=== PATIENT | female | born 1955 | race Caucasian/White ===

== ENCOUNTER 2016-07-15 15:25 | Inpatient (IN) ==
[2016-07-15] MEDS ORDERED: ASPIRIN 325 MG TABLET PO STA (16:27)
[2016-07-15] MEDS ORDERED: SODIUM CHLORIDE 0.9% 500 ML IV STA (16:27)
[2016-07-15] MEDS ORDERED: ONDANSETRON 4 MG/2 ML VIAL IV STA (16:27)
[2016-07-15] MEDS ORDERED: NITROGLYCERIN 2% OINT 1 INCH/GM PACK TOP STA (16:27)
[2016-07-15] MEDS ORDERED: ENOXAPARIN 100 MG/ML SYRINGE SUBCUT STA (16:27)
--- NOTE | 2016-07-15 16:31 | EKG Report ---
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
[2016-07-15] MEDS ORDERED: ONDANSETRON 4 MG/2 ML VIAL ONE (16:33)
[2016-07-15] MEDS ORDERED: NITROGLYCERIN 2% OINT 1 INCH/GM PACK TOP ONE (16:33)
[2016-07-15] MEDS ORDERED: ENOXAPARIN 80 MG/0.8 ML SYRINGE SUBCUT ONE (16:33)
[2016-07-15] MEDS ORDERED: ASPIRIN 325 MG TABLET ONE (16:34)
[2016-07-15 16:35] LABS: Basophils # 0.1 10*3/uL (0.0-0.2); Basophils % 0.5 % (0.0-0.8); Eosinophils # 0.1 10*3/uL (0.0-0.87); Eosinophils % 0.7 % (0.00-10.9); Hematocrit 47.2 VOL% (35.7-47.0); Hemoglobin 15.4 GM/DL (12.0-16.0); Immature Granulocytes % 0.8 %; Immature Granulocytes Absolute 0.08 #; Lymphocytes # 5.4 10*3/uL (1.4-4.0); Lymphocytes % 51.5 % (21.3-54.2); Mean Corpuscular HGB Conc 32.6 GM/DL (32-36); Mean Corpuscular Hemoglobin 27 PG (27-34); Mean Corpuscular Volume 83.2 FL (87-102); Monocytes # 0.7 10*3/uL (0.11-0.8); Monocytes % 6.3 % (1.7-12.7); Neutrophils # 4.2 10*3/uL (1.4-7.4); Neutrophils % 40.2 % (38.7-73.9); Platelet Count 269 T/CUMM (130-400); Red Blood Count 5.67 MC/CUMM (3.8-5.5); Red Cell Distribution Width 14.1 % (9.3-17.3); White Blood Count 10.4 T/CUMM (4-12)
[2016-07-15 16:39] LABS: Apearance,Urine Slightly Hazy (Clear); Bilirubin,Urine Negative (Negative); Blood, Urine Negative (Negative); Glucose,Urine (UA) >=500 mg/dL (Negative); Hyaline Casts,Urine 1 /LPF (0-3); Ketones,Urine Negative (Negative); Mucus,Urine Occasional /LPF (Occasional); Nitrite,Urine Negative (Negative); PT Patient Result 10.7 SECS; Protein,Urine >=500 MG/DL; RBC,Urine 6 /HPF (0-4); Squamous Epithelial Cell,Urine Occasional /HPF (0-10); Urine Color Amber (Yellow); Urine Urobilinogen < 2.0 EU/DL (0.2-1.0); WBC,Urine 5 /HPF (0-6)
[2016-07-15 16:44] LABS: Barbiturates Screen,Urine Negative (Negative); Benzodiazepines Screen,Urine Positive (Negative); Cannabinoid Screen,Urine Negative (Negative); Opiate Screen,Urine Positive (Negative); Phencyclidine Screen,Urine Negative (Negative)
[2016-07-15 16:48] LABS: Alanine Aminotransferase 13 U/L (13-56); Albumin 2.9 G/DL (3.4-5.0); Alkaline Phosphatase 131 U/L (45-117); Aspartate Amino Transferase 17 U/L (0-37); Bilirubin,Total < 0.39 MG/DL (0.2-1.0); Blood Urea Nitrogen 12 MG/DL (7-18); Calcium 8.8 MG/DL (8.5-10.1); Glucose 199 MG/DL (74-106); Potassium 4.2 MMOL/L (3.5-5.1); Sodium 136 MMOL/L (136-145); Total Protein 6.9 G/DL (6.4-8.3)
--- NOTE | 2016-07-15 16:49 | XRay Report ---
Portable chest Date: 07/15/2016 Clinical history: Chest pain Comparison: 12/26/2007 Technique: Portable AP sitting chest Findings: The heart is normal in size. Chronic scarring in the lungs with stable mediastinum and osseous structures. Impression: No acute cardiopulmonary pathology identified. PROCEDURE INTERPRETED AT [facility] DEPARTMENT OF RADIOLOGY Final Report Signed by: Dr. Ute Westbrook
[2016-07-15 16:55] LABS: Magnesium 1.8 MG/DL (1.8-2.4)
[2016-07-15] MEDS ORDERED: KETOROLAC 30 MG/1 ML VIAL ONE (17:50)
[2016-07-15] MEDS ORDERED: KETOROLAC 30 MG/1 ML VIAL IV STA (18:03)
--- NOTE | 2016-07-15 18:21 | Emergency Department Note ---
Panfilo Moreno Gwan, am scribing for, and in the presence of, Sanket Ansari MD 16:27. Elan Moreno Robert M, MD, personally performed the services described in this documentation, ascribed by Carlitos Whittaker in my presence, and it is both accurate and complete 751 . Arrival - Arrival Chief Complaint: Chest Pain Stated Complaint: pain in legs,chest tightness,heaviness,dehydrated ED Nursing Triage Note: Pt c/o Fl[place] leg pain, chest heaviness, Nausea, SOB, and ? dehydration x 2 wks. Had blood work done today at clinic told she was dehydrated. Mode of Arrival: Ambulatory Limitations: No Limitations Source: Patient, Significant other, Old Records Reviewed, RN Notes Reviewed - History of Present Illness HPI Narrative: Pt is a 60 y/o female, with a hx of HTN and heart cath, who presents to the ED with a c/o chest pain and pain in bilateral lower extremities with an onset 2 weeks ago. Her associated sxs have been N/D. She describes her chest pain as the feeling that she has bricks sitting on her chest. Patient stated that she was present at PCP office yesterday due to bilateral LE pain. She continued to note that she received a call from PCP office today stating that her lab work was abnormal and that she needed to report to ED for further evaluation. Pt's stated that pt took a Phenergan with little relief. Patient is followed by Dr. Dipesh Ibrahim, Dr. Murillo and her PCP is MAGDALENA Bowie. No other problems/complaints reported in ED. Pt has a SHx of smoking cigarettes. She has a PMHx of IDDM. Onset (ago): week(s) Consistency: constant Severity: moderate Allergies/Adverse Reactions: Allergies Allergy/AdvReac Type Severity Reaction Status Date / Time codeine Allergy Agitated Verified 01/22/15 12:01 latex Allergy BLISTER Verified 01/22/15 12:01 morphine Allergy Agitated Verified 01/22/15 12:01 prednisone Allergy SHORTNESS Verified 01/22/15 12:01 OF BREATH Home Medications: Home Medications Medication Instructions Recorded Confirmed Type Escitalopram [Lexapro] 10 mg PO DAILY 07/15/16 07/15/16 History Gabapentin 300 mg PO TID 07/15/16 07/15/16 History HYDROcodone/ACETAMIN 10-325 [[place] 1 tablet PO QID 07/15/16 07/15/16 History 10-325] Lisinopril 10 mg PO DAILY 07/15/16 07/15/16 History Nitroglycerin Sl Tab [Nitrostat] 0.4 mg SL Q5M PRN 07/15/16 07/15/16 History Omeprazole [Prilosec] 20 mg PO DAILY 07/15/16 07/15/16 History Promethazine Tab [Phenergan Tab] 25 mg PO Q4-6H PRN 07/15/16 07/15/16 History tiZANidine [Zanaflex] 4 mg PO BID 07/15/16 07/15/16 History Review of System - Review of System 12 point system: reviewed and no additional remarkable complaints except as stated - Review of System Constitutional: Absent: chills, fever Eyes: Absent: discharge, pain Head/Ears/Nose/Throat: Absent: earache, epistaxis Respiratory: Absent: cough, respiratory distress Cardiovascular: Present: as per HPI, chest pain Gastrointestinal: Present: as per HPI, nausea, diarrhea. Absent: abdominal pain Musculoskeletal: Present: as per HPI, leg pain (both legs hurt ). Absent: arm pain, back pain Skin: Absent: rash, lesions Neurological: Absent: headache, weakness Medical,Surgical,& Family Hx - Medical History Cardio: History of: CAD (Dr Murillo), Hypertension Endocrine: History of: Diabetes Mellitus (IDDM) - Surgical History Cardiac Surgeries: Sugical HX of: Cardiac Catheterization (stent) - Social History Smoking Status: Current every day smoker Exam Vital Signs: Vital Signs Temperature 98.0 F 07/15/16 15:34 Pulse Rate 71 07/15/16 19:13 Respiratory Rate 17 07/15/16 19:13 Blood Pressure 176/99 07/15/16 19:13 O2 Sat by Pulse Oximetry 96 07/15/16 15:34 - General General appearance: alert, in no apparent distress - Head Head exam: Present: atraumatic, normocephalic - Eye Eye exam: Present: normal appearance, PERRL, EOMI - ENT ENT exam: Present: normal oropharynx, mucous membranes moist, TM's normal bilaterally, normal external ear exam - Neck Neck exam: Present: full ROM, trachea midline. Absent: tenderness, meningismus - Chest Chest inspection: Present: symmetric chest wall rise. Absent: tenderness - Respiratory Respiratory exam: Present: normal lung sounds bilaterally. Absent: respiratory distress - Cardiovascular Cardiovascular exam: Present: regular rate, normal rhythm, normal heart sounds. Absent: murmur, rubs, gallop - Abdominal Exam Abdominal exam: Present: soft, normal bowel sounds. Absent: distention, tenderness, guarding - Extremities Exam Extremities exam: Present: full ROM. Absent: tenderness - Back Exam Back exam: Present: normal inspection, full ROM. Absent: tenderness - Neurological Exam Neurological exam: Present: alert, oriented X3, CN II-XII intact. Absent: motor sensory deficit - Psychiatric Psychiatric exam: Present: normal affect, normal mood - Skin Skin exam: Present: warm, dry, intact, normal color Course - Consultations Consultation #1: The hospitalist will evaluate and admit the patient. Time: 18:15 Results - Labs CBC & BMP: 07/15/16 16:02 07/15/16 16:02 Lab Results: I have reviewed the patients labs Labs: Lab Results WBC 10.4 T/CUMM (4-12) 07/15/16 16:02 RBC 5.67 MC/CUMM (3.8-5.5) H 07/15/16 16:02 Hgb 15.4 GM/DL (12.0-16.0) 07/15/16 16:02 Hct 47.2 VOL% (35.7-47.0) H 07/15/16 16:02 MCV 83.2 FL (87-102) L 07/15/16 16:02 MCH 27 PG (27-34) 07/15/16 16:02 MCHC 32.6 GM/DL (32-36) 07/15/16 16:02 RDW 14.1 % (9.3-17.3) 07/15/16 16:02 Plt Count 269 T/CUMM (130-400) 07/15/16 16:02 MPV 11.0 FL (9.6-12.0) 07/15/16 16:02 Neut % (Auto) 40.2 % (38.7-73.9) 07/15/16 16:02 Lymph % (Auto) 51.5 % (21.3-54.2) 07/15/16 16:02 [place] % (Auto) 6.3 % (1.7-12.7) 07/15/16 16:02 Eos % (Auto) 0.7 % (0.00-10.9) 07/15/16 16:02 Baso % (Auto) 0.5 % (0.0-0.8) 07/15/16 16:02 Neut # (Auto) 4.2 10*3/uL (1.4-7.4) 07/15/16 16:02 Lymph # (Auto) 5.4 10*3/uL (1.4-4.0) H 07/15/16 16:02 [place] # (Auto) 0.7 10*3/uL (0.11-0.8) 07/15/16 16:02 Eos # (Auto) 0.1 10*3/uL (0.0-0.87) 07/15/16 16:02 Baso # (Auto) 0.1 10*3/uL (0.0-0.2) 07/15/16 16:02 Immature Gran % 0.8 % 07/15/16 16:02 Nucleated RBC % 0.0 /100WBC 07/15/16 16:02 Immature Gran # 0.08 # 07/15/16 16:02 Nucleated RBCs # 0.00 10*3/uL 07/15/16 16:02 INR 1.0 07/15/16 16:02 PT Patient/Control Mix 10.7 SECS 07/15/16 16:02 Sodium 136 MMOL/L (136-145) 07/15/16 16:02 Potassium 4.2 MMOL/L (3.5-5.1) 07/15/16 16:02 Chloride 102 MMOL/L (98-107) 07/15/16 16:02 Carbon Dioxide 25 MMOL/L (21-32) 07/15/16 16:02 Anion Gap 13.2 MMOL/L (5.0-15.0) 07/15/16 16:02 BUN 12 MG/DL (7-18) 07/15/16 16:02 Creatinine 0.60 MG/DL (0.55-1.02) 07/15/16 16:02 GFR Calculation 110 ML/MIN 07/15/16 16:02 BUN/Creatinine Ratio 20.00 RATIO (6.00-20.00) 07/15/16 16:02 Glucose 199 MG/DL (74-106) H 07/15/16 16:02 Calculated Osmolality 277.0 MOS/KG (273-304) 07/15/16 16:02 Calcium 8.8 MG/DL (8.5-10.1) 07/15/16 16:02 Magnesium 1.8 MG/DL (1.8-2.4) 07/15/16 16:02 Total Bilirubin < 0.39 MG/DL (0.2-1.0) 07/15/16 16:02 AST 17 U/L (0-37) 07/15/16 16:02 ALT 13 U/L (13-56) 07/15/16 16:02 Alkaline Phosphatase 131 U/L (45-117) H 07/15/16 16:02 Troponin I < 0.015 NG/ML (0.00-0.045) 07/15/16 16:02 B-Natriuretic Peptide 161 PG/ML (2-100) H 07/15/16 16:02 Total Protein 6.9 G/DL (6.4-8.3) 07/15/16 16:02 Albumin 2.9 G/DL (3.4-5.0) L 07/15/16 16:02 Globulin 4.0 G/DL (2.3-3.5) H 07/15/16 16:02 Albumin/Globulin Ratio 0.7 RATIO (1.1-2.2) L 07/15/16 16:02 Lipase 69.0 U/L (73-393) L 07/15/16 16:02 Urine Color [place] (Yellow) 07/15/16 16:02 Urine Appearance Slightly hazy (Clear) 07/15/16 16:02 Urine pH 5.0 (4.5-8.0) 07/15/16 16:02 Ur Specific [place] 1.040 (1.001-1.035) H 07/15/16 16:02 Urine Protein >=500 MG/DL 07/15/16 16:02 Urine Glucose (UA) >=500 mg/dL (Negative) 07/15/16 16:02 Urine Ketones Negative mg/dL (Negative) 07/15/16 16:02 Urine Blood Negative mg/dL (Negative) 07/15/16 16:02 Urine Nitrate Negative (Negative) 07/15/16 16:02 Urine Bilirubin Negative mg/dL (Negative) 07/15/16 16:02 Urine Urobilinogen < 2.0 EU/DL (0.2-1.0) H 07/15/16 16:02 Urine Leukocytes Negative Stefania/ul (Negative) 07/15/16 16:02 Urine RBC 6 /HPF (0-4) 07/15/16 16:02 Urine WBC 5 /HPF (0-6) 07/15/16 16:02 Ur Squamous Epith Cells Occasional /HPF (0-10) 07/15/16 16:02 Hyaline Casts 1 /LPF (0-3) 07/15/16 16:02 Urine Mucus Occasional /LPF (Occasional) 07/15/16 16:02 Ur Culture Indicated? Not indicated 07/15/16 16:02 Urine Opiates Screen Positive (Negative) H 07/15/16 16:02 Ur Barbiturates Screen Negative (Negative) 07/15/16 16:02 Ur Phencyclidine Scrn Negative (Negative) 07/15/16 16:02 U Amphetamine/Methamph Negative (Negative) 07/15/16 16:02 U Benzodiazepines Scrn Positive (Negative) H 07/15/16 16:02 U Cocaine Metab Screen Negative (Negative) 07/15/16 16:02 U Cannabinoids Screen Negative (Negative) 07/15/16 16:02 - EKG EKG results: interpreted by GAIL, WNL, sinus rhythm, normal axis, normal QRS - Diagnostic Findings Procedure: Chest x-ray: report reviewed by me Disposition Clinical Impression: Atypical chest pain, Bilateral leg pain, Peripheral neuropathy, IDDM (insulin dependent diabetes mellitus) Case discussed with: patient, patient's family Disposition: Still a Patient Condition: Stable Time of Disposition: 17:53
[2016-07-15] MEDS ORDERED: HYDROmorphone 2 MG/1 ML VIAL IV STA (19:25)
[2016-07-15] MEDS ORDERED: HYDROmorphone 2 MG/1 ML VIAL ONE (19:27)
--- NOTE | 2016-07-15 19:28 | Hospitalist History & Physical ---
Assessment and Plan - Time spent with patient Time spent with patient: Greater than 30 minutes (1) Chest pain Status: Acute Assessment and plan: Serial troponins. Consult Cards. Current Visit: Yes (2) Bilateral leg pain Status: Acute Assessment and plan: Will start ropinirole. Will order an arterial duplex lower extremity in addition to evaluating for DVT. Current Visit: Yes (3) IDDM (insulin dependent diabetes mellitus) Status: Acute Assessment and plan: SSI and accuchecks Current Visit: Yes (4) Peripheral neuropathy Status: Acute Assessment and plan: Reconcile home meds. Current Visit: Yes History of Present Illness Chief complaint: chest pain x 2 days History of present illness: Ms. See is a 60 year old female with medical history of diabetes mellitus, HTN presents with complaints of chest pain for two days. She states the pain is left-sided, no radiation, 8 out of 10 at its worse, 5 out of 10 currently, pressure-like, as if something were sitting on her chest, associated with nausea vomiting and shortness of breath. Relieved by nitro and aggravated by exertion. While in the ED the patient received nitroglycerin with relief of chest pain and development of a headache. Patient saw her PCP with complaints of lower extremity pain with day of admission, had some blood drawn and when she returned home was told her blood was abnormal and to return to the ER. She currently complains of back pain, leg pain, chest pain, and no longer has nausea , vomiting or shortness of breath. Denies any fevers, chills. While in the ER the patient received a nitro tab, had relief of chest pain, however has developed a HAMILTON. Home Medications Medication Instructions Recorded Confirmed Type Escitalopram [Lexapro] 10 mg PO DAILY 07/15/16 07/15/16 History Gabapentin 300 mg PO TID 07/15/16 07/15/16 History HYDROcodone/ACETAMIN 10-325 [[place] 1 tablet PO QID 07/15/16 07/15/16 History 10-325] Lisinopril 10 mg PO DAILY 07/15/16 07/15/16 History Nitroglycerin Sl Tab [Nitrostat] 0.4 mg SL Q5M PRN 07/15/16 07/15/16 History Omeprazole [Prilosec] 20 mg PO DAILY 07/15/16 07/15/16 History Promethazine Tab [Phenergan Tab] 25 mg PO Q4-6H PRN 07/15/16 07/15/16 History tiZANidine [Zanaflex] 4 mg PO BID 07/15/16 07/15/16 History Allergies Allergy/AdvReac Type Severity Reaction Status Date / Time codeine Allergy Agitated Verified 01/22/15 12:01 latex Allergy BLISTER Verified 01/22/15 12:01 morphine Allergy Agitated Verified 01/22/15 12:01 prednisone Allergy SHORTNESS Verified 01/22/15 12:01 OF BREATH Medical,Surgical,& Family Hx - Medical History Cardio: History of: CAD (Dr Murillo), Hypertension Endocrine: History of: Diabetes Mellitus (IDDM) - Surgical History Cardiac Surgeries: Sugical HX of: Cardiac Catheterization (stent) - Social History Smoking Status: Current every day smoker - Constitutional Constitutional: Present: headache(s). Absent: anorexia, chills, daytime sleepiness, excessive sweating, fatigue, fever(s), frequent falls, increased appetite, lethargy, malaise, night sweats, stops breathing during sleep, weakness, weight gain, weight loss - EENT Ears: Absent: ear discharge, tinnitus Nose, mouth and throat: Absent: dysphagia, epistaxis, lip swelling, nasal congestion - Cardiovascular Cardiovascular: Present: chest pain at rest, chest pain with activity, dyspnea, dyspnea on exertion. Absent: claudication, edema, orthopnea, palpitations - Respiratory Respiratory: Present: dyspnea, dyspnea on exertion. Absent: cough, hemoptysis, wheezing, snoring, pain on inspiration - Gastrointestinal Gastrointestinal: Absent: abdominal pain, bloating, change in bowel habits, coffee ground emesis, constipation, cramping, diarrhea, dyspepsia, dysphagia, early satiety, hematemesis, hematochezia, melena, nausea, odynophagia - Genitourinary Genitourinary: Absent: difficulty urinating, flank pain, hematuria, menorrhagia , urinary frequency, urinary hesitancy, urinary incontinence - Musculoskeletal Musculoskeletal: Present: back pain. Absent: joint swelling, limited range of motion, muscle cramps, muscle weakness - Neurological Neurological: Absent: abnormal gait, abnormal speech, behavioral changes, disequilibrium, dizziness, focal weakness, frequent falls, numbness - Psychiatric Psychiatric: Absent: anxiety, confusion, depression, difficulty concentrating, homicidal ideation, memory loss, suicidal ideation, visual hallucinations - Endocrine Endocrine: Absent: cold intolerance, fatigue, heat intolerance, polydipsia, polyphagia Exam - Constitutional Vitals: Period Temp Pulse Resp BP Sys/[place]umm[place] Pulse Ox Last 24 Hr 98.0 F 70-101 17-22 167-202/93-106 96 General appearance: no acute distress - Head Head exam: Present: normal inspection, normocephalic, atraumatic - Eye Eye exam: Present: EOMI. Absent: conjunctival injection, nystagmus Pupils: Present: SARAH, normal accommodation. Absent: constricted, dilated, fixed, irregular, unequal - ENT ENT exam: Present: normal exam. Absent: normal external ear exam, normal oropharynx - Neck Neck exam: Present: normal inspection. Absent: lymphadenopathy, meningismus, tenderness, thyromegaly - Respiratory Respiratory exam: Present: clear to auscultation bilaterally. Absent: rhonchi, wheezes - Cardiovascular Cardiovascular exam: Present: regular rate and rhythm. Absent: bradycardia, carotid bruit, gallop, irregular rhythm, rubs, systolic murmur - GI/Abdominal GI/Abdominal exam: Present: normal bowel sounds, soft. Absent: ascites, distended, firm, guarding, hypoactive bowel sounds, hernia, tenderness, rebound - Extremities Exam Extremities exam: Present: normal inspection. Absent: normal capillary refill, calf tenderness, edema Results - Labs CBC & BMP: 07/15/16 16:02 07/15/16 16:02 Lab Results: I have reviewed the past 24 hour labs
[2016-07-15] MEDS ORDERED: GLUCAGON 1 MG VIAL IM PRN (19:35)
[2016-07-15] MEDS ORDERED: DEXTROSE 50% 25 GM/50 ML VIAL IV PRN (19:35)
[2016-07-15] MEDS ORDERED: MORPHINE 2 MG/1 ML SYRINGE IV PRN (19:56)
[2016-07-15 20:00] LABS: Risk Ratio 22.69; VLDL CHOLESTEROL 89.6 MG/DL
--- NOTE | 2016-07-15 20:32 | Ultrasound Report ---
Exam: Bilateral lower extremity venous Doppler ultrasound Comparison: None Clinical history: Bilateral leg pain Technique: Duplex scan of the lower extremity veins using B-mode/grayscale scaled imaging and Doppler spectral analysis and color flow. Findings: Major venous structures of the lower extremities demonstrate a normal course and caliber. Normal color-flow study and spectral analysis. There is normal compression and augmentation of bilateral common femoral, superficial femoral and popliteal veins. The proximal bilateral greater saphenous veins appear to be patent. Impression: No evidence to suggest deep venous thrombosis within either lower extremity. Ultrasound images were captured and stored. PROCEDURE INTERPRETED AT [facility] DEPARTMENT OF RADIOLOGY Final Report Signed by: Dr. Ute Westbrook
--- NOTE | 2016-07-15 20:32 | Ultrasound Report ---
Exam: Carotid ultrasound Date: 07/15/2016 Comparison: None Technique: Duplex scans of the carotid and vertebral arteries using B-mode/Nice scale imaging and Doppler spectral analysis and color flow. Reason: Chest pain Findings: The right ICA measures 6.3 mm in diameter and the left ICA measures 5.8 mm in diameter. Color-flow documented in the visualized arteries. The peak systolic velocities are as follows: Right CCA: 61.6 cm/s Right ICA: 90.5 cm/s Right ECA: 172.1 cm/s Left CCA: 136.6 cm/s Left ICA: 92.6 cm/s Left ECA: 113.6 cm/s The peak systolic ICA/CCA velocity ratios are as follows: 1.5 on the right and 0.7 on the left. Antegrade flow is present in both vertebral arteries. Impression:[Less than 50% stenosis in both internal carotid arteries with heterogeneous plaque formation. Antegrade flow in both vertebral arteries.] The Society of Radiologists in Ultrasound consensus conference criteria was used. The Ultrasound images were captured and stored. PROCEDURE INTERPRETED AT [facility] DEPARTMENT OF RADIOLOGY Final Report Signed by: Dr. Ute Westbrook
[2016-07-15] MEDS ORDERED: NITROGLYCERIN SL 0.4 MG TABLET SL PRN (20:48)
[2016-07-15] MEDS: GABAPENTIN 300 MG CAPSULE PO SCH (21:46)
[2016-07-15] MEDS: tiZANidine 4 MG TABLET PO SCH (21:47)
[2016-07-15] MEDS: INSULIN LISPRO 100 UNIT/ML SUBCUT SCH (22:35)
[2016-07-16] MEDS: PROMETHAZINE 25 MG TABLET PO PRN ×3 (00:52→21:48)
[2016-07-16] MEDS: rOPINIRole 0.25 MG TABLET PO SCH ×2 (03:10→21:04)
[2016-07-16 04:48] LABS: Basophils # 0.1 10*3/uL (0.0-0.2); Basophils % 0.6 % (0.0-0.8); Eosinophils # 0.1 10*3/uL (0.0-0.87); Eosinophils % 1.2 % (0.00-10.9); Hematocrit 39.5 VOL% (35.7-47.0); Hemoglobin 12.9 GM/DL (12.0-16.0); Immature Granulocytes % 0.5 %; Immature Granulocytes Absolute 0.04 #; Lymphocytes # 4.8 10*3/uL (1.4-4.0); Mean Corpuscular HGB Conc 32.7 GM/DL (32-36); Mean Corpuscular Hemoglobin 27 PG (27-34); Mean Platelet Volume 11.4 FL (9.6-12.0); Monocytes # 0.7 10*3/uL (0.11-0.8); Monocytes % 8.8 % (1.7-12.7); Neutrophils # 2.2 10*3/uL (1.4-7.4); Neutrophils % 27.9 % (38.7-73.9); Platelet Count 220 T/CUMM (130-400); Red Blood Count 4.76 MC/CUMM (3.8-5.5); Red Cell Distribution Width 14.4 % (9.3-17.3); White Blood Count 7.8 T/CUMM (4-12)
[2016-07-16 05:17] LABS: Band Neutrophils 1 % (0-10); Eosinophils 2 % (0-10); Hypochromasia 1+; Lymphocytes 56 % (20-55); Segmented Neutrophils 35 % (50-85); Total Cells Counted 100
[2016-07-16 05:18] LABS: Atypical Lymphocytes Few; Platelet Estimate Adequate
[2016-07-16 05:19] LABS: Albumin 2.4 G/DL (3.4-5.0); Bilirubin,Total 0.6 MG/DL (0.2-1.0); Calcium 7.9 MG/DL (8.5-10.1); Magnesium 1.9 MG/DL (1.8-2.4); Osmolality,Calculated 289.5 MOS/KG (273-304); Phosphorous 5.2 MG/DL (2.5-4.9); Potassium 3.9 MMOL/L (3.5-5.1); Total Protein 5.6 G/DL (6.4-8.3)
[2016-07-16] MEDS: INSULIN LISPRO 100 UNIT/ML SUBCUT SCH ×4 (08:33→20:48)
--- NOTE | 2016-07-16 09:51 | EKG Report ---
Stationary ECG Study 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
--- NOTE | 2016-07-16 10:05 | Cardiology Consult Note ---
<Noemy Calix - Last Filed: 07/16/16 10:21> Assessment and Plan (1) Chest pain Status: Acute Assessment and plan: Patient's symptoms are typical for cardiac. Troponin has been negative 4. However, EKG does reveal ST changes inferolaterally. Patient's last heart catheterization was done in 2013. At that time, she had a lesion to RCA that measured 50-70%. This was treated medically. Circumflex stent was noted to be widely patent. At this time, patient will need heart catheterization this afternoon to rule out progression of her underlying coronary artery disease. Risk and benefits of procedure were reviewed with patient per Dr. Zeng. She verbalizes understanding of this and agrees to proceed. We will keep patient n.p.o. and plan for left heart catheterization this afternoon per Dr. Batista. Current Visit: Yes (2) Hypertension Status: Chronic Assessment and plan: This is suboptimally controlled. I have added beta-christopher. Will further adjust medications as needed. Current Visit: Yes (3) Hyperlipidemia Status: Chronic Assessment and plan: The panel reveals LDL of 288. Patient does not take statin at home. I have added Crestor at this time. Current Visit: Yes (4) IDDM (insulin dependent diabetes mellitus) Status: Chronic Assessment and plan: Defer management to hospital medicine. Current Visit: Yes (5) Peripheral neuropathy Status: Chronic Current Visit: Yes History of Present Illness - Data of Consult Patient: known to practice within the last 3 years Consult date: 07/16/16 Requesting Physician: Missael Cohen Primary care physician: Cathy Bowie - Consult Narrative Reason for consult: Chest pain History of present illness: Telemetry Tech: Dr. Murillo PCP: MAGDALENA Arreola Cardiology consult note: Chest pain Ms. See is a 60 year old female with known history of coronary artery disease , routinely followed by Dr. Murillo. Patient presented to the ER yesterday with complaints of chest discomfort. She has cardiac risk factors significant for hypertension, diabetes, known history of coronary artery disease, sedentary lifestyle, current everyday smoker (reports that she smokes 1 pack per day since approximately age 16). She has a past medical history diabetic neuropathy , restless leg syndrome and chronic pain syndrome. Patient's last heart catheterization was in 2013. At that time, she had a lesion to her proximal RCA that measured 50-70% and a second lesion to RCA that measured 30-50%. Her proximal circumflex stent was noted to be widely patent. RCA lesions were treated medically at that time. Patient was last seen by Gómez Bedolla NP November 2014. She is in her usual state of health until approximately 2 days ago when she began having left sided chest heaviness that radiates to her jaw and neck. She reports that this initiated while resting. However, it was made worse with activity and walking. Resting makes this better. She describes this pain as a heaviness. "It feels like something is sitting on my chest." She rates this an 8 out of 10. This is associated with shortness of breath, nausea and diaphoresis. She denies fever, chills, cough, heart racing and palpitations, lightheadedness, vomiting, abdominal pain, melena, orthopnea and PND. Yesterday , her chest pain worsened. She felt that it was best to come in for further evaluation. Patient was given nitro paste in the ER. She tells me that this made her chest heaviness better. However, it did not completely resolved. Chest x-ray did not reveal any acute cardiopulmonary processes. Patient has been admitted under hospitalist's service and housed on the telemetry floor. Cardiology has been consulted to further evaluate patient's chest pain. Of note, patient confirms easy fatigability and dyspnea on exertion. She also confirms mild ankle swelling. However, on exam this is minimal. Patient was seen and examined on telemetry. She states that her chest discomfort has gotten better. However she continues to have mild chest heaviness. She rates this a 2. Troponin has been negative [address] changes inferiolaterally. On exam, patient's chest is tender to palpation. However, she does not this is not the same pain she was experiencing. Will keep patient n.p.o. today and plan for left heart catheterization this afternoon per Dr. Batista. Risk and benefits of procedure were reviewed with patient per Dr. Zeng. Patient verbalizes understanding and has agreed to proceed with procedure. CC: Missael Cohen MD - Home Medications and Allergies Home Medications: Home Medications Medication Instructions Recorded Confirmed Type Escitalopram [Lexapro] 10 mg PO DAILY 07/15/16 07/15/16 History Gabapentin 300 mg PO TID 07/15/16 07/15/16 History HYDROcodone/ACETAMIN 10-325 [Somers 1 tablet PO QID 07/15/16 07/15/16 History 10-325] Lisinopril 10 mg PO DAILY 07/15/16 07/15/16 History Nitroglycerin Sl Tab [Nitrostat] 0.4 mg SL Q5M PRN 07/15/16 07/15/16 History Omeprazole [Prilosec] 20 mg PO DAILY 07/15/16 07/15/16 History Promethazine Tab [Phenergan Tab] 25 mg PO Q4-6H PRN 07/15/16 07/15/16 History tiZANidine [Zanaflex] 4 mg PO BID 07/15/16 07/15/16 History Allergies/Adverse Reactions: Allergies Allergy/AdvReac Type Severity Reaction Status Date / Time codeine Allergy Agitated Verified 01/22/15 12:01 latex Allergy BLISTER Verified 01/22/15 12:01 morphine Allergy Agitated Verified 01/22/15 12:01 prednisone Allergy SHORTNESS Verified 01/22/15 12:01 OF BREATH - Constitutional Constitutional: Absent: chills, fatigue, fever(s), headache(s), weakness, weight gain, weight loss - Cardiovascular Cardiovascular: Present: as per HPI, chest pain at rest, chest pain with activity, diaphoresis, dyspnea, dyspnea on exertion, edema, radiating jaw, neck or arm pain. Absent: claudication, lightheadedness, orthopnea, palpitations, PND - Respiratory Respiratory: Present: as per HPI, dyspnea, dyspnea on exertion. Absent: cough, hemoptysis, wheezing, snoring, pain on inspiration, change in phlegm color - Gastrointestinal Gastrointestinal: Present: as per HPI, nausea. Absent: abdominal pain, change in bowel habits, coffee ground emesis, constipation, cramping, diarrhea, heartburn, hematochezia, loose stools, melena, vomiting - Neurological Neurological: Absent: abnormal gait, abnormal speech, behavioral changes, dizziness, frequent falls, headache(s), syncope - Hematologic/Lymphatic Hematologic/Lymphatic: Absent: easy bleeding, easy bruising Medical,Surgical,& Family Hx - Medical History Cardio: History of: CAD, Hypertension Endocrine: History of: Diabetes Mellitus (IDDM), Dyslipidemia No history of: Adrenal Disease Musculoskeletal: No history of: Amputation - Surgical History Cardiac Surgeries: Sugical HX of: Cardiac Catheterization (stent) Thoracic Surgeries: Patient denies;: Organ Transplant, Lobectomy Neurologic Surgeries: Patient denies: Neurologic Surgery Abdominal Surgeries: Patient denies: Abdominal Surgery Reproductive Surgeries: Patient denies;: Genitourinary Surgery, Gynecologic Surgery - Social History Smoking Status: Current every day smoker Frequency of Alcohol Use: None Type of Drug Use: None Physical Examination Vital Signs Temp Pulse Resp BP Pulse Ox 98.0 F 101 H 20 202/106 96 07/15/16 15:34 07/15/16 15:34 07/15/16 15:34 07/15/16 15:34 07/15/16 15:34 General: Present: Appears Well, No Apparent Distress HEENT: Present: Normocephaly Neck: Present: Supple Neck, Midline Trachea, No JVD/HJR, No Bruit Cardiac: Present: Reg Rate and Rhythm, Regular Rate, Regular Rhythm, S1/S2, No Murmur Lungs: Present: Normal Exam, Clear Ascult./Percussion, Normal Breath Sounds Abdomen: Present: Soft, Active Bowel Sounds, No Masses, Non-Tender Skin: Present: Clear. Absent: Rash, Suspicious Lesions Gait: Present: Normal Gait Extremities: Present: Normal Gait, No Clubbing, No Cyanosis, No Edema, Normal Upper Extr. Pulses, Normal Lower Extr. Pulses Result/EKG - Labs CBC & BMP: 07/16/16 04:15 07/16/16 04:15 Lab Results: I have reviewed the past 24 hour labs Labs: Laboratory Results - last 24 hr 07/15/16 07/15/16 07/16/16 20:58 22:20 04:15 WBC 7.8 RBC 4.76 Hgb 12.9 D Hct 39.5 MCV 83.0 L MCH 27 MCHC 32.7 RDW 14.4 Plt Count 220 MPV 11.4 Neut % (Auto) 27.9 L Lymph % (Auto) 61.0 H Elliott % (Auto) 8.8 Eos % (Auto) 1.2 Baso % (Auto) 0.6 Neut # (Auto) 2.2 Lymph # (Auto) 4.8 H Elliott # (Auto) 0.7 Eos # (Auto) 0.1 Baso # (Auto) 0.1 Total Counted 100 Immature Gran % 0.5 Nucleated RBC % 0.0 Immature Gran # 0.04 Segmented Neutrophils 35 L Band Neutrophils 1 Lymphocytes 56 H Monocytes 6 Eosinophils 2 Nucleated RBCs # 0.00 Atypical Lymphocytes Few Platelet Estimate Adequate Hypochromasia 1+ Sodium Potassium Chloride Carbon Dioxide Anion Gap BUN Creatinine GFR Calculation BUN/Creatinine Ratio Glucose POC Glucose 128 H Calculated Osmolality Calcium Phosphorus Magnesium Total Bilirubin AST ALT Alkaline Phosphatase Troponin I < 0.015 Total Protein Albumin Globulin Albumin/Globulin Ratio 07/16/16 07/16/16 07/16/16 04:15 04:15 07:11 WBC RBC Hgb Hct MCV MCH MCHC RDW Plt Count MPV Neut % (Auto) Lymph % (Auto) Elliott % (Auto) Eos % (Auto) Baso % (Auto) Neut # (Auto) Lymph # (Auto) Elliott # (Auto) Eos # (Auto) Baso # (Auto) Total Counted Immature Gran % Nucleated RBC % Immature Gran # Segmented Neutrophils Band Neutrophils Lymphocytes Monocytes Eosinophils Nucleated RBCs # Atypical Lymphocytes Platelet Estimate Hypochromasia Sodium 139 Potassium 3.9 Chloride 104 Carbon Dioxide 27 Anion Gap 11.9 BUN 14 Creatinine 0.80 GFR Calculation 90 BUN/Creatinine Ratio 17.00 Glucose 323 H POC Glucose Calculated Osmolality 289.5 Calcium 7.9 L Phosphorus 5.2 H Magnesium 1.9 Total Bilirubin 0.60 AST 11 ALT 10 L Alkaline Phosphatase 105 Troponin I < 0.015 < 0.015 Total Protein 5.6 L Albumin 2.4 L Globulin 3.2 Albumin/Globulin Ratio 0.7 L 07/16/16 07:47 WBC RBC Hgb Hct MCV MCH MCHC RDW Plt Count MPV Neut % (Auto) Lymph % (Auto) Elliott % (Auto) Eos % (Auto) Baso % (Auto) Neut # (Auto) Lymph # (Auto) Elliott # (Auto) Eos # (Auto) Baso # (Auto) Total Counted Immature Gran % Nucleated RBC % Immature Gran # Segmented Neutrophils Band Neutrophils Lymphocytes Monocytes Eosinophils Nucleated RBCs # Atypical Lymphocytes Platelet Estimate Hypochromasia Sodium Potassium Chloride Carbon Dioxide Anion Gap BUN Creatinine GFR Calculation BUN/Creatinine Ratio Glucose POC Glucose 201 H Calculated Osmolality Calcium Phosphorus Magnesium Total Bilirubin AST ALT Alkaline Phosphatase Troponin I Total Protein Albumin Globulin Albumin/Globulin Ratio Quality Measures - Stroke Symptom Onset Unknown: No <Dipesh Zeng - Last Filed: 07/16/16 11:08> History of Present Illness - Consult Narrative History of present illness: Patient is personally interviewed and examined by me and chart reviewed. I discussed the case with Noemy Calix in P and agree with her history as well as examination and assessment. Ms. See is a 60 year old female with known coronary disease and prior coronary stenting. The patient has chest pain possibly anginal in nature but surly has other atypical symptoms are noncardiac. Her cardiac enzymes are normal with nondetected troponins. Her ECG did not reveal acute changes. Because of her multiple risk factor coronary disease in her known coronary disease I think that she should have she should have cart catheterization carried out for determination of the coronary status. I discussed this procedure with the patient reviewing the indications as well as how the procedure to be carried out and his risk. I discussed cardiac catheterization and percutaneous coronary intervention with the patient and available family. I reviewed with them the indications for the procedure and the basis of how the procedure would be carried out. I also reviewed with them the risk of the procedure which include but not necessarily limited to access site bleeding, bruising, pain, swelling or vascular injury that may require emergency vascular surgery, blood transfusion, or thrombin injection. Also discussed the possibility of stroke, myocardial infarction, arrhythmia which may require electrocardioversion, and the possibility of dye reaction that would require medical therapy. Also discussed the possibility of coronary artery injury, ruptured, closure or perforation that may require emergency bypass surgery. We also discussed the possibility of from a major complication. They voice understanding and agree to proceed. We will discuss this case with Dr. Ch. CC: Missael Cohen MD Physical Examination Vital Signs Temp Pulse Resp BP Pulse Ox 98.0 F 101 H 20 202/106 96 07/15/16 15:34 07/15/16 15:34 07/15/16 15:34 07/15/16 15:34 07/15/16 15:34 Result/EKG - Labs CBC & BMP: 07/16/16 04:15 07/16/16 04:15 Labs: Laboratory Results - last 24 hr 07/15/16 07/15/16 07/16/16 20:58 22:20 04:15 WBC 7.8 RBC 4.76 Hgb 12.9 D Hct 39.5 MCV 83.0 L MCH 27 MCHC 32.7 RDW 14.4 Plt Count 220 MPV 11.4 Neut % (Auto) 27.9 L Lymph % (Auto) 61.0 H Elliott % (Auto) 8.8 Eos % (Auto) 1.2 Baso % (Auto) 0.6 Neut # (Auto) 2.2 Lymph # (Auto) 4.8 H Elliott # (Auto) 0.7 Eos # (Auto) 0.1 Baso # (Auto) 0.1 Total Counted 100 Immature Gran % 0.5 Nucleated RBC % 0.0 Immature Gran # 0.04 Segmented Neutrophils 35 L Band Neutrophils 1 Lymphocytes 56 H Monocytes 6 Eosinophils 2 Nucleated RBCs # 0.00 Atypical Lymphocytes Few Platelet Estimate Adequate Hypochromasia 1+ Sodium Potassium Chloride Carbon Dioxide Anion Gap BUN Creatinine GFR Calculation BUN/Creatinine Ratio Glucose POC Glucose 128 H Calculated Osmolality Calcium Phosphorus Magnesium Total Bilirubin AST ALT Alkaline Phosphatase Troponin I < 0.015 Total Protein Albumin Globulin Albumin/Globulin Ratio 07/16/16 07/16/16 07/16/16 04:15 04:15 07:11 WBC RBC Hgb Hct MCV MCH MCHC RDW Plt Count MPV Neut % (Auto) Lymph % (Auto) Elliott % (Auto) Eos % (Auto) Baso % (Auto) Neut # (Auto) Lymph # (Auto) Elliott # (Auto) Eos # (Auto) Baso # (Auto) Total Counted Immature Gran % Nucleated RBC % Immature Gran # Segmented Neutrophils Band Neutrophils Lymphocytes Monocytes Eosinophils Nucleated RBCs # Atypical Lymphocytes Platelet Estimate Hypochromasia Sodium 139 Potassium 3.9 Chloride 104 Carbon Dioxide 27 Anion Gap 11.9 BUN 14 Creatinine 0.80 GFR Calculation 90 BUN/Creatinine Ratio 17.00 Glucose 323 H POC Glucose Calculated Osmolality 289.5 Calcium 7.9 L Phosphorus 5.2 H Magnesium 1.9 Total Bilirubin 0.60 AST 11 ALT 10 L Alkaline Phosphatase 105 Troponin I < 0.015 < 0.015 Total Protein 5.6 L Albumin 2.4 L Globulin 3.2 Albumin/Globulin Ratio 0.7 L 07/16/16 07:47 WBC RBC Hgb Hct MCV MCH MCHC RDW Plt Count MPV Neut % (Auto) Lymph % (Auto) Elliott % (Auto) Eos % (Auto) Baso % (Auto) Neut # (Auto) Lymph # (Auto) Elliott # (Auto) Eos # (Auto) Baso # (Auto) Total Counted Immature Gran % Nucleated RBC % Immature Gran # Segmented Neutrophils Band Neutrophils Lymphocytes Monocytes Eosinophils Nucleated RBCs # Atypical Lymphocytes Platelet Estimate Hypochromasia Sodium Potassium Chloride Carbon Dioxide Anion Gap BUN Creatinine GFR Calculation BUN/Creatinine Ratio Glucose POC Glucose 201 H Calculated Osmolality Calcium Phosphorus Magnesium Total Bilirubin AST ALT Alkaline Phosphatase Troponin I Total Protein Albumin Globulin Albumin/Globulin Ratio
[2016-07-16] MEDS ORDERED: DIAZEPAM 5 MG TABLET PO ONE (10:48)
[2016-07-16] MEDS ORDERED: MAGNESIUM SULF RIDER 2 GM in PREMIX 1 EACH IV PRN (10:48)
[2016-07-16] MEDS ORDERED: diphenhydrAMINE CAP 25 MG CAPSULE PO ONE (10:48)
[2016-07-16] MEDS ORDERED: POTASSIUM CHLORIDE RIDER 10 MEQ in PREMIX 1 EACH IV PRN (10:48)
[2016-07-16] MEDS: LISINOPRIL 10 MG TABLET PO SCH (10:58)
[2016-07-16] MEDS: CARVEDILOL 6.25 MG TABLET PO SCH ×2 (10:58→21:04)
[2016-07-16] MEDS: tiZANidine 4 MG TABLET PO SCH ×2 (10:59→21:04)
[2016-07-16] MEDS: PANTOPRAZOLE 40 MG TABLET PO SCH (10:59)
[2016-07-16] MEDS: ESCITALOPRAM 10 MG TABLET PO SCH (11:00)
[2016-07-16] MEDS: GABAPENTIN 300 MG CAPSULE PO SCH ×3 (11:00→21:05)
[2016-07-16] MEDS: SODIUM CHLORIDE 0.9% 1,000 ML IV SCH ×2 (11:46→21:01)
[2016-07-16] MEDS ORDERED: HYDROmorphone 2 MG/1 ML VIAL ONE (12:21)
[2016-07-16] MEDS ORDERED: MIDAZOLAM 2 MG/2 ML VIAL ONE ×2 (12:21→12:41)
[2016-07-16] MEDS ORDERED: LIDOCAINE 1% 20 ML VIAL ONE ×2 (12:24→12:44)
[2016-07-16] MEDS ORDERED: ONDANSETRON 4 MG/2 ML VIAL ONE (12:35)
--- NOTE | 2016-07-16 12:42 | Hospitalist Progress Note ---
Assessment and Plan - Time spent with patient Time spent with patient: Greater than 30 minutes (I reviewed pt's lab results and us report and images today. I discussed with pt and her in regarding her clinical status today.) (1) Chest pain Status: Acute Assessment and plan: Cardiac cath today. Appreciate Cardiology f/u. Current Visit: Yes (2) Bilateral leg pain Status: Acute Assessment and plan: Monitor. Consult PT. Current Visit: Yes (3) Peripheral neuropathy Status: Chronic Assessment and plan: Resume home meds appropriately. Current Visit: Yes (4) IDDM (insulin dependent diabetes mellitus) Status: Chronic Assessment and plan: Add lantus, check HbA1c in am. Current Visit: Yes (5) Hypertension Status: Chronic Assessment and plan: Resume home meds appropriately. Current Visit: Yes (6) Hyperlipidemia Status: Chronic Assessment and plan: Resume home meds appropriately. Current Visit: Yes Hospitalist: Subjective Interval history: No overnight acute event. Feeling ok. Pain improved. No fever, cough, wheezing, SOB, abd pain, dysuria, rash or edema. Cardiac cath scheduled for today. On insulin for DM. Interval history: Pt is a 60yo female with HTN DM Peripheral neuropathy adm to our hospital on 07/15/16 due to chest pain with nausea with elevated troponin and bilateral leg pain. Cardiology consulted. Arterial duplex for LE ordered. Exam - Constitutional Vitals: Period Temp Pulse Resp BP Sys/Cummings Pulse Ox Last 24 Hr 96.9 F-98.6 F 71-76 17-20 162-199/71-99 94-99 Exam: GENERAL: NAD, AAOx3. Lying in bed supine HEENT: Pupils equally round and reactive to light, conjunctivae clear. TMs bonilla and translucent. Oropharynx pink, with moist mucous membranes. Normal lips, teeth and gums. NECK: Supple without mass. CHEST: Normal shape, fair air movement, no retractions. CV: RRR,2+ peripheral pulses LUNGS: Clear to auscultation; no rales, rhonchi, or wheezes. ABDOMEN: Soft, nontender, and no hepatosplenomegaly. SKIN: No rash or edema.Pale, Neurology: AAOx3. Results - Labs CBC & BMP: 07/16/16 04:15 07/16/16 04:15 Quality Measures - Stroke Symptom Onset Unknown: No
[2016-07-16] MEDS ORDERED: diphenhydrAMINE 50 MG/1 ML VIAL ONE (12:46)
--- NOTE | 2016-07-16 13:16 | Cardiac Catheterization ---
Date of Procedure:: 07/16/16 Post-op diagnosis: same Procedure: Procedures performed: 1. Left heart catheterization 2. Coronary angiography 3. Left ventriculography 4. Right femoral arteriotomy closures with minx device Brief clinical summary: This Morrows 60-year-old diabetic smoker followed by Dr. Murillo, with known CAD (noncritical diffuse disease 2013) with now exertional as well as rest chest pain and ruled out for myocardial infarction. Description of procedure: After obtaining informed consent, the right groin was prepped and draped in the usual sterile fashion. Next a short 6 Ghanaian sheath was placed in the right femoral artery using a modified Seldinger technique, after the patient received IV sedation and local anesthetic. Next a JL4 catheter was advanced over a guidewire under fluoroscopic guidance, and was engaged to the left coronary artery after which angiography was performed in multiple views. This was then removed over a wire, and a JR4 catheter was advanced in similar fashion was engaged the right coronary artery after which angiography was performed in multiple views. Next a bent pigtail catheter was advanced into the left ventricle, where hemodynamic measurements were obtained, left ventriculography was performed. I was able to visualize the sheath on a "cummins down" shot which showed the sheath was inserted in the right common femoral artery in a vessel suitable for closure (was in the proximal SFA). Hemostasis was obtained with a minx device with no residual bleeding. 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 Coronary angiography: Left main coronary artery is normal developed and free of disease, other than trivial less than 20% ostial stenosis. Left anterior descending is of average caliber and gives off an average caliber first diagonal with 70% ostial disease and 90% mid disease. There is moderate calcification here and what appears to be a bifurcation lesion with 90% mid LAD stenosis. The LAD does reach the apex. There is only mild disease distally. The circumflex has a widely patent proximal circumflex stent noted. There is a large than average OM 1 branch with subsequent 99% mid circumflex stenosis. The distal to the stenosis there is an average caliber OM 2 and a thin OM 3 branch. The right coronary artery is a dominant vessel with a long moderately calcified 90-95% proximal to mid stenosis. There is also 99% more discrete distal RCA stenosis. There is also a discrete 80-90% ostial PDA stenosis. The PDA is of average caliber. There is a thin posterolaterals branch. Left ventriculogram: Left ventricle is of normal size and normal LV systolic function. Ejection fraction 60%. There are no segmental wall abnormalities. Impression: 1. Normal LV systolic function with ejection fraction estimated be 60% without segmental wall motion normality 2. Right dominant system 3. Severe diffuse moderately calcified three-vessel disease as detailed above including but not limited to: A. Moderately calcified, mid LAD bifurcation lesion with 90% high mid LAD stenosis, and 70% ostial first diagonal stenosis (95% disease in the mid diagonal which bifurcates into 2 thin branches) B. 99% mid circumflex disease C. Long mild to moderately calcified 90-95% proximal to mid RCA stenosis, as well as critical discrete 99% distal RCA stenosis, and discrete 80-90% ostial PDA stenosis 4. Widely patent proximal circumflex stent noted Recommendation discussion: This Morrows disease has progressed a great deal in the last 3 years. Given the diffuse nature of her disease and her diabetic status, believe she is best served with bypass surgery. The calcific nature of her disease also lends itself this. Will consult CV surgery for consideration of CABG. And will of course be imperative that she stop smoking completely. She will need to avoid squatting straining or lifting for the next one week's time. She will need to keep her follow-up with Dr. 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 Anesthesia: minimal conscious sedation Surgeon / Physician: Sea Batista [employer]hed Workers Supervisor: other Estimated blood loss: minimal Specimens: none sent Condition: stable Disposition: floor - Medications / Follow-up
[2016-07-16] MEDS ORDERED: ONDANSETRON 4 MG/2 ML VIAL IV PRN (13:19)
--- NOTE | 2016-07-16 13:55 | Cardiothoracic Progress Note ---
Cardiothoracic Subjective Interval history: Patient is a 60-year-old lady who presents with symptoms of increasing chest discomfort. Cardiac catheterization has revealed severe triple-vessel disease and the patient has been referred for bypass surgery. I reviewed the cath films and agree with this recommendation and the patient is scheduled for bypass surgery on 07/21/2016. Exam (Progress Note) - Constitutional Vitals: Period Temp Pulse Resp BP Sys/Cummings Pulse Ox Last 24 Hr 96.9 F-98.6 F 68-76 17-20 162-199/64-99 94-99 Result/EKG - Labs CBC & BMP: 07/16/16 04:15 07/16/16 04:15 Labs: Laboratory Results - last 24 hr 07/15/16 07/15/16 07/16/16 20:58 22:20 04:15 WBC 7.8 RBC 4.76 Hgb 12.9 D Hct 39.5 MCV 83.0 L MCH 27 MCHC 32.7 RDW 14.4 Plt Count 220 MPV 11.4 Neut % (Auto) 27.9 L Lymph % (Auto) 61.0 H [place] % (Auto) 8.8 Eos % (Auto) 1.2 Baso % (Auto) 0.6 Neut # (Auto) 2.2 Lymph # (Auto) 4.8 H [place] # (Auto) 0.7 Eos # (Auto) 0.1 Baso # (Auto) 0.1 Total Counted 100 Immature Gran % 0.5 Nucleated RBC % 0.0 Immature Gran # 0.04 Segmented Neutrophils 35 L Band Neutrophils 1 Lymphocytes 56 H Monocytes 6 Eosinophils 2 Nucleated RBCs # 0.00 Atypical Lymphocytes Few Platelet Estimate Adequate Hypochromasia 1+ Sodium Potassium Chloride Carbon Dioxide Anion Gap BUN Creatinine GFR Calculation BUN/Creatinine Ratio Glucose POC Glucose 128 H Calculated Osmolality Calcium Phosphorus Magnesium Total Bilirubin AST ALT Alkaline Phosphatase Troponin I < 0.015 Total Protein Albumin Globulin Albumin/Globulin Ratio 07/16/16 07/16/16 07/16/16 04:15 04:15 07:11 WBC RBC Hgb Hct MCV MCH MCHC RDW Plt Count MPV Neut % (Auto) Lymph % (Auto) [place] % (Auto) Eos % (Auto) Baso % (Auto) Neut # (Auto) Lymph # (Auto) [place] # (Auto) Eos # (Auto) Baso # (Auto) Total Counted Immature Gran % Nucleated RBC % Immature Gran # Segmented Neutrophils Band Neutrophils Lymphocytes Monocytes Eosinophils Nucleated RBCs # Atypical Lymphocytes Platelet Estimate Hypochromasia Sodium 139 Potassium 3.9 Chloride 104 Carbon Dioxide 27 Anion Gap 11.9 BUN 14 Creatinine 0.80 GFR Calculation 90 BUN/Creatinine Ratio 17.00 Glucose 323 H POC Glucose Calculated Osmolality 289.5 Calcium 7.9 L Phosphorus 5.2 H Magnesium 1.9 Total Bilirubin 0.60 AST 11 ALT 10 L Alkaline Phosphatase 105 Troponin I < 0.015 < 0.015 Total Protein 5.6 L Albumin 2.4 L Globulin 3.2 Albumin/Globulin Ratio 0.7 L 07/16/16 07:47 WBC RBC Hgb Hct MCV MCH MCHC RDW Plt Count MPV Neut % (Auto) Lymph % (Auto) [place] % (Auto) Eos % (Auto) Baso % (Auto) Neut # (Auto) Lymph # (Auto) [place] # (Auto) Eos # (Auto) Baso # (Auto) Total Counted Immature Gran % Nucleated RBC % Immature Gran # Segmented Neutrophils Band Neutrophils Lymphocytes Monocytes Eosinophils Nucleated RBCs # Atypical Lymphocytes Platelet Estimate Hypochromasia Sodium Potassium Chloride Carbon Dioxide Anion Gap BUN Creatinine GFR Calculation BUN/Creatinine Ratio Glucose POC Glucose 201 H Calculated Osmolality Calcium Phosphorus Magnesium Total Bilirubin AST ALT Alkaline Phosphatase Troponin I Total Protein Albumin Globulin Albumin/Globulin Ratio Quality Measures - Stroke Symptom Onset Unknown: No
[2016-07-16] MEDS ORDERED: HYDROmorphone 2 MG/1 ML VIAL IV PRN (13:56)
[2016-07-16] MEDS: CLORAZEPATE 3.75 MG TABLET PO PRN (16:08)
--- NOTE | 2016-07-16 20:47 | ECHO Report ---
Kay See 07/16/2016 Exam Date: 09:42 Referring Physician: Gillian Sanders Technologist: MIGUELITO Age: 60 Ht (in): 67 Wt (lb): 175 FExam [facility] Gender: Echo [id number]: Chest pain, unspecified, Dyspnea, unIndications:specified, Chronic fatigue, unspecified, Essential (primary) hypertension, CAD with previous stents, IDDM, Hyperlipidemia, unspecified, Peripheral neuropathy BP: 199 / 94 HR: 68 SinusRhythm: GoodTechnical Quality: IMPRESSIONS 1. Left ventricle is normal size and systolic function with ejection fractions percent. There is mild concentric left ventricle hypertrophy with grade 1 diastolic dysfunction. 2. Left atrium at worst is mildly enlarged. 3. Right atrium and right ventricle normal size. 4. Valvular structures are overall unremarkable without Doppler abnormalities of any significance. 5. No evidence of elevated right-sided pressures. MEASUREMENTS (Male / Female) Normal Values 2D ECHO LV Diastolic Diameter PLAX 4.4 cm 4.2 - 5.9 / 3.9 - 5.3 cm LV Systolic Diameter PLAX 2.8 cm LV Fractional Shortening PLAX 36.8 % IVS Diastolic Thickness 1.3 cm 0.6 - 1.0 / 0.6 - 0.9 cm LVPW Diastolic Thickness 1.3 cm 0.6 - 1.0 / 0.6 - 0.9 cm RV Internal Dim ED PLAX 2.9 cm Aortic Root Diameter 3.2 cm LA Systolic Diameter LX 4.2 cm 3.0 - 4.0 / 2.7 - 3.8 cm FINDINGS Left Ventricle Normal left ventricular cavity size. Mild left ventricular hypertrophy with grade 1 diastolic dysfunction. Left ventricular ejection fraction is estimated at 60 %. Right Ventricle The right ventricle is normal in size and function. Right Atrium The right atrium is normal in size. Left Atrium Mild atrial enlargement in apical view (elongated LA). Mitral Valve Thickened mitral valve. Trace to mild mitral valve regurgitation. Aortic Valve Morphologically normal aortic valve without significant sclerosis or stenosis. There is no aortic regurgitation. Tricuspid Valve Morphologically normal tricuspid valve without significant stenosis or regurgitation. Pulmonary artery systolic pressure is normal. Pulmonic Valve Morphologically normal pulmonic valve without significant stenosis. There is no pulmonic regurgitation. Pericardium Normal pericardium without effusion. Aorta Normal ascending aorta dimension. Dipesh Zeng MD (Electronically Signed) 16 July 2016 Final Date: 20:46
[2016-07-16] MEDS ORDERED: ROSUVASTATIN 10 MG TABLET PO SCH (21:00)
[2016-07-16] MEDS: INSULIN GLARGINE 100 UNIT/ML SUBCUT SCH (21:03)
[2016-07-16] MEDS: ROSUVASTATIN 20 MG TABLET PO SCH (21:05)
[2016-07-16] MEDS: ZALEPLON 5 MG CAPSULE PO PRN (21:48)
[2016-07-17 04:04] LABS: Basophils % 0.4 % (0.0-0.8); Eosinophils # 0.1 10*3/uL (0.0-0.87); Eosinophils % 1.3 % (0.00-10.9); Hematocrit 39.8 VOL% (35.7-47.0); Hemoglobin 12.4 GM/DL (12.0-16.0); Immature Granulocytes % 0.1 %; Immature Granulocytes Absolute 0.01 #; Lymphocytes % 47.2 % (21.3-54.2); Mean Corpuscular HGB Conc 31.2 GM/DL (32-36); Mean Corpuscular Hemoglobin 27 PG (27-34); Mean Corpuscular Volume 86.3 FL (87-102); Mean Platelet Volume 11.1 FL (9.6-12.0); Monocytes # 0.6 10*3/uL (0.11-0.8); Monocytes % 7.6 % (1.7-12.7); Neutrophils # 3.7 10*3/uL (1.4-7.4); Neutrophils % 43.4 % (38.7-73.9); Platelet Count 212 T/CUMM (130-400); Red Blood Count 4.61 MC/CUMM (3.8-5.5); Red Cell Distribution Width 14.4 % (9.3-17.3); White Blood Count 8.4 T/CUMM (4-12)
[2016-07-17 04:37] LABS: Calcium 7.2 MG/DL (8.5-10.1); Magnesium 1.7 MG/DL (1.8-2.4); Osmolality,Calculated 288.1 MOS/KG (273-304); Potassium 4.1 MMOL/L (3.5-5.1)
[2016-07-17 04:42] LABS: Troponin I Only < 0.015 NG/ML (0.00-0.045)
[2016-07-17] MEDS: PROMETHAZINE 25 MG TABLET PO PRN ×3 (06:21→19:31)
--- NOTE | 2016-07-17 06:28 | Cardiothoracic Progress Note ---
Cardiothoracic Subjective Interval history: Patient is set for surgery on Thursday. Exam (Progress Note) - Constitutional Vitals: Period Temp Pulse Resp BP Sys/Cummings Pulse Ox Last 24 Hr 97 F-97.5 F 63-77 16-20 102-199/53-94 94-96 Result/EKG - Labs CBC & BMP: 07/17/16 03:27 07/17/16 03:27 Labs: Laboratory Results - last 24 hr 07/16/16 07/16/16 07/16/16 07:11 07:47 15:23 WBC RBC Hgb Hct MCV MCH MCHC RDW Plt Count MPV Neut % (Auto) Lymph % (Auto) [place] % (Auto) Eos % (Auto) Baso % (Auto) Neut # (Auto) Lymph # (Auto) [place] # (Auto) Eos # (Auto) Baso # (Auto) Immature Gran % Nucleated RBC % Immature Gran # Nucleated RBCs # Sodium Potassium Chloride Carbon Dioxide Anion Gap BUN Creatinine GFR Calculation BUN/Creatinine Ratio Glucose POC Glucose 201 H 326 H Hemoglobin A1c Calculated Osmolality Calcium Magnesium Total Creatine Kinase CK-MB (CK-2) Troponin I < 0.015 07/16/16 07/17/16 07/17/16 19:50 03:27 03:27 WBC 8.4 RBC 4.61 Hgb 12.4 Hct 39.8 MCV 86.3 L MCH 27 MCHC 31.2 L RDW 14.4 Plt Count 212 MPV 11.1 Neut % (Auto) 43.4 Lymph % (Auto) 47.2 [place] % (Auto) 7.6 Eos % (Auto) 1.3 Baso % (Auto) 0.4 Neut # (Auto) 3.7 Lymph # (Auto) 4.0 [place] # (Auto) 0.6 Eos # (Auto) 0.1 Baso # (Auto) 0.0 Immature Gran % 0.1 Nucleated RBC % 0.0 Immature Gran # 0.01 Nucleated RBCs # 0.00 Sodium 142 Potassium 4.1 Chloride 109 H Carbon Dioxide 25 Anion Gap 12.1 BUN 12 Creatinine 0.50 L GFR Calculation 118 BUN/Creatinine Ratio 24.00 H Glucose 214 H POC Glucose 130 H Hemoglobin A1c Calculated Osmolality 288.1 Calcium 7.2 L Magnesium 1.7 L Total Creatine Kinase CK-MB (CK-2) Troponin I 07/17/16 07/17/16 03:27 03:27 WBC RBC Hgb Hct MCV MCH MCHC RDW Plt Count MPV Neut % (Auto) Lymph % (Auto) [place] % (Auto) Eos % (Auto) Baso % (Auto) Neut # (Auto) Lymph # (Auto) [place] # (Auto) Eos # (Auto) Baso # (Auto) Immature Gran % Nucleated RBC % Immature Gran # Nucleated RBCs # Sodium Potassium Chloride Carbon Dioxide Anion Gap BUN Creatinine GFR Calculation BUN/Creatinine Ratio Glucose POC Glucose Hemoglobin A1c 11.5 H Calculated Osmolality Calcium Magnesium Total Creatine Kinase 17 L CK-MB (CK-2) 1.4 Troponin I < 0.015 Quality Measures - Stroke Symptom Onset Unknown: No
--- NOTE | 2016-07-17 07:20 | EKG Report ---
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
[2016-07-17] MEDS: SODIUM CHLORIDE 0.9% 1,000 ML IV SCH (07:37)
[2016-07-17] MEDS: INSULIN LISPRO 100 UNIT/ML SUBCUT SCH ×4 (08:21→21:36)
[2016-07-17] MEDS ORDERED: ASPIRIN CHEW 81 MG TABLET PO SCH (09:00)
[2016-07-17] MEDS: CLORAZEPATE 3.75 MG TABLET PO PRN (09:09)
[2016-07-17] MEDS: PANTOPRAZOLE 40 MG TABLET PO SCH (09:10)
[2016-07-17] MEDS: GABAPENTIN 300 MG CAPSULE PO SCH ×3 (09:10→21:37)
[2016-07-17] MEDS: tiZANidine 4 MG TABLET PO SCH ×2 (09:10→21:35)
[2016-07-17] MEDS: LISINOPRIL 10 MG TABLET PO SCH (09:11)
[2016-07-17] MEDS: CARVEDILOL 6.25 MG TABLET PO SCH ×2 (09:12→21:36)
[2016-07-17] MEDS: ESCITALOPRAM 10 MG TABLET PO SCH (09:13)
--- NOTE | 2016-07-17 14:08 | Cardiology Progress Note ---
<Noemy Calix - Last Filed: 07/17/16 14:01> Assessment and Plan (1) Chest pain Status: Acute Assessment and plan: Patient is now status post left heart catheterization per Dr. Batista. She was noted to have severe triple-vessel disease and cardiothoracic surgery has been consulted. CABG is planned for Thursday per Dr. García. She will be monitored on the telemetry unit over the weekend. She is currently chest pain- free. Current Visit: Yes (2) Hypertension Status: Chronic Assessment and plan: This is well controlled at this time. We will further adjust as needed. Current Visit: Yes (3) Hyperlipidemia Status: Chronic Assessment and plan: Continue current plan of care with lipid lowering agent. Current Visit: Yes (4) IDDM (insulin dependent diabetes mellitus) Status: Chronic Assessment and plan: Defer management to hospital medicine. Current Visit: Yes (5) Peripheral neuropathy Status: Chronic Current Visit: Yes (6) Tobacco abuse Status: Acute Assessment and plan: The patient and I had a long discussion about the importance of smoking cessation. At this time, she does feel that it is time to quit. Current Visit: Yes Cardiology - PN: Subj Interval history: Electrical Construction Project Manager: Dr. Murillo PCP: MAGDALENA Arreola Cardiology consult note: Chest pain Ms. See is a 60 year old female with known history of coronary artery disease , routinely followed by Dr. Murillo. Patient presented to the ER yesterday with complaints of chest discomfort. She has cardiac risk factors significant for hypertension, diabetes, known history of coronary artery disease, sedentary lifestyle, current everyday smoker (reports that she smokes 1 pack per day since approximately age 16). She has a past medical history diabetic neuropathy , restless leg syndrome and chronic pain syndrome. Patient's last heart catheterization was in 2013. At that time, she had a lesion to her proximal RCA that measured 50-70% and a second lesion to RCA that measured 30-50%. Her proximal circumflex stent was noted to be widely patent. RCA lesions were treated medically at that time. Patient was last seen by Gómez Bedolla NP November 2014. Patient was admitted to [facility] July 15 with complaints of chest pain. Echocardiogram revealed normal sized left ventricle with normal systolic function. Mild concentric left ventricular hypertrophy with grade 1 diastolic dysfunction noted. No gross valvular abnormalities noted. She underwent left heart catheterization yesterday per Dr. Batista with the following impressions noted: Impression: 1. Normal LV systolic function with ejection fraction estimated be 60% without segmental wall motion normality 2. Right dominant system 3. Severe diffuse moderately calcified three-vessel disease as detailed above including but not limited to: A. Moderately calcified, mid LAD bifurcation lesion with 90% high mid LAD stenosis, and 70% ostial first diagonal stenosis (95% disease in the mid diagonal which bifurcates into 2 thin branches) B. 99% mid circumflex disease C. Long mild to moderately calcified 90-95% proximal to mid RCA stenosis, as well as critical discrete 99% distal RCA stenosis, and discrete 80-90% ostial PDA stenosis 4. Widely patent proximal circumflex stent noted Recommendation discussion: This Mor[place] disease has progressed a great deal in the last 3 years. Given the diffuse nature of her disease and her diabetic status, believe she is best served with bypass surgery. The calcific nature of her disease also lends itself this. Will consult CV surgery for consideration of CABG. She will need to avoid squatting straining or lifting for the next one week's time. Post heart catheterization patient was transferred back to the telemetry unit in stable condition. She has done well post procedure and has been without complications. Dr. García has been consulted and plans for CABG Thursday. Right groin is soft without bleeding, hematoma and bruit. Distal pulses 2+. She denies chest pain, heaviness and tightness. She also denies shortness of breath and heart racing/palpitations. She has ambulated around the room this afternoon without difficulty. Her right groin remained stable post ambulation. Due to the severity of her CAD, she will need to remain hospitalized until her CABG Thursday morning. We will monitor her on the telemetry unit over the weekend. Labs are stable post cath. Vital signs are stable. She is currently in normal sinus rhythm without any arrhythmias or ectopy noted. Exam (Progress Note) - Constitutional Vitals: Period Temp Pulse Resp BP Sys/Cummings Pulse Ox Last 24 Hr 97 F-98 F 62-77 16-20 102-161/53-81 94-96 General appearance: normal weight, no acute distress - Head Head exam: Present: normal inspection, normocephalic, atraumatic - Neck Neck exam: Present: normal inspection - Respiratory Respiratory exam: Present: clear to auscultation bilaterally. Absent: accessory muscle use, chest wall tenderness, rales, rhonchi, stridor, wheezes - Cardiovascular Cardiovascular exam: Present: regular rate and rhythm. Absent: gallop, rubs, systolic murmur - GI/Abdominal GI/Abdominal exam: Present: normal bowel sounds, soft. Absent: distended, firm , mass, tenderness - Extremities Exam Extremities exam: Present: normal inspection, normal capillary refill, other ( Right groin is soft without bleeding, hematoma and bruit. Bilateral lower extremity pulses 2+.). Absent: calf tenderness, edema - Neurological Exam Neurological exam: Present: alert, oriented X3, normal gait - Psychiatric Psychiatric exam: Present: normal affect, normal mood - Skin Skin exam: Present: normal color, warm, dry. Absent: cyanosis, erythema Result/EKG - Labs CBC & BMP: 07/17/16 03:27 07/17/16 03:27 Lab Results: I have reviewed the past 24 hour labs Labs: Laboratory Results - last 24 hr 07/16/16 07/16/16 07/17/16 15:23 19:50 03:27 WBC 8.4 RBC 4.61 Hgb 12.4 Hct 39.8 MCV 86.3 L MCH 27 MCHC 31.2 L RDW 14.4 Plt Count 212 MPV 11.1 Neut % (Auto) 43.4 Lymph % (Auto) 47.2 [place] % (Auto) 7.6 Eos % (Auto) 1.3 Baso % (Auto) 0.4 Neut # (Auto) 3.7 Lymph # (Auto) 4.0 [place] # (Auto) 0.6 Eos # (Auto) 0.1 Baso # (Auto) 0.0 Immature Gran % 0.1 Nucleated RBC % 0.0 Immature Gran # 0.01 Nucleated RBCs # 0.00 Sodium Potassium Chloride Carbon Dioxide Anion Gap BUN Creatinine GFR Calculation BUN/Creatinine Ratio Glucose POC Glucose 326 H 130 H Hemoglobin A1c Calculated Osmolality Calcium Magnesium Total Creatine Kinase CK-MB (CK-2) Troponin I 07/17/16 07/17/16 07/17/16 03:27 03:27 03:27 WBC RBC Hgb Hct MCV MCH MCHC RDW Plt Count MPV Neut % (Auto) Lymph % (Auto) [place] % (Auto) Eos % (Auto) Baso % (Auto) Neut # (Auto) Lymph # (Auto) [place] # (Auto) Eos # (Auto) Baso # (Auto) Immature Gran % Nucleated RBC % Immature Gran # Nucleated RBCs # Sodium 142 Potassium 4.1 Chloride 109 H Carbon Dioxide 25 Anion Gap 12.1 BUN 12 Creatinine 0.50 L GFR Calculation 118 BUN/Creatinine Ratio 24.00 H Glucose 214 H POC Glucose Hemoglobin A1c 11.5 H Calculated Osmolality 288.1 Calcium 7.2 L Magnesium 1.7 L Total Creatine Kinase 17 L CK-MB (CK-2) 1.4 Troponin I < 0.015 07/17/16 07/17/16 07:56 12:00 WBC RBC Hgb Hct MCV MCH MCHC RDW Plt Count MPV Neut % (Auto) Lymph % (Auto) [place] % (Auto) Eos % (Auto) Baso % (Auto) Neut # (Auto) Lymph # (Auto) [place] # (Auto) Eos # (Auto) Baso # (Auto) Immature Gran % Nucleated RBC % Immature Gran # Nucleated RBCs # Sodium Potassium Chloride Carbon Dioxide Anion Gap BUN Creatinine GFR Calculation BUN/Creatinine Ratio Glucose POC Glucose 149 H 256 H Hemoglobin A1c Calculated Osmolality Calcium Magnesium Total Creatine Kinase CK-MB (CK-2) Troponin I Quality Measures - Stroke Symptom Onset Unknown: No Specialty Discharge - Follow Up or Referrals <Dipesh Zeng - Last Filed: 07/17/16 18:26> Cardiology - PN: Subj Interval history: Patient personally interviewed and examined and chart reviewed. Discussed the patient's case with Noemy Calix NP. I agree with her assessment. In addition in summation this patient needs coronary bypass surgery and this is planned for Thursday. I discussed with the patient that she needs to at least stop smoking over the weekend prior to surgery. She is been bad about going outside and smoking. Will continue present therapy until after surgery and maintain her risk factor modification. Exam (Progress Note) - Constitutional Vitals: Period Temp Pulse Resp BP Sys/Cummings Pulse Ox Last 24 Hr 97 F-98.6 F 62-77 16-20 116-161/57-81 94-97 Result/EKG - Labs CBC & BMP: 07/17/16 03:27 07/17/16 03:27 Labs: Laboratory Results - last 24 hr 07/15/16 07/16/16 07/17/16 22:20 19:50 03:27 WBC 8.4 RBC 4.61 Hgb 12.4 Hct 39.8 MCV 86.3 L MCH 27 MCHC 31.2 L RDW 14.4 Plt Count 212 MPV 11.1 Neut % (Auto) 43.4 Lymph % (Auto) 47.2 [place] % (Auto) 7.6 Eos % (Auto) 1.3 Baso % (Auto) 0.4 Neut # (Auto) 3.7 Lymph # (Auto) 4.0 [place] # (Auto) 0.6 Eos # (Auto) 0.1 Baso # (Auto) 0.0 Immature Gran % 0.1 Nucleated RBC % 0.0 Immature Gran # 0.01 Nucleated RBCs # 0.00 Sodium Potassium Chloride Carbon Dioxide Anion Gap BUN Creatinine GFR Calculation BUN/Creatinine Ratio Glucose POC Glucose 130 H Hemoglobin A1c Calculated Osmolality Calcium Magnesium Total Creatine Kinase CK-MB (CK-2) Troponin I Thyroid [place] Prof 3.4 07/17/16 07/17/16 07/17/16 03:27 03:27 03:27 WBC RBC Hgb Hct MCV MCH MCHC RDW Plt Count MPV Neut % (Auto) Lymph % (Auto) [place] % (Auto) Eos % (Auto) Baso % (Auto) Neut # (Auto) Lymph # (Auto) [place] # (Auto) Eos # (Auto) Baso # (Auto) Immature Gran % Nucleated RBC % Immature Gran # Nucleated RBCs # Sodium 142 Potassium 4.1 Chloride 109 H Carbon Dioxide 25 Anion Gap 12.1 BUN 12 Creatinine 0.50 L GFR Calculation 118 BUN/Creatinine Ratio 24.00 H Glucose 214 H POC Glucose Hemoglobin A1c 11.5 H Calculated Osmolality 288.1 Calcium 7.2 L Magnesium 1.7 L Total Creatine Kinase 17 L CK-MB (CK-2) 1.4 Troponin I < 0.015 Thyroid [place] Prof 07/17/16 07/17/16 07/17/16 07:56 12:00 15:48 WBC RBC Hgb Hct MCV MCH MCHC RDW Plt Count MPV Neut % (Auto) Lymph % (Auto) [place] % (Auto) Eos % (Auto) Baso % (Auto) Neut # (Auto) Lymph # (Auto) [place] # (Auto) Eos # (Auto) Baso # (Auto) Immature Gran % Nucleated RBC % Immature Gran # Nucleated RBCs # Sodium Potassium Chloride Carbon Dioxide Anion Gap BUN Creatinine GFR Calculation BUN/Creatinine Ratio Glucose POC Glucose 149 H 256 H 88 Hemoglobin A1c Calculated Osmolality Calcium Magnesium Total Creatine Kinase CK-MB (CK-2) Troponin I Thyroid [place] Prof
[2016-07-17] MEDS ORDERED: ENOXAPARIN 40 MG/0.4 ML SYRINGE SUBCUT SCH (14:30)
--- NOTE | 2016-07-17 15:01 | Hospitalist Progress Note ---
Assessment and Plan - Time spent with patient Time spent with patient: Greater than 30 minutes (1) Chest pain Status: Acute Assessment and plan: Cardiac cath yesterday showed severe tripple vessel disease, CABG planned for Thursday. Cardiology f/u. Current Visit: Yes (2) Bilateral leg pain Status: Acute Assessment and plan: Monitor. Consult PT. Current Visit: Yes (3) Peripheral neuropathy Status: Chronic Assessment and plan: Resume home meds appropriately. Current Visit: Yes (4) IDDM (insulin dependent diabetes mellitus) Status: Chronic Assessment and plan: Add lantus, check HbA1c in am. Current Visit: Yes (5) Hypertension Status: Chronic Assessment and plan: Resume home meds appropriately. Current Visit: Yes (6) Hyperlipidemia Status: Chronic Assessment and plan: Resume home meds appropriately. Current Visit: Yes Hospitalist: Subjective Interval history: 07/17/16: Ambulating in the room. No overnight acute event. Cardiac cath yesterday showed pt has severe triple-vessel disease and cardiothoracic surgery has been consulted. CABG is planned for Thursday per Dr. García. 07/16/16: No overnight acute event. Feeling ok. Pain improved. No fever, cough, wheezing, SOB, abd pain, dysuria, rash or edema. Cardiac cath scheduled for today. On insulin for DM. Interval history: Pt is a 60yo female with HTN DM Peripheral neuropathy adm to our hospital on 07/15/16 due to chest pain with nausea with elevated troponin and bilateral leg pain. Cardiology consulted. Arterial duplex for LE ordered. Exam - Constitutional Vitals: Period Temp Pulse Resp BP Sys/Cummings Pulse Ox Last 24 Hr 97 F-98 F 62-77 16-20 111-161/53-81 94-96 Exam: GENERAL: NAD, AAOx3. Walking in the room. HEENT: Pupils equally round and reactive to light, conjunctivae clear. TMs bonilla and translucent. Oropharynx pink, with moist mucous membranes. Normal lips, teeth and gums. NECK: Supple without mass. CHEST: Normal shape, fair air movement, no retractions. CV: RRR,2+ peripheral pulses LUNGS: Clear to auscultation; no rales, rhonchi, or wheezes. ABDOMEN: Soft, nontender, and no hepatosplenomegaly. SKIN: No rash or edema.Pale, Neurology: AAOx3. Results - Labs CBC & BMP: 07/17/16 03:27 07/17/16 03:27 Quality Measures - Stroke Symptom Onset Unknown: No Specialty Discharge - Follow Up or Referrals
[2016-07-17] MEDS: ENOXAPARIN 80 MG/0.8 ML SYRINGE SUBCUT SCH (21:35)
[2016-07-17] MEDS: rOPINIRole 0.25 MG TABLET PO SCH (21:36)
[2016-07-17] MEDS: ROSUVASTATIN 20 MG TABLET PO SCH (21:36)
[2016-07-17] MEDS: INSULIN GLARGINE 100 UNIT/ML SUBCUT SCH (21:37)
--- NOTE | 2016-07-18 06:09 | Cardiothoracic Progress Note ---
Cardiothoracic Subjective Interval history: Patient ready for surgery on Thursday. Exam (Progress Note) - Constitutional Vitals: Period Temp Pulse Resp BP Sys/Cummings Pulse Ox Last 24 Hr 97 F-98.6 F 62-81 17-20 133-184/61-80 93-97 Result/EKG - Labs CBC & BMP: 07/17/16 03:27 07/17/16 03:27 Labs: Laboratory Results - last 24 hr 07/15/16 07/17/16 07/17/16 22:20 07:56 12:00 POC Glucose 149 H 256 H Thyroid [place] Prof 3.4 07/17/16 07/17/16 15:48 19:19 POC Glucose 88 326 H Thyroid [place] Prof Quality Measures - Stroke Symptom Onset Unknown: No Specialty Discharge - Follow Up or Referrals
[2016-07-18] MEDS ORDERED: DEXTROSE 50% 25 GM/50 ML VIAL IV PRN (07:11)
[2016-07-18] MEDS ORDERED: GLUCAGON 1 MG VIAL IM PRN (07:11)
[2016-07-18 07:14] LABS: Calcium 7.5 MG/DL (8.5-10.1); Magnesium 1.8 MG/DL (1.8-2.4); Osmolality,Calculated 284.1 MOS/KG (273-304); Potassium 4.3 MMOL/L (3.5-5.1)
[2016-07-18] MEDS ORDERED: ASPIRIN 325 MG TABLET PO SCH (09:00)
[2016-07-18] MEDS: PROMETHAZINE 25 MG TABLET PO PRN ×2 (09:06→18:24)
[2016-07-18] MEDS: ASPIRIN EC 81 MG TABLET PO SCH (09:06)
[2016-07-18] MEDS: tiZANidine 4 MG TABLET PO SCH ×2 (09:06→19:59)
[2016-07-18] MEDS: CARVEDILOL 6.25 MG TABLET PO SCH ×2 (09:06→19:59)
[2016-07-18] MEDS: ESCITALOPRAM 10 MG TABLET PO SCH (09:06)
[2016-07-18] MEDS: GABAPENTIN 300 MG CAPSULE PO SCH ×3 (09:06→19:59)
[2016-07-18] MEDS: LISINOPRIL 10 MG TABLET PO SCH (09:06)
[2016-07-18] MEDS: PANTOPRAZOLE 40 MG TABLET PO SCH (09:06)
[2016-07-18] MEDS: ENOXAPARIN 80 MG/0.8 ML SYRINGE SUBCUT SCH ×2 (09:07→20:01)
[2016-07-18] MEDS: INSULIN LISPRO 100 UNIT/ML SUBCUT SCH ×4 (09:08→21:49)
[2016-07-18] MEDS: SODIUM CHLORIDE 0.9% 1,000 ML IV SCH (09:14)
--- NOTE | 2016-07-18 10:37 | Cardiology Progress Note ---
<Noemy Calix - Last Filed: 07/18/16 10:32> Assessment and Plan (1) Chest pain Status: Acute Assessment and plan: Patient is now status post left heart catheterization per Dr. Batista. She was noted to have severe triple-vessel disease and cardiothoracic surgery has been consulted. CABG is planned for Thursday per Dr. García. She will be monitored on the telemetry unit over the weekend. She is currently chest pain- free. -Continue aspirin -Continue beta-christopher -Continue therapeutic dose of Lovenox. Discontinue Thursday morning. -Continue lipid-lowering agent -Continue nitroglycerin as needed for chest pain Further plan and addendum to follow per Dr. Zeng. Current Visit: Yes (2) Hypertension Status: Chronic Assessment and plan: Blood pressure is suboptimally controlled this morning. I have increased her lisinopril. Will further adjust her medications as needed to receive blood pressure control. Current Visit: Yes (3) Hyperlipidemia Status: Chronic Assessment and plan: Continue current plan of care with lipid lowering agent. Current Visit: Yes (4) IDDM (insulin dependent diabetes mellitus) Status: Chronic Assessment and plan: Defer management to hospital medicine. Current Visit: Yes (5) Peripheral neuropathy Status: Chronic Current Visit: Yes (6) Tobacco abuse Status: Acute Assessment and plan: Smoking cessation encouraged. Current Visit: Yes Cardiology - PN: Subj Interval history: Senior Wind Turbine Technician: Dr. Murillo PCP: MAGDALENA Arreola Ms. See is a 60 year old female with known history of coronary artery disease , routinely followed by Dr. Murillo. Patient presented to the ER yesterday with complaints of chest discomfort. She has cardiac risk factors significant for hypertension, diabetes, known history of coronary artery disease, sedentary lifestyle, current everyday smoker (reports that she smokes 1 pack per day since approximately age 16). She has a past medical history diabetic neuropathy , restless leg syndrome and chronic pain syndrome. Patient's last heart catheterization was in 2013. At that time, she had a lesion to her proximal RCA that measured 50-70% and a second lesion to RCA that measured 30-50%. Her proximal circumflex stent was noted to be widely patent. RCA lesions were treated medically at that time. Patient was last seen by Gómez Bedolla NP November 2014. Patient was admitted to [facility] July 15 with complaints of chest pain. Echocardiogram revealed normal sized left ventricle with normal systolic function. Mild concentric left ventricular hypertrophy with grade 1 diastolic dysfunction noted. No gross valvular abnormalities noted. She underwent left heart catheterization per Dr. Batista with the following impressions noted: Impression: 1. Normal LV systolic function with ejection fraction estimated be 60% without segmental wall motion normality 2. Right dominant system 3. Severe diffuse moderately calcified three-vessel disease as detailed above including but not limited to: A. Moderately calcified, mid LAD bifurcation lesion with 90% high mid LAD stenosis, and 70% ostial first diagonal stenosis (95% disease in the mid diagonal which bifurcates into 2 thin branches) B. 99% mid circumflex disease C. Long mild to moderately calcified 90-95% proximal to mid RCA stenosis, as well as critical discrete 99% distal RCA stenosis, and discrete 80-90% ostial PDA stenosis 4. Widely patent proximal circumflex stent noted Patient was seen and examined on the telemetry unit. She is resting in bed in no acute distress. Currently not requiring oxygen. She denies chest pain, heaviness and tightness. Right groin has remained stable. It is soft without hematoma, bleeding and bruit. Distal pulses present. She is without shortness of breath and heart racing/palpitations. She has been ambulating around the telemetry unit without any difficulty. She is planned for CABG on Thursday with Dr. García. Will continue to monitor her over the weekend. Labs are stable this morning. Blood pressure is suboptimally controlled today. We will adjust medications. She is currently normal sinus rhythm with heart rates in the 60s without any overt arrhythmias or ectopy noted. Further plan and addendum to follow per Dr. Zeng. Exam (Progress Note) - Constitutional Vitals: Period Temp Pulse Resp BP Sys/Cummings Pulse Ox Last 24 Hr 97 F-98.6 F 62-81 17-20 133-184/61-87 93-97 Exam: General appearance: normal weight, no acute distress - Head Head exam: Present: normal inspection, normocephalic, atraumatic - Neck Neck exam: Present: normal inspection - Respiratory Respiratory exam: Present: clear to auscultation bilaterally. Absent: accessory muscle use, chest wall tenderness, rales, rhonchi, stridor, wheezes - Cardiovascular Cardiovascular exam: Present: regular rate and rhythm. Absent: gallop, rubs, systolic murmur - GI/Abdominal GI/Abdominal exam: Present: normal bowel sounds, soft. Absent: distended, firm , mass, tenderness - Extremities Exam Extremities exam: Present: normal inspection, normal capillary refill, other ( Right groin is soft without bleeding, hematoma and bruit. Bilateral lower extremity pulses 2+.). Absent: calf tenderness, edema - Neurological Exam Neurological exam: Present: alert, oriented X3, normal gait - Psychiatric Psychiatric exam: Present: normal affect, normal mood - Skin Skin exam: Present: normal color, warm, dry. Absent: cyanosis, erythema Result/EKG - Labs CBC & BMP: 07/17/16 03:27 07/18/16 05:14 Lab Results: I have reviewed the past 24 hour labs Labs: Laboratory Results - last 24 hr 07/15/16 07/17/16 07/17/16 22:20 12:00 15:48 Sodium Potassium Chloride Carbon Dioxide Anion Gap BUN Creatinine GFR Calculation BUN/Creatinine Ratio Glucose POC Glucose 256 H 88 Calculated Osmolality Calcium Magnesium Thyroid Quay Prof 3.4 07/17/16 07/18/16 07/18/16 19:19 05:14 07:33 Sodium 142 Potassium 4.3 Chloride 109 H Carbon Dioxide 27 Anion Gap 10.3 BUN 10 Creatinine 0.50 L GFR Calculation 119 BUN/Creatinine Ratio 20.00 Glucose 145 H POC Glucose 326 H 136 H Calculated Osmolality 284.1 Calcium 7.5 L Magnesium 1.8 Thyroid Quay Prof Quality Measures - VTE Contraindication to Pharmacological VTE Prophylaxis: High Risk of Bleeding - Stroke Symptom Onset Unknown: No Specialty Discharge - Follow Up or Referrals <Dipesh Zeng - Last Filed: 07/18/16 16:19> Cardiology - PN: Subj Interval history: Patient is personally interviewed and examined and chart reviewed. Discussed case with Noemy Calix PLASTICS ENGINEERING TEACHER. Agree with assessment and plan. In summation and addition the patient really is doing well without any further chest pain. The plan is cornea bypass surgery Thursday. The patient has not smoked in the last 24 hours or at least as what she tells him. I do not smell smoke in the room or on her. I tried to encourage her again that not smoking at least over the weekend or several days prior to surgery will improve her chances of not having post op pulmonary complications. She will need to smoking cessation evaluation and therapy post bypass surgery. Exam (Progress Note) - Constitutional Vitals: Period Temp Pulse Resp BP Sys/Cummings Pulse Ox Last 24 Hr 97.3 F-98.9 F 64-81 17-22 152-187/62-87 93-98 Result/EKG - Labs CBC & BMP: 07/17/16 03:27 07/18/16 05:14 Labs: Laboratory Results - last 24 hr 07/17/16 07/18/16 07/18/16 19:19 05:14 07:33 Sodium 142 Potassium 4.3 Chloride 109 H Carbon Dioxide 27 Anion Gap 10.3 BUN 10 Creatinine 0.50 L GFR Calculation 119 BUN/Creatinine Ratio 20.00 Glucose 145 H POC Glucose 326 H 136 H Calculated Osmolality 284.1 Calcium 7.5 L Magnesium 1.8 07/18/16 07/18/16 11:12 15:16 Sodium Potassium Chloride Carbon Dioxide Anion Gap BUN Creatinine GFR Calculation BUN/Creatinine Ratio Glucose POC Glucose 226 H 157 H Calculated Osmolality Calcium Magnesium
--- NOTE | 2016-07-18 11:30 | Hospitalist Progress Note ---
Assessment and Plan (1) Chest pain Status: Acute Assessment and plan: On cardiac catheterization patient shows severe triple-vessel disease. She is planned for coronary bypass grafting to be done on Thursday. Cardiology is following the patient Current Visit: Yes (2) Hyperlipidemia Status: Chronic Assessment and plan: Meds while she is here. Current Visit: Yes (3) Hypertension Status: Chronic Assessment and plan: Resume home meds while she is here. Current blood pressures are optimal. Current Visit: Yes (4) IDDM (insulin dependent diabetes mellitus) Status: Chronic Assessment and plan: With addition of Lantus insulin on the treatment blood sugars this morning was 145 mg percent. The lowest that has been seen in the morning. Current Visit: Yes (5) Peripheral neuropathy Status: Chronic Assessment and plan: Patient's home medication been resumed regarding her peripheral neuropathy issues. She is comfortable enough Current Visit: Yes Hospitalist: Subjective Interval history: Patient has been seen interviewed and examined and chart has been reviewed. She denies any chest pain overnight. Admitted to the hospital with acute coronary syndrome patient department planned for 6 cardiac surgery on Thursday of the discovery of diffuse severe disease. Exam - Constitutional Vitals: Period Temp Pulse Resp BP Sys/Cummings Pulse Ox Last 24 Hr 97 F-98.6 F 62-81 17-20 133-184/61-87 93-97 General appearance: over weight - Head Head exam: Present: normocephalic, atraumatic - Eye Eye exam: Present: EOMI Pupils: Present: SARAH - ENT ENT exam: Present: normal oropharynx - Neck Neck exam: Present: normal inspection - Respiratory Respiratory exam: Present: clear to auscultation bilaterally, wheezes - Cardiovascular Cardiovascular exam: Present: regular rate and rhythm - GI/Abdominal GI/Abdominal exam: Present: normal bowel sounds, soft - Extremities Exam Extremities exam: Present: full ROM - Back Exam Back exam: Present: normal inspection - Neurological Exam Neurological exam: Present: alert, oriented X3, CN II-XII intact - Psychiatric Psychiatric exam: Present: normal affect, normal mood - Skin Skin exam: Present: normal color, warm, dry Results - Labs CBC & BMP: 07/17/16 03:27 07/18/16 05:14 Lab Results: I have reviewed the past 24 hour labs Quality Measures - VTE Contraindication to Pharmacological VTE Prophylaxis: High Risk of Bleeding - Stroke Symptom Onset Unknown: No Specialty Discharge - Follow Up or Referrals
[2016-07-18] MEDS: CHLORHEXIDINE 0.12% ORAL RINSE 60 ML BOTTLE SWISH/SPIT SCH ×2 (16:26→22:07)
[2016-07-18] MEDS: ROSUVASTATIN 20 MG TABLET PO SCH (19:59)
[2016-07-18] MEDS: NIFEdipine 10 MG CAPSULE PO PRN (19:59)
[2016-07-18] MEDS: INSULIN GLARGINE 100 UNIT/ML SUBCUT SCH (21:48)
[2016-07-18] MEDS: rOPINIRole 0.25 MG TABLET PO SCH (22:08)
[2016-07-19] MEDS: ZALEPLON 5 MG CAPSULE PO PRN ×2 (01:36→21:48)
[2016-07-19 04:24] LABS: Basophils # 0.1 10*3/uL (0.0-0.2); Basophils % 0.6 % (0.0-0.8); Eosinophils # 0.2 10*3/uL (0.0-0.87); Eosinophils % 1.7 % (0.00-10.9); Hematocrit 36.9 VOL% (35.7-47.0); Hemoglobin 11.8 GM/DL (12.0-16.0); Immature Granulocytes % 0.2 %; Immature Granulocytes Absolute 0.02 #; Lymphocytes # 4.4 10*3/uL (1.4-4.0); Lymphocytes % 51.1 % (21.3-54.2); Mean Corpuscular Hemoglobin 27 PG (27-34); Mean Corpuscular Volume 83.5 FL (87-102); Mean Platelet Volume 11.3 FL (9.6-12.0); Monocytes # 0.7 10*3/uL (0.11-0.8); Monocytes % 7.6 % (1.7-12.7); Neutrophils # 3.3 10*3/uL (1.4-7.4); Neutrophils % 38.8 % (38.7-73.9); Platelet Count 194 T/CUMM (130-400); Red Blood Count 4.42 MC/CUMM (3.8-5.5); Red Cell Distribution Width 14.1 % (9.3-17.3); White Blood Count 8.6 T/CUMM (4-12)
[2016-07-19] MEDS: PROMETHAZINE 25 MG TABLET PO PRN ×3 (05:00→13:19)
[2016-07-19 05:24] LABS: Alanine Aminotransferase 13 U/L (13-56); Albumin 2.1 G/DL (3.4-5.0); Alkaline Phosphatase 121 U/L (45-117); Aspartate Amino Transferase 14 U/L (0-37); Bilirubin,Total < 0.39 MG/DL (0.2-1.0); Blood Urea Nitrogen 9 MG/DL (7-18); Calcium 7.6 MG/DL (8.5-10.1); Glucose 238 MG/DL (74-106); Magnesium 1.7 MG/DL (1.8-2.4); Osmolality,Calculated 285.4 MOS/KG (273-304); Potassium 3.6 MMOL/L (3.5-5.1); Sodium 140 MMOL/L (136-145); Total Protein 5.2 G/DL (6.4-8.3)
--- NOTE | 2016-07-19 07:58 | EKG Report ---
Stationary ECG Study [facility] Test Date: 07/19/2016 7:58:22 AM Pat Name: ARIANA JACKSON Department: Room: 275 Gender: F Pluck Trimmer: [facility] : 1955 Requested by: Aiden Clarke Order Number: [id number] Reading MD: IFEOMA SNELL Intervals [place] Rate: 62 P: 7 TN: 169 QRS: 38 QRSD: 86 T: 136 QT: 448 QTc: 452 Interpretive Statements SINUS RHYTHM Electronically Signed On 07-21-16 12:32:45 CDT by IFEOMA SNELL [email or web address]
--- NOTE | 2016-07-19 09:03 | Cardiothoracic Progress Note ---
Cardiothoracic Subjective Interval history: Patient is ready for surgery on Thursday. Exam (Progress Note) - Constitutional Vitals: Period Temp Pulse Resp BP Sys/Cummings Pulse Ox Last 24 Hr 97.7 F-98.9 F 64-73 18-22 130-191/62-96 96-98 Result/EKG - Labs CBC & BMP: 07/19/16 04:04 07/19/16 04:04 Labs: Laboratory Results - last 24 hr 07/18/16 07/18/16 07/19/16 11:12 15:16 04:04 WBC 8.6 RBC 4.42 Hgb 11.8 L Hct 36.9 MCV 83.5 L MCH 27 MCHC 32.0 RDW 14.1 Plt Count 194 MPV 11.3 Neut % (Auto) 38.8 Lymph % (Auto) 51.1 [place] % (Auto) 7.6 Eos % (Auto) 1.7 Baso % (Auto) 0.6 Neut # (Auto) 3.3 Lymph # (Auto) 4.4 H [place] # (Auto) 0.7 Eos # (Auto) 0.2 Baso # (Auto) 0.1 Immature Gran % 0.2 Nucleated RBC % 0.0 Immature Gran # 0.02 Nucleated RBCs # 0.00 Sodium Potassium Chloride Carbon Dioxide Anion Gap BUN Creatinine GFR Calculation BUN/Creatinine Ratio Glucose POC Glucose 226 H 157 H Calculated Osmolality Calcium Magnesium Total Bilirubin AST ALT Alkaline Phosphatase Total Protein Albumin Globulin Albumin/Globulin Ratio 07/19/16 04:04 WBC RBC Hgb Hct MCV MCH MCHC RDW Plt Count MPV Neut % (Auto) Lymph % (Auto) [place] % (Auto) Eos % (Auto) Baso % (Auto) Neut # (Auto) Lymph # (Auto) [place] # (Auto) Eos # (Auto) Baso # (Auto) Immature Gran % Nucleated RBC % Immature Gran # Nucleated RBCs # Sodium 140 Potassium 3.6 Chloride 106 Carbon Dioxide 25 Anion Gap 12.6 BUN 9 Creatinine 0.70 GFR Calculation 106 BUN/Creatinine Ratio 12.00 Glucose 238 H POC Glucose Calculated Osmolality 285.4 Calcium 7.6 L Magnesium 1.7 L Total Bilirubin < 0.39 AST 14 ALT 13 Alkaline Phosphatase 121 H Total Protein 5.2 L Albumin 2.1 L Globulin 3.1 Albumin/Globulin Ratio 0.6 L Quality Measures - VTE Contraindication to Pharmacological VTE Prophylaxis: High Risk of Bleeding - Stroke Symptom Onset Unknown: No Specialty Discharge - Follow Up or Referrals
[2016-07-19 09:04] LABS: ABG Base Excess 1.3 MMOL/L (-2.5-2.5); ABG HCO3 25.6 MMOL/L (20-26); ABG Oxygen Saturation 98.7 % (95-100); ABG PCO2 46.7 MM HG (35-48); ABG PH 7.372 (7.35-7.45); ABG TCO2 23.8 MMOL/L (23-27)
[2016-07-19] MEDS: ESCITALOPRAM 10 MG TABLET PO SCH (09:11)
[2016-07-19] MEDS: GABAPENTIN 300 MG CAPSULE PO SCH ×3 (09:11→21:47)
[2016-07-19] MEDS: ASPIRIN EC 81 MG TABLET PO SCH (09:11)
[2016-07-19] MEDS: CARVEDILOL 6.25 MG TABLET PO SCH ×2 (09:11→21:47)
[2016-07-19] MEDS: ENOXAPARIN 80 MG/0.8 ML SYRINGE SUBCUT SCH ×2 (09:12→21:46)
[2016-07-19] MEDS: tiZANidine 4 MG TABLET PO SCH ×2 (09:12→21:47)
[2016-07-19] MEDS: PANTOPRAZOLE 40 MG TABLET PO SCH (09:12)
[2016-07-19] MEDS: LISINOPRIL 20 MG TABLET PO SCH (09:12)
[2016-07-19] MEDS: CHLORHEXIDINE 0.12% ORAL RINSE 60 ML BOTTLE SWISH/SPIT SCH ×2 (09:13→21:49)
[2016-07-19] MEDS: INSULIN LISPRO 100 UNIT/ML SUBCUT SCH ×4 (09:48→22:23)
[2016-07-19] MEDS: SODIUM CHLORIDE 0.9% 1,000 ML IV SCH (10:29)
--- NOTE | 2016-07-19 13:28 | Cardiology Progress Note ---
Assessment and Plan (1) Coronary artery disease Status: Acute Assessment and plan: Patient's for coronary bypass surgery Thursday. She is doing well but stable at this time. Current Visit: Yes (2) Hypertension Status: Chronic Assessment and plan: Blood pressures time are up a little bit. We'll continue to monitor these as his admitting up and down. The may need to adjust her medications. Current Visit: Yes (3) Hyperlipidemia Status: Chronic Assessment and plan: Continue the Crestor. Current Visit: Yes (4) Tobacco abuse Status: Acute Assessment and plan: Needs to quit smoking but this can be very difficult. Current Visit: Yes Cardiology - PN: Subj Interval history: Patient is doing well without chest pain or shortness breath. She's been a just didn't sleep well last night. I do smell tobacco smoke in the room but I' m not sure if it is from the patient or her . She's done well from a carcinoma without any arrhythmias. She is preparing for surgery Thursday. Exam (Progress Note) - Constitutional Vitals: Period Temp Pulse Resp BP Sys/Cummings Pulse Ox Last 24 Hr 97.2 F-98.9 F 65-73 18-22 130-196/61-96 96-98 Exam: General appearance: Overweight, no acute distress, she is a little emotional and H is is morning. HEENT exam: normal inspection, atraumatic Neck exam: normal inspection no JVD. No carotid bruit. Trachea is in midline Respiratory/lungs exam: clear to auscultation bilaterally good air movement. Cardiovascular exam: regular rate and rhythm, no murmur or gallop or rub. No precordial lift. Chest wall exam: nontender GI/Abdominal exam: normal bowel sounds, soft, nontender, no abdominal bruits or pulsatile masses. Extremeties/musculoskeletal: normal inspection without edema or cyanosis. Neurological exam: alert, oriented X3, no focal deficits Psychiatric exam: normal affect, normal mood. She is a little anxious today. Cognitive function is grossly normal. Skin exam: normal color, warm Result/EKG - Labs CBC & BMP: 07/19/16 04:04 07/19/16 04:04 Lab Results: I have reviewed the past 24 hour labs Labs: Laboratory Results - last 24 hr 07/18/16 07/19/16 07/19/16 15:16 04:04 04:04 WBC 8.6 RBC 4.42 Hgb 11.8 L Hct 36.9 MCV 83.5 L MCH 27 MCHC 32.0 RDW 14.1 Plt Count 194 MPV 11.3 Neut % (Auto) 38.8 Lymph % (Auto) 51.1 [place] % (Auto) 7.6 Eos % (Auto) 1.7 Baso % (Auto) 0.6 Neut # (Auto) 3.3 Lymph # (Auto) 4.4 H [place] # (Auto) 0.7 Eos # (Auto) 0.2 Baso # (Auto) 0.1 Immature Gran % 0.2 Nucleated RBC % 0.0 Immature Gran # 0.02 Nucleated RBCs # 0.00 ABG pH ABG pCO2 ABG pO2 ABG HCO3 ABG Total CO2 ABG O2 Saturation ABG Base Excess FiO2 Sodium 140 Potassium 3.6 Chloride 106 Carbon Dioxide 25 Anion Gap 12.6 BUN 9 Creatinine 0.70 GFR Calculation 106 BUN/Creatinine Ratio 12.00 Glucose 238 H POC Glucose 157 H Calculated Osmolality 285.4 Calcium 7.6 L Magnesium 1.7 L Total Bilirubin < 0.39 AST 14 ALT 13 Alkaline Phosphatase 121 H Total Protein 5.2 L Albumin 2.1 L Globulin 3.1 Albumin/Globulin Ratio 0.6 L 07/19/16 07/19/16 07/19/16 09:02 09:18 11:50 WBC RBC Hgb Hct MCV MCH MCHC RDW Plt Count MPV Neut % (Auto) Lymph % (Auto) [place] % (Auto) Eos % (Auto) Baso % (Auto) Neut # (Auto) Lymph # (Auto) [place] # (Auto) Eos # (Auto) Baso # (Auto) Immature Gran % Nucleated RBC % Immature Gran # Nucleated RBCs # ABG pH 7.372 ABG pCO2 46.7 ABG pO2 125.0 H ABG HCO3 25.6 ABG Total CO2 23.8 ABG O2 Saturation 98.7 ABG Base Excess 1.3 FiO2 28.00 Sodium Potassium Chloride Carbon Dioxide Anion Gap BUN Creatinine GFR Calculation BUN/Creatinine Ratio Glucose POC Glucose 154 H 172 H Calculated Osmolality Calcium Magnesium Total Bilirubin AST ALT Alkaline Phosphatase Total Protein Albumin Globulin Albumin/Globulin Ratio - Impressions Impressions: ECG sinus rhythm with nonspecific ST-T abnormalities. This is especially laterally. Telemetry normal sinus rhythm. Quality Measures - VTE Contraindication to Pharmacological VTE Prophylaxis: High Risk of Bleeding - Stroke Symptom Onset Unknown: No Specialty Discharge - Follow Up or Referrals
--- NOTE | 2016-07-19 14:22 | Hospitalist Progress Note ---
Assessment and Plan (1) Chest pain Status: Acute Assessment and plan: On cardiac catheterization patient shows severe triple-vessel disease. She is planned for coronary bypass grafting to be done on Thursday. Cardiology is following the patient Current Visit: Yes (2) Hyperlipidemia Status: Chronic Assessment and plan: Meds while she is here. Current Visit: Yes (3) Hypertension Status: Chronic Assessment and plan: Resume home meds while she is here. Current blood pressures are optimal. Current Visit: Yes (4) IDDM (insulin dependent diabetes mellitus) Status: Chronic Assessment and plan: With addition of Lantus insulin on the treatment blood sugars this morning was 145 mg percent. The lowest that has been seen in the morning. Current Visit: Yes (5) Peripheral neuropathy Status: Chronic Assessment and plan: Patient's home medication been resumed regarding her peripheral neuropathy issues. She is comfortable enough Current Visit: Yes Hospitalist: Subjective Interval history: Patient has been seen interviewed and examined chart has been reviewed. Is very concerned that this patient smokes about she is pending cardiac surgery on Thursday. History of severe coronary disease. Surgery is aware of her smoking. I did talk to her she is not committing to stopping smoking. Exam - Constitutional Vitals: Period Temp Pulse Resp BP Sys/Cummings Pulse Ox Last 24 Hr 97.2 F-98.9 F 65-73 18-22 130-196/61-96 96-98 General appearance: over weight - Head Head exam: Present: normal inspection, normocephalic - Eye Eye exam: Present: EOMI Pupils: Present: SARAH - ENT ENT exam: Present: normal oropharynx - Neck Neck exam: Present: normal inspection - Respiratory Respiratory exam: Present: clear to auscultation bilaterally, other (Tobacco smell on her breath) - Cardiovascular Cardiovascular exam: Present: regular rate and rhythm - GI/Abdominal GI/Abdominal exam: Present: normal bowel sounds, soft - Extremities Exam Extremities exam: Present: normal inspection - Neurological Exam Neurological exam: Present: alert, oriented X3, CN II-XII intact - Psychiatric Psychiatric exam: Present: normal affect, normal mood - Skin Skin exam: Present: normal color, warm, dry Results - Labs CBC & BMP: 07/19/16 04:04 07/19/16 04:04 Lab Results: I have reviewed the past 24 hour labs Quality Measures - VTE Contraindication to Pharmacological VTE Prophylaxis: High Risk of Bleeding - Stroke Symptom Onset Unknown: No Specialty Discharge - Follow Up or Referrals
[2016-07-19] MEDS: POLYETHYLENE GLYCOL POWDER 17 GM PACK PO PRN (15:23)
--- NOTE | 2016-07-19 15:39 | XRay Report ---
History: Coronary artery disease Date: 07/19/2016 Study: Chest x-ray PA and lateral Comparison exam: Chest x-ray July 15, 2016 The cardiac silhouette is not enlarged. There is no mediastinal mass. The pulmonary vasculature is upper normal. There is trace pleural effusion in the fissures on the right. There is no holli pneumonia. Shallow inspiration. Minor subsegmental atelectasis in the lung bases. No acute osseous abnormality. Impression: Shallow inspiration with mild subsegmental atelectasis in the lung bases. Trace pleural effusion on the right PROCEDURE INTERPRETED AT [facility] DEPARTMENT OF RADIOLOGY Final Report Signed by: Dr. Janel Hilario
[2016-07-19] MEDS: rOPINIRole 0.25 MG TABLET PO SCH (21:47)
[2016-07-19] MEDS: CLORAZEPATE 3.75 MG TABLET PO PRN (21:48)
[2016-07-19] MEDS: ROSUVASTATIN 20 MG TABLET PO SCH (21:48)
[2016-07-19] MEDS: INSULIN GLARGINE 100 UNIT/ML SUBCUT SCH (21:48)
[2016-07-20 05:24] LABS: Calcium 7.6 MG/DL (8.5-10.1); Magnesium 1.6 MG/DL (1.8-2.4); Osmolality,Calculated 286.3 MOS/KG (273-304); Potassium 4.2 MMOL/L (3.5-5.1)
[2016-07-20] MEDS ORDERED: CEFUROXIME INJ 1,500 MG in SODIUM CHLORIDE 0.9% 100 ML IV ONE (06:00)
--- NOTE | 2016-07-20 08:23 | Cardiothoracic Progress Note ---
Cardiothoracic Subjective Interval history: Patient is ready for surgery in the morning. Exam (Progress Note) - Constitutional Vitals: Period Temp Pulse Resp BP Sys/Cummings Pulse Ox Last 24 Hr 96.5 F-97.7 F 57-66 18-20 110-194/50-85 97-100 Result/EKG - Labs CBC & BMP: 07/19/16 04:04 07/20/16 04:27 Labs: Laboratory Results - last 24 hr 07/19/16 07/19/16 07/19/16 09:02 09:18 11:50 ABG pH 7.372 ABG pCO2 46.7 ABG pO2 125.0 H ABG HCO3 25.6 ABG Total CO2 23.8 ABG O2 Saturation 98.7 ABG Base Excess 1.3 FiO2 28.00 Sodium Potassium Chloride Carbon Dioxide Anion Gap BUN Creatinine GFR Calculation BUN/Creatinine Ratio Glucose POC Glucose 154 H 172 H Calculated Osmolality Calcium Magnesium Blood Type Antibody Screen Crossmatch 07/19/16 07/19/16 07/20/16 15:08 21:57 04:27 ABG pH ABG pCO2 ABG pO2 ABG HCO3 ABG Total CO2 ABG O2 Saturation ABG Base Excess FiO2 Sodium Potassium Chloride Carbon Dioxide Anion Gap BUN Creatinine GFR Calculation BUN/Creatinine Ratio Glucose POC Glucose 195 H 217 H Calculated Osmolality Calcium Magnesium Blood Type A POSITIVE Antibody Screen Negative Crossmatch See Detail 07/20/16 07/20/16 04:27 Unknown ABG pH ABG pCO2 ABG pO2 ABG HCO3 ABG Total CO2 ABG O2 Saturation ABG Base Excess FiO2 Sodium 141 Potassium 4.2 Chloride 105 Carbon Dioxide 30 Anion Gap 10.2 BUN 12 Creatinine 0.70 GFR Calculation 107 BUN/Creatinine Ratio 17.00 Glucose 205 H POC Glucose Calculated Osmolality 286.3 Calcium 7.6 L Magnesium 1.6 L Blood Type A POSITIVE Antibody Screen Crossmatch Quality Measures - VTE Contraindication to Pharmacological VTE Prophylaxis: High Risk of Bleeding - Stroke Symptom Onset Unknown: No Specialty Discharge - Follow Up or Referrals
[2016-07-20] MEDS ORDERED: MAGNESIUM SULF RIDER 2 GM in PREMIX 1 EACH IV ONE (09:01)
--- NOTE | 2016-07-20 09:07 | Hospitalist Progress Note ---
Assessment and Plan (1) Chest pain Status: Acute Assessment and plan: On cardiac catheterization patient shows severe triple-vessel disease. She is planned for coronary bypass grafting to be done on Thursday. Cardiology is following the patient Current Visit: Yes (2) Hyperlipidemia Status: Chronic Assessment and plan: Meds while she is here. Current Visit: Yes (3) Hypertension Status: Chronic Assessment and plan: Resume home meds while she is here. Current blood pressures are optimal. Current Visit: Yes (4) IDDM (insulin dependent diabetes mellitus) Status: Chronic Assessment and plan: With addition of Lantus insulin on the treatment blood sugars this morning was 145 mg percent. The lowest that has been seen in the morning. Current Visit: Yes (5) Peripheral neuropathy Status: Chronic Assessment and plan: Patient's home medication been resumed regarding her peripheral neuropathy issues. She is comfortable enough Current Visit: Yes (6) Hypomagnesemia Status: Acute Assessment and plan: Supplement per protocol as discussed with the primary care nurse. Current Visit: Yes Hospitalist: Subjective Interval history: Patient has been seen interviewed and examined and chart has been reviewed. She states that she had a good night last night. Patient in the hospital was coronary artery disease found to have severe disease in left anterior descending that is pending revascularization tomorrow. Anything that I noticed today that magnesium was low at 1.6. This is going to be supplemented. She is not acknowledging any chest pain in the last 24 hours. Respiratory status is optimal. Exam - Constitutional Vitals: Period Temp Pulse Resp BP Sys/Cummings Pulse Ox Last 24 Hr 96.5 F-97.7 F 57-66 18-20 110-194/50-85 97-100 General appearance: over weight - Head Head exam: Present: normocephalic, atraumatic - Eye Eye exam: Present: EOMI Pupils: Present: SARAH - ENT ENT exam: Present: normal exam - Neck Neck exam: Present: normal inspection - Respiratory Respiratory exam: Present: clear to auscultation bilaterally - Cardiovascular Cardiovascular exam: Present: regular rate and rhythm - GI/Abdominal GI/Abdominal exam: Present: normal bowel sounds, soft - Extremities Exam Extremities exam: Present: full ROM - Back Exam Back exam: Present: normal inspection - Neurological Exam Neurological exam: Present: alert, oriented X3, CN II-XII intact - Psychiatric Psychiatric exam: Present: normal affect, normal mood - Skin Skin exam: Present: normal color, warm, dry Results - Labs CBC & BMP: 07/19/16 04:04 07/20/16 04:27 Lab Results: I have reviewed the past 24 hour labs (Noted hypomagnesemia chronic stable anemia hemoglobin of 11.8 g percent) Quality Measures - VTE Contraindication to Pharmacological VTE Prophylaxis: High Risk of Bleeding - Stroke Symptom Onset Unknown: No Specialty Discharge - Follow Up or Referrals
[2016-07-20] MEDS: CHLORHEXIDINE 4% SOLN 118 ML BOTTLE TOP SCH ×3 (09:50→22:44)
[2016-07-20] MEDS: PANTOPRAZOLE 40 MG TABLET PO SCH (09:51)
[2016-07-20] MEDS: CARVEDILOL 6.25 MG TABLET PO SCH ×2 (09:51→21:02)
[2016-07-20] MEDS: ESCITALOPRAM 10 MG TABLET PO SCH (09:51)
[2016-07-20] MEDS: ENOXAPARIN 80 MG/0.8 ML SYRINGE SUBCUT SCH (09:51)
[2016-07-20] MEDS: PROMETHAZINE 25 MG TABLET PO PRN ×3 (09:52→18:10)
[2016-07-20] MEDS: GABAPENTIN 300 MG CAPSULE PO SCH ×3 (09:52→21:03)
[2016-07-20] MEDS: LISINOPRIL 20 MG TABLET PO SCH (09:52)
[2016-07-20] MEDS: tiZANidine 4 MG TABLET PO SCH ×2 (09:52→21:02)
[2016-07-20] MEDS: ASPIRIN EC 81 MG TABLET PO SCH (09:52)
[2016-07-20] MEDS: INSULIN LISPRO 100 UNIT/ML SUBCUT SCH ×4 (09:53→21:55)
[2016-07-20] MEDS: CHLORHEXIDINE 0.12% ORAL RINSE 60 ML BOTTLE SWISH/SPIT SCH ×2 (09:53→22:44)
[2016-07-20] MEDS: SODIUM CHLORIDE 0.9% 1,000 ML IV SCH (11:18)
[2016-07-20] MEDS: POLYETHYLENE GLYCOL POWDER 17 GM PACK PO PRN (11:45)
--- NOTE | 2016-07-20 12:53 | Cardiology Progress Note ---
Assessment and Plan (1) Coronary artery disease Status: Acute Assessment and plan: Patient's for coronary bypass surgery tomorrow and she is stable at this time. Current Visit: Yes (2) Hypertension Status: Chronic Assessment and plan: Her blood pressures are everywhere high and low. I wonder some of this may be from anxiety. We'll place on some when necessary clonidine. Current Visit: Yes (3) Hyperlipidemia Status: Chronic Assessment and plan: Continue the Crestor. Current Visit: Yes (4) Tobacco abuse Status: Acute Assessment and plan: Needs to quit smoking and denies she smokes the last 2 days. Current Visit: Yes Cardiology - PN: Subj Interval history: Patient doing well today. No chest pain shortness of breath. She denies smoking. She's had no GI complaints. Her vital signs are stable. Her lab ordered today is stable. Her rhythm is remained sinus. She is for CABG tomorrow. She has no question this regard. Exam (Progress Note) - Constitutional Vitals: Period Temp Pulse Resp BP Sys/Cummings Pulse Ox Last 24 Hr 96.5 F-98.3 F 57-66 18-20 110-218/50-94 97-100 Exam: General appearance: Overweight, no acute distress, she is a little emotional and H is is morning. HEENT exam: normal inspection, atraumatic Neck exam: normal inspection no JVD. No carotid bruit. Trachea is in midline Respiratory/lungs exam: clear to auscultation bilaterally good air movement. Cardiovascular exam: regular rate and rhythm, no murmur or gallop or rub. No precordial lift. Chest wall exam: nontender GI/Abdominal exam: normal bowel sounds, soft, nontender, no abdominal bruits or pulsatile masses. Extremeties/musculoskeletal: normal inspection without edema or cyanosis. Neurological exam: alert, oriented X3, no focal deficits Psychiatric exam: normal affect, normal mood. She is a little anxious today. Cognitive function is grossly normal. Skin exam: normal color, warm Result/EKG - Labs CBC & BMP: 07/19/16 04:04 07/20/16 04:27 Lab Results: I have reviewed the past 24 hour labs Labs: Laboratory Results - last 24 hr 07/19/16 07/19/16 07/20/16 15:08 21:57 04:27 Sodium Potassium Chloride Carbon Dioxide Anion Gap BUN Creatinine GFR Calculation BUN/Creatinine Ratio Glucose POC Glucose 195 H 217 H Calculated Osmolality Calcium Magnesium Blood Type A POSITIVE Antibody Screen Negative Crossmatch See Detail 07/20/16 07/20/16 07/20/16 04:27 08:37 Unknown Sodium 141 Potassium 4.2 Chloride 105 Carbon Dioxide 30 Anion Gap 10.2 BUN 12 Creatinine 0.70 GFR Calculation 107 BUN/Creatinine Ratio 17.00 Glucose 205 H POC Glucose 140 H Calculated Osmolality 286.3 Calcium 7.6 L Magnesium 1.6 L Blood Type A POSITIVE Antibody Screen Crossmatch - Impressions Impressions: Telemetry normal sinus rhythm without dysrhythmias. Quality Measures - VTE Contraindication to Pharmacological VTE Prophylaxis: High Risk of Bleeding - Stroke Symptom Onset Unknown: No Specialty Discharge - Follow Up or Referrals
[2016-07-20] MEDS ORDERED: cloNIDine 0.1 MG TABLET PO PRN (12:54)
[2016-07-20] MEDS: ZALEPLON 5 MG CAPSULE PO PRN (21:02)
[2016-07-20] MEDS: ROSUVASTATIN 20 MG TABLET PO SCH (21:02)
[2016-07-20] MEDS: rOPINIRole 0.25 MG TABLET PO SCH (21:02)
[2016-07-20] MEDS: INSULIN GLARGINE 100 UNIT/ML SUBCUT SCH (21:04)
[2016-07-21] MEDS ORDERED: VANCOMYCIN 1,000 MG VIAL ONE (04:38)
[2016-07-21] MEDS ORDERED: PAPAVERINE 60 MG/2 ML VIAL ONE (04:38)
[2016-07-21] MEDS ORDERED: TISSUE ADHESIVE 1 EACH APPLICATOR TOP ONE (04:38)
[2016-07-21] MEDS ORDERED: FAMOTIDINE 20 MG TABLET PO ONE (05:30)
[2016-07-21] MEDS ORDERED: LORazepam 1 MG TABLET PO ONE (05:30)
[2016-07-21] MEDS: NIFEdipine 10 MG CAPSULE PO PRN (05:42)
[2016-07-21] MEDS: LISINOPRIL 20 MG TABLET PO SCH ×2 (05:43→13:57)
[2016-07-21] MEDS: CARVEDILOL 6.25 MG TABLET PO SCH ×2 (05:43→13:56)
[2016-07-21] MEDS: PANTOPRAZOLE 40 MG TABLET PO SCH ×2 (05:44→13:58)
[2016-07-21] MEDS: INSULIN LISPRO 100 UNIT/ML SUBCUT SCH ×2 (05:45→13:56)
[2016-07-21 05:47] LABS: Calcium 7.8 MG/DL (8.5-10.1); Osmolality,Calculated 285.7 MOS/KG (273-304); Potassium 4.5 MMOL/L (3.5-5.1)
[2016-07-21] MEDS: tiZANidine 4 MG TABLET PO SCH ×2 (06:17→13:58)
[2016-07-21] MEDS: CEFUROXIME INJ 1,500 MG in SODIUM CHLORIDE 0.9% 100 ML IV ONE ×2 (07:00→13:55)
[2016-07-21 07:34] LABS: ABG Base Excess 2.7 MMOL/L (-2.5-2.5); ABG HCO3 26.8 MMOL/L (20-26); ABG Oxygen Saturation 99.9 % (95-100); ABG PH 7.485 (7.35-7.45); ABG TCO2 22.4 MMOL/L (23-27); Glucose Heart Surgery 116 MG/DL (74-106); Hematocrit Heart Surgery 38.2 PERCENT (37-47); Hemoglobin Heart Surgery 12.4 G/DL (12.0-16.0); Ionized Calcium Arterial 1.09 MMOL/L (1.21-1.46); PH Patient Temp Arterial 7.485; Patient Temperature 37 CELCIUS; Potassium Heart/CVR 3.9 MMOL/L (3.5-5.1); Sodium Heart/CVR 136 MMOL/L (135-145)
[2016-07-21 07:46] LABS: Apearance,Urine CLEAR (Clear); Bilirubin,Urine Negative (Negative); Blood, Urine Negative (Negative); Glucose,Urine (UA) 50 mg/dL (Negative); Ketones,Urine Negative (Negative); Nitrite,Urine Negative (Negative); Protein,Urine 100 MG/DL; RBC,Urine 1 /HPF (0-4); Squamous Epithelial Cell,Urine Occasional /HPF (0-10); Urine Color Straw (Yellow); Urine Specific Gravity 1.009 (1.001-1.035); Urine Urobilinogen < 2.0 EU/DL (0.2-1.0); WBC,Urine 2 /HPF (0-6)
[2016-07-21 08:57] LABS: Hematocrit Heart Surgery 23.7 PERCENT (37-47); Hemoglobin Heart Surgery 7.6 G/DL (12.0-16.0); PCO2 Patient Temp Venous 35.2 MM HG; PH Patient Temp Venous 7.474; Potassium Heart/CVR 4.2 MMOL/L (3.5-5.1); VBG Base Excess 2.5 MEQ/L (0-4); VBG HCO3 26.3 MEQ/L (24-28); VBG Oxygen Saturation 71.5 %; VBG PCO2 40.6 MMHG (41-51); VBG PH 7.429; VBG PO2 35.8 MMHG (17-40)
[2016-07-21] MEDS ORDERED: NITROPRUSSIDE 50 MG/2 ML VIAL ONE (09:26)
[2016-07-21] MEDS ORDERED: EPINEPHrine 1 MG/10 ML SYRINGE ONE (09:27)
[2016-07-21] MEDS ORDERED: LIDOCAINE 100 MG/5 ML SYRINGE ONE (09:27)
[2016-07-21] MEDS ORDERED: PHENYLEPHRINE DRIP 40 MG/250 ML PREMIX IV ONE (09:27)
[2016-07-21] MEDS ORDERED: SODIUM BICARBONATE 50 MEQ/50 ML SYRINGE IV ONE ×2 (09:27→10:29)
[2016-07-21] MEDS ORDERED: CALCIUM CHLORIDE 1,000 MG/10 ML SYRINGE IV ONE ×2 (09:27→11:57)
[2016-07-21] MEDS ORDERED: ATROPINE 1 MG/10 ML SYRINGE ONE (09:27)
[2016-07-21] MEDS ORDERED: ALBUMIN 5% 12.5 GM/250 ML VIAL IV ONE (09:27)
[2016-07-21 09:28] LABS: Hematocrit Heart Surgery 26.2 PERCENT (37-47); Hemoglobin Heart Surgery 8.4 G/DL (12.0-16.0); PH Patient Temp Venous 7.441; PO2 Patient Temp Venous 37.1 MM HG; Potassium Heart/CVR 3.8 MMOL/L (3.5-5.1); VBG Base Excess 2.4 MEQ/L (0-4); VBG HCO3 26.2 MEQ/L (24-28); VBG Oxygen Saturation 76.6 %; VBG PCO2 40.9 MMHG (41-51); VBG PH 7.426; VBG PO2 39.8 MMHG (17-40)
[2016-07-21] MEDS ORDERED: HEPARIN/NACL 0.9% 2 UNITS/ML 500 ML IV ONE ×2 (09:37→11:58)
[2016-07-21 09:57] LABS: Hematocrit Heart Surgery 26.9 PERCENT (37-47); Hemoglobin Heart Surgery 8.7 G/DL (12.0-16.0); PH Patient Temp Venous 7.47; Potassium Heart/CVR 4.1 MMOL/L (3.5-5.1); VBG Base Excess 2.7 MEQ/L (0-4); VBG HCO3 26.5 MEQ/L (24-28); VBG Oxygen Saturation 75.1 %; VBG PCO2 39.7 MMHG (41-51); VBG PH 7.44
[2016-07-21] MEDS ORDERED: DEXTROSE 5% KCL 20 MEQ 20 MEQ/1,000 ML BAG IV ONE (10:27)
[2016-07-21] MEDS ORDERED: HEPARIN 10,000 UNIT/10 ML VIAL ONE (10:28)
[2016-07-21] MEDS ORDERED: ALBUMIN 25% 25 GM/100 ML VIAL IV ONE (10:28)
[2016-07-21] MEDS ORDERED: FUROSEMIDE 20 MG/2 ML VIAL ONE (10:28)
[2016-07-21] MEDS ORDERED: PROTAMINE SULFATE 250 MG/25 ML VIAL IV ONE (10:29)
[2016-07-21] MEDS ORDERED: PHENYLEPHRINE DRIP 20 MG/250 ML PREMIX IV ONE ×2 (10:29→11:58)
[2016-07-21] MEDS ORDERED: MAGNESIUM SULFATE 1 GM/2 ML VIAL ONE (10:29)
[2016-07-21] MEDS ORDERED: MANNITOL 12.5 GM/50 ML VIAL IV ONE (10:29)
[2016-07-21 10:39] LABS: ABG Base Excess 1.1 MMOL/L (-2.5-2.5); ABG HCO3 25.4 MMOL/L (20-26); ABG Oxygen Saturation 99.8 % (95-100); ABG PCO2 35.9 MM HG (35-48); ABG TCO2 22.9 MMOL/L (23-27); Glucose Heart Surgery 254 MG/DL (74-106); Hematocrit Heart Surgery 28.1 PERCENT (37-47); Ionized Calcium Arterial 1.17 MMOL/L (1.21-1.46); PCO2 Patient Temp Arterial 35.9 MMHG; Patient Temperature 37 CELCIUS; Potassium Heart/CVR 4.2 MMOL/L (3.5-5.1); Sodium Heart/CVR 132 MMOL/L (135-145)
[2016-07-21] MEDS ORDERED: POTASSIUM CHLORIDE RIDER 100 ML IV ONE (10:55)
[2016-07-21] MEDS ORDERED: CALCIUM CHLORIDE 1,000 MG/10 ML SYRINGE IV PRN (11:42)
[2016-07-21] MEDS ORDERED: INSULIN REGULAR 100 UNIT/ML IV ONE ×2 (11:42→12:00)
[2016-07-21] MEDS ORDERED: POTASSIUM CHLORIDE RIDER 20 MEQ in PREMIX 1 EACH IV PRN (11:42)
[2016-07-21] MEDS ORDERED: MORPHINE 2 MG/1 ML SYRINGE IV PRN (11:42)
[2016-07-21] MEDS ORDERED: MAGNESIUM SULF RIDER 4 GM in PREMIX 1 EACH IV PRN (11:42)
[2016-07-21] MEDS ORDERED: DEXTROSE 50% 25 GM/50 ML VIAL IV PRN ×2 (11:42)
[2016-07-21] MEDS ORDERED: VECURONIUM 10 MG VIAL IV PRN ×2 (11:42)
[2016-07-21] MEDS ORDERED: MAGNESIUM SULF RIDER 2 GM in PREMIX 1 EACH IV PRN (11:42)
[2016-07-21] MEDS ORDERED: ACETAMINOPHEN 650 MG SUPP RECTAL PRN (11:42)
[2016-07-21] MEDS ORDERED: LACTATED RINGERS 250 ML IV PRN (11:42)
[2016-07-21] MEDS ORDERED: INSULIN REGULAR 100 UNIT/ML IV PRN (11:42)
[2016-07-21] MEDS ORDERED: NITROPRUSSIDE 100 MG in DEXTROSE 5% 250 ML IV PRN (11:42)
[2016-07-21] MEDS ORDERED: MIDAZOLAM 2 MG/2 ML VIAL IV PRN (11:42)
[2016-07-21] MEDS ORDERED: MORPHINE 10 MG/1 ML VIAL IV PRN (11:42)
[2016-07-21] MEDS ORDERED: ONDANSETRON 4 MG/2 ML VIAL IV PRN (11:42)
[2016-07-21] MEDS ORDERED: PHENYLEPHRINE DRIP 40 MG/250 ML PREMIX IV PRN (11:42)
[2016-07-21] MEDS ORDERED: MIDAZOLAM 10 MG/2 ML VIAL IV PRN (11:42)
--- NOTE | 2016-07-21 11:49 | Operative Note ---
Date of procedure: 07/21/16 Pre-op diagnosis: Coronary artery disease Post-op diagnosis: same Procedure: Procedure: Coronary bypass grafting 3 with an internal mammary graft to the anterior descending coronary artery and saphenous vein graft to second obtuse marginal and the posterior descending coronary arteries. Findings: Patient is a 60-year-old lady with substernal chest discomfort who was found to have severe coronary disease and cardiac catheterization. At the time of surgery left ventricular function was noted to be essentially normal and saphenous vein grafts were placed to relatively small vessels in the distribution of the right posterior descending coronary artery and a second obtuse marginal coronary artery. Both vessels were free of disease however at the site of anastomosis. Left internal mammary graft was placed to the anterior descending coronary artery which was a large vessel and free of disease at the site of anastomosis. Patient tolerated procedure well and was returned to recovery in satisfactory condition. Of note is that the patient had significant atherosclerotic disease of the ascending aorta. Procedure: Patient brought to the operating room placed in the operating table in supine position. After satisfactory induction of general anesthesia the chest abdomen and legs were prepped and draped in sterile fashion. Greater saphenous vein was harvested from the left lower leg and prepared as an arterial graft. Incision in the leg was closed with 3-0 subcutaneous Monocryl and 3-0 subcuticular Monocryl. Standard sternotomy incision was made and the sternum was divided and the heart suspended in a pericardial cradle. Left internal mammary artery was dissected free and. His arterial graft. Patient was prepared for cardiopulmonary bypass with systemic heparinization and cannulation of the ascending aorta and right atrium. Cardiopulmonary bypass was begun and aorta was crossclamped and the heart arrested with cardioplegia solution injected into the aortic root. Heart was protected during the period of crossclamping with topical saline slush. Distal anastomoses were constructed above and proximal anastomoses were constructed with the aorta crossclamped between the ascending aorta and the inflow end of the saphenous vein graft. This was done primarily because of severe atherosclerotic disease of the ascending aorta making partial occlusion difficult or potentially dangerous. Once all anastomoses were complete the aorta was unclamped reestablishing cardiac action. Patient was weaned from cardiopulmonary bypass without difficulty and the heparin effect reversed with protamine and decannulation carried out with a defects in the ascending aorta and right atrium closed with 3-0 Prolene. Operative field was inspected for hemostasis and this was considered adequate incision was closed with interrupted stainless steel wire and the sternum 0 Monocryl in the presternal fascia 3-0 subcuticular Monocryl. Chest tubes were left in the anterior mediastinum and brought out through separate stab incisions. Patient was returned to recovery in satisfactory condition. Surgeon / Physician: Aiden García Estimated blood loss: other (Unable to determine because of cardiopulmonary bypass) Condition: stable Disposition: ICU Results - Labs CBC & BMP: 07/21/16 10:32 07/21/16 03:55 Discharge Plan - Discharge Medications No Action Promethazine Tab [Phenergan Tab] 25 mg PO Q4-6H PRN PRN Reason: Nausea Omeprazole [Prilosec] 20 mg PO DAILY Nitroglycerin Sl Tab [Nitrostat] 0.4 mg SL Q5M PRN PRN Reason: Chest Pain Escitalopram [Lexapro] 10 mg PO DAILY tiZANidine [Zanaflex] 4 mg PO BID HYDROcodone/ACETAMIN 10-325 [[place] 10-325] 1 tablet PO QID Gabapentin 300 mg PO TID Lisinopril 10 mg PO DAILY - Follow Up or Referral - Forms/Instructions Instructions: Coronary Artery Disease (GEN), Heart Healthy Diet (GEN), Coronary Artery Bypass Graft, Plate Grinder (GEN), Sternal Precautions (GEN)
[2016-07-21] MEDS ORDERED: ePHEDrine 50 MG/ML AMP ONE (11:54)
[2016-07-21] MEDS ORDERED: PROTAMINE SULFATE 50 MG/5 ML VIAL IV ONE (11:56)
[2016-07-21] MEDS ORDERED: SEVOFLURANE 1 UNIT/15 MINUTE INH ONE (11:58)
[2016-07-21] MEDS ORDERED: SUFentanil 250 MCG/5 ML AMP ONE (11:58)
[2016-07-21] MEDS ORDERED: MIDAZOLAM 10 MG/2 ML VIAL ONE (11:59)
[2016-07-21] MEDS ORDERED: NITROGLYCERIN DRIP 50 MG/250 ML BOTTLE IV ONE (11:59)
[2016-07-21] MEDS ORDERED: VECURONIUM 10 MG VIAL IV ONE (11:59)
[2016-07-21] MEDS ORDERED: MINERAL OIL/PETROLATUM OPH OINT 3.5 GM TUBE ONE (11:59)
[2016-07-21] MEDS ORDERED: SODIUM CHLORIDE 0.45% 1,000 ML IV SCH ×2 (12:00)
[2016-07-21] MEDS ORDERED: SODIUM CHLORIDE 0.9% 1,000 ML IV ONE (12:00)
[2016-07-21] MEDS ORDERED: LACTATED RINGERS 1,000 ML IV ONE (12:00)
[2016-07-21] MEDS ORDERED: AMINOCAPROIC ACID 5,000 MG/20 ML VIAL IV ONE (12:00)
[2016-07-21] MEDS ORDERED: INSULIN REGULAR DRIP 100 ML IV SCH (12:00)
[2016-07-21] MEDS ORDERED: SODIUM CHLORIDE 0.9% 100 ML IV ONE (12:00)
[2016-07-21] MEDS ORDERED: SODIUM CHLORIDE 0.9% 250 ML IV ONE (12:00)
[2016-07-21 12:05] LABS: Basophils # 0.1 10*3/uL (0.0-0.2); Basophils % 0.4 % (0.0-0.8); Eosinophils # 0.1 10*3/uL (0.0-0.87); Eosinophils % 0.6 % (0.00-10.9); Hematocrit 30.3 VOL% (35.7-47.0); Hemoglobin 9.7 GM/DL (12.0-16.0); Immature Granulocytes % 0.6 %; Immature Granulocytes Absolute 0.07 #; Lymphocytes # 3.5 10*3/uL (1.4-4.0); Lymphocytes % 29.6 % (21.3-54.2); Mean Corpuscular Hemoglobin 27 PG (27-34); Mean Corpuscular Volume 85.6 FL (87-102); Mean Platelet Volume 11.3 FL (9.6-12.0); Monocytes # 0.6 10*3/uL (0.11-0.8); Monocytes % 4.8 % (1.7-12.7); Neutrophils # 7.5 10*3/uL (1.4-7.4); Platelet Count 188 T/CUMM (130-400); Red Blood Count 3.54 MC/CUMM (3.8-5.5); Red Cell Distribution Width 13.9 % (9.3-17.3); White Blood Count 11.7 T/CUMM (4-12)
[2016-07-21 12:09] LABS: ABG Base Excess 0.5 MMOL/L (-2.5-2.5); ABG HCO3 24.9 MMOL/L (20-26); ABG Oxygen Saturation 99.3 % (95-100); ABG PCO2 34.3 MM HG (35-48); ABG PH 7.454 (7.35-7.45); ABG TCO2 21.9 MMOL/L (23-27); Glucose Heart Surgery 218 MG/DL (74-106); Hemoglobin Heart Surgery 9.7 G/DL (12.0-16.0); Potassium Heart/CVR 3.9 MMOL/L (3.5-5.1)
[2016-07-21 12:11] LABS: INR 1.1; PT Patient Result 11.8 SECS; Partial Thromboplastin Time 33.6 SECS (0-40)
[2016-07-21] MEDS: LACTATED RINGERS 1,000 ML IV PRN ×5 (12:19→16:40)
[2016-07-21 12:38] LABS: Albumin 2.2 G/DL (3.4-5.0); Bilirubin,Total 0.6 MG/DL (0.2-1.0); Calcium 8.6 MG/DL (8.5-10.1); Potassium 4.2 MMOL/L (3.5-5.1); Total Protein 4.6 G/DL (6.4-8.3)
[2016-07-21] MEDS: POTASSIUM CHLORIDE RIDER 10 MEQ in PREMIX 1 EACH IV PRN ×7 (12:46→23:47)
--- NOTE | 2016-07-21 12:52 | XRay Report ---
XR chest 1V portable Indication: Line placement Comparison: Chest x-ray 07/19/2016 Technique: Portable AP chest was performed. Findings: Interval sternotomy is demonstrated. Endotracheal tube and NG tube are present. Endotracheal tube terminates at the aortic knob. [place] catheter is [place] within the right pulmonary artery outflow. Chest tubes and mediastinal drains are present. Minimal atelectatic change of the left lung base is suggested. Lungs otherwise are clear. Heart size appears within normal limits. Impression: 1. Interval sternotomy. 2. Minimal atelectatic changes within the left lung base are suggested. 07/21/2016 12:48 PM PROCEDURE INTERPRETED AT [facility] DEPARTMENT OF RADIOLOGY Final Report Signed by: Dr. Babar Ansari
--- NOTE | 2016-07-21 13:11 | Anesthesia Procedures ---
Anesthesia Procedures - Central Venous Insert Monitors Applied: pulse oximetry, EKG, BP cuff, oxygen via MSBT: pulse oximetry, EKG, BP cuff, oxygen via Procedure: after sterile technique was performed as outlined above, , ultrasound guidance was used to identify vessel, 18G introducer needle was passed into vessel under direct visualizatio, triple lumen catheter was passed over guidewire without difficulty, catheter sutured into place and the ports flushed with NS/hepflush, sterlie dressing applied including the antibiotic disc , vital signs were stable throughout procedure, no apparent complications were noted, CXR to be obtained and read Ultrasound used: identify patency vessel, visualize needle entry to vessel Vein Cannulated: right internal juglar
[2016-07-21] MEDS: ALBUMIN 5% 12.5 GM in PREMIX 1 EACH IV PRN ×6 (13:12→21:42)
--- NOTE | 2016-07-21 13:12 | Anesthesia Procedures ---
Anesthesia Procedures - Arterial Line Consent obtained arterial line: written consent Time out performed arterial line: Yes Size (Gauge): 20 Technique used arterial line: guide wire technique Post-Procedure: line sutured into place Patient tolerated procedure arterial line: well Complications art line: none Site: right
[2016-07-21] MEDS: KETOROLAC 30 MG/1 ML VIAL IV SCH ×2 (13:14→18:18)
[2016-07-21 13:30] LABS: ABG Base Excess 0.3 MMOL/L (-2.5-2.5); ABG HCO3 24.7 MMOL/L (20-26); ABG Oxygen Saturation 99.4 % (95-100); ABG PCO2 38.2 MM HG (35-48); ABG PH 7.417 (7.35-7.45); ABG TCO2 22.3 MMOL/L (23-27); Glucose Heart Surgery 157 MG/DL (74-106); Hematocrit Heart Surgery 31.1 PERCENT (37-47); Hemoglobin Heart Surgery 10.1 G/DL (12.0-16.0); Potassium Heart/CVR 4.5 MMOL/L (3.5-5.1)
[2016-07-21] MEDS: ASPIRIN EC 81 MG TABLET PO SCH (13:56)
[2016-07-21] MEDS: SODIUM CHLORIDE 0.9% 1,000 ML IV SCH (13:56)
[2016-07-21] MEDS: ESCITALOPRAM 10 MG TABLET PO SCH (13:57)
[2016-07-21] MEDS: GABAPENTIN 300 MG CAPSULE PO SCH (13:57)
[2016-07-21] MEDS: CHLORHEXIDINE 0.12% ORAL RINSE 60 ML BOTTLE SWISH/SPIT SCH ×2 (13:57→21:42)
[2016-07-21 14:14] LABS: ABG Base Excess -0.1 MMOL/L (-2.5-2.5); ABG HCO3 24.4 MMOL/L (20-26); ABG Oxygen Saturation 98.9 % (95-100); ABG PCO2 39.8 MM HG (35-48); ABG PH 7.399 (7.35-7.45); ABG TCO2 22.9 MMOL/L (23-27); Glucose Heart Surgery 114 MG/DL (74-106); Hematocrit Heart Surgery 25.9 PERCENT (37-47); Hemoglobin Heart Surgery 8.3 G/DL (12.0-16.0); Potassium Heart/CVR 4.5 MMOL/L (3.5-5.1)
--- NOTE | 2016-07-21 14:44 | Cardiology Progress Note ---
Assessment and Plan - Time spent with patient Time spent with patient: Greater than 30 minutes (1) S/P CABG x 3 Status: Chronic Assessment and plan: See plan of care listed below Current Visit: Yes (2) IDDM (insulin dependent diabetes mellitus) Status: Chronic Assessment and plan: See plan of care listed below Current Visit: Yes (3) Hypertension Status: Chronic Assessment and plan: See plan of care listed below Current Visit: Yes (4) Hyperlipidemia Status: Chronic Assessment and plan: See plan of care listed below Current Visit: Yes (5) Tobacco abuse Status: Chronic Assessment and plan: See plan of care listed below Current Visit: Yes (6) Coronary artery disease Status: Chronic Assessment and plan: See plan of care listed below Current Visit: Yes Qualifiers: Coronary Disease-Associated Artery/Lesion type: [place] artery [place] vs. transplanted heart: [place] heart Cardiology - PN: Subj Interval history: ORCHESTRATOR: DR. REBOLLEDO PCP: MAGDALENA LOZANO SUMMARY: Ms. See, 60-year-old female, has a history of known coronary artery disease, hypertension, dyslipidemia, diabetes, sedentary lifestyle and tobaccoism. She presented to the emergency department July 16, 2016 with complaints of chest pain. She underwent elective cardiac catheterization which resulted revealed progression of her coronary artery disease to include three- vessel CAD. This morning, patient has undergone elective CABG performed by Dr. García to include the following: left internal mammary graft to the anterior descending coronary artery and saphenous vein graft to second obtuse marginal and the posterior descending coronary arteries. She is now in the CVR, waking and following commands appropriately. She is requiring low-dose pressors and progressing nicely. ASSESSMENT/PLAN: 1. CAD S/P CABG X 3 -stable and progressing nicely through the postop phase. 2. HYPERTENSION -will adjust medications accordingly during the hospital stay 3. DYSLIPIDEMIA -continuing lipid-lowering agent 4. DIABETES -adequately controlled during this hospital stay. 5. TOBACCOISM -smoking cessation has been reinforced through the hospital stay. Exam (Progress Note) - Constitutional Vitals: Period Temp Pulse Resp BP Sys/Cummings Pulse Ox Last 24 Hr 97.0 F-99.5 F 58-91 10-65 87-196/52-88 98-100 Exam: General: [Intubated and following commands appropriately. Appears comfortable ] HEENT: normocephalic, atraumatic. Mucous membranes moist. No jaundice noted. Conjunctiva moist and clear, sclerae anicteric] Neck: No JVD/HJR, no thyromegaly or lymphadenopathy noted. No carotid bruit appreciated Cardiac: [Regular rate and rhythm.] [No murmur rub or gallop.] Lungs: [Clear to auscultation without accessory with chest tubes intact. Abdomen: Soft, bowel sounds normoactive. Nontender and nondistended. No abdominal bruit or thrill noted. No masses noted. Musculoskeletal: No fluid collection. Decreased range of motion is noted. Extremities: No clubbing, cyanosis noted. [ No edema noted.] Upper extremity pulses 2+. Lower extremity pulses 2+. Capillary refill less than 3 seconds. Skin: No unusual lesions or rashes. No skin breakdown appreciated. Neuro: Moves all extremities well without hemiparesis or paralysis. No essential tremor is appreciated. Result/EKG - Labs CBC & BMP: 07/21/16 11:30 07/21/16 11:30 Lab Results: I have reviewed the past 24 hour labs Labs: Laboratory Results - last 24 hr 07/20/16 07/20/16 07/20/16 04:27 11:53 17:09 WBC RBC Hgb Hct MCV MCH MCHC RDW Plt Count MPV Neut % (Auto) Lymph % (Auto) Winn % (Auto) Eos % (Auto) Baso % (Auto) Neut # (Auto) Lymph # (Auto) Winn # (Auto) Eos # (Auto) Baso # (Auto) Immature Gran % Nucleated RBC % Immature Gran # Nucleated RBCs # INR PT Patient/Control Mix Circ Anticoag PTT Patient Temperature ABG pH ABG pH at Pt Temp ABG pCO2 ABG pCO2 at Pt Temp ABG pO2 ABG pO2 at Pt Temp ABG HCO3 ABG Total CO2 ABG O2 Saturation ABG Base Excess ABG Sodium VBG pH VBG pCO2 VBG pO2 VBG HCO3 VBG Total CO2 VBG O2 Saturation VBG Base Excess Hemoglobin Hematocrit Ionized Calcium FiO2 Sodium Potassium Chloride Carbon Dioxide Anion Gap BUN Creatinine GFR Calculation BUN/Creatinine Ratio Glucose POC Glucose 196 H 164 H Calculated Osmolality Calcium Venous Ioniz Calcium Magnesium Total Bilirubin AST ALT Alkaline Phosphatase Total Protein Albumin Globulin Albumin/Globulin Ratio Urine Color Urine Appearance Urine pH Ur Specific [place] Urine Protein Urine Glucose (UA) Urine Ketones Urine Blood Urine Nitrate Urine Bilirubin Urine Urobilinogen Urine Leukocytes Urine RBC Urine WBC Ur Squamous Epith Cells Ur Culture Indicated? Blood Type A POSITIVE Antibody Screen Negative Crossmatch See Detail 07/20/16 07/21/16 07/21/16 19:21 03:55 04:57 WBC RBC Hgb Hct MCV MCH MCHC RDW Plt Count MPV Neut % (Auto) Lymph % (Auto) Winn % (Auto) Eos % (Auto) Baso % (Auto) Neut # (Auto) Lymph # (Auto) Winn # (Auto) Eos # (Auto) Baso # (Auto) Immature Gran % Nucleated RBC % Immature Gran # Nucleated RBCs # INR PT Patient/Control Mix Circ Anticoag PTT Patient Temperature ABG pH ABG pH at Pt Temp ABG pCO2 ABG pCO2 at Pt Temp ABG pO2 ABG pO2 at Pt Temp ABG HCO3 ABG Total CO2 ABG O2 Saturation ABG Base Excess ABG Sodium VBG pH VBG pCO2 VBG pO2 VBG HCO3 VBG Total CO2 VBG O2 Saturation VBG Base Excess Hemoglobin Hematocrit Ionized Calcium FiO2 Sodium 138 Potassium 4.5 Chloride 103 Carbon Dioxide 28 Anion Gap 11.5 BUN 13 Creatinine 0.70 GFR Calculation 108 BUN/Creatinine Ratio 18.00 Glucose 291 H POC Glucose 187 H 265 H Calculated Osmolality 285.7 Calcium 7.8 L Venous Ioniz Calcium Magnesium 2.0 Total Bilirubin AST ALT Alkaline Phosphatase Total Protein Albumin Globulin Albumin/Globulin Ratio Urine Color Urine Appearance Urine pH Ur Specific [place] Urine Protein Urine Glucose (UA) Urine Ketones Urine Blood Urine Nitrate Urine Bilirubin Urine Urobilinogen Urine Leukocytes Urine RBC Urine WBC Ur Squamous Epith Cells Ur Culture Indicated? Blood Type Antibody Screen Crossmatch 07/21/16 07/21/16 07/21/16 07:05 07:23 07:34 WBC RBC Hgb Hct MCV MCH MCHC RDW Plt Count 196 MPV Neut % (Auto) Lymph % (Auto) Winn % (Auto) Eos % (Auto) Baso % (Auto) Neut # (Auto) Lymph # (Auto) Winn # (Auto) Eos # (Auto) Baso # (Auto) Immature Gran % Nucleated RBC % Immature Gran # Nucleated RBCs # INR PT Patient/Control Mix Circ Anticoag PTT Patient Temperature 37 ABG pH 7.485 H ABG pH at Pt Temp 7.485 ABG pCO2 34.0 L ABG pCO2 at Pt Temp 34.0 ABG pO2 450.0 H ABG pO2 at Pt Temp 450.0 ABG HCO3 26.8 H ABG Total CO2 22.4 L ABG O2 Saturation 99.9 ABG Base Excess 2.7 H ABG Sodium 136 VBG pH VBG pCO2 VBG pO2 VBG HCO3 VBG Total CO2 VBG O2 Saturation VBG Base Excess Hemoglobin 12.4 Hematocrit 38.2 Ionized Calcium 1.09 L FiO2 Sodium Potassium 3.9 Chloride Carbon Dioxide Anion Gap BUN Creatinine GFR Calculation BUN/Creatinine Ratio Glucose 116 H POC Glucose Calculated Osmolality Calcium Venous Ioniz Calcium Magnesium Total Bilirubin AST ALT Alkaline Phosphatase Total Protein Albumin Globulin Albumin/Globulin Ratio Urine Color Straw Urine Appearance Clear Urine pH 7.0 Ur Specific [place] 1.009 Urine Protein 100 Urine Glucose (UA) 50 Urine Ketones Negative Urine Blood Negative Urine Nitrate Negative Urine Bilirubin Negative Urine Urobilinogen < 2.0 H Urine Leukocytes Negative Urine RBC 1 Urine WBC 2 Ur Squamous Epith Cells Occasional Ur Culture Indicated? Not indicated Blood Type Antibody Screen Crossmatch 07/21/16 07/21/16 07/21/16 08:50 09:20 09:50 WBC RBC Hgb Hct MCV MCH MCHC RDW Plt Count MPV Neut % (Auto) Lymph % (Auto) Winn % (Auto) Eos % (Auto) Baso % (Auto) Neut # (Auto) Lymph # (Auto) Winn # (Auto) Eos # (Auto) Baso # (Auto) Immature Gran % Nucleated RBC % Immature Gran # Nucleated RBCs # INR PT Patient/Control Mix Circ Anticoag PTT Patient Temperature 34 36 35 ABG pH ABG pH at Pt Temp 7.474 7.441 7.470 ABG pCO2 ABG pCO2 at Pt Temp 35.2 39.0 36.0 ABG pO2 ABG pO2 at Pt Temp 29.0 37.1 33.0 ABG HCO3 ABG Total CO2 ABG O2 Saturation ABG Base Excess ABG Sodium 130 L 133 L 132 L VBG pH 7.429 7.426 7.440 VBG pCO2 40.6 L 40.9 L 39.7 L VBG pO2 35.8 39.8 38.0 VBG HCO3 26.3 26.2 26.5 VBG Total CO2 25.3 25.0 25.0 VBG O2 Saturation 71.5 76.6 75.1 VBG Base Excess 2.5 2.4 2.7 Hemoglobin 7.6 L 8.4 L 8.7 L Hematocrit 23.7 L 26.2 L 26.9 L Ionized Calcium FiO2 80.00 80.00 80.00 Sodium Potassium 4.2 3.8 4.1 Chloride Carbon Dioxide Anion Gap BUN Creatinine GFR Calculation BUN/Creatinine Ratio Glucose 318 H 255 H 265 H POC Glucose Calculated Osmolality Calcium Venous Ioniz Calcium 0.91 L 0.96 L 0.96 L Magnesium Total Bilirubin AST ALT Alkaline Phosphatase Total Protein Albumin Globulin Albumin/Globulin Ratio Urine Color Urine Appearance Urine pH Ur Specific [place] Urine Protein Urine Glucose (UA) Urine Ketones Urine Blood Urine Nitrate Urine Bilirubin Urine Urobilinogen Urine Leukocytes Urine RBC Urine WBC Ur Squamous Epith Cells Ur Culture Indicated? Blood Type Antibody Screen Crossmatch 07/21/16 07/21/16 07/21/16 10:32 10:41 11:30 WBC 11.7 D RBC 3.54 L Hgb 9.7 L D Hct 30.3 L MCV 85.6 L MCH 27 MCHC 32.0 RDW 13.9 Plt Count 125 L D 188 D MPV 11.3 Neut % (Auto) 64.0 Lymph % (Auto) 29.6 Winn % (Auto) 4.8 Eos % (Auto) 0.6 Baso % (Auto) 0.4 Neut # (Auto) 7.5 H Lymph # (Auto) 3.5 Winn # (Auto) 0.6 Eos # (Auto) 0.1 Baso # (Auto) 0.1 Immature Gran % 0.6 Nucleated RBC % 0.0 Immature Gran # 0.07 Nucleated RBCs # 0.00 INR PT Patient/Control Mix Circ Anticoag PTT Patient Temperature 37 ABG pH 7.450 ABG pH at Pt Temp 7.450 ABG pCO2 35.9 ABG pCO2 at Pt Temp 35.9 ABG pO2 253.0 H ABG pO2 at Pt Temp 253.0 ABG HCO3 25.4 ABG Total CO2 22.9 L ABG O2 Saturation 99.8 ABG Base Excess 1.1 ABG Sodium 132 L VBG pH VBG pCO2 VBG pO2 VBG HCO3 VBG Total CO2 VBG O2 Saturation VBG Base Excess Hemoglobin 9.0 L Hematocrit 28.1 L Ionized Calcium 1.17 L FiO2 Sodium Potassium 4.2 Chloride Carbon Dioxide Anion Gap BUN Creatinine GFR Calculation BUN/Creatinine Ratio Glucose 254 H POC Glucose Calculated Osmolality Calcium Venous Ioniz Calcium Magnesium Total Bilirubin AST ALT Alkaline Phosphatase Total Protein Albumin Globulin Albumin/Globulin Ratio Urine Color Urine Appearance Urine pH Ur Specific [place] Urine Protein Urine Glucose (UA) Urine Ketones Urine Blood Urine Nitrate Urine Bilirubin Urine Urobilinogen Urine Leukocytes Urine RBC Urine WBC Ur Squamous Epith Cells Ur Culture Indicated? Blood Type Antibody Screen Crossmatch 07/21/16 07/21/16 07/21/16 11:30 11:30 11:30 WBC RBC Hgb Hct MCV MCH MCHC RDW Plt Count MPV Neut % (Auto) Lymph % (Auto) Winn % (Auto) Eos % (Auto) Baso % (Auto) Neut # (Auto) Lymph # (Auto) Winn # (Auto) Eos # (Auto) Baso # (Auto) Immature Gran % Nucleated RBC % Immature Gran # Nucleated RBCs # INR 1.1 PT Patient/Control Mix 11.8 Circ Anticoag PTT 33.6 Patient Temperature ABG pH 7.454 H ABG pH at Pt Temp ABG pCO2 34.3 L ABG pCO2 at Pt Temp ABG pO2 158.0 H ABG pO2 at Pt Temp ABG HCO3 24.9 ABG Total CO2 21.9 L ABG O2 Saturation 99.3 ABG Base Excess 0.5 ABG Sodium VBG pH VBG pCO2 VBG pO2 VBG HCO3 VBG Total CO2 VBG O2 Saturation VBG Base Excess Hemoglobin 9.7 L Hematocrit 30.0 L Ionized Calcium FiO2 Sodium 136 Potassium 4.2 3.9 Chloride 103 Carbon Dioxide 26 Anion Gap 11.2 BUN 11 Creatinine 0.60 GFR Calculation 114 BUN/Creatinine Ratio 18.00 Glucose 218 H 218 H POC Glucose Calculated Osmolality 277.0 Calcium 8.6 Venous Ioniz Calcium Magnesium 2.0 Total Bilirubin 0.60 AST 132 H ALT 34 Alkaline Phosphatase 142 H Total Protein 4.6 L Albumin 2.2 L Globulin 2.4 Albumin/Globulin Ratio 0.9 L Urine Color Urine Appearance Urine pH Ur Specific [place] Urine Protein Urine Glucose (UA) Urine Ketones Urine Blood Urine Nitrate Urine Bilirubin Urine Urobilinogen Urine Leukocytes Urine RBC Urine WBC Ur Squamous Epith Cells Ur Culture Indicated? Blood Type Antibody Screen Crossmatch 07/21/16 07/21/16 13:28 14:05 WBC RBC Hgb Hct MCV MCH MCHC RDW Plt Count MPV Neut % (Auto) Lymph % (Auto) Winn % (Auto) Eos % (Auto) Baso % (Auto) Neut # (Auto) Lymph # (Auto) Winn # (Auto) Eos # (Auto) Baso # (Auto) Immature Gran % Nucleated RBC % Immature Gran # Nucleated RBCs # INR PT Patient/Control Mix Circ Anticoag PTT Patient Temperature ABG pH 7.417 7.399 ABG pH at Pt Temp ABG pCO2 38.2 39.8 ABG pCO2 at Pt Temp ABG pO2 197.0 H 136.0 H ABG pO2 at Pt Temp ABG HCO3 24.7 24.4 ABG Total CO2 22.3 L 22.9 L ABG O2 Saturation 99.4 98.9 ABG Base Excess 0.3 -0.1 ABG Sodium VBG pH VBG pCO2 VBG pO2 VBG HCO3 VBG Total CO2 VBG O2 Saturation VBG Base Excess Hemoglobin 10.1 L 8.3 L Hematocrit 31.1 L 25.9 L Ionized Calcium FiO2 Sodium Potassium 4.5 4.5 Chloride Carbon Dioxide Anion Gap BUN Creatinine GFR Calculation BUN/Creatinine Ratio Glucose 157 H 114 H POC Glucose Calculated Osmolality Calcium Venous Ioniz Calcium Magnesium Total Bilirubin AST ALT Alkaline Phosphatase Total Protein Albumin Globulin Albumin/Globulin Ratio Urine Color Urine Appearance Urine pH Ur Specific [place] Urine Protein Urine Glucose (UA) Urine Ketones Urine Blood Urine Nitrate Urine Bilirubin Urine Urobilinogen Urine Leukocytes Urine RBC Urine WBC Ur Squamous Epith Cells Ur Culture Indicated? Blood Type Antibody Screen Crossmatch - Diagnostic Findings Procedure: Chest x-ray: report reviewed by me - EKG EKG results: interpreted by me EKG shows: sinus rhythm Quality Measures - VTE Contraindication to Pharmacological VTE Prophylaxis: High Risk of Bleeding - Stroke Symptom Onset Unknown: No Specialty Discharge - Follow Up or Referrals
[2016-07-21 14:48] LABS: CKMB % 7.9 %
[2016-07-21 14:56] LABS: Troponin I Only 2.74 NG/ML (0.00-0.045)
--- NOTE | 2016-07-21 15:24 | Hospitalist Progress Note ---
Assessment and Plan (1) Chest pain Status: Acute Assessment and plan: Patient with known coronary disease as described above just underwent a revascularization. The first few hours post surgery she is awake and able to follow simple commands. Next 24 hours of the critical. Patient is in the vascular recovery unit Current Visit: Yes (2) Hyperlipidemia Status: Chronic Assessment and plan: Meds while she is here. Current Visit: Yes (3) Hypertension Status: Chronic Assessment and plan: Resume home meds while she is here. Current blood pressures are optimal. Current Visit: Yes (4) IDDM (insulin dependent diabetes mellitus) Status: Chronic Assessment and plan: Continue insulin drip at this time and 10 blood sugars around 150 or below. Should be above 80 milligrams percent Current Visit: Yes (5) Peripheral neuropathy Status: Chronic Assessment and plan: Patient's home medication been resumed regarding her peripheral neuropathy issues. She is comfortable enough Current Visit: Yes (6) Hypomagnesemia Status: Acute Assessment and plan: Optimal on today's chemistry. Maintain magnesium above 1.8 Current Visit: Yes Hospitalist: Subjective Interval history: Patient has been seen for surgery in the cardiovascular recovery unit room 104. She is awake will track with eyes respond to simple command blood pressure tends to go up when she is awake. Patient underwent three-vessel bypass today with internal mammary to left anterior descending and had 2 saphenous vein harvesting revascularizations to second obtuse marginal and the posterior descending sites. Postanesthesia patient is doing well as far as vital signs are concerned. She is on insulin drip at 2.2 mics per hour; blood sugar last checked moments of the at 114 mg percent Ms. Hernandez is a 60-year-old female smoker who presented to the hospital on 16 of July with chest pain and since then has had a cardiac discovery of disease 3 vessels that was critical. Large left anterior descending second obtuse marginal and another at the posterior descending arteries. These have been revascularized today to carotid bypass grafting. I have provided talk with her regarding her smoking; and this lady smokes quite a bit she was not agreeable to quitting smoking. Exam - Constitutional Vitals: Period Temp Pulse Resp BP Sys/Cummings Pulse Ox Last 24 Hr 97.0 F-99.8 F 58-91 10-65 87-196/52-88 98-100 General appearance: over weight - Head Head exam: Present: normal inspection - Eye Eye exam: Present: other (Patient is awake she can track with her eyes on previous exam she is noted to have pupils that are reacting to light and equal no visual problems) - ENT ENT exam: Present: other (Intubated) - Neck Neck exam: Present: other (Intubated) - Respiratory Respiratory exam: Present: other (Has optimal breath sounds bilaterally chest drainage in place draining bloody return) - Cardiovascular Cardiovascular exam: Present: regular rate and rhythm - GI/Abdominal GI/Abdominal exam: Present: normal bowel sounds, soft - Extremities Exam Extremities exam: Present: normal inspection - Back Exam Back exam: Present: normal inspection - Neurological Exam Neurological exam: Present: other (Vision is a work follow simple commands) - Psychiatric Psychiatric exam: Present: other (Postanesthesia) - Skin Skin exam: Present: normal color, warm, dry Results - Labs CBC & BMP: 07/21/16 11:30 07/21/16 11:30 Lab Results: I have reviewed the past 24 hour labs (Last ABG is pH 7.399 PCO2 of 39.8 PO2 136 she is on 80% FiO2 last blood sugar check was 114 white count 11 ,700 normal differential (patient just had surgery most likely this is demargination chemistry as noted above) Quality Measures - VTE Contraindication to Pharmacological VTE Prophylaxis: High Risk of Bleeding - Stroke Symptom Onset Unknown: No Specialty Discharge - Follow Up or Referrals
[2016-07-21 16:08] LABS: ABG HCO3 25.3 MMOL/L (20-26); ABG Oxygen Saturation 98.1 % (95-100); ABG PCO2 38.7 MM HG (35-48); ABG PH 7.433 (7.35-7.45); ABG PO2 143.6 MM HG (80-95); ABG TCO2 26.5 MMOL/L (23-27); Glucose Heart Surgery 80 MG/DL (74-106); Potassium Heart/CVR 4.5 MMOL/L (3.5-5.1)
[2016-07-21 18:04] LABS: ABG Base Excess -1.7 MMOL/L (-2.5-2.5); ABG Oxygen Saturation 98.3 % (95-100); ABG PCO2 45.4 MM HG (35-48); ABG PH 7.337 (7.35-7.45); ABG TCO2 22.1 MMOL/L (23-27); Glucose Heart Surgery 132 MG/DL (74-106); Hematocrit Heart Surgery 32.4 PERCENT (37-47); Hemoglobin Heart Surgery 10.5 G/DL (12.0-16.0); Potassium Heart/CVR 4.6 MMOL/L (3.5-5.1)
[2016-07-21] MEDS: CEFUROXIME INJ 1,500 MG in SODIUM CHLORIDE 0.9% 100 ML IV SCH (18:44)
[2016-07-21 21:07] LABS: ABG Base Excess 0.1 MMOL/L (-2.5-2.5); ABG HCO3 24.5 MMOL/L (20-26); ABG Oxygen Saturation 99.4 % (95-100); ABG PCO2 35.3 MM HG (35-48); ABG PH 7.439 (7.35-7.45); ABG TCO2 21.5 MMOL/L (23-27); Glucose Heart Surgery 144 MG/DL (74-106); Hematocrit Heart Surgery 32.5 PERCENT (37-47); Hemoglobin Heart Surgery 10.5 G/DL (12.0-16.0); Potassium Heart/CVR 4.9 MMOL/L (3.5-5.1)
[2016-07-21] MEDS ORDERED: HYDROmorphone 2 MG/1 ML VIAL IV PRN (21:29)
[2016-07-21] MEDS: HYDROmorphone 2 MG/1 ML VIAL IV PRN (21:41)
[2016-07-21 21:42] LABS: CKMB % 11.2 %
[2016-07-21 21:44] LABS: Troponin I Only 6.19 NG/ML (0.00-0.045)
[2016-07-21] MEDS ORDERED: FUROSEMIDE 40 MG/4 ML VIAL IV PRN (22:52)
[2016-07-21 23:43] LABS: ABG Base Excess -0.9 MMOL/L (-2.5-2.5); ABG HCO3 23.7 MMOL/L (20-26); ABG Oxygen Saturation 98.8 % (95-100); ABG PCO2 45.8 MM HG (35-48); ABG PH 7.345 (7.35-7.45); ABG TCO2 22.7 MMOL/L (23-27); Glucose Heart Surgery 140 MG/DL (74-106); Hematocrit Heart Surgery 32.4 PERCENT (37-47); Hemoglobin Heart Surgery 10.5 G/DL (12.0-16.0); Potassium Heart/CVR 4.6 MMOL/L (3.5-5.1)
[2016-07-22] MEDS: KETOROLAC 30 MG/1 ML VIAL IV SCH ×4 (00:44→17:37)
[2016-07-22 03:04] LABS: ABG HCO3 23.5 MMOL/L (20-26); ABG Oxygen Saturation 96.9 % (95-100); ABG PCO2 46.8 MM HG (35-48); ABG PH 7.337 (7.35-7.45); ABG PO2 94.5 MM HG (80-95); ABG TCO2 22.8 MMOL/L (23-27); Glucose Heart Surgery 150 MG/DL (74-106); Hematocrit Heart Surgery 33.1 PERCENT (37-47); Hemoglobin Heart Surgery 10.7 G/DL (12.0-16.0); Potassium Heart/CVR 4.5 MMOL/L (3.5-5.1)
[2016-07-22] MEDS: HYDROmorphone 2 MG/1 ML VIAL IV PRN ×2 (03:09→07:10)
[2016-07-22] MEDS: POTASSIUM CHLORIDE RIDER 10 MEQ in PREMIX 1 EACH IV PRN (03:16)
[2016-07-22 03:53] LABS: ABG Base Excess -0.3 MMOL/L (-2.5-2.5); ABG HCO3 24.2 MMOL/L (20-26); ABG Oxygen Saturation 97.9 % (95-100); ABG PCO2 50.1 MM HG (35-48); ABG PH 7.328 (7.35-7.45); ABG TCO2 23.8 MMOL/L (23-27); Glucose Heart Surgery 149 MG/DL (74-106); Hematocrit Heart Surgery 33.5 PERCENT (37-47); Hemoglobin Heart Surgery 10.9 G/DL (12.0-16.0); Potassium Heart/CVR 4.8 MMOL/L (3.5-5.1)
[2016-07-22 03:54] LABS: Basophils # 0.1 10*3/uL (0.0-0.2); Basophils % 0.4 % (0.0-0.8); Eosinophils # 0.1 10*3/uL (0.0-0.87); Eosinophils % 0.5 % (0.00-10.9); Hemoglobin 10.5 GM/DL (12.0-16.0); Immature Granulocytes % 0.4 %; Immature Granulocytes Absolute 0.05 #; Lymphocytes # 3.7 10*3/uL (1.4-4.0); Lymphocytes % 27.3 % (21.3-54.2); Mean Corpuscular HGB Conc 31.8 GM/DL (32-36); Mean Corpuscular Hemoglobin 28 PG (27-34); Mean Corpuscular Volume 86.4 FL (87-102); Mean Platelet Volume 11.5 FL (9.6-12.0); Monocytes # 0.8 10*3/uL (0.11-0.8); Monocytes % 5.8 % (1.7-12.7); Neutrophils # 8.8 10*3/uL (1.4-7.4); Neutrophils % 65.6 % (38.7-73.9); Platelet Count 137 T/CUMM (130-400); Red Blood Count 3.82 MC/CUMM (3.8-5.5); Red Cell Distribution Width 14.7 % (9.3-17.3); White Blood Count 13.4 T/CUMM (4-12)
[2016-07-22 04:23] LABS: Albumin 3.3 G/DL (3.4-5.0); Bilirubin,Direct 0.2 MG/DL (0.0-0.20); Bilirubin,Total 0.6 MG/DL (0.2-1.0); Calcium 7.9 MG/DL (8.5-10.1); Magnesium 1.4 MG/DL (1.8-2.4); Potassium 4.8 MMOL/L (3.5-5.1); Total Protein 5.6 G/DL (6.4-8.3)
[2016-07-22 04:31] LABS: CKMB % 10.6 %
[2016-07-22 04:34] LABS: Troponin I Only 7.1 NG/ML (0.00-0.045)
[2016-07-22] MEDS ORDERED: CLORAZEPATE 3.75 MG TABLET PO PRN ×2 (05:45→06:07)
--- NOTE | 2016-07-22 06:04 | Cardiothoracic Progress Note ---
Cardiothoracic Subjective Interval history: Patient is awake alert and extubated. Vital signs are stable and she is breathing comfortably this morning. She remains in sinus rhythm. Blood gases post extubation are pending. Cardiac output is 6 L/min. Urine output has been good and creatinine is within normal limits. Chest tube output is minimal and we are going to discontinue her chest tubes. I think she can be transferred to telemetry later this morning. Overall her progress is satisfactory for postoperative day 1. Exam (Progress Note) - Constitutional Vitals: Period Temp Pulse Resp BP Sys/Cummings Pulse Ox Last 24 Hr 98.8 F-99.8 F 72-92 7-24 87-168/46-83 92-100 Result/EKG - Labs CBC & BMP: 07/22/16 03:40 07/22/16 03:40 Labs: Laboratory Results - last 24 hr 07/20/16 07/21/16 07/21/16 04:27 07:05 07:23 WBC RBC Hgb Hct MCV MCH MCHC RDW Plt Count 196 MPV Neut % (Auto) Lymph % (Auto) Travis % (Auto) Eos % (Auto) Baso % (Auto) Neut # (Auto) Lymph # (Auto) Travis # (Auto) Eos # (Auto) Baso # (Auto) Immature Gran % Nucleated RBC % Immature Gran # Nucleated RBCs # INR PT Patient/Control Mix Circ Anticoag PTT Patient Temperature ABG pH ABG pH at Pt Temp ABG pCO2 ABG pCO2 at Pt Temp ABG pO2 ABG pO2 at Pt Temp ABG HCO3 ABG Total CO2 ABG O2 Saturation ABG Base Excess ABG Sodium VBG pH VBG pCO2 VBG pO2 VBG HCO3 VBG Total CO2 VBG O2 Saturation VBG Base Excess Hemoglobin Hematocrit Potassium Glucose Ionized Calcium FiO2 Sodium Chloride Carbon Dioxide Anion Gap BUN Creatinine GFR Calculation BUN/Creatinine Ratio Calculated Osmolality Calcium Venous Ioniz Calcium Magnesium Total Bilirubin Direct Bilirubin AST ALT Alkaline Phosphatase Total Creatine Kinase CK-MB (CK-2) CK and CKMB Interp Troponin I Total Protein Albumin Globulin Albumin/Globulin Ratio Urine Color Straw Urine Appearance Clear Urine pH 7.0 Ur Specific [place] 1.009 Urine Protein 100 Urine Glucose (UA) 50 Urine Ketones Negative Urine Blood Negative Urine Nitrate Negative Urine Bilirubin Negative Urine Urobilinogen < 2.0 H Urine Leukocytes Negative Urine RBC 1 Urine WBC 2 Ur Squamous Epith Cells Occasional Ur Culture Indicated? Not indicated Blood Type A POSITIVE Antibody Screen Negative Crossmatch See Detail 07/21/16 07/21/16 07/21/16 07:34 08:50 09:20 WBC RBC Hgb Hct MCV MCH MCHC RDW Plt Count MPV Neut % (Auto) Lymph % (Auto) Travis % (Auto) Eos % (Auto) Baso % (Auto) Neut # (Auto) Lymph # (Auto) Travis # (Auto) Eos # (Auto) Baso # (Auto) Immature Gran % Nucleated RBC % Immature Gran # Nucleated RBCs # INR PT Patient/Control Mix Circ Anticoag PTT Patient Temperature 37 34 36 ABG pH 7.485 H ABG pH at Pt Temp 7.485 7.474 7.441 ABG pCO2 34.0 L ABG pCO2 at Pt Temp 34.0 35.2 39.0 ABG pO2 450.0 H ABG pO2 at Pt Temp 450.0 29.0 37.1 ABG HCO3 26.8 H ABG Total CO2 22.4 L ABG O2 Saturation 99.9 ABG Base Excess 2.7 H ABG Sodium 136 130 L 133 L VBG pH 7.429 7.426 VBG pCO2 40.6 L 40.9 L VBG pO2 35.8 39.8 VBG HCO3 26.3 26.2 VBG Total CO2 25.3 25.0 VBG O2 Saturation 71.5 76.6 VBG Base Excess 2.5 2.4 Hemoglobin 12.4 7.6 L 8.4 L Hematocrit 38.2 23.7 L 26.2 L Potassium 3.9 4.2 3.8 Glucose 116 H 318 H 255 H Ionized Calcium 1.09 L FiO2 80.00 80.00 Sodium Chloride Carbon Dioxide Anion Gap BUN Creatinine GFR Calculation BUN/Creatinine Ratio Calculated Osmolality Calcium Venous Ioniz Calcium 0.91 L 0.96 L Magnesium Total Bilirubin Direct Bilirubin AST ALT Alkaline Phosphatase Total Creatine Kinase CK-MB (CK-2) CK and CKMB Interp Troponin I Total Protein Albumin Globulin Albumin/Globulin Ratio Urine Color Urine Appearance Urine pH Ur Specific [place] Urine Protein Urine Glucose (UA) Urine Ketones Urine Blood Urine Nitrate Urine Bilirubin Urine Urobilinogen Urine Leukocytes Urine RBC Urine WBC Ur Squamous Epith Cells Ur Culture Indicated? Blood Type Antibody Screen Crossmatch 07/21/16 07/21/16 07/21/16 09:50 10:32 10:41 WBC RBC Hgb Hct MCV MCH MCHC RDW Plt Count 125 L D MPV Neut % (Auto) Lymph % (Auto) Travis % (Auto) Eos % (Auto) Baso % (Auto) Neut # (Auto) Lymph # (Auto) Travis # (Auto) Eos # (Auto) Baso # (Auto) Immature Gran % Nucleated RBC % Immature Gran # Nucleated RBCs # INR PT Patient/Control Mix Circ Anticoag PTT Patient Temperature 35 37 ABG pH 7.450 ABG pH at Pt Temp 7.470 7.450 ABG pCO2 35.9 ABG pCO2 at Pt Temp 36.0 35.9 ABG pO2 253.0 H ABG pO2 at Pt Temp 33.0 253.0 ABG HCO3 25.4 ABG Total CO2 22.9 L ABG O2 Saturation 99.8 ABG Base Excess 1.1 ABG Sodium 132 L 132 L VBG pH 7.440 VBG pCO2 39.7 L VBG pO2 38.0 VBG HCO3 26.5 VBG Total CO2 25.0 VBG O2 Saturation 75.1 VBG Base Excess 2.7 Hemoglobin 8.7 L 9.0 L Hematocrit 26.9 L 28.1 L Potassium 4.1 4.2 Glucose 265 H 254 H Ionized Calcium 1.17 L FiO2 80.00 Sodium Chloride Carbon Dioxide Anion Gap BUN Creatinine GFR Calculation BUN/Creatinine Ratio Calculated Osmolality Calcium Venous Ioniz Calcium 0.96 L Magnesium Total Bilirubin Direct Bilirubin AST ALT Alkaline Phosphatase Total Creatine Kinase CK-MB (CK-2) CK and CKMB Interp Troponin I Total Protein Albumin Globulin Albumin/Globulin Ratio Urine Color Urine Appearance Urine pH Ur Specific [place] Urine Protein Urine Glucose (UA) Urine Ketones Urine Blood Urine Nitrate Urine Bilirubin Urine Urobilinogen Urine Leukocytes Urine RBC Urine WBC Ur Squamous Epith Cells Ur Culture Indicated? Blood Type Antibody Screen Crossmatch 07/21/16 07/21/16 07/21/16 11:30 11:30 11:30 WBC 11.7 D RBC 3.54 L Hgb 9.7 L D Hct 30.3 L MCV 85.6 L MCH 27 MCHC 32.0 RDW 13.9 Plt Count 188 D MPV 11.3 Neut % (Auto) 64.0 Lymph % (Auto) 29.6 Travis % (Auto) 4.8 Eos % (Auto) 0.6 Baso % (Auto) 0.4 Neut # (Auto) 7.5 H Lymph # (Auto) 3.5 Travis # (Auto) 0.6 Eos # (Auto) 0.1 Baso # (Auto) 0.1 Immature Gran % 0.6 Nucleated RBC % 0.0 Immature Gran # 0.07 Nucleated RBCs # 0.00 INR 1.1 PT Patient/Control Mix 11.8 Circ Anticoag PTT 33.6 Patient Temperature ABG pH ABG pH at Pt Temp ABG pCO2 ABG pCO2 at Pt Temp ABG pO2 ABG pO2 at Pt Temp ABG HCO3 ABG Total CO2 ABG O2 Saturation ABG Base Excess ABG Sodium VBG pH VBG pCO2 VBG pO2 VBG HCO3 VBG Total CO2 VBG O2 Saturation VBG Base Excess Hemoglobin Hematocrit Potassium 4.2 Glucose 218 H Ionized Calcium FiO2 Sodium 136 Chloride 103 Carbon Dioxide 26 Anion Gap 11.2 BUN 11 Creatinine 0.60 GFR Calculation 114 BUN/Creatinine Ratio 18.00 Calculated Osmolality 277.0 Calcium 8.6 Venous Ioniz Calcium Magnesium 2.0 Total Bilirubin 0.60 Direct Bilirubin AST 132 H ALT 34 Alkaline Phosphatase 142 H Total Creatine Kinase CK-MB (CK-2) CK and CKMB Interp Troponin I Total Protein 4.6 L Albumin 2.2 L Globulin 2.4 Albumin/Globulin Ratio 0.9 L Urine Color Urine Appearance Urine pH Ur Specific [place] Urine Protein Urine Glucose (UA) Urine Ketones Urine Blood Urine Nitrate Urine Bilirubin Urine Urobilinogen Urine Leukocytes Urine RBC Urine WBC Ur Squamous Epith Cells Ur Culture Indicated? Blood Type Antibody Screen Crossmatch 07/21/16 07/21/16 07/21/16 11:30 11:30 13:28 WBC RBC Hgb Hct MCV MCH MCHC RDW Plt Count MPV Neut % (Auto) Lymph % (Auto) Travis % (Auto) Eos % (Auto) Baso % (Auto) Neut # (Auto) Lymph # (Auto) Travis # (Auto) Eos # (Auto) Baso # (Auto) Immature Gran % Nucleated RBC % Immature Gran # Nucleated RBCs # INR PT Patient/Control Mix Circ Anticoag PTT Patient Temperature ABG pH 7.454 H 7.417 ABG pH at Pt Temp ABG pCO2 34.3 L 38.2 ABG pCO2 at Pt Temp ABG pO2 158.0 H 197.0 H ABG pO2 at Pt Temp ABG HCO3 24.9 24.7 ABG Total CO2 21.9 L 22.3 L ABG O2 Saturation 99.3 99.4 ABG Base Excess 0.5 0.3 ABG Sodium VBG pH VBG pCO2 VBG pO2 VBG HCO3 VBG Total CO2 VBG O2 Saturation VBG Base Excess Hemoglobin 9.7 L 10.1 L Hematocrit 30.0 L 31.1 L Potassium 3.9 4.5 Glucose 218 H 157 H Ionized Calcium FiO2 Sodium Chloride Carbon Dioxide Anion Gap BUN Creatinine GFR Calculation BUN/Creatinine Ratio Calculated Osmolality Calcium Venous Ioniz Calcium Magnesium Total Bilirubin Direct Bilirubin AST ALT Alkaline Phosphatase Total Creatine Kinase 164 D CK-MB (CK-2) 12.9 H CK and CKMB Interp 7.9 Troponin I 2.740 H Total Protein Albumin Globulin Albumin/Globulin Ratio Urine Color Urine Appearance Urine pH Ur Specific [place] Urine Protein Urine Glucose (UA) Urine Ketones Urine Blood Urine Nitrate Urine Bilirubin Urine Urobilinogen Urine Leukocytes Urine RBC Urine WBC Ur Squamous Epith Cells Ur Culture Indicated? Blood Type Antibody Screen Crossmatch 07/21/16 07/21/16 07/21/16 14:05 16:02 17:55 WBC RBC Hgb Hct MCV MCH MCHC RDW Plt Count MPV Neut % (Auto) Lymph % (Auto) Travis % (Auto) Eos % (Auto) Baso % (Auto) Neut # (Auto) Lymph # (Auto) Travis # (Auto) Eos # (Auto) Baso # (Auto) Immature Gran % Nucleated RBC % Immature Gran # Nucleated RBCs # INR PT Patient/Control Mix Circ Anticoag PTT Patient Temperature ABG pH 7.399 7.433 7.337 L ABG pH at Pt Temp ABG pCO2 39.8 38.7 45.4 ABG pCO2 at Pt Temp ABG pO2 136.0 H 143.6 H 121.0 H ABG pO2 at Pt Temp ABG HCO3 24.4 25.3 23.0 ABG Total CO2 22.9 L 26.5 22.1 L ABG O2 Saturation 98.9 98.1 98.3 ABG Base Excess -0.1 1.0 -1.7 ABG Sodium VBG pH VBG pCO2 VBG pO2 VBG HCO3 VBG Total CO2 VBG O2 Saturation VBG Base Excess Hemoglobin 8.3 L 10.0 L 10.5 L Hematocrit 25.9 L 29.0 L 32.4 L Potassium 4.5 4.5 4.6 Glucose 114 H 80 132 H Ionized Calcium FiO2 Sodium Chloride Carbon Dioxide Anion Gap BUN Creatinine GFR Calculation BUN/Creatinine Ratio Calculated Osmolality Calcium Venous Ioniz Calcium Magnesium Total Bilirubin Direct Bilirubin AST ALT Alkaline Phosphatase Total Creatine Kinase CK-MB (CK-2) CK and CKMB Interp Troponin I Total Protein Albumin Globulin Albumin/Globulin Ratio Urine Color Urine Appearance Urine pH Ur Specific [place] Urine Protein Urine Glucose (UA) Urine Ketones Urine Blood Urine Nitrate Urine Bilirubin Urine Urobilinogen Urine Leukocytes Urine RBC Urine WBC Ur Squamous Epith Cells Ur Culture Indicated? Blood Type Antibody Screen Crossmatch 07/21/16 07/21/16 07/21/16 21:00 21:00 23:35 WBC RBC Hgb Hct MCV MCH MCHC RDW Plt Count MPV Neut % (Auto) Lymph % (Auto) Travis % (Auto) Eos % (Auto) Baso % (Auto) Neut # (Auto) Lymph # (Auto) Travis # (Auto) Eos # (Auto) Baso # (Auto) Immature Gran % Nucleated RBC % Immature Gran # Nucleated RBCs # INR PT Patient/Control Mix Circ Anticoag PTT Patient Temperature ABG pH 7.439 7.345 L ABG pH at Pt Temp ABG pCO2 35.3 45.8 ABG pCO2 at Pt Temp ABG pO2 170.0 H 141.0 H ABG pO2 at Pt Temp ABG HCO3 24.5 23.7 ABG Total CO2 21.5 L 22.7 L ABG O2 Saturation 99.4 98.8 ABG Base Excess 0.1 -0.9 ABG Sodium VBG pH VBG pCO2 VBG pO2 VBG HCO3 VBG Total CO2 VBG O2 Saturation VBG Base Excess Hemoglobin 10.5 L 10.5 L Hematocrit 32.5 L 32.4 L Potassium 4.9 4.6 Glucose 144 H 140 H Ionized Calcium FiO2 Sodium Chloride Carbon Dioxide Anion Gap BUN Creatinine GFR Calculation BUN/Creatinine Ratio Calculated Osmolality Calcium Venous Ioniz Calcium Magnesium Total Bilirubin Direct Bilirubin AST ALT Alkaline Phosphatase Total Creatine Kinase 234 H D CK-MB (CK-2) 26.3 H D CK and CKMB Interp 11.2 Troponin I 6.190 H D Total Protein Albumin Globulin Albumin/Globulin Ratio Urine Color Urine Appearance Urine pH Ur Specific [place] Urine Protein Urine Glucose (UA) Urine Ketones Urine Blood Urine Nitrate Urine Bilirubin Urine Urobilinogen Urine Leukocytes Urine RBC Urine WBC Ur Squamous Epith Cells Ur Culture Indicated? Blood Type Antibody Screen Crossmatch 07/22/16 07/22/16 07/22/16 02:59 03:40 03:40 WBC 13.4 H RBC 3.82 Hgb 10.5 L Hct 33.0 L MCV 86.4 L MCH 28 MCHC 31.8 L RDW 14.7 Plt Count 137 D MPV 11.5 Neut % (Auto) 65.6 Lymph % (Auto) 27.3 Travis % (Auto) 5.8 Eos % (Auto) 0.5 Baso % (Auto) 0.4 Neut # (Auto) 8.8 H Lymph # (Auto) 3.7 Travis # (Auto) 0.8 Eos # (Auto) 0.1 Baso # (Auto) 0.1 Immature Gran % 0.4 Nucleated RBC % 0.0 Immature Gran # 0.05 Nucleated RBCs # 0.00 INR PT Patient/Control Mix Circ Anticoag PTT Patient Temperature ABG pH 7.337 L ABG pH at Pt Temp ABG pCO2 46.8 ABG pCO2 at Pt Temp ABG pO2 94.5 ABG pO2 at Pt Temp ABG HCO3 23.5 ABG Total CO2 22.8 L ABG O2 Saturation 96.9 ABG Base Excess -1.0 ABG Sodium VBG pH VBG pCO2 VBG pO2 VBG HCO3 VBG Total CO2 VBG O2 Saturation VBG Base Excess Hemoglobin 10.7 L Hematocrit 33.1 L Potassium 4.5 Glucose 150 H Ionized Calcium FiO2 Sodium Chloride Carbon Dioxide Anion Gap BUN Creatinine GFR Calculation BUN/Creatinine Ratio Calculated Osmolality Calcium Venous Ioniz Calcium Magnesium Total Bilirubin Direct Bilirubin AST ALT Alkaline Phosphatase Total Creatine Kinase 236 H CK-MB (CK-2) 25.1 H CK and CKMB Interp 10.6 Troponin I 7.100 H Total Protein Albumin Globulin Albumin/Globulin Ratio Urine Color Urine Appearance Urine pH Ur Specific [place] Urine Protein Urine Glucose (UA) Urine Ketones Urine Blood Urine Nitrate Urine Bilirubin Urine Urobilinogen Urine Leukocytes Urine RBC Urine WBC Ur Squamous Epith Cells Ur Culture Indicated? Blood Type Antibody Screen Crossmatch 07/22/16 07/22/16 03:40 03:40 WBC RBC Hgb Hct MCV MCH MCHC RDW Plt Count MPV Neut % (Auto) Lymph % (Auto) Travis % (Auto) Eos % (Auto) Baso % (Auto) Neut # (Auto) Lymph # (Auto) Travis # (Auto) Eos # (Auto) Baso # (Auto) Immature Gran % Nucleated RBC % Immature Gran # Nucleated RBCs # INR PT Patient/Control Mix Circ Anticoag PTT Patient Temperature ABG pH 7.328 L ABG pH at Pt Temp ABG pCO2 50.1 H ABG pCO2 at Pt Temp ABG pO2 109.0 H ABG pO2 at Pt Temp ABG HCO3 24.2 ABG Total CO2 23.8 ABG O2 Saturation 97.9 ABG Base Excess -0.3 ABG Sodium VBG pH VBG pCO2 VBG pO2 VBG HCO3 VBG Total CO2 VBG O2 Saturation VBG Base Excess Hemoglobin 10.9 L Hematocrit 33.5 L Potassium 4.8 4.8 Glucose 144 H 149 H Ionized Calcium FiO2 Sodium 136 Chloride 102 Carbon Dioxide 28 Anion Gap 10.8 BUN 10 Creatinine 0.50 L GFR Calculation 121 BUN/Creatinine Ratio 20.00 Calculated Osmolality 273.0 Calcium 7.9 L Venous Ioniz Calcium Magnesium 1.4 L Total Bilirubin 0.60 Direct Bilirubin 0.20 AST 49 H ALT 24 Alkaline Phosphatase 113 Total Creatine Kinase CK-MB (CK-2) CK and CKMB Interp Troponin I Total Protein 5.6 L Albumin 3.3 L Globulin 2.3 Albumin/Globulin Ratio 1.4 Urine Color Urine Appearance Urine pH Ur Specific [place] Urine Protein Urine Glucose (UA) Urine Ketones Urine Blood Urine Nitrate Urine Bilirubin Urine Urobilinogen Urine Leukocytes Urine RBC Urine WBC Ur Squamous Epith Cells Ur Culture Indicated? Blood Type Antibody Screen Crossmatch Quality Measures - VTE Contraindication to Pharmacological VTE Prophylaxis: High Risk of Bleeding - Stroke Symptom Onset Unknown: No Specialty Discharge - Follow Up or Referrals
[2016-07-22] MEDS ORDERED: HYDROmorphone 2 MG/1 ML VIAL IV PRN (06:07)
[2016-07-22] MEDS ORDERED: MAGNESIUM SULF RIDER 2 GM in PREMIX 1 EACH IV PRN (06:15)
[2016-07-22] MEDS ORDERED: MAGNESIUM SULF RIDER 4 GM in PREMIX 1 EACH IV PRN (06:15)
[2016-07-22] MEDS ORDERED: ZALEPLON 5 MG CAPSULE PO PRN (06:15)
[2016-07-22] MEDS ORDERED: ONDANSETRON 4 MG/2 ML VIAL IV PRN (06:15)
[2016-07-22] MEDS ORDERED: POTASSIUM CHLORIDE 20 MEQ TABLET PO PRN (06:15)
[2016-07-22] MEDS ORDERED: ALUMINUM/MAGNES/SIMETH MAX STR 30 ML UDCUP PO PRN (06:15)
[2016-07-22] MEDS ORDERED: ACETAMINOPHEN 325 MG TABLET PO PRN (06:15)
[2016-07-22] MEDS ORDERED: DEXTROSE 50% 25 GM/50 ML VIAL IV PRN ×2 (06:15)
[2016-07-22] MEDS ORDERED: GLUCAGON 1 MG VIAL IM PRN ×2 (06:15)
[2016-07-22 06:16] LABS: ABG Base Excess 1.5 MMOL/L (-2.5-2.5); ABG HCO3 25.7 MMOL/L (20-26); ABG PCO2 44.8 MM HG (35-48); ABG PH 7.386 (7.35-7.45); ABG PO2 69.5 MM HG (80-95); ABG TCO2 24.2 MMOL/L (23-27); Glucose Heart Surgery 156 MG/DL (74-106); Hematocrit Heart Surgery 33.3 PERCENT (37-47); Hemoglobin Heart Surgery 10.8 G/DL (12.0-16.0); Potassium Heart/CVR 4.4 MMOL/L (3.5-5.1)
[2016-07-22] MEDS: CEFUROXIME INJ 1,500 MG in SODIUM CHLORIDE 0.9% 100 ML IV SCH (07:27)
--- NOTE | 2016-07-22 07:36 | XRay Report ---
Portable chest. Indication: Status post chest tube removal. Comparison: July 21, 2016. The heart is normal in size. Post median sternotomy. Mediastinal chest tubes have been removed in the interval. No pneumothorax is seen. There is worsening basilar atelectasis. Small left pleural effusion cannot be excluded. The [place] catheter has been removed. The right IJ line is in satisfactory position with its distal tip in the right atrium. The endotracheal tube and nasogastric tube have also been removed. Surgical clips are suggested in the left upper quadrant. Osseous structures are stable. Impression: No pneumothorax. Worsening bilateral basilar atelectasis. PROCEDURE INTERPRETED AT [facility] DEPARTMENT OF RADIOLOGY Final Report Signed by: Dr. Noemy Styles
--- NOTE | 2016-07-22 08:05 | EKG Report ---
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
[2016-07-22] MEDS: tiZANidine 4 MG TABLET PO SCH ×2 (08:08→22:01)
[2016-07-22] MEDS: LISINOPRIL 20 MG TABLET PO SCH (08:09)
[2016-07-22] MEDS: PANTOPRAZOLE 40 MG TABLET PO SCH (08:09)
[2016-07-22] MEDS: DOCUSATE SODIUM 100 MG CAPSULE PO SCH (08:09)
[2016-07-22] MEDS: GABAPENTIN 300 MG CAPSULE PO SCH ×3 (08:10→22:01)
[2016-07-22] MEDS: ASPIRIN EC 325 MG TABLET PO SCH (08:10)
[2016-07-22] MEDS: FERROUS SULFATE 325 MG TABLET PO SCH (08:10)
[2016-07-22] MEDS: ESCITALOPRAM 10 MG TABLET PO SCH (08:10)
[2016-07-22] MEDS: CARVEDILOL 6.25 MG TABLET PO SCH ×2 (08:10→22:02)
[2016-07-22] MEDS: SODIUM CHLOR 0.45% KCL 20 MEQ 20 MEQ/1,000 ML BAG IV SCH (08:15)
--- NOTE | 2016-07-22 08:21 | Cardiology Progress Note ---
<Noemy Calix - Last Filed: 07/22/16 08:14> Assessment and Plan (1) S/P CABG x 3 Status: Chronic Assessment and plan: Patient is progressing well. Plan to transfer to telemetry later today. Current Visit: Yes (2) Hypertension Status: Chronic Assessment and plan: Currently well controlled. Will adjust medications as needed during her hospital stay. Current Visit: Yes (3) Hyperlipidemia Status: Chronic Assessment and plan: Continue current plan of care with lipid lowering agent. Current Visit: Yes (4) IDDM (insulin dependent diabetes mellitus) Status: Chronic Assessment and plan: This is currently well controlled. Continue current plan of care. Current Visit: Yes (5) Tobacco abuse Status: Chronic Assessment and plan: Smoking cessation encouraged. Current Visit: Yes (6) Coronary artery disease Status: Chronic Assessment and plan: Now status post CABG 07/21/16 with left internal mammary graft to the anterior descending coronary artery and saphenous vein graft to second obtuse marginal and the posterior descending coronary arteries. Patient is progressing nicely without complications. Plan to transfer patient up to telemetry later today. Current Visit: Yes Qualifiers: Coronary Disease-Associated Artery/Lesion type: chicken ranch artery [place] vs. transplanted heart: chicken [place] heart (7) Hypomagnesemia Status: Acute Assessment and plan: Replacement per IV replacement protocol. BMP with mag in a.m. Current Visit: Yes (8) Peripheral neuropathy Status: Chronic Current Visit: Yes Cardiology - PN: Subj Interval history: SYNCHRO ASSEMBLER: DR. REBOLLEDO PCP: MAGDALENA LOZANO SUMMARY: Ms. See, 60-year-old female, has a history of known coronary artery disease, hypertension, dyslipidemia, diabetes, sedentary lifestyle and tobaccoism. She presented to the emergency department July 16, 2016 with complaints of chest pain. She underwent cardiac catheterization which revealed three-vessel CAD. Dr. García was then consulted and she underwent CABG with left internal mammary graft to the anterior descending coronary artery and saphenous vein graft to second obtuse marginal and the posterior descending coronary arteries 07/21/16. Patient was seen and examined in CVR. She is postop day #1 today. Patient is awake, alert and was extubated this morning. Currently requiring oxygen via nasal cannula. Chest tubes were pulled per Dr. García this morning. Dressing to midsternal chest incision in the left lower extremity are clean dry and intact. Patient is no longer requiring vasopressors. Vital signs are stable. She is in a normal sinus rhythm with heart rates in the 80s without any overt arrhythmias or ectopy noted. Magnesium of 1.4 is noted. Patient is on IV replacement protocol. Patient is progressing nicely and Dr. García plans to transfer her to telemetry later today. Further plan and addendum to follow per Dr. Macdonald. Exam (Progress Note) - Constitutional Vitals: Period Temp Pulse Resp BP Sys/Cummings Pulse Ox Last 24 Hr 98.8 F-100.1 F 72-93 7-25 87-168/46-83 92-100 General appearance: no acute distress, over weight, other (Patient is extubated and sitting up in chair. Appears comfortable.) - Head Head exam: Present: normal inspection, normocephalic, atraumatic - Neck Neck exam: Present: normal inspection. Absent: lymphadenopathy, tenderness, thyromegaly - Respiratory Respiratory exam: Present: clear to auscultation bilaterally. Absent: accessory muscle use, chest wall tenderness, rales, rhonchi, stridor, wheezes - Cardiovascular Cardiovascular exam: Present: regular rate and rhythm. Absent: gallop, rubs, systolic murmur - GI/Abdominal GI/Abdominal exam: Present: normal bowel sounds, soft. Absent: distended, firm , mass, tenderness - Extremities Exam Extremities exam: Present: normal inspection, normal capillary refill, other ( Dressing to left lower extremity clean dry and intact.). Absent: calf tenderness, edema - Neurological Exam Neurological exam: Present: alert, oriented X3 - Psychiatric Psychiatric exam: Present: normal affect, normal mood - Skin Skin exam: Present: normal color, warm, dry, other (Dressing to midsternal chest incision clean dry and intact.) Result/EKG - Labs CBC & BMP: 07/22/16 03:40 07/22/16 03:40 Lab Results: I have reviewed the past 24 hour labs Labs: Laboratory Results - last 24 hr 07/20/16 07/21/16 07/21/16 04:27 08:50 09:20 WBC RBC Hgb Hct MCV MCH MCHC RDW Plt Count MPV Neut % (Auto) Lymph % (Auto) [place] % (Auto) Eos % (Auto) Baso % (Auto) Neut # (Auto) Lymph # (Auto) [place] # (Auto) Eos # (Auto) Baso # (Auto) Immature Gran % Nucleated RBC % Immature Gran # Nucleated RBCs # INR PT Patient/Control Mix Circ Anticoag PTT Patient Temperature 34 36 ABG pH ABG pH at Pt Temp 7.474 7.441 ABG pCO2 ABG pCO2 at Pt Temp 35.2 39.0 ABG pO2 ABG pO2 at Pt Temp 29.0 37.1 ABG HCO3 ABG Total CO2 ABG O2 Saturation ABG Base Excess ABG Sodium 130 L 133 L VBG pH 7.429 7.426 VBG pCO2 40.6 L 40.9 L VBG pO2 35.8 39.8 VBG HCO3 26.3 26.2 VBG Total CO2 25.3 25.0 VBG O2 Saturation 71.5 76.6 VBG Base Excess 2.5 2.4 Hemoglobin 7.6 L 8.4 L Hematocrit 23.7 L 26.2 L Potassium 4.2 3.8 Glucose 318 H 255 H Ionized Calcium FiO2 80.00 80.00 Sodium Chloride Carbon Dioxide Anion Gap BUN Creatinine GFR Calculation BUN/Creatinine Ratio POC Glucose Calculated Osmolality Calcium Venous Ioniz Calcium 0.91 L 0.96 L Magnesium Total Bilirubin Direct Bilirubin AST ALT Alkaline Phosphatase Total Creatine Kinase CK-MB (CK-2) CK and CKMB Interp Troponin I Total Protein Albumin Globulin Albumin/Globulin Ratio Blood Type A POSITIVE Antibody Screen Negative Crossmatch See Detail 07/21/16 07/21/16 07/21/16 09:50 10:32 10:41 WBC RBC Hgb Hct MCV MCH MCHC RDW Plt Count 125 L D MPV Neut % (Auto) Lymph % (Auto) [place] % (Auto) Eos % (Auto) Baso % (Auto) Neut # (Auto) Lymph # (Auto) [place] # (Auto) Eos # (Auto) Baso # (Auto) Immature Gran % Nucleated RBC % Immature Gran # Nucleated RBCs # INR PT Patient/Control Mix Circ Anticoag PTT Patient Temperature 35 37 ABG pH 7.450 ABG pH at Pt Temp 7.470 7.450 ABG pCO2 35.9 ABG pCO2 at Pt Temp 36.0 35.9 ABG pO2 253.0 H ABG pO2 at Pt Temp 33.0 253.0 ABG HCO3 25.4 ABG Total CO2 22.9 L ABG O2 Saturation 99.8 ABG Base Excess 1.1 ABG Sodium 132 L 132 L VBG pH 7.440 VBG pCO2 39.7 L VBG pO2 38.0 VBG HCO3 26.5 VBG Total CO2 25.0 VBG O2 Saturation 75.1 VBG Base Excess 2.7 Hemoglobin 8.7 L 9.0 L Hematocrit 26.9 L 28.1 L Potassium 4.1 4.2 Glucose 265 H 254 H Ionized Calcium 1.17 L FiO2 80.00 Sodium Chloride Carbon Dioxide Anion Gap BUN Creatinine GFR Calculation BUN/Creatinine Ratio POC Glucose Calculated Osmolality Calcium Venous Ioniz Calcium 0.96 L Magnesium Total Bilirubin Direct Bilirubin AST ALT Alkaline Phosphatase Total Creatine Kinase CK-MB (CK-2) CK and CKMB Interp Troponin I Total Protein Albumin Globulin Albumin/Globulin Ratio Blood Type Antibody Screen Crossmatch 07/21/16 07/21/16 07/21/16 11:30 11:30 11:30 WBC 11.7 D RBC 3.54 L Hgb 9.7 L D Hct 30.3 L MCV 85.6 L MCH 27 MCHC 32.0 RDW 13.9 Plt Count 188 D MPV 11.3 Neut % (Auto) 64.0 Lymph % (Auto) 29.6 [place] % (Auto) 4.8 Eos % (Auto) 0.6 Baso % (Auto) 0.4 Neut # (Auto) 7.5 H Lymph # (Auto) 3.5 [place] # (Auto) 0.6 Eos # (Auto) 0.1 Baso # (Auto) 0.1 Immature Gran % 0.6 Nucleated RBC % 0.0 Immature Gran # 0.07 Nucleated RBCs # 0.00 INR 1.1 PT Patient/Control Mix 11.8 Circ Anticoag PTT 33.6 Patient Temperature ABG pH ABG pH at Pt Temp ABG pCO2 ABG pCO2 at Pt Temp ABG pO2 ABG pO2 at Pt Temp ABG HCO3 ABG Total CO2 ABG O2 Saturation ABG Base Excess ABG Sodium VBG pH VBG pCO2 VBG pO2 VBG HCO3 VBG Total CO2 VBG O2 Saturation VBG Base Excess Hemoglobin Hematocrit Potassium 4.2 Glucose 218 H Ionized Calcium FiO2 Sodium 136 Chloride 103 Carbon Dioxide 26 Anion Gap 11.2 BUN 11 Creatinine 0.60 GFR Calculation 114 BUN/Creatinine Ratio 18.00 POC Glucose Calculated Osmolality 277.0 Calcium 8.6 Venous Ioniz Calcium Magnesium 2.0 Total Bilirubin 0.60 Direct Bilirubin AST 132 H ALT 34 Alkaline Phosphatase 142 H Total Creatine Kinase CK-MB (CK-2) CK and CKMB Interp Troponin I Total Protein 4.6 L Albumin 2.2 L Globulin 2.4 Albumin/Globulin Ratio 0.9 L Blood Type Antibody Screen Crossmatch 07/21/16 07/21/16 07/21/16 11:30 11:30 13:28 WBC RBC Hgb Hct MCV MCH MCHC RDW Plt Count MPV Neut % (Auto) Lymph % (Auto) [place] % (Auto) Eos % (Auto) Baso % (Auto) Neut # (Auto) Lymph # (Auto) [place] # (Auto) Eos # (Auto) Baso # (Auto) Immature Gran % Nucleated RBC % Immature Gran # Nucleated RBCs # INR PT Patient/Control Mix Circ Anticoag PTT Patient Temperature ABG pH 7.454 H 7.417 ABG pH at Pt Temp ABG pCO2 34.3 L 38.2 ABG pCO2 at Pt Temp ABG pO2 158.0 H 197.0 H ABG pO2 at Pt Temp ABG HCO3 24.9 24.7 ABG Total CO2 21.9 L 22.3 L ABG O2 Saturation 99.3 99.4 ABG Base Excess 0.5 0.3 ABG Sodium VBG pH VBG pCO2 VBG pO2 VBG HCO3 VBG Total CO2 VBG O2 Saturation VBG Base Excess Hemoglobin 9.7 L 10.1 L Hematocrit 30.0 L 31.1 L Potassium 3.9 4.5 Glucose 218 H 157 H Ionized Calcium FiO2 Sodium Chloride Carbon Dioxide Anion Gap BUN Creatinine GFR Calculation BUN/Creatinine Ratio POC Glucose Calculated Osmolality Calcium Venous Ioniz Calcium Magnesium Total Bilirubin Direct Bilirubin AST ALT Alkaline Phosphatase Total Creatine Kinase 164 D CK-MB (CK-2) 12.9 H CK and CKMB Interp 7.9 Troponin I 2.740 H Total Protein Albumin Globulin Albumin/Globulin Ratio Blood Type Antibody Screen Crossmatch 07/21/16 07/21/16 07/21/16 14:05 15:34 16:02 WBC RBC Hgb Hct MCV MCH MCHC RDW Plt Count MPV Neut % (Auto) Lymph % (Auto) [place] % (Auto) Eos % (Auto) Baso % (Auto) Neut # (Auto) Lymph # (Auto) [place] # (Auto) Eos # (Auto) Baso # (Auto) Immature Gran % Nucleated RBC % Immature Gran # Nucleated RBCs # INR PT Patient/Control Mix Circ Anticoag PTT Patient Temperature ABG pH 7.399 7.433 ABG pH at Pt Temp ABG pCO2 39.8 38.7 ABG pCO2 at Pt Temp ABG pO2 136.0 H 143.6 H ABG pO2 at Pt Temp ABG HCO3 24.4 25.3 ABG Total CO2 22.9 L 26.5 ABG O2 Saturation 98.9 98.1 ABG Base Excess -0.1 1.0 ABG Sodium VBG pH VBG pCO2 VBG pO2 VBG HCO3 VBG Total CO2 VBG O2 Saturation VBG Base Excess Hemoglobin 8.3 L 10.0 L Hematocrit 25.9 L 29.0 L Potassium 4.5 4.5 Glucose 114 H 80 Ionized Calcium FiO2 Sodium Chloride Carbon Dioxide Anion Gap BUN Creatinine GFR Calculation BUN/Creatinine Ratio POC Glucose 70 L Calculated Osmolality Calcium Venous Ioniz Calcium Magnesium Total Bilirubin Direct Bilirubin AST ALT Alkaline Phosphatase Total Creatine Kinase CK-MB (CK-2) CK and CKMB Interp Troponin I Total Protein Albumin Globulin Albumin/Globulin Ratio Blood Type Antibody Screen Crossmatch 07/21/16 07/21/16 07/21/16 16:58 17:55 18:56 WBC RBC Hgb Hct MCV MCH MCHC RDW Plt Count MPV Neut % (Auto) Lymph % (Auto) [place] % (Auto) Eos % (Auto) Baso % (Auto) Neut # (Auto) Lymph # (Auto) [place] # (Auto) Eos # (Auto) Baso # (Auto) Immature Gran % Nucleated RBC % Immature Gran # Nucleated RBCs # INR PT Patient/Control Mix Circ Anticoag PTT Patient Temperature ABG pH 7.337 L ABG pH at Pt Temp ABG pCO2 45.4 ABG pCO2 at Pt Temp ABG pO2 121.0 H ABG pO2 at Pt Temp ABG HCO3 23.0 ABG Total CO2 22.1 L ABG O2 Saturation 98.3 ABG Base Excess -1.7 ABG Sodium VBG pH VBG pCO2 VBG pO2 VBG HCO3 VBG Total CO2 VBG O2 Saturation VBG Base Excess Hemoglobin 10.5 L Hematocrit 32.4 L Potassium 4.6 Glucose 132 H Ionized Calcium FiO2 Sodium Chloride Carbon Dioxide Anion Gap BUN Creatinine GFR Calculation BUN/Creatinine Ratio POC Glucose 110 H 139 H Calculated Osmolality Calcium Venous Ioniz Calcium Magnesium Total Bilirubin Direct Bilirubin AST ALT Alkaline Phosphatase Total Creatine Kinase CK-MB (CK-2) CK and CKMB Interp Troponin I Total Protein Albumin Globulin Albumin/Globulin Ratio Blood Type Antibody Screen Crossmatch 07/21/16 07/21/16 07/21/16 20:49 21:00 21:00 WBC RBC Hgb Hct MCV MCH MCHC RDW Plt Count MPV Neut % (Auto) Lymph % (Auto) [place] % (Auto) Eos % (Auto) Baso % (Auto) Neut # (Auto) Lymph # (Auto) [place] # (Auto) Eos # (Auto) Baso # (Auto) Immature Gran % Nucleated RBC % Immature Gran # Nucleated RBCs # INR PT Patient/Control Mix Circ Anticoag PTT Patient Temperature ABG pH 7.439 ABG pH at Pt Temp ABG pCO2 35.3 ABG pCO2 at Pt Temp ABG pO2 170.0 H ABG pO2 at Pt Temp ABG HCO3 24.5 ABG Total CO2 21.5 L ABG O2 Saturation 99.4 ABG Base Excess 0.1 ABG Sodium VBG pH VBG pCO2 VBG pO2 VBG HCO3 VBG Total CO2 VBG O2 Saturation VBG Base Excess Hemoglobin 10.5 L Hematocrit 32.5 L Potassium 4.9 Glucose 144 H Ionized Calcium FiO2 Sodium Chloride Carbon Dioxide Anion Gap BUN Creatinine GFR Calculation BUN/Creatinine Ratio POC Glucose 133 H Calculated Osmolality Calcium Venous Ioniz Calcium Magnesium Total Bilirubin Direct Bilirubin AST ALT Alkaline Phosphatase Total Creatine Kinase 234 H D CK-MB (CK-2) 26.3 H D CK and CKMB Interp 11.2 Troponin I 6.190 H D Total Protein Albumin Globulin Albumin/Globulin Ratio Blood Type Antibody Screen Crossmatch 07/21/16 07/21/16 07/21/16 22:16 23:15 23:35 WBC RBC Hgb Hct MCV MCH MCHC RDW Plt Count MPV Neut % (Auto) Lymph % (Auto) [place] % (Auto) Eos % (Auto) Baso % (Auto) Neut # (Auto) Lymph # (Auto) [place] # (Auto) Eos # (Auto) Baso # (Auto) Immature Gran % Nucleated RBC % Immature Gran # Nucleated RBCs # INR PT Patient/Control Mix Circ Anticoag PTT Patient Temperature ABG pH 7.345 L ABG pH at Pt Temp ABG pCO2 45.8 ABG pCO2 at Pt Temp ABG pO2 141.0 H ABG pO2 at Pt Temp ABG HCO3 23.7 ABG Total CO2 22.7 L ABG O2 Saturation 98.8 ABG Base Excess -0.9 ABG Sodium VBG pH VBG pCO2 VBG pO2 VBG HCO3 VBG Total CO2 VBG O2 Saturation VBG Base Excess Hemoglobin 10.5 L Hematocrit 32.4 L Potassium 4.6 Glucose 140 H Ionized Calcium FiO2 Sodium Chloride Carbon Dioxide Anion Gap BUN Creatinine GFR Calculation BUN/Creatinine Ratio POC Glucose 133 H 134 H Calculated Osmolality Calcium Venous Ioniz Calcium Magnesium Total Bilirubin Direct Bilirubin AST ALT Alkaline Phosphatase Total Creatine Kinase CK-MB (CK-2) CK and CKMB Interp Troponin I Total Protein Albumin Globulin Albumin/Globulin Ratio Blood Type Antibody Screen Crossmatch 07/22/16 07/22/16 07/22/16 01:11 02:23 02:59 WBC RBC Hgb Hct MCV MCH MCHC RDW Plt Count MPV Neut % (Auto) Lymph % (Auto) [place] % (Auto) Eos % (Auto) Baso % (Auto) Neut # (Auto) Lymph # (Auto) [place] # (Auto) Eos # (Auto) Baso # (Auto) Immature Gran % Nucleated RBC % Immature Gran # Nucleated RBCs # INR PT Patient/Control Mix Circ Anticoag PTT Patient Temperature ABG pH 7.337 L ABG pH at Pt Temp ABG pCO2 46.8 ABG pCO2 at Pt Temp ABG pO2 94.5 ABG pO2 at Pt Temp ABG HCO3 23.5 ABG Total CO2 22.8 L ABG O2 Saturation 96.9 ABG Base Excess -1.0 ABG Sodium VBG pH VBG pCO2 VBG pO2 VBG HCO3 VBG Total CO2 VBG O2 Saturation VBG Base Excess Hemoglobin 10.7 L Hematocrit 33.1 L Potassium 4.5 Glucose 150 H Ionized Calcium FiO2 Sodium Chloride Carbon Dioxide Anion Gap BUN Creatinine GFR Calculation BUN/Creatinine Ratio POC Glucose 136 H 140 H Calculated Osmolality Calcium Venous Ioniz Calcium Magnesium Total Bilirubin Direct Bilirubin AST ALT Alkaline Phosphatase Total Creatine Kinase CK-MB (CK-2) CK and CKMB Interp Troponin I Total Protein Albumin Globulin Albumin/Globulin Ratio Blood Type Antibody Screen Crossmatch 07/22/16 07/22/16 07/22/16 03:27 03:40 03:40 WBC 13.4 H RBC 3.82 Hgb 10.5 L Hct 33.0 L MCV 86.4 L MCH 28 MCHC 31.8 L RDW 14.7 Plt Count 137 D MPV 11.5 Neut % (Auto) 65.6 Lymph % (Auto) 27.3 [place] % (Auto) 5.8 Eos % (Auto) 0.5 Baso % (Auto) 0.4 Neut # (Auto) 8.8 H Lymph # (Auto) 3.7 [place] # (Auto) 0.8 Eos # (Auto) 0.1 Baso # (Auto) 0.1 Immature Gran % 0.4 Nucleated RBC % 0.0 Immature Gran # 0.05 Nucleated RBCs # 0.00 INR PT Patient/Control Mix Circ Anticoag PTT Patient Temperature ABG pH ABG pH at Pt Temp ABG pCO2 ABG pCO2 at Pt Temp ABG pO2 ABG pO2 at Pt Temp ABG HCO3 ABG Total CO2 ABG O2 Saturation ABG Base Excess ABG Sodium VBG pH VBG pCO2 VBG pO2 VBG HCO3 VBG Total CO2 VBG O2 Saturation VBG Base Excess Hemoglobin Hematocrit Potassium Glucose Ionized Calcium FiO2 Sodium Chloride Carbon Dioxide Anion Gap BUN Creatinine GFR Calculation BUN/Creatinine Ratio POC Glucose 132 H Calculated Osmolality Calcium Venous Ioniz Calcium Magnesium Total Bilirubin Direct Bilirubin AST ALT Alkaline Phosphatase Total Creatine Kinase 236 H CK-MB (CK-2) 25.1 H CK and CKMB Interp 10.6 Troponin I 7.100 H Total Protein Albumin Globulin Albumin/Globulin Ratio Blood Type Antibody Screen Crossmatch 07/22/16 07/22/16 07/22/16 03:40 03:40 04:22 WBC RBC Hgb Hct MCV MCH MCHC RDW Plt Count MPV Neut % (Auto) Lymph % (Auto) [place] % (Auto) Eos % (Auto) Baso % (Auto) Neut # (Auto) Lymph # (Auto) [place] # (Auto) Eos # (Auto) Baso # (Auto) Immature Gran % Nucleated RBC % Immature Gran # Nucleated RBCs # INR PT Patient/Control Mix Circ Anticoag PTT Patient Temperature ABG pH 7.328 L ABG pH at Pt Temp ABG pCO2 50.1 H ABG pCO2 at Pt Temp ABG pO2 109.0 H ABG pO2 at Pt Temp ABG HCO3 24.2 ABG Total CO2 23.8 ABG O2 Saturation 97.9 ABG Base Excess -0.3 ABG Sodium VBG pH VBG pCO2 VBG pO2 VBG HCO3 VBG Total CO2 VBG O2 Saturation VBG Base Excess Hemoglobin 10.9 L Hematocrit 33.5 L Potassium 4.8 4.8 Glucose 144 H 149 H Ionized Calcium FiO2 Sodium 136 Chloride 102 Carbon Dioxide 28 Anion Gap 10.8 BUN 10 Creatinine 0.50 L GFR Calculation 121 BUN/Creatinine Ratio 20.00 POC Glucose 134 H Calculated Osmolality 273.0 Calcium 7.9 L Venous Ioniz Calcium Magnesium 1.4 L Total Bilirubin 0.60 Direct Bilirubin 0.20 AST 49 H ALT 24 Alkaline Phosphatase 113 Total Creatine Kinase CK-MB (CK-2) CK and CKMB Interp Troponin I Total Protein 5.6 L Albumin 3.3 L Globulin 2.3 Albumin/Globulin Ratio 1.4 Blood Type Antibody Screen Crossmatch 07/22/16 07/22/16 07/22/16 05:38 06:03 07:11 WBC RBC Hgb Hct MCV MCH MCHC RDW Plt Count MPV Neut % (Auto) Lymph % (Auto) [place] % (Auto) Eos % (Auto) Baso % (Auto) Neut # (Auto) Lymph # (Auto) [place] # (Auto) Eos # (Auto) Baso # (Auto) Immature Gran % Nucleated RBC % Immature Gran # Nucleated RBCs # INR PT Patient/Control Mix Circ Anticoag PTT Patient Temperature ABG pH 7.386 ABG pH at Pt Temp ABG pCO2 44.8 ABG pCO2 at Pt Temp ABG pO2 69.5 L ABG pO2 at Pt Temp ABG HCO3 25.7 ABG Total CO2 24.2 ABG O2 Saturation 94.0 L ABG Base Excess 1.5 ABG Sodium VBG pH VBG pCO2 VBG pO2 VBG HCO3 VBG Total CO2 VBG O2 Saturation VBG Base Excess Hemoglobin 10.8 L Hematocrit 33.3 L Potassium 4.4 Glucose 156 H Ionized Calcium FiO2 Sodium Chloride Carbon Dioxide Anion Gap BUN Creatinine GFR Calculation BUN/Creatinine Ratio POC Glucose 142 H 137 H Calculated Osmolality Calcium Venous Ioniz Calcium Magnesium Total Bilirubin Direct Bilirubin AST ALT Alkaline Phosphatase Total Creatine Kinase CK-MB (CK-2) CK and CKMB Interp Troponin I Total Protein Albumin Globulin Albumin/Globulin Ratio Blood Type Antibody Screen Crossmatch Quality Measures - VTE Contraindication to Pharmacological VTE Prophylaxis: High Risk of Bleeding - Stroke Symptom Onset Unknown: No Specialty Discharge - Follow Up or Referrals <Melissa Macdonald Last Filed: 07/22/16 14:43> Cardiology - PN: Subj Interval history: I personally interviewed and examined the patient, reviewed the chart and discussed medical decision-making with practitioner Yogi. I have read this note and agree with the findings herein. No other recommendations. Exam (Progress Note) - Constitutional Vitals: Period Temp Pulse Resp BP Sys/Cummings Pulse Ox Last 24 Hr 97.6 F-100.1 F 66-93 7-25 87-162/46-79 4-100 Result/EKG - Labs CBC & BMP: 07/22/16 03:40 07/22/16 03:40 Labs: Laboratory Results - last 24 hr 07/20/16 07/21/16 07/21/16 04:27 11:30 15:34 WBC RBC Hgb Hct MCV MCH MCHC RDW Plt Count MPV Neut % (Auto) Lymph % (Auto) [place] % (Auto) Eos % (Auto) Baso % (Auto) Neut # (Auto) Lymph # (Auto) [place] # (Auto) Eos # (Auto) Baso # (Auto) Immature Gran % Nucleated RBC % Immature Gran # Nucleated RBCs # ABG pH ABG pCO2 ABG pO2 ABG HCO3 ABG Total CO2 ABG O2 Saturation ABG Base Excess Hemoglobin Hematocrit Potassium Glucose Sodium Chloride Carbon Dioxide Anion Gap BUN Creatinine GFR Calculation BUN/Creatinine Ratio POC Glucose 70 L Calculated Osmolality Calcium Magnesium Total Bilirubin Direct Bilirubin AST ALT Alkaline Phosphatase Total Creatine Kinase 164 D CK-MB (CK-2) 12.9 H CK and CKMB Interp 7.9 Troponin I 2.740 H Total Protein Albumin Globulin Albumin/Globulin Ratio Blood Type A POSITIVE Antibody Screen Negative Crossmatch See Detail 07/21/16 07/21/16 07/21/16 16:02 16:58 17:55 WBC RBC Hgb Hct MCV MCH MCHC RDW Plt Count MPV Neut % (Auto) Lymph % (Auto) [place] % (Auto) Eos % (Auto) Baso % (Auto) Neut # (Auto) Lymph # (Auto) [place] # (Auto) Eos # (Auto) Baso # (Auto) Immature Gran % Nucleated RBC % Immature Gran # Nucleated RBCs # ABG pH 7.433 7.337 L ABG pCO2 38.7 45.4 ABG pO2 143.6 H 121.0 H ABG HCO3 25.3 23.0 ABG Total CO2 26.5 22.1 L ABG O2 Saturation 98.1 98.3 ABG Base Excess 1.0 -1.7 Hemoglobin 10.0 L 10.5 L Hematocrit 29.0 L 32.4 L Potassium 4.5 4.6 Glucose 80 132 H Sodium Chloride Carbon Dioxide Anion Gap BUN Creatinine GFR Calculation BUN/Creatinine Ratio POC Glucose 110 H Calculated Osmolality Calcium Magnesium Total Bilirubin Direct Bilirubin AST ALT Alkaline Phosphatase Total Creatine Kinase CK-MB (CK-2) CK and CKMB Interp Troponin I Total Protein Albumin Globulin Albumin/Globulin Ratio Blood Type Antibody Screen Crossmatch 07/21/16 07/21/16 07/21/16 18:56 20:49 21:00 WBC RBC Hgb Hct MCV MCH MCHC RDW Plt Count MPV Neut % (Auto) Lymph % (Auto) [place] % (Auto) Eos % (Auto) Baso % (Auto) Neut # (Auto) Lymph # (Auto) [place] # (Auto) Eos # (Auto) Baso # (Auto) Immature Gran % Nucleated RBC % Immature Gran # Nucleated RBCs # ABG pH ABG pCO2 ABG pO2 ABG HCO3 ABG Total CO2 ABG O2 Saturation ABG Base Excess Hemoglobin Hematocrit Potassium Glucose Sodium Chloride Carbon Dioxide Anion Gap BUN Creatinine GFR Calculation BUN/Creatinine Ratio POC Glucose 139 H 133 H Calculated Osmolality Calcium Magnesium Total Bilirubin Direct Bilirubin AST ALT Alkaline Phosphatase Total Creatine Kinase 234 H D CK-MB (CK-2) 26.3 H D CK and CKMB Interp 11.2 Troponin I 6.190 H D Total Protein Albumin Globulin Albumin/Globulin Ratio Blood Type Antibody Screen Crossmatch 07/21/16 07/21/16 07/21/16 21:00 22:16 23:15 WBC RBC Hgb Hct MCV MCH MCHC RDW Plt Count MPV Neut % (Auto) Lymph % (Auto) [place] % (Auto) Eos % (Auto) Baso % (Auto) Neut # (Auto) Lymph # (Auto) [place] # (Auto) Eos # (Auto) Baso # (Auto) Immature Gran % Nucleated RBC % Immature Gran # Nucleated RBCs # ABG pH 7.439 ABG pCO2 35.3 ABG pO2 170.0 H ABG HCO3 24.5 ABG Total CO2 21.5 L ABG O2 Saturation 99.4 ABG Base Excess 0.1 Hemoglobin 10.5 L Hematocrit 32.5 L Potassium 4.9 Glucose 144 H Sodium Chloride Carbon Dioxide Anion Gap BUN Creatinine GFR Calculation BUN/Creatinine Ratio POC Glucose 133 H 134 H Calculated Osmolality Calcium Magnesium Total Bilirubin Direct Bilirubin AST ALT Alkaline Phosphatase Total Creatine Kinase CK-MB (CK-2) CK and CKMB Interp Troponin I Total Protein Albumin Globulin Albumin/Globulin Ratio Blood Type Antibody Screen Crossmatch 07/21/16 07/22/16 07/22/16 23:35 01:11 02:23 WBC RBC Hgb Hct MCV MCH MCHC RDW Plt Count MPV Neut % (Auto) Lymph % (Auto) [place] % (Auto) Eos % (Auto) Baso % (Auto) Neut # (Auto) Lymph # (Auto) [place] # (Auto) Eos # (Auto) Baso # (Auto) Immature Gran % Nucleated RBC % Immature Gran # Nucleated RBCs # ABG pH 7.345 L ABG pCO2 45.8 ABG pO2 141.0 H ABG HCO3 23.7 ABG Total CO2 22.7 L ABG O2 Saturation 98.8 ABG Base Excess -0.9 Hemoglobin 10.5 L Hematocrit 32.4 L Potassium 4.6 Glucose 140 H Sodium Chloride Carbon Dioxide Anion Gap BUN Creatinine GFR Calculation BUN/Creatinine Ratio POC Glucose 136 H 140 H Calculated Osmolality Calcium Magnesium Total Bilirubin Direct Bilirubin AST ALT Alkaline Phosphatase Total Creatine Kinase CK-MB (CK-2) CK and CKMB Interp Troponin I Total Protein Albumin Globulin Albumin/Globulin Ratio Blood Type Antibody Screen Crossmatch 07/22/16 07/22/16 07/22/16 02:59 03:27 03:40 WBC RBC Hgb Hct MCV MCH MCHC RDW Plt Count MPV Neut % (Auto) Lymph % (Auto) [place] % (Auto) Eos % (Auto) Baso % (Auto) Neut # (Auto) Lymph # (Auto) [place] # (Auto) Eos # (Auto) Baso # (Auto) Immature Gran % Nucleated RBC % Immature Gran # Nucleated RBCs # ABG pH 7.337 L ABG pCO2 46.8 ABG pO2 94.5 ABG HCO3 23.5 ABG Total CO2 22.8 L ABG O2 Saturation 96.9 ABG Base Excess -1.0 Hemoglobin 10.7 L Hematocrit 33.1 L Potassium 4.5 Glucose 150 H Sodium Chloride Carbon Dioxide Anion Gap BUN Creatinine GFR Calculation BUN/Creatinine Ratio POC Glucose 132 H Calculated Osmolality Calcium Magnesium Total Bilirubin Direct Bilirubin AST ALT Alkaline Phosphatase Total Creatine Kinase 236 H CK-MB (CK-2) 25.1 H CK and CKMB Interp 10.6 Troponin I 7.100 H Total Protein Albumin Globulin Albumin/Globulin Ratio Blood Type Antibody Screen Crossmatch 07/22/16 07/22/16 07/22/16 03:40 03:40 03:40 WBC 13.4 H RBC 3.82 Hgb 10.5 L Hct 33.0 L MCV 86.4 L MCH 28 MCHC 31.8 L RDW 14.7 Plt Count 137 D MPV 11.5 Neut % (Auto) 65.6 Lymph % (Auto) 27.3 [place] % (Auto) 5.8 Eos % (Auto) 0.5 Baso % (Auto) 0.4 Neut # (Auto) 8.8 H Lymph # (Auto) 3.7 [place] # (Auto) 0.8 Eos # (Auto) 0.1 Baso # (Auto) 0.1 Immature Gran % 0.4 Nucleated RBC % 0.0 Immature Gran # 0.05 Nucleated RBCs # 0.00 ABG pH 7.328 L ABG pCO2 50.1 H ABG pO2 109.0 H ABG HCO3 24.2 ABG Total CO2 23.8 ABG O2 Saturation 97.9 ABG Base Excess -0.3 Hemoglobin 10.9 L Hematocrit 33.5 L Potassium 4.8 4.8 Glucose 144 H 149 H Sodium 136 Chloride 102 Carbon Dioxide 28 Anion Gap 10.8 BUN 10 Creatinine 0.50 L GFR Calculation 121 BUN/Creatinine Ratio 20.00 POC Glucose Calculated Osmolality 273.0 Calcium 7.9 L Magnesium 1.4 L Total Bilirubin 0.60 Direct Bilirubin 0.20 AST 49 H ALT 24 Alkaline Phosphatase 113 Total Creatine Kinase CK-MB (CK-2) CK and CKMB Interp Troponin I Total Protein 5.6 L Albumin 3.3 L Globulin 2.3 Albumin/Globulin Ratio 1.4 Blood Type Antibody Screen Crossmatch 07/22/16 07/22/16 07/22/16 04:22 05:38 06:03 WBC RBC Hgb Hct MCV MCH MCHC RDW Plt Count MPV Neut % (Auto) Lymph % (Auto) [place] % (Auto) Eos % (Auto) Baso % (Auto) Neut # (Auto) Lymph # (Auto) [place] # (Auto) Eos # (Auto) Baso # (Auto) Immature Gran % Nucleated RBC % Immature Gran # Nucleated RBCs # ABG pH 7.386 ABG pCO2 44.8 ABG pO2 69.5 L ABG HCO3 25.7 ABG Total CO2 24.2 ABG O2 Saturation 94.0 L ABG Base Excess 1.5 Hemoglobin 10.8 L Hematocrit 33.3 L Potassium 4.4 Glucose 156 H Sodium Chloride Carbon Dioxide Anion Gap BUN Creatinine GFR Calculation BUN/Creatinine Ratio POC Glucose 134 H 142 H Calculated Osmolality Calcium Magnesium Total Bilirubin Direct Bilirubin AST ALT Alkaline Phosphatase Total Creatine Kinase CK-MB (CK-2) CK and CKMB Interp Troponin I Total Protein Albumin Globulin Albumin/Globulin Ratio Blood Type Antibody Screen Crossmatch 07/22/16 07:11 WBC RBC Hgb Hct MCV MCH MCHC RDW Plt Count MPV Neut % (Auto) Lymph % (Auto) [place] % (Auto) Eos % (Auto) Baso % (Auto) Neut # (Auto) Lymph # (Auto) [place] # (Auto) Eos # (Auto) Baso # (Auto) Immature Gran % Nucleated RBC % Immature Gran # Nucleated RBCs # ABG pH ABG pCO2 ABG pO2 ABG HCO3 ABG Total CO2 ABG O2 Saturation ABG Base Excess Hemoglobin Hematocrit Potassium Glucose Sodium Chloride Carbon Dioxide Anion Gap BUN Creatinine GFR Calculation BUN/Creatinine Ratio POC Glucose 137 H Calculated Osmolality Calcium Magnesium Total Bilirubin Direct Bilirubin AST ALT Alkaline Phosphatase Total Creatine Kinase CK-MB (CK-2) CK and CKMB Interp Troponin I Total Protein Albumin Globulin Albumin/Globulin Ratio Blood Type Antibody Screen Crossmatch
[2016-07-22] MEDS: CHLORHEXIDINE 0.12% ORAL RINSE 60 ML BOTTLE SWISH/SPIT SCH ×3 (08:22→22:03)
--- NOTE | 2016-07-22 08:42 | Anesthesia Post-Op ---
Anesthesia Post OP - Post Ansesthetic Evaluation Patient seen in post op: Yes Resp: within normal limits CV: within normal limits Mental: within normal limits Temp: within normal limits [id number]: within normal limits Nausea and Vomiting: within normal limits Pain: within normal limits
--- NOTE | 2016-07-22 11:10 | Hospitalist Progress Note ---
Assessment and Plan (1) IDDM (insulin dependent diabetes mellitus) Status: Chronic Current Visit: Yes (2) Hypertension Status: Chronic Current Visit: Yes (3) S/P CABG x 3 Status: Acute Assessment and plan: Operative intervention 21 July 2016 with internal mammary graft to the LAD saphenous vein graft to the obtuse marginal and posterior descending circulations. Current Visit: Yes Hospitalist: Subjective Interval history: 60-year-old female hypertensive diabetic with previously documented coronary artery disease had presented acutely with chest pain on this admission at coronary angiography she was found to have three-vessel coronary artery disease and underwent aortocoronary bypass grafting on 21 July with internal mammary graft to left anterior descending coronary artery with saphenous vein grafting to the obtuse marginal and posterior descending coronary artery. She has been transferred to the pate, hemodynamically stable and in sinus rhythm. Exam - Constitutional Vitals: Period Temp Pulse Resp BP Sys/Cummings Pulse Ox Last 24 Hr 98.8 F-100.1 F 72-93 7-25 87-168/46-83 92-100 General appearance: over weight - Respiratory Respiratory exam: Present: decreased breath sounds (At the bases bilateral). Absent: rales, rhonchi, wheezes - Cardiovascular Cardiovascular exam: Present: regular rate and rhythm - GI/Abdominal GI/Abdominal exam: Present: normal bowel sounds - Extremities Exam Extremities exam: Absent: edema - Neurological Exam Neurological exam: Present: alert, oriented X3 Results - Labs CBC & BMP: 07/22/16 03:40 07/22/16 03:40 Labs: Magnesium 1.4 Albumin 3.3 Cardiac troponin I 7.1 - Impressions Sinus rhythm mild inferior and lateral J-point elevation with horizontal ST segment. Minimal increase in QRS T-wave angle. - Diagnostic Findings Procedure: Chest x-ray: image reviewed by me (Reduce volume in left lower lung with linear atelectatic changes and small pleural effusion) Quality Measures - VTE Contraindication to Pharmacological VTE Prophylaxis: High Risk of Bleeding - Stroke Symptom Onset Unknown: No Specialty Discharge - Follow Up or Referrals
[2016-07-22] MEDS: rOPINIRole 0.25 MG TABLET PO SCH (22:01)
[2016-07-22] MEDS: ROSUVASTATIN 10 MG TABLET PO SCH (22:02)
[2016-07-23] MEDS: KETOROLAC 30 MG/1 ML VIAL IV SCH ×4 (00:52→17:53)
[2016-07-23] MEDS: CEFUROXIME INJ 1,500 MG in SODIUM CHLORIDE 0.9% 100 ML IV SCH (00:53)
[2016-07-23 04:51] LABS: Basophils # 0.1 10*3/uL (0.0-0.2); Basophils % 0.3 % (0.0-0.8); Eosinophils # 0.1 10*3/uL (0.0-0.87); Eosinophils % 0.4 % (0.00-10.9); Hemoglobin 9.3 GM/DL (12.0-16.0); Immature Granulocytes % 0.4 %; Immature Granulocytes Absolute 0.07 #; Lymphocytes # 3.5 10*3/uL (1.4-4.0); Lymphocytes % 22.2 % (21.3-54.2); Mean Corpuscular Hemoglobin 27 PG (27-34); Mean Corpuscular Volume 87.7 FL (87-102); Mean Platelet Volume 12.2 FL (9.6-12.0); Monocytes # 1.3 10*3/uL (0.11-0.8); Monocytes % 8.1 % (1.7-12.7); Neutrophils # 10.7 10*3/uL (1.4-7.4); Neutrophils % 68.6 % (38.7-73.9); Platelet Count 141 T/CUMM (130-400); Red Blood Count 3.42 MC/CUMM (3.8-5.5); Red Cell Distribution Width 14.9 % (9.3-17.3); White Blood Count 15.6 T/CUMM (4-12)
[2016-07-23 05:28] LABS: Alanine Aminotransferase 17 U/L (13-56); Albumin 2.6 G/DL (3.4-5.0); Alkaline Phosphatase 123 U/L (45-117); Aspartate Amino Transferase 15 U/L (0-37); Bilirubin,Indirect 0.5 MG/DL (0.0-1.0); Blood Urea Nitrogen 19 MG/DL (7-18); Calcium 7.7 MG/DL (8.5-10.1); Glucose 323 MG/DL (74-106); Magnesium 2.5 MG/DL (1.8-2.4); Osmolality,Calculated 279.4 MOS/KG (273-304); Potassium 5.1 MMOL/L (3.5-5.1); Sodium 133 MMOL/L (136-145); Total Protein 5.3 G/DL (6.4-8.3)
[2016-07-23] MEDS ORDERED: FUROSEMIDE 40 MG/4 ML VIAL IV ONE (06:00)
[2016-07-23] MEDS: HYDROmorphone 2 MG/1 ML VIAL IV PRN ×4 (06:18→23:17)
[2016-07-23] MEDS ORDERED: POLYETHYLENE GLYCOL POWDER 17 GM PACK PO PRN (06:20)
[2016-07-23] MEDS ORDERED: NIFEdipine 10 MG CAPSULE PO PRN (06:20)
[2016-07-23] MEDS ORDERED: CLORAZEPATE 3.75 MG TABLET PO PRN (06:20)
--- NOTE | 2016-07-23 06:20 | Cardiothoracic Progress Note ---
Cardiothoracic Subjective Interval history: Patient is awake alert and extubated. She has been moved to telemetry. Chest tubes are out. She has a fair amount of chest wall discomfort but otherwise is doing reasonably well. She seems to be breathing comfortably although she is coughing a fair amount. Her vital signs have been stable and we will try to increase her activity some today according to routine postoperative protocol. Exam (Progress Note) - Constitutional Vitals: Period Temp Pulse Resp BP Sys/Cummings Pulse Ox Last 24 Hr 97.0 F-99.5 F 66-85 13-25 88-144/52-68 4-99 Result/EKG - Labs CBC & BMP: 07/23/16 04:06 07/23/16 04:06 Labs: Laboratory Results - last 24 hr 07/20/16 07/21/16 07/21/16 04:27 15:34 16:58 WBC RBC Hgb Hct MCV MCH MCHC RDW Plt Count MPV Neut % (Auto) Lymph % (Auto) [place] % (Auto) Eos % (Auto) Baso % (Auto) Neut # (Auto) Lymph # (Auto) [place] # (Auto) Eos # (Auto) Baso # (Auto) Immature Gran % Nucleated RBC % Immature Gran # Nucleated RBCs # ABG pH ABG pCO2 ABG pO2 ABG HCO3 ABG Total CO2 ABG O2 Saturation ABG Base Excess Hemoglobin Hematocrit Potassium Glucose Sodium Chloride Carbon Dioxide Anion Gap BUN Creatinine GFR Calculation BUN/Creatinine Ratio POC Glucose 70 L 110 H Calculated Osmolality Calcium Magnesium Total Bilirubin Direct Bilirubin Indirect Bilirubin AST ALT Alkaline Phosphatase Total Creatine Kinase CK-MB (CK-2) Troponin I Total Protein Albumin Globulin Albumin/Globulin Ratio Blood Type A POSITIVE Antibody Screen Negative Crossmatch See Detail 07/21/16 07/21/16 07/21/16 18:56 20:49 22:16 WBC RBC Hgb Hct MCV MCH MCHC RDW Plt Count MPV Neut % (Auto) Lymph % (Auto) [place] % (Auto) Eos % (Auto) Baso % (Auto) Neut # (Auto) Lymph # (Auto) [place] # (Auto) Eos # (Auto) Baso # (Auto) Immature Gran % Nucleated RBC % Immature Gran # Nucleated RBCs # ABG pH ABG pCO2 ABG pO2 ABG HCO3 ABG Total CO2 ABG O2 Saturation ABG Base Excess Hemoglobin Hematocrit Potassium Glucose Sodium Chloride Carbon Dioxide Anion Gap BUN Creatinine GFR Calculation BUN/Creatinine Ratio POC Glucose 139 H 133 H 133 H Calculated Osmolality Calcium Magnesium Total Bilirubin Direct Bilirubin Indirect Bilirubin AST ALT Alkaline Phosphatase Total Creatine Kinase CK-MB (CK-2) Troponin I Total Protein Albumin Globulin Albumin/Globulin Ratio Blood Type Antibody Screen Crossmatch 07/21/16 07/22/16 07/22/16 23:15 01:11 02:23 WBC RBC Hgb Hct MCV MCH MCHC RDW Plt Count MPV Neut % (Auto) Lymph % (Auto) [place] % (Auto) Eos % (Auto) Baso % (Auto) Neut # (Auto) Lymph # (Auto) [place] # (Auto) Eos # (Auto) Baso # (Auto) Immature Gran % Nucleated RBC % Immature Gran # Nucleated RBCs # ABG pH ABG pCO2 ABG pO2 ABG HCO3 ABG Total CO2 ABG O2 Saturation ABG Base Excess Hemoglobin Hematocrit Potassium Glucose Sodium Chloride Carbon Dioxide Anion Gap BUN Creatinine GFR Calculation BUN/Creatinine Ratio POC Glucose 134 H 136 H 140 H Calculated Osmolality Calcium Magnesium Total Bilirubin Direct Bilirubin Indirect Bilirubin AST ALT Alkaline Phosphatase Total Creatine Kinase CK-MB (CK-2) Troponin I Total Protein Albumin Globulin Albumin/Globulin Ratio Blood Type Antibody Screen Crossmatch 07/22/16 07/22/16 07/22/16 03:27 04:22 05:38 WBC RBC Hgb Hct MCV MCH MCHC RDW Plt Count MPV Neut % (Auto) Lymph % (Auto) [place] % (Auto) Eos % (Auto) Baso % (Auto) Neut # (Auto) Lymph # (Auto) [place] # (Auto) Eos # (Auto) Baso # (Auto) Immature Gran % Nucleated RBC % Immature Gran # Nucleated RBCs # ABG pH ABG pCO2 ABG pO2 ABG HCO3 ABG Total CO2 ABG O2 Saturation ABG Base Excess Hemoglobin Hematocrit Potassium Glucose Sodium Chloride Carbon Dioxide Anion Gap BUN Creatinine GFR Calculation BUN/Creatinine Ratio POC Glucose 132 H 134 H 142 H Calculated Osmolality Calcium Magnesium Total Bilirubin Direct Bilirubin Indirect Bilirubin AST ALT Alkaline Phosphatase Total Creatine Kinase CK-MB (CK-2) Troponin I Total Protein Albumin Globulin Albumin/Globulin Ratio Blood Type Antibody Screen Crossmatch 07/22/16 07/22/16 07/22/16 06:03 07:11 15:37 WBC RBC Hgb Hct MCV MCH MCHC RDW Plt Count MPV Neut % (Auto) Lymph % (Auto) [place] % (Auto) Eos % (Auto) Baso % (Auto) Neut # (Auto) Lymph # (Auto) [place] # (Auto) Eos # (Auto) Baso # (Auto) Immature Gran % Nucleated RBC % Immature Gran # Nucleated RBCs # ABG pH 7.386 ABG pCO2 44.8 ABG pO2 69.5 L ABG HCO3 25.7 ABG Total CO2 24.2 ABG O2 Saturation 94.0 L ABG Base Excess 1.5 Hemoglobin 10.8 L Hematocrit 33.3 L Potassium 4.4 Glucose 156 H Sodium Chloride Carbon Dioxide Anion Gap BUN Creatinine GFR Calculation BUN/Creatinine Ratio POC Glucose 137 H 204 H Calculated Osmolality Calcium Magnesium Total Bilirubin Direct Bilirubin Indirect Bilirubin AST ALT Alkaline Phosphatase Total Creatine Kinase CK-MB (CK-2) Troponin I Total Protein Albumin Globulin Albumin/Globulin Ratio Blood Type Antibody Screen Crossmatch 07/22/16 07/23/16 07/23/16 19:50 04:06 04:06 WBC 15.6 H RBC 3.42 L Hgb 9.3 L Hct 30.0 L MCV 87.7 MCH 27 MCHC 31.0 L RDW 14.9 Plt Count 141 MPV 12.2 H Neut % (Auto) 68.6 Lymph % (Auto) 22.2 [place] % (Auto) 8.1 Eos % (Auto) 0.4 Baso % (Auto) 0.3 Neut # (Auto) 10.7 H Lymph # (Auto) 3.5 [place] # (Auto) 1.3 H Eos # (Auto) 0.1 Baso # (Auto) 0.1 Immature Gran % 0.4 Nucleated RBC % 0.0 Immature Gran # 0.07 Nucleated RBCs # 0.00 ABG pH ABG pCO2 ABG pO2 ABG HCO3 ABG Total CO2 ABG O2 Saturation ABG Base Excess Hemoglobin Hematocrit Potassium 5.1 Glucose 323 H Sodium 133 L Chloride 98 Carbon Dioxide 29 Anion Gap 11.1 BUN 19 H Creatinine 1.00 GFR Calculation 72 BUN/Creatinine Ratio 19.00 POC Glucose 245 H Calculated Osmolality 279.4 Calcium 7.7 L Magnesium 2.5 H Total Bilirubin 0.70 Direct Bilirubin 0.20 Indirect Bilirubin 0.5 AST 15 ALT 17 Alkaline Phosphatase 123 H Total Creatine Kinase 68 D CK-MB (CK-2) 3.7 H D Troponin I 2.220 H D Total Protein 5.3 L Albumin 2.6 L Globulin 2.7 Albumin/Globulin Ratio 0.9 L Blood Type Antibody Screen Crossmatch Quality Measures - VTE Contraindication to Pharmacological VTE Prophylaxis: High Risk of Bleeding - Stroke Symptom Onset Unknown: No Specialty Discharge - Follow Up or Referrals
--- NOTE | 2016-07-23 06:47 | XRay Report ---
XR chest 1V portable Indication: Shortness of breath Comparison: Chest x-ray 07/22/2016 Technique: Portable AP chest was performed. Findings: Parenchymal opacities most prevalent within the left lung base. Initially noted within the mid to lower right lung remain with little change. Right central venous catheter is stable. Sternal wires are stable. Heart size is stable. Bones and soft tissues demonstrate no significant interval change. Impression: 1. Infectious process and/or atelectasis within the left lung base could be considered. Little change in the chest is suggested. In particular appearance of the lung bases is influenced by the Limited degree of inspiration. 07/23/2016 6:43 AM PROCEDURE INTERPRETED AT [facility] [place] DEPARTMENT OF RADIOLOGY Final Report Signed by: Dr. Babar Ansari
--- NOTE | 2016-07-23 08:13 | Hospitalist Progress Note ---
Assessment and Plan (1) IDDM (insulin dependent diabetes mellitus) Status: Chronic Current Visit: Yes (2) Hypertension Status: Chronic Current Visit: Yes (3) S/P CABG x 3 Status: Acute Assessment and plan: Operative intervention 21 July 2016 with internal mammary graft to the LAD saphenous vein graft to the obtuse marginal and posterior descending circulations. Current Visit: Yes Hospitalist: Subjective Interval history: 60-year-old female diabetic hypertensive with previously documented coronary artery disease had presented acutely with a chest pain syndrome leading to cardiac catheterization showing three-vessel coronary artery disease. Patient underwent on 21 July aortocoronary bypass grafting with internal mammary graft to the left anterior descending coronary artery with saphenous vein grafts to the obtuse marginal and posterior descending arteries. We still have not been able to determine her home insulin dose and have initiated empiric regimen with intermediate and short-acting dosing. She continues in sinus rhythm with stable vital signs. Exam - Constitutional Vitals: Period Temp Pulse Resp BP Sys/Cummings Pulse Ox Last 24 Hr 97.0 F-99.5 F 66-83 16-22 104-144/53-68 4-99 General appearance: over weight - Respiratory Respiratory exam: Absent: rales, rhonchi, wheezes - Cardiovascular Cardiovascular exam: Present: regular rate and rhythm - GI/Abdominal GI/Abdominal exam: Present: normal bowel sounds. Absent: distended - Extremities Exam Extremities exam: Absent: edema - Neurological Exam Neurological exam: Present: alert, oriented X3 Results - Labs CBC & BMP: 07/23/16 04:06 07/23/16 04:06 Labs: Magnesium 2.5 Quality Measures - VTE Contraindication to Pharmacological VTE Prophylaxis: High Risk of Bleeding - Stroke Symptom Onset Unknown: No Specialty Discharge - Follow Up or Referrals
[2016-07-23] MEDS ORDERED: GABAPENTIN 300 MG CAPSULE PO SCH (09:00)
[2016-07-23] MEDS ORDERED: LISINOPRIL 20 MG TABLET PO SCH (09:00)
[2016-07-23] MEDS ORDERED: CARVEDILOL 6.25 MG TABLET PO SCH (09:00)
[2016-07-23] MEDS ORDERED: tiZANidine 4 MG TABLET PO SCH (09:00)
[2016-07-23] MEDS ORDERED: ESCITALOPRAM 10 MG TABLET PO SCH (09:00)
[2016-07-23] MEDS: FUROSEMIDE 100 MG/10 ML VIAL IV SCH (09:32)
[2016-07-23] MEDS: ASPIRIN EC 325 MG TABLET PO SCH (09:33)
[2016-07-23] MEDS: POLYETHYLENE GLYCOL POWDER 17 GM PACK PO PRN (09:33)
[2016-07-23] MEDS: FERROUS SULFATE 325 MG TABLET PO SCH (09:33)
[2016-07-23] MEDS: ESCITALOPRAM 10 MG TABLET PO SCH (09:34)
[2016-07-23] MEDS: DOCUSATE SODIUM 100 MG CAPSULE PO SCH (09:34)
[2016-07-23] MEDS: GABAPENTIN 300 MG CAPSULE PO SCH ×3 (09:34→21:58)
[2016-07-23] MEDS: PANTOPRAZOLE 40 MG TABLET PO SCH (09:34)
[2016-07-23] MEDS: tiZANidine 4 MG TABLET PO SCH ×2 (09:34→21:59)
[2016-07-23] MEDS: NICOTINE 21 MG/24 HR PATCH TRANSDERM SCH (09:34)
[2016-07-23] MEDS: LISINOPRIL 20 MG TABLET PO SCH (09:34)
[2016-07-23] MEDS: CARVEDILOL 6.25 MG TABLET PO SCH ×2 (09:34→21:58)
[2016-07-23] MEDS: CHLORHEXIDINE 0.12% ORAL RINSE 60 ML BOTTLE SWISH/SPIT SCH ×2 (09:35→22:01)
[2016-07-23] MEDS: INSULIN NPH 100 UNIT/ML SUBCUT SCH ×2 (09:36→17:14)
[2016-07-23] MEDS: INSULIN REGULAR 100 UNIT/ML SUBCUT SCH ×3 (09:56→17:14)
[2016-07-23] MEDS: SODIUM CHLOR 0.45% KCL 20 MEQ 20 MEQ/1,000 ML BAG IV SCH (11:07)
--- NOTE | 2016-07-23 12:29 | Cardiology Progress Note ---
<Noemy Calix - Last Filed: 07/23/16 12:19> Assessment and Plan (1) S/P CABG x 3 Status: Acute Assessment and plan: Patient is progressing well. Continue routine postoperative protocol. Further plan and addendum to follow per Dr. Macdonald. Current Visit: Yes (2) Hypertension Status: Chronic Assessment and plan: Currently well controlled. Will adjust medications as needed during her hospital stay. Current Visit: Yes (3) Hyperlipidemia Status: Chronic Assessment and plan: Continue current plan of care with lipid lowering agent. Current Visit: Yes (4) IDDM (insulin dependent diabetes mellitus) Status: Chronic Assessment and plan: Management per hospital medicine. Current Visit: Yes (5) Tobacco abuse Status: Chronic Assessment and plan: Smoking cessation encouraged. Current Visit: Yes (6) Coronary artery disease Status: Chronic Assessment and plan: Now status post CABG 07/21/16 with left internal mammary graft to the anterior descending coronary artery and saphenous vein graft to second obtuse marginal and the posterior descending coronary arteries. Patient is progressing nicely without complications. Continue current plan of care. Current Visit: Yes Qualifiers: Coronary Disease-Associated Artery/Lesion type: [place] artery [place] vs. transplanted heart: chitina heart (7) Hypomagnesemia Status: Resolved Current Visit: Yes (8) Peripheral neuropathy Status: Chronic Assessment and plan: Continue current plan of care. Current Visit: Yes Cardiology - PN: Subj Interval history: ELEVATOR ERECTOR HELPER: DR. REBOLLEDO PCP: MAGDALENA LOZANO SUMMARY: Ms. See, 60-year-old female, has a history of known coronary artery disease, hypertension, dyslipidemia, diabetes, sedentary lifestyle and tobaccoism. She presented to the emergency department July 16, 2016 with complaints of chest pain. She underwent cardiac catheterization which revealed three-vessel CAD. Dr. García was then consulted and she underwent CABG with left internal mammary graft to the anterior descending coronary artery and saphenous vein graft to second obtuse marginal and the posterior descending coronary arteries 07/21/16. Patient was seen and examined on the telemetry unit. She is postop day #2 today. She is lying in bed in no acute distress. Currently not wearing oxygen. She is complaining of chest soreness. Nurse is at bedside administrating pain medication. Surgical wounds are healing well without signs of infection. Patient has been encouraged to increase her activity slightly today. Troponin continues to trend down as expected, today 2.2. Vital signs are stable. Patient is currently in normal sinus rhythm with heart rates in the 70s without any overt arrhythmias noted. Continue routine postoperative protocol. Further plan and addendum to follow per Dr. Macdonald. Exam (Progress Note) - Constitutional Vitals: Period Temp Pulse Resp BP Sys/Cummings Pulse Ox Last 24 Hr 96.6 F-97.6 F 66-83 16-22 104-148/53-94 96-99 Exam: General appearance: no acute distress, over weight - Head Head exam: Present: normal inspection, normocephalic, atraumatic - Neck Neck exam: Present: normal inspection. Absent: lymphadenopathy, tenderness, thyromegaly - Respiratory Respiratory exam: Present: clear to auscultation bilaterally. Absent: accessory muscle use, chest wall tenderness, rales, rhonchi, stridor, wheezes - Cardiovascular Cardiovascular exam: Present: regular rate and rhythm. Absent: gallop, rubs, systolic murmur - GI/Abdominal GI/Abdominal exam: Present: normal bowel sounds, soft. Absent: distended, firm , mass, tenderness - Extremities Exam Extremities exam: Present: normal inspection, normal capillary refill, other ( surgical incision are healing well). Absent: calf tenderness, edema - Neurological Exam Neurological exam: Present: alert, oriented X3 - Psychiatric Psychiatric exam: Present: normal affect, normal mood - Skin Skin exam: Present: normal color, warm, dry, other (Dressing to midsternal chest incision clean dry and intact.) Result/EKG - Labs CBC & BMP: 07/23/16 04:06 07/23/16 04:06 Labs: Laboratory Results - last 24 hr 07/20/16 07/22/16 07/22/16 04:27 15:37 19:50 WBC RBC Hgb Hct MCV MCH MCHC RDW Plt Count MPV Neut % (Auto) Lymph % (Auto) Jerome % (Auto) Eos % (Auto) Baso % (Auto) Neut # (Auto) Lymph # (Auto) Jerome # (Auto) Eos # (Auto) Baso # (Auto) Immature Gran % Nucleated RBC % Immature Gran # Nucleated RBCs # Sodium Potassium Chloride Carbon Dioxide Anion Gap BUN Creatinine GFR Calculation BUN/Creatinine Ratio Glucose POC Glucose 204 H 245 H Calculated Osmolality Calcium Magnesium Total Bilirubin Direct Bilirubin Indirect Bilirubin AST ALT Alkaline Phosphatase Total Creatine Kinase CK-MB (CK-2) Troponin I Total Protein Albumin Globulin Albumin/Globulin Ratio Blood Type A POSITIVE Antibody Screen Negative Crossmatch See Detail 07/23/16 07/23/16 07/23/16 04:06 04:06 07:31 WBC 15.6 H RBC 3.42 L Hgb 9.3 L Hct 30.0 L MCV 87.7 MCH 27 MCHC 31.0 L RDW 14.9 Plt Count 141 MPV 12.2 H Neut % (Auto) 68.6 Lymph % (Auto) 22.2 Jerome % (Auto) 8.1 Eos % (Auto) 0.4 Baso % (Auto) 0.3 Neut # (Auto) 10.7 H Lymph # (Auto) 3.5 Jerome # (Auto) 1.3 H Eos # (Auto) 0.1 Baso # (Auto) 0.1 Immature Gran % 0.4 Nucleated RBC % 0.0 Immature Gran # 0.07 Nucleated RBCs # 0.00 Sodium 133 L Potassium 5.1 Chloride 98 Carbon Dioxide 29 Anion Gap 11.1 BUN 19 H Creatinine 1.00 GFR Calculation 72 BUN/Creatinine Ratio 19.00 Glucose 323 H POC Glucose 342 H Calculated Osmolality 279.4 Calcium 7.7 L Magnesium 2.5 H Total Bilirubin 0.70 Direct Bilirubin 0.20 Indirect Bilirubin 0.5 AST 15 ALT 17 Alkaline Phosphatase 123 H Total Creatine Kinase 68 D CK-MB (CK-2) 3.7 H D Troponin I 2.220 H D Total Protein 5.3 L Albumin 2.6 L Globulin 2.7 Albumin/Globulin Ratio 0.9 L Blood Type Antibody Screen Crossmatch 07/23/16 11:31 WBC RBC Hgb Hct MCV MCH MCHC RDW Plt Count MPV Neut % (Auto) Lymph % (Auto) Jerome % (Auto) Eos % (Auto) Baso % (Auto) Neut # (Auto) Lymph # (Auto) Jerome # (Auto) Eos # (Auto) Baso # (Auto) Immature Gran % Nucleated RBC % Immature Gran # Nucleated RBCs # Sodium Potassium Chloride Carbon Dioxide Anion Gap BUN Creatinine GFR Calculation BUN/Creatinine Ratio Glucose POC Glucose 365 H Calculated Osmolality Calcium Magnesium Total Bilirubin Direct Bilirubin Indirect Bilirubin AST ALT Alkaline Phosphatase Total Creatine Kinase CK-MB (CK-2) Troponin I Total Protein Albumin Globulin Albumin/Globulin Ratio Blood Type Antibody Screen Crossmatch Quality Measures - VTE Contraindication to Pharmacological VTE Prophylaxis: High Risk of Bleeding - Stroke Symptom Onset Unknown: No Specialty Discharge - Follow Up or Referrals <Melissa Macdonald - Last Filed: 07/23/16 18:04> Cardiology - PN: Subj Interval history: I personally interviewed and examined the patient, reviewed the chart and discussed medical decision-making with practitioner Yogi. I have read this note and agree with the findings herein. Exam (Progress Note) - Constitutional Vitals: Period Temp Pulse Resp BP Sys/Cummings Pulse Ox Last 24 Hr 96.6 F-97.6 F 69-83 16-20 105-148/54-94 96-99 Result/EKG - Labs CBC & BMP: 07/23/16 04:06 07/23/16 04:06 Labs: Laboratory Results - last 24 hr 07/20/16 07/22/16 07/23/16 04:27 19:50 04:06 WBC 15.6 H RBC 3.42 L Hgb 9.3 L Hct 30.0 L MCV 87.7 MCH 27 MCHC 31.0 L RDW 14.9 Plt Count 141 MPV 12.2 H Neut % (Auto) 68.6 Lymph % (Auto) 22.2 Jerome % (Auto) 8.1 Eos % (Auto) 0.4 Baso % (Auto) 0.3 Neut # (Auto) 10.7 H Lymph # (Auto) 3.5 Jerome # (Auto) 1.3 H Eos # (Auto) 0.1 Baso # (Auto) 0.1 Immature Gran % 0.4 Nucleated RBC % 0.0 Immature Gran # 0.07 Nucleated RBCs # 0.00 Sodium Potassium Chloride Carbon Dioxide Anion Gap BUN Creatinine GFR Calculation BUN/Creatinine Ratio Glucose POC Glucose 245 H Calculated Osmolality Calcium Magnesium Total Bilirubin Direct Bilirubin Indirect Bilirubin AST ALT Alkaline Phosphatase Total Creatine Kinase CK-MB (CK-2) Troponin I Total Protein Albumin Globulin Albumin/Globulin Ratio Blood Type A POSITIVE Antibody Screen Negative Crossmatch See Detail 07/23/16 07/23/16 07/23/16 04:06 07:31 11:31 WBC RBC Hgb Hct MCV MCH MCHC RDW Plt Count MPV Neut % (Auto) Lymph % (Auto) Jerome % (Auto) Eos % (Auto) Baso % (Auto) Neut # (Auto) Lymph # (Auto) Jerome # (Auto) Eos # (Auto) Baso # (Auto) Immature Gran % Nucleated RBC % Immature Gran # Nucleated RBCs # Sodium 133 L Potassium 5.1 Chloride 98 Carbon Dioxide 29 Anion Gap 11.1 BUN 19 H Creatinine 1.00 GFR Calculation 72 BUN/Creatinine Ratio 19.00 Glucose 323 H POC Glucose 342 H 365 H Calculated Osmolality 279.4 Calcium 7.7 L Magnesium 2.5 H Total Bilirubin 0.70 Direct Bilirubin 0.20 Indirect Bilirubin 0.5 AST 15 ALT 17 Alkaline Phosphatase 123 H Total Creatine Kinase 68 D CK-MB (CK-2) 3.7 H D Troponin I 2.220 H D Total Protein 5.3 L Albumin 2.6 L Globulin 2.7 Albumin/Globulin Ratio 0.9 L Blood Type Antibody Screen Crossmatch 07/23/16 16:34 WBC RBC Hgb Hct MCV MCH MCHC RDW Plt Count MPV Neut % (Auto) Lymph % (Auto) Jerome % (Auto) Eos % (Auto) Baso % (Auto) Neut # (Auto) Lymph # (Auto) Jerome # (Auto) Eos # (Auto) Baso # (Auto) Immature Gran % Nucleated RBC % Immature Gran # Nucleated RBCs # Sodium Potassium Chloride Carbon Dioxide Anion Gap BUN Creatinine GFR Calculation BUN/Creatinine Ratio Glucose POC Glucose 243 H Calculated Osmolality Calcium Magnesium Total Bilirubin Direct Bilirubin Indirect Bilirubin AST ALT Alkaline Phosphatase Total Creatine Kinase CK-MB (CK-2) Troponin I Total Protein Albumin Globulin Albumin/Globulin Ratio Blood Type Antibody Screen Crossmatch
[2016-07-23] MEDS: HYDROmorphone 2 MG/1 ML VIAL IV SCH (15:20)
[2016-07-23] MEDS ORDERED: rOPINIRole 0.25 MG TABLET PO SCH (21:00)
[2016-07-23] MEDS ORDERED: ROSUVASTATIN 10 MG TABLET PO SCH (21:00)
[2016-07-23] MEDS: ROSUVASTATIN 10 MG TABLET PO SCH (21:58)
[2016-07-23] MEDS: rOPINIRole 0.25 MG TABLET PO SCH (21:59)
[2016-07-24] MEDS: KETOROLAC 30 MG/1 ML VIAL IV SCH ×2 (01:17→06:43)
[2016-07-24] MEDS: HYDROmorphone 2 MG/1 ML VIAL IV PRN (04:18)
[2016-07-24 05:23] LABS: Basophils % 0.2 % (0.0-0.8); Eosinophils # 0.1 10*3/uL (0.0-0.87); Eosinophils % 0.7 % (0.00-10.9); Hematocrit 29.1 VOL% (35.7-47.0); Hemoglobin 9.1 GM/DL (12.0-16.0); Immature Granulocytes % 0.8 %; Immature Granulocytes Absolute 0.11 #; Lymphocytes # 3.7 10*3/uL (1.4-4.0); Lymphocytes % 25.2 % (21.3-54.2); Mean Corpuscular HGB Conc 31.3 GM/DL (32-36); Mean Corpuscular Hemoglobin 27 PG (27-34); Mean Corpuscular Volume 87.1 FL (87-102); Monocytes # 1.2 10*3/uL (0.11-0.8); Monocytes % 8.1 % (1.7-12.7); Neutrophils # 9.5 10*3/uL (1.4-7.4); Platelet Count 198 T/CUMM (130-400); Red Blood Count 3.34 MC/CUMM (3.8-5.5); Red Cell Distribution Width 14.9 % (9.3-17.3); White Blood Count 14.6 T/CUMM (4-12)
[2016-07-24 06:18] LABS: Alanine Aminotransferase 16 U/L (13-56); Albumin 2.5 G/DL (3.4-5.0); Alkaline Phosphatase 169 U/L (45-117); Aspartate Amino Transferase 15 U/L (0-37); Bilirubin,Indirect 0.5 MG/DL (0.0-1.0); Blood Urea Nitrogen 29 MG/DL (7-18); Calcium 7.4 MG/DL (8.5-10.1); Glucose 174 MG/DL (74-106); Magnesium 2.3 MG/DL (1.8-2.4); Osmolality,Calculated 275.4 MOS/KG (273-304); Potassium 4.9 MMOL/L (3.5-5.1); Sodium 133 MMOL/L (136-145); Total Protein 5.5 G/DL (6.4-8.3)
--- NOTE | 2016-07-24 06:34 | XRay Report ---
XR chest 1V portable Indication: Shortness of breath Comparison: Chest x-ray 07/23/2016 Technique: Portable AP chest was performed. Findings: There is a left lung is changed little since comparison study. Stranding airspace opacities within the perihilar region as well as left lung base remain present. Small left-sided pleural effusion is suggested. The right lung demonstrates interval partial clearing of the right cardiophrenic angle. Chest is otherwise unchanged. Impression: 1. Infectious process and/or atelectatic change within the left lung are not excluded. Small left-sided pleural effusion is suggested. 07/24/2016 6:30 AM PROCEDURE INTERPRETED AT [facility] DEPARTMENT OF RADIOLOGY Final Report Signed by: Dr. Babar Ansari
[2016-07-24 06:36] LABS: Calcium 7.6 MG/DL (8.5-10.1); Magnesium 2.3 MG/DL (1.8-2.4); Osmolality,Calculated 273.5 MOS/KG (273-304); Potassium 4.9 MMOL/L (3.5-5.1)
--- NOTE | 2016-07-24 08:12 | Cardiothoracic Progress Note ---
Cardiothoracic Subjective Interval history: Patient looks and feels okay although she still has some shortness of breath with minimal exertion. I am going to add costao nebs respiratory treatment and see if this helps her breathing at all. I think some of her dyspnea is related to surgical trauma but aggravated by long smoking history. Hopefully this will improve he should get some distance from the surgery. Her pain actually seems relatively well controlled on the present meds. We will continue to try and increase her activity according to routine postoperative protocol. Exam (Progress Note) - Constitutional Vitals: Period Temp Pulse Resp BP Sys/Cummings Pulse Ox Last 24 Hr 96.6 F-97.4 F 69-76 18-20 102-148/54-94 95-100 Result/EKG - Labs CBC & BMP: 07/24/16 05:02 07/24/16 05:02 Labs: Laboratory Results - last 24 hr 07/23/16 07/23/16 07/23/16 11:31 16:34 20:42 WBC RBC Hgb Hct MCV MCH MCHC RDW Plt Count MPV Neut % (Auto) Lymph % (Auto) [place] % (Auto) Eos % (Auto) Baso % (Auto) Neut # (Auto) Lymph # (Auto) [place] # (Auto) Eos # (Auto) Baso # (Auto) Immature Gran % Nucleated RBC % Immature Gran # Nucleated RBCs # Sodium Potassium Chloride Carbon Dioxide Anion Gap BUN Creatinine GFR Calculation BUN/Creatinine Ratio Glucose POC Glucose 365 H 243 H 178 H Calculated Osmolality Calcium Magnesium Total Bilirubin Direct Bilirubin Indirect Bilirubin AST ALT Alkaline Phosphatase Total Creatine Kinase CK-MB (CK-2) Troponin I Total Protein Albumin Globulin Albumin/Globulin Ratio 07/24/16 07/24/16 07/24/16 05:02 05:02 05:02 WBC 14.6 H RBC 3.34 L Hgb 9.1 L Hct 29.1 L MCV 87.1 MCH 27 MCHC 31.3 L RDW 14.9 Plt Count 198 D MPV 12.0 Neut % (Auto) 65.0 Lymph % (Auto) 25.2 [place] % (Auto) 8.1 Eos % (Auto) 0.7 Baso % (Auto) 0.2 Neut # (Auto) 9.5 H Lymph # (Auto) 3.7 [place] # (Auto) 1.2 H Eos # (Auto) 0.1 Baso # (Auto) 0.0 Immature Gran % 0.8 Nucleated RBC % 0.0 Immature Gran # 0.11 Nucleated RBCs # 0.00 Sodium 133 L 132 L Potassium 4.9 4.9 Chloride 97 L 97 L Carbon Dioxide 28 30 Anion Gap 12.9 9.9 BUN 29 H 29 H Creatinine 1.50 H 1.50 H GFR Calculation 44 44 BUN/Creatinine Ratio 19.00 19.00 Glucose 174 H 177 H POC Glucose Calculated Osmolality 275.4 273.5 Calcium 7.4 L 7.6 L Magnesium 2.3 2.3 Total Bilirubin 0.70 Direct Bilirubin 0.20 Indirect Bilirubin 0.5 AST 15 ALT 16 Alkaline Phosphatase 169 H Total Creatine Kinase 44 D CK-MB (CK-2) 1.8 Troponin I 1.650 H D Total Protein 5.5 L Albumin 2.5 L Globulin 3.0 Albumin/Globulin Ratio 0.8 L 07/24/16 07:58 WBC RBC Hgb Hct MCV MCH MCHC RDW Plt Count MPV Neut % (Auto) Lymph % (Auto) [place] % (Auto) Eos % (Auto) Baso % (Auto) Neut # (Auto) Lymph # (Auto) [place] # (Auto) Eos # (Auto) Baso # (Auto) Immature Gran % Nucleated RBC % Immature Gran # Nucleated RBCs # Sodium Potassium Chloride Carbon Dioxide Anion Gap BUN Creatinine GFR Calculation BUN/Creatinine Ratio Glucose POC Glucose 183 H Calculated Osmolality Calcium Magnesium Total Bilirubin Direct Bilirubin Indirect Bilirubin AST ALT Alkaline Phosphatase Total Creatine Kinase CK-MB (CK-2) Troponin I Total Protein Albumin Globulin Albumin/Globulin Ratio Quality Measures - VTE Contraindication to Pharmacological VTE Prophylaxis: High Risk of Bleeding - Stroke Symptom Onset Unknown: No Specialty Discharge - Follow Up or Referrals
--- NOTE | 2016-07-24 08:51 | Hospitalist Progress Note ---
Assessment and Plan (1) IDDM (insulin dependent diabetes mellitus) Status: Chronic Current Visit: Yes (2) Hypertension Status: Chronic Current Visit: Yes (3) S/P CABG x 3 Status: Acute Assessment and plan: Operative intervention 21 July 2016 with internal mammary graft to the LAD saphenous vein graft to the obtuse marginal and posterior descending circulations. Current Visit: Yes Hospitalist: Subjective Interval history: 60-year-old female diabetic with hypertension previously documented coronary disease presented acutely with chest pain syndrome with cardiac catheterization showing three-vessel coronary artery disease. Patient underwent on 21 July aortocoronary bypass grafting with left internal mammary graft to left anterior descending coronary artery with saphenous vein graft to the obtuse marginal and posterior descending coronary artery she is progressing appropriately postoperatively maintaining sinus rhythm with stable vital signs. She is beginning to show signs of mild prerenal changes associated with use of postoperative diuretics. Her chest x-ray today shows haziness of the left diaphragm with likely post aortocoronary bypass grafting left pleural effusion and low basilar ventilation Exam - Constitutional Vitals: Period Temp Pulse Resp BP Sys/Cummings Pulse Ox Last 24 Hr 96.6 F-97.4 F 69-76 18-20 102-148/54-94 95-100 General appearance: over weight - Respiratory Respiratory exam: Absent: rales, rhonchi, wheezes - Cardiovascular Cardiovascular exam: Present: regular rate and rhythm - GI/Abdominal GI/Abdominal exam: Present: normal bowel sounds. Absent: distended, tenderness - Extremities Exam Extremities exam: Absent: edema - Neurological Exam Neurological exam: Present: alert, oriented X3 Results - Labs CBC & BMP: 07/24/16 05:02 07/24/16 05:02 Labs: Albumin 2.5 Magnesium 2.3 - Diagnostic Findings Procedure: Chest x-ray: image reviewed by me (Postoperative changes with small left pleural effusion decreased basilar ventilation left greater than right) Quality Measures - VTE Contraindication to Pharmacological VTE Prophylaxis: High Risk of Bleeding - Stroke Symptom Onset Unknown: No Specialty Discharge - Follow Up or Referrals
[2016-07-24] MEDS: POLYETHYLENE GLYCOL POWDER 17 GM PACK PO PRN (09:25)
[2016-07-24] MEDS: INSULIN NPH 100 UNIT/ML SUBCUT SCH ×2 (09:27→17:45)
[2016-07-24] MEDS: INSULIN REGULAR 100 UNIT/ML SUBCUT SCH ×3 (09:27→17:45)
[2016-07-24] MEDS: FUROSEMIDE 100 MG/10 ML VIAL IV SCH (09:27)
[2016-07-24] MEDS: ASPIRIN EC 325 MG TABLET PO SCH (09:28)
[2016-07-24] MEDS: PANTOPRAZOLE 40 MG TABLET PO SCH (09:28)
[2016-07-24] MEDS: CARVEDILOL 6.25 MG TABLET PO SCH ×2 (09:28→21:50)
[2016-07-24] MEDS: LISINOPRIL 20 MG TABLET PO SCH (09:28)
[2016-07-24] MEDS: FERROUS SULFATE 325 MG TABLET PO SCH (09:28)
[2016-07-24] MEDS: NICOTINE 21 MG/24 HR PATCH TRANSDERM SCH ×2 (09:28→23:47)
[2016-07-24] MEDS: ESCITALOPRAM 10 MG TABLET PO SCH (09:28)
[2016-07-24] MEDS: GABAPENTIN 300 MG CAPSULE PO SCH ×3 (09:28→21:49)
[2016-07-24] MEDS: DOCUSATE SODIUM 100 MG CAPSULE PO SCH (09:28)
[2016-07-24] MEDS: tiZANidine 4 MG TABLET PO SCH ×2 (09:28→21:50)
[2016-07-24] MEDS: CHLORHEXIDINE 0.12% ORAL RINSE 60 ML BOTTLE SWISH/SPIT SCH ×2 (09:29→21:51)
--- NOTE | 2016-07-24 10:56 | Cardiology Progress Note ---
<Noemy Calix - Last Filed: 07/24/16 10:54> Assessment and Plan (1) S/P CABG x 3 Status: Acute Assessment and plan: Patient is progressing well. Continue routine postoperative protocol. Further plan and addendum to follow per Dr. Macdonald. Current Visit: Yes (2) Hypertension Status: Chronic Assessment and plan: Currently well controlled. Will adjust medications as needed during her hospital stay. Current Visit: Yes (3) Hyperlipidemia Status: Chronic Assessment and plan: Continue current plan of care with lipid lowering agent. Current Visit: Yes (4) IDDM (insulin dependent diabetes mellitus) Status: Chronic Assessment and plan: Management per hospital medicine. Current Visit: Yes (5) Tobacco abuse Status: Chronic Assessment and plan: Smoking cessation encouraged. Current Visit: Yes (6) Coronary artery disease Status: Chronic Assessment and plan: Now status post CABG 07/21/16 with left internal mammary graft to the anterior descending coronary artery and saphenous vein graft to second obtuse marginal and the posterior descending coronary arteries. Patient is progressing nicely without complications. Continue current plan of care. Current Visit: Yes Qualifiers: Coronary Disease-Associated Artery/Lesion type: ca[place]o artery [place] vs. transplanted heart: cahto heart (7) Hypomagnesemia Status: Resolved Current Visit: Yes (8) Peripheral neuropathy Status: Chronic Assessment and plan: Continue current plan of care. Current Visit: Yes (9) Elevated serum creatinine Status: Acute Assessment and plan: She is beginning to show signs of mild prerenal changes possibly associated with use of postoperative diuretics. Will defer further management this to hospital medicine. Current Visit: Yes Cardiology - PN: Subj Interval history: TUBE REPAIRER: DR. REBOLLEDO PCP: MAGDALENA LOZANO SUMMARY: Ms. See, 60-year-old female, has a history of known coronary artery disease, hypertension, dyslipidemia, diabetes, sedentary lifestyle and tobaccoism. She presented to the emergency department July 16, 2016 with complaints of chest pain. She underwent cardiac catheterization which revealed three-vessel CAD. Dr. García was then consulted and she underwent CABG with left internal mammary graft to the anterior descending coronary artery and saphenous vein graft to second obtuse marginal and the posterior descending coronary arteries 07/21/16. Patient was seen and examined on the telemetry unit she is postop day #3 today. She is lying in bed in acute distress. She reports that she just got out of the shower. On exam today minimal wheezing was noted. Breathing treatments have already been ordered per Dr. García. She continues to complain of chest soreness. She reports that pain is well controlled with Dilaudid and mild dyspnea. Surgical wounds are healing well without signs of infection. Troponin continues to trend down as expected. She is beginning to show signs of mild prerenal changes possibly associated with use of postoperative diuretics. Her chest x-ray reveals small left pleural effusion. Will defer further management this to hospital medicine. Further plan and addendum to follow per Dr. Macdonald. Exam (Progress Note) - Constitutional Vitals: Period Temp Pulse Resp BP Sys/Cummings Pulse Ox Last 24 Hr 96.6 F-97.4 F 69-76 18-20 102-148/54-94 95-100 Exam: General appearance: no acute distress, over weight - Head Head exam: Present: normal inspection, normocephalic, atraumatic - Neck Neck exam: Present: normal inspection. Absent: lymphadenopathy, tenderness, thyromegaly - Respiratory Respiratory exam: Present: clear to auscultation bilaterally. Absent: accessory muscle use, chest wall tenderness, rales, rhonchi, stridor, wheezes - Cardiovascular Cardiovascular exam: Present: regular rate and rhythm. Absent: gallop, rubs, systolic murmur - GI/Abdominal GI/Abdominal exam: Present: normal bowel sounds, soft. Absent: distended, firm , mass, tenderness - Extremities Exam Extremities exam: Present: normal inspection, normal capillary refill, other ( surgical incision are healing well). Absent: calf tenderness, edema - Neurological Exam Neurological exam: Present: alert, oriented X3 - Psychiatric Psychiatric exam: Present: normal affect, normal mood - Skin Skin exam: Present: normal color, warm, dry, other surgical wounds are healing well without signs of infection. Pacer wires noted to midsternal chest. Result/EKG - Labs CBC & BMP: 07/24/16 05:02 07/24/16 05:02 Lab Results: I have reviewed the past 24 hour labs Labs: Laboratory Results - last 24 hr 07/23/16 07/23/16 07/23/16 11:31 16:34 20:42 WBC RBC Hgb Hct MCV MCH MCHC RDW Plt Count MPV Neut % (Auto) Lymph % (Auto) [place] % (Auto) Eos % (Auto) Baso % (Auto) Neut # (Auto) Lymph # (Auto) [place] # (Auto) Eos # (Auto) Baso # (Auto) Immature Gran % Nucleated RBC % Immature Gran # Nucleated RBCs # Sodium Potassium Chloride Carbon Dioxide Anion Gap BUN Creatinine GFR Calculation BUN/Creatinine Ratio Glucose POC Glucose 365 H 243 H 178 H Calculated Osmolality Calcium Magnesium Total Bilirubin Direct Bilirubin Indirect Bilirubin AST ALT Alkaline Phosphatase Total Creatine Kinase CK-MB (CK-2) Troponin I Total Protein Albumin Globulin Albumin/Globulin Ratio 07/24/16 07/24/16 07/24/16 05:02 05:02 05:02 WBC 14.6 H RBC 3.34 L Hgb 9.1 L Hct 29.1 L MCV 87.1 MCH 27 MCHC 31.3 L RDW 14.9 Plt Count 198 D MPV 12.0 Neut % (Auto) 65.0 Lymph % (Auto) 25.2 [place] % (Auto) 8.1 Eos % (Auto) 0.7 Baso % (Auto) 0.2 Neut # (Auto) 9.5 H Lymph # (Auto) 3.7 [place] # (Auto) 1.2 H Eos # (Auto) 0.1 Baso # (Auto) 0.0 Immature Gran % 0.8 Nucleated RBC % 0.0 Immature Gran # 0.11 Nucleated RBCs # 0.00 Sodium 133 L 132 L Potassium 4.9 4.9 Chloride 97 L 97 L Carbon Dioxide 28 30 Anion Gap 12.9 9.9 BUN 29 H 29 H Creatinine 1.50 H 1.50 H GFR Calculation 44 44 BUN/Creatinine Ratio 19.00 19.00 Glucose 174 H 177 H POC Glucose Calculated Osmolality 275.4 273.5 Calcium 7.4 L 7.6 L Magnesium 2.3 2.3 Total Bilirubin 0.70 Direct Bilirubin 0.20 Indirect Bilirubin 0.5 AST 15 ALT 16 Alkaline Phosphatase 169 H Total Creatine Kinase 44 D CK-MB (CK-2) 1.8 Troponin I 1.650 H D Total Protein 5.5 L Albumin 2.5 L Globulin 3.0 Albumin/Globulin Ratio 0.8 L 07/24/16 07:58 WBC RBC Hgb Hct MCV MCH MCHC RDW Plt Count MPV Neut % (Auto) Lymph % (Auto) [place] % (Auto) Eos % (Auto) Baso % (Auto) Neut # (Auto) Lymph # (Auto) [place] # (Auto) Eos # (Auto) Baso # (Auto) Immature Gran % Nucleated RBC % Immature Gran # Nucleated RBCs # Sodium Potassium Chloride Carbon Dioxide Anion Gap BUN Creatinine GFR Calculation BUN/Creatinine Ratio Glucose POC Glucose 183 H Calculated Osmolality Calcium Magnesium Total Bilirubin Direct Bilirubin Indirect Bilirubin AST ALT Alkaline Phosphatase Total Creatine Kinase CK-MB (CK-2) Troponin I Total Protein Albumin Globulin Albumin/Globulin Ratio Quality Measures - VTE Contraindication to Pharmacological VTE Prophylaxis: High Risk of Bleeding - Stroke Symptom Onset Unknown: No Specialty Discharge - Follow Up or Referrals <Melissa Macdonald - Last Filed: 07/24/16 15:27> Cardiology - PN: Subj Interval history: I personally interviewed and examined the patient, reviewed the chart and discussed medical decision-making with practitioner Yogi. I have read this note and agree with the findings herein. In general the patient is recovering well postoperatively. Hemodynamics are stable. Consider decreasing diuretics. Exam (Progress Note) - Constitutional Vitals: Period Temp Pulse Resp BP Sys/Cummings Pulse Ox Last 24 Hr 97.1 F-97.4 F 62-76 18-20 102-127/54-63 94-100 Result/EKG - Labs CBC & BMP: 07/24/16 05:02 07/24/16 05:02 Labs: Laboratory Results - last 24 hr 07/23/16 07/23/16 07/24/16 16:34 20:42 05:02 WBC 14.6 H RBC 3.34 L Hgb 9.1 L Hct 29.1 L MCV 87.1 MCH 27 MCHC 31.3 L RDW 14.9 Plt Count 198 D MPV 12.0 Neut % (Auto) 65.0 Lymph % (Auto) 25.2 [place] % (Auto) 8.1 Eos % (Auto) 0.7 Baso % (Auto) 0.2 Neut # (Auto) 9.5 H Lymph # (Auto) 3.7 [place] # (Auto) 1.2 H Eos # (Auto) 0.1 Baso # (Auto) 0.0 Immature Gran % 0.8 Nucleated RBC % 0.0 Immature Gran # 0.11 Nucleated RBCs # 0.00 Sodium Potassium Chloride Carbon Dioxide Anion Gap BUN Creatinine GFR Calculation BUN/Creatinine Ratio Glucose POC Glucose 243 H 178 H Calculated Osmolality Calcium Magnesium Total Bilirubin Direct Bilirubin Indirect Bilirubin AST ALT Alkaline Phosphatase Total Creatine Kinase CK-MB (CK-2) Troponin I Total Protein Albumin Globulin Albumin/Globulin Ratio 07/24/16 07/24/16 07/24/16 05:02 05:02 07:58 WBC RBC Hgb Hct MCV MCH MCHC RDW Plt Count MPV Neut % (Auto) Lymph % (Auto) [place] % (Auto) Eos % (Auto) Baso % (Auto) Neut # (Auto) Lymph # (Auto) [place] # (Auto) Eos # (Auto) Baso # (Auto) Immature Gran % Nucleated RBC % Immature Gran # Nucleated RBCs # Sodium 133 L 132 L Potassium 4.9 4.9 Chloride 97 L 97 L Carbon Dioxide 28 30 Anion Gap 12.9 9.9 BUN 29 H 29 H Creatinine 1.50 H 1.50 H GFR Calculation 44 44 BUN/Creatinine Ratio 19.00 19.00 Glucose 174 H 177 H POC Glucose 183 H Calculated Osmolality 275.4 273.5 Calcium 7.4 L 7.6 L Magnesium 2.3 2.3 Total Bilirubin 0.70 Direct Bilirubin 0.20 Indirect Bilirubin 0.5 AST 15 ALT 16 Alkaline Phosphatase 169 H Total Creatine Kinase 44 D CK-MB (CK-2) 1.8 Troponin I 1.650 H D Total Protein 5.5 L Albumin 2.5 L Globulin 3.0 Albumin/Globulin Ratio 0.8 L 07/24/16 11:25 WBC RBC Hgb Hct MCV MCH MCHC RDW Plt Count MPV Neut % (Auto) Lymph % (Auto) [place] % (Auto) Eos % (Auto) Baso % (Auto) Neut # (Auto) Lymph # (Auto) [place] # (Auto) Eos # (Auto) Baso # (Auto) Immature Gran % Nucleated RBC % Immature Gran # Nucleated RBCs # Sodium Potassium Chloride Carbon Dioxide Anion Gap BUN Creatinine GFR Calculation BUN/Creatinine Ratio Glucose POC Glucose 252 H Calculated Osmolality Calcium Magnesium Total Bilirubin Direct Bilirubin Indirect Bilirubin AST ALT Alkaline Phosphatase Total Creatine Kinase CK-MB (CK-2) Troponin I Total Protein Albumin Globulin Albumin/Globulin Ratio
[2016-07-24] MEDS: ALBUTEROL/IPRATROPIUM 3 ML NEB RESP TX SCH ×2 (13:07→19:34)
[2016-07-24] MEDS: INSULIN LISPRO 100 UNIT/ML SUBCUT SCH ×2 (17:42→21:50)
[2016-07-24] MEDS: MAGNESIUM HYDROXIDE SUSP 30 ML UDCUP PO PRN (18:08)
[2016-07-24] MEDS: ROSUVASTATIN 10 MG TABLET PO SCH (21:49)
[2016-07-24] MEDS: rOPINIRole 0.25 MG TABLET PO SCH (21:50)
[2016-07-25] MEDS: ALBUTEROL/IPRATROPIUM 3 ML NEB RESP TX SCH ×4 (01:34→20:51)
[2016-07-25] MEDS: HYDROmorphone 2 MG/1 ML VIAL IV PRN (03:47)
--- NOTE | 2016-07-25 06:20 | Cardiothoracic Progress Note ---
Cardiothoracic Subjective Interval history: Patient looks and feels better. Vital signs have been stable and she is breathing much more comfortably. Her wounds look okay. She is gradually increasing her activity. Hopefully ready for discharge before long. Exam (Progress Note) - Constitutional Vitals: Period Temp Pulse Resp BP Sys/Cummings Pulse Ox Last 24 Hr 96.9 F-97.3 F 59-76 18-20 82-142/54-63 94-98 Result/EKG - Labs CBC & BMP: 07/24/16 05:02 07/24/16 05:02 Labs: Laboratory Results - last 24 hr 07/24/16 07/24/16 07/24/16 05:02 05:02 07:58 Sodium 133 L 132 L Potassium 4.9 4.9 Chloride 97 L 97 L Carbon Dioxide 28 30 Anion Gap 12.9 9.9 BUN 29 H 29 H Creatinine 1.50 H 1.50 H GFR Calculation 44 44 BUN/Creatinine Ratio 19.00 19.00 Glucose 174 H 177 H POC Glucose 183 H Calculated Osmolality 275.4 273.5 Calcium 7.4 L 7.6 L Magnesium 2.3 2.3 Total Bilirubin 0.70 Direct Bilirubin 0.20 Indirect Bilirubin 0.5 AST 15 ALT 16 Alkaline Phosphatase 169 H Total Creatine Kinase 44 D CK-MB (CK-2) 1.8 Troponin I 1.650 H D Total Protein 5.5 L Albumin 2.5 L Globulin 3.0 Albumin/Globulin Ratio 0.8 L 07/24/16 07/24/16 07/24/16 11:25 16:43 20:33 Sodium Potassium Chloride Carbon Dioxide Anion Gap BUN Creatinine GFR Calculation BUN/Creatinine Ratio Glucose POC Glucose 252 H 186 H 172 H Calculated Osmolality Calcium Magnesium Total Bilirubin Direct Bilirubin Indirect Bilirubin AST ALT Alkaline Phosphatase Total Creatine Kinase CK-MB (CK-2) Troponin I Total Protein Albumin Globulin Albumin/Globulin Ratio Quality Measures - VTE Contraindication to Pharmacological VTE Prophylaxis: High Risk of Bleeding - Stroke Symptom Onset Unknown: No Specialty Discharge - Follow Up or Referrals
[2016-07-25] MEDS: INSULIN NPH 100 UNIT/ML SUBCUT SCH ×2 (08:52→17:10)
[2016-07-25] MEDS: INSULIN REGULAR 100 UNIT/ML SUBCUT SCH ×3 (09:01→17:10)
[2016-07-25] MEDS: NICOTINE 21 MG/24 HR PATCH TRANSDERM SCH (09:14)
[2016-07-25] MEDS: POLYETHYLENE GLYCOL POWDER 17 GM PACK PO PRN (09:18)
[2016-07-25] MEDS: MAGNESIUM HYDROXIDE SUSP 30 ML UDCUP PO PRN (09:18)
--- NOTE | 2016-07-25 09:18 | Hospitalist Progress Note ---
Assessment and Plan (1) S/P CABG x 3 Status: Acute Assessment and plan: Patient is recovering from CABG. noted left pleural effusion being followed by the Dr. Hinds. We will continue to monitor and keep on oxygen Current Visit: Yes (2) Acute kidney injury Status: Acute Assessment and plan: Worsening of renal function on lab work today. She was hypotensive yesterday and may have contributed to HPI. I will hold lisinopril monitor renal function recent blood pressure has been improved Current Visit: Yes (3) Hypertension Status: Chronic Assessment and plan: Patient was hypotensive yesterday today his blood pressure is better we will keep for follow hold lisinopril due toAKI Current Visit: Yes (4) IDDM (insulin dependent diabetes mellitus) Status: Chronic Assessment and plan: Continue to monitor blood sugar with the current insulin regimen identified home insulin regimen Current Visit: Yes (5) Tobacco abuse Status: Chronic Assessment and plan: Encouraged to quit Current Visit: Yes Hospitalist: Subjective Interval history: Ms. See is a 60-year-old female with history of hypertension diabetes mellitus dyslipidemia, smoking and coronary artery disease. She was admitted with the chest pain which was workup with cardiac cath and revealed three- vessel coronary disease. she was noted to have progression of coronary disease with the 3 vessels involvement. She underwent CABG on 07/21/2016 and has been recovering. She does complain of soreness of chest wall feels fine otherwise. She is on oxygen and reported to have desaturation and oxygen is removed Exam - Constitutional Vitals: Period Temp Pulse Resp BP Sys/Cummings Pulse Ox Last 24 Hr 96.9 F-97.3 F 59-72 18-20 82-145/54-69 91-99 General appearance: no acute distress - Respiratory Respiratory exam: Present: decreased breath sounds (Decreased air entry left base), rhonchi. Absent: rales - Cardiovascular Cardiovascular exam: Present: regular rate and rhythm. Absent: tachycardia - GI/Abdominal GI/Abdominal exam: Present: normal bowel sounds, soft. Absent: distended, tenderness - Extremities Exam Extremities exam: Present: edema (Left lower extremity) - Neurological Exam Neurological exam: Present: alert, oriented X3 Results - Labs CBC & BMP: 07/24/16 05:02 07/24/16 05:02 Lab Results: I have reviewed the past 24 hour labs Quality Measures - VTE Contraindication to Pharmacological VTE Prophylaxis: High Risk of Bleeding - Stroke Symptom Onset Unknown: No Specialty Discharge - Follow Up or Referrals
[2016-07-25] MEDS: GABAPENTIN 300 MG CAPSULE PO SCH ×3 (09:20→21:14)
[2016-07-25] MEDS: DOCUSATE SODIUM 100 MG CAPSULE PO SCH (09:21)
[2016-07-25] MEDS: PANTOPRAZOLE 40 MG TABLET PO SCH (09:21)
[2016-07-25] MEDS: tiZANidine 4 MG TABLET PO SCH ×2 (09:21→21:14)
[2016-07-25] MEDS: FERROUS SULFATE 325 MG TABLET PO SCH (09:21)
[2016-07-25] MEDS: ESCITALOPRAM 10 MG TABLET PO SCH (09:22)
[2016-07-25] MEDS: ASPIRIN EC 325 MG TABLET PO SCH (09:22)
[2016-07-25] MEDS: LISINOPRIL 20 MG TABLET PO SCH (09:22)
[2016-07-25] MEDS: CARVEDILOL 6.25 MG TABLET PO SCH ×2 (09:22→21:15)
[2016-07-25] MEDS: INSULIN LISPRO 100 UNIT/ML SUBCUT SCH ×4 (09:39→21:16)
[2016-07-25] MEDS: CHLORHEXIDINE 0.12% ORAL RINSE 60 ML BOTTLE SWISH/SPIT SCH ×2 (09:39→21:16)
--- NOTE | 2016-07-25 15:28 | Cardiology Progress Note ---
<Noemy Calix - Last Filed: 07/25/16 15:25> Assessment and Plan (1) S/P CABG x 3 Status: Acute Assessment and plan: Patient is progressing well. Continue routine postoperative protocol. Further plan and addendum to follow per Dr. Macdonald. Current Visit: Yes (2) Hypertension Status: Chronic Assessment and plan: Currently well controlled. Will adjust medications as needed during her hospital stay. Current Visit: Yes (3) Hyperlipidemia Status: Chronic Assessment and plan: Continue current plan of care with lipid lowering agent. Current Visit: Yes (4) IDDM (insulin dependent diabetes mellitus) Status: Chronic Assessment and plan: Management per hospital medicine. Current Visit: Yes (5) Tobacco abuse Status: Chronic Assessment and plan: Smoking cessation encouraged. Current Visit: Yes (6) Coronary artery disease Status: Chronic Assessment and plan: Now status post CABG 07/21/16 with left internal mammary graft to the anterior descending coronary artery and saphenous vein graft to second obtuse marginal and the posterior descending coronary arteries. Patient is progressing nicely without complications. Continue current plan of care. Current Visit: Yes Qualifiers: Coronary Disease-Associated Artery/Lesion type: [place] artery [place] vs. transplanted heart: [place] heart (7) Peripheral neuropathy Status: Chronic Assessment and plan: Continue current plan of care. Current Visit: Yes (8) Elevated serum creatinine Status: Acute Assessment and plan: Management per hospital medicine. Current Visit: Yes Cardiology - PN: Subj Interval history: PRIVATE SECURITY GUARD: DR. REBOLLEDO PCP: MAGDALENA LOZANO SUMMARY: Ms. See, 60-year-old female, has a history of known coronary artery disease, hypertension, dyslipidemia, diabetes, sedentary lifestyle and tobaccoism. She presented to the emergency department July 16, 2016 with complaints of chest pain. She underwent cardiac catheterization which revealed three-vessel CAD. Dr. García was then consulted and she underwent CABG with left internal mammary graft to the anterior descending coronary artery and saphenous vein graft to second obtuse marginal and the posterior descending coronary arteries 07/21/16. Patient was seen and examined on the telemetry unit. Today is postop day #4. She is lying in bed in no acute distress. Her breathing seems to be much improved today. No wheezing noted upon exam. She reports that she feels much better after initiation of breathing treatments. Surgical wounds continue to heal well without signs of infection noted. Patient remains in normal sinus rhythm with heart rates in the 60s without any overt arrhythmias or ectopy noted. Vital signs are stable. Further plan and addendum to follow per Dr. Macdonald. Exam (Progress Note) - Constitutional Vitals: Period Temp Pulse Resp BP Sys/Cummings Pulse Ox Last 24 Hr 96.9 F-97.3 F 57-72 18-20 82-145/51-69 91-99 Exam: General appearance: no acute distress, over weight - Head Head exam: Present: normal inspection, normocephalic, atraumatic - Neck Neck exam: Present: normal inspection. Absent: lymphadenopathy, tenderness, thyromegaly - Respiratory Respiratory exam: Present: clear to auscultation bilaterally. Absent: accessory muscle use, chest wall tenderness, rales, rhonchi, stridor, wheezes - Cardiovascular Cardiovascular exam: Present: regular rate and rhythm. Absent: gallop, rubs, systolic murmur - GI/Abdominal GI/Abdominal exam: Present: normal bowel sounds, soft. Absent: distended, firm , mass, tenderness - Extremities Exam Extremities exam: Present: normal inspection, normal capillary refill, other ( surgical incision are healing well). Absent: calf tenderness, edema - Neurological Exam Neurological exam: Present: alert, oriented X3 - Psychiatric Psychiatric exam: Present: normal affect, normal mood - Skin Skin exam: Present: normal color, warm, dry, other surgical wounds are healing well without signs of infection. Pacer wires noted to midsternal chest. Result/EKG - Labs CBC & BMP: 07/24/16 05:02 07/24/16 05:02 Lab Results: I have reviewed the past 24 hour labs Labs: Laboratory Results - last 24 hr 07/24/16 07/24/16 07/25/16 16:43 20:33 08:22 POC Glucose 186 H 172 H 208 H 07/25/16 12:06 POC Glucose 198 H Quality Measures - VTE Contraindication to Pharmacological VTE Prophylaxis: High Risk of Bleeding - Stroke Symptom Onset Unknown: No Specialty Discharge - Follow Up or Referrals <Melissa Macdonald - Last Filed: 07/25/16 15:42> Cardiology - PN: Subj Interval history: I have personally interviewed and examined the patient, reviewed the chart and discussed medical decision-making with practitioner Yogi. I have read this note and agree with the documentation herein. Her breathing overall is improving, and her discharge will be pending her oxygenation status. Hemodynamics are stable. Exam (Progress Note) - Constitutional Vitals: Period Temp Pulse Resp BP Sys/Cummings Pulse Ox Last 24 Hr 96.9 F-97.3 F 57-72 18-20 82-145/51-69 91-100 Result/EKG - Labs CBC & BMP: 07/24/16 05:02 07/24/16 05:02 Labs: Laboratory Results - last 24 hr 07/24/16 07/24/16 07/25/16 16:43 20:33 08:22 POC Glucose 186 H 172 H 208 H 07/25/16 12:06 POC Glucose 198 H
[2016-07-25] MEDS: rOPINIRole 0.25 MG TABLET PO SCH (21:14)
[2016-07-25] MEDS: ROSUVASTATIN 10 MG TABLET PO SCH (21:14)
[2016-07-26] MEDS: ALBUTEROL/IPRATROPIUM 3 ML NEB RESP TX SCH ×4 (00:25→21:13)
[2016-07-26 05:46] LABS: Basophils % 0.4 % (0.0-0.8); Eosinophils # 0.2 10*3/uL (0.0-0.87); Eosinophils % 1.6 % (0.00-10.9); Hematocrit 28.7 VOL% (35.7-47.0); Immature Granulocytes % 0.4 %; Immature Granulocytes Absolute 0.04 #; Lymphocytes # 3.3 10*3/uL (1.4-4.0); Lymphocytes % 30.4 % (21.3-54.2); Mean Corpuscular HGB Conc 31.4 GM/DL (32-36); Mean Corpuscular Hemoglobin 27 PG (27-34); Mean Corpuscular Volume 87.5 FL (87-102); Mean Platelet Volume 12.4 FL (9.6-12.0); Monocytes # 1.1 10*3/uL (0.11-0.8); Monocytes % 9.6 % (1.7-12.7); Neutrophils # 6.3 10*3/uL (1.4-7.4); Neutrophils % 57.6 % (38.7-73.9); Platelet Count 286 T/CUMM (130-400); Red Blood Count 3.28 MC/CUMM (3.8-5.5); Red Cell Distribution Width 14.6 % (9.3-17.3)
[2016-07-26 06:20] LABS: Alanine Aminotransferase 13 U/L (13-56); Albumin 2.3 G/DL (3.4-5.0); Alkaline Phosphatase 184 U/L (45-117); Aspartate Amino Transferase 13 U/L (0-37); Bilirubin,Indirect 0.5 MG/DL (0.0-1.0); Blood Urea Nitrogen 36 MG/DL (7-18); Calcium 7.7 MG/DL (8.5-10.1); Glucose 171 MG/DL (74-106); Osmolality,Calculated 275.5 MOS/KG (273-304); Potassium 5.4 MMOL/L (3.5-5.1); Sodium 132 MMOL/L (136-145); Total Protein 5.4 G/DL (6.4-8.3)
[2016-07-26 06:25] LABS: Calcium 7.7 MG/DL (8.5-10.1); Magnesium 3.1 MG/DL (1.8-2.4); Osmolality,Calculated 274.7 MOS/KG (273-304); Potassium 5.4 MMOL/L (3.5-5.1)
[2016-07-26] MEDS: HYDROmorphone 2 MG/1 ML VIAL IV PRN (06:33)
[2016-07-26] MEDS: INSULIN NPH 100 UNIT/ML SUBCUT SCH ×2 (08:39→15:56)
[2016-07-26] MEDS: INSULIN LISPRO 100 UNIT/ML SUBCUT SCH ×4 (08:39→20:49)
--- NOTE | 2016-07-26 08:45 | Cardiothoracic Progress Note ---
Cardiothoracic Subjective Interval history: Patient seems significantly better today. She is breathing more comfortably and her pain seems better controlled. Her chest x-ray does show what looks to be a small to moderate effusion on the left side and I believe we will treat this conservatively for now. Overall her progress seems satisfactory. Exam (Progress Note) - Constitutional Vitals: Period Temp Pulse Resp BP Sys/Cummings Pulse Ox Last 24 Hr 96.9 F-99 F 57-69 18-20 81-148/43-69 94-100 Result/EKG - Labs CBC & BMP: 07/26/16 04:32 07/26/16 04:32 Labs: Laboratory Results - last 24 hr 07/25/16 07/25/16 07/25/16 12:06 16:27 20:34 WBC RBC Hgb Hct MCV MCH MCHC RDW Plt Count MPV Neut % (Auto) Lymph % (Auto) [place] % (Auto) Eos % (Auto) Baso % (Auto) Neut # (Auto) Lymph # (Auto) [place] # (Auto) Eos # (Auto) Baso # (Auto) Immature Gran % Nucleated RBC % Immature Gran # Nucleated RBCs # Sodium Potassium Chloride Carbon Dioxide Anion Gap BUN Creatinine GFR Calculation BUN/Creatinine Ratio Glucose POC Glucose 198 H 168 H 167 H Calculated Osmolality Calcium Magnesium Total Bilirubin Direct Bilirubin Indirect Bilirubin AST ALT Alkaline Phosphatase Total Creatine Kinase CK-MB (CK-2) Troponin I Total Protein Albumin Globulin Albumin/Globulin Ratio 07/26/16 07/26/16 07/26/16 04:32 04:32 04:32 WBC 11.0 RBC 3.28 L Hgb 9.0 L Hct 28.7 L MCV 87.5 MCH 27 MCHC 31.4 L RDW 14.6 Plt Count 286 D MPV 12.4 H Neut % (Auto) 57.6 Lymph % (Auto) 30.4 [place] % (Auto) 9.6 Eos % (Auto) 1.6 Baso % (Auto) 0.4 Neut # (Auto) 6.3 Lymph # (Auto) 3.3 [place] # (Auto) 1.1 H Eos # (Auto) 0.2 Baso # (Auto) 0.0 Immature Gran % 0.4 Nucleated RBC % 0.0 Immature Gran # 0.04 Nucleated RBCs # 0.00 Sodium 131 L 132 L Potassium 5.4 H 5.4 H Chloride 95 L 96 L Carbon Dioxide 29 29 Anion Gap 12.4 12.4 BUN 37 H 36 H Creatinine 1.20 H 1.10 H GFR Calculation 57 63 BUN/Creatinine Ratio 30.00 H 32.00 H Glucose 171 H 171 H POC Glucose Calculated Osmolality 274.7 275.5 Calcium 7.7 L 7.7 L Magnesium 3.1 H Total Bilirubin 0.60 Direct Bilirubin 0.10 Indirect Bilirubin 0.5 AST 13 ALT 13 Alkaline Phosphatase 184 H Total Creatine Kinase 27 D CK-MB (CK-2) 1.1 Troponin I 1.020 H D Total Protein 5.4 L Albumin 2.3 L Globulin 3.1 Albumin/Globulin Ratio 0.7 L 07/26/16 07:36 WBC RBC Hgb Hct MCV MCH MCHC RDW Plt Count MPV Neut % (Auto) Lymph % (Auto) [place] % (Auto) Eos % (Auto) Baso % (Auto) Neut # (Auto) Lymph # (Auto) [place] # (Auto) Eos # (Auto) Baso # (Auto) Immature Gran % Nucleated RBC % Immature Gran # Nucleated RBCs # Sodium Potassium Chloride Carbon Dioxide Anion Gap BUN Creatinine GFR Calculation BUN/Creatinine Ratio Glucose POC Glucose 194 H Calculated Osmolality Calcium Magnesium Total Bilirubin Direct Bilirubin Indirect Bilirubin AST ALT Alkaline Phosphatase Total Creatine Kinase CK-MB (CK-2) Troponin I Total Protein Albumin Globulin Albumin/Globulin Ratio Quality Measures - VTE Contraindication to Pharmacological VTE Prophylaxis: High Risk of Bleeding - Stroke Symptom Onset Unknown: No Specialty Discharge - Follow Up or Referrals
[2016-07-26] MEDS: NICOTINE 21 MG/24 HR PATCH TRANSDERM SCH (09:13)
[2016-07-26] MEDS: INSULIN REGULAR 100 UNIT/ML SUBCUT SCH ×3 (09:14→15:57)
[2016-07-26] MEDS: GABAPENTIN 300 MG CAPSULE PO SCH ×3 (09:16→20:50)
[2016-07-26] MEDS: CARVEDILOL 6.25 MG TABLET PO SCH ×2 (09:16→20:50)
[2016-07-26] MEDS: FERROUS SULFATE 325 MG TABLET PO SCH (09:16)
[2016-07-26] MEDS: ESCITALOPRAM 10 MG TABLET PO SCH (09:16)
[2016-07-26] MEDS: DOCUSATE SODIUM 100 MG CAPSULE PO SCH (09:16)
[2016-07-26] MEDS: PANTOPRAZOLE 40 MG TABLET PO SCH (09:17)
[2016-07-26] MEDS: ASPIRIN EC 325 MG TABLET PO SCH (09:17)
[2016-07-26] MEDS: tiZANidine 4 MG TABLET PO SCH ×2 (09:17→20:50)
--- NOTE | 2016-07-26 10:13 | Hospitalist Progress Note ---
Assessment and Plan (1) S/P CABG x 3 Status: Acute Assessment and plan: Patient is recovering from CABG. noted left pleural effusion being followed by the Dr. Hinds. Conservative management planned by Dr. Hinds we will continue to monitor Current Visit: Yes (2) Acute kidney injury Status: Acute Assessment and plan: Renal function improved on lab work today Current Visit: Yes (3) Hypertension Status: Chronic Assessment and plan: Blood pressures acceptable range Current Visit: Yes (4) IDDM (insulin dependent diabetes mellitus) Status: Chronic Assessment and plan: Continue to monitor blood sugar with the current insulin regimen identified home insulin regimen Current Visit: Yes (5) Tobacco abuse Status: Chronic Assessment and plan: Encouraged to quit Current Visit: Yes (6) Hyperkalemia Status: Acute Assessment and plan: Mild hypokalemia noted probably related to doing low renin activity with diabetes mellitus and associated hypoaldosteronism I will check the labs again tomorrow give a dose of Kayexalate Current Visit: Yes Hospitalist: Subjective Interval history: Ms. See is a 60-year-old female with history of hypertension diabetes mellitus dyslipidemia, smoking and coronary artery disease. She was admitted with the chest pain which was workup with cardiac cath and revealed three- vessel coronary disease. she was noted to have progression of coronary disease with the 3 vessels involvement. She underwent CABG on 07/21/2016 and has been recovering. Patient has no acute subjective symptom she is doing well able to ambulate in room and going to the bathroom. Soreness in the chest is less her breathing is better subjectively Exam - Constitutional Vitals: Period Temp Pulse Resp BP Sys/Cummings Pulse Ox Last 24 Hr 96.9 F-99 F 57-69 18-20 81-148/43-69 94-100 General appearance: no acute distress - Respiratory Respiratory exam: Present: clear to auscultation bilaterally, decreased breath sounds (Left base). Absent: rales, rhonchi - Cardiovascular Cardiovascular exam: Present: regular rate and rhythm. Absent: tachycardia - GI/Abdominal GI/Abdominal exam: Present: normal bowel sounds, soft. Absent: distended, tenderness - Extremities Exam Extremities exam: Present: edema (Left lower extremity ) - Neurological Exam Neurological exam: Present: alert, oriented X3 Results - Labs CBC & BMP: 07/26/16 04:32 07/26/16 04:32 Lab Results: I have reviewed the past 24 hour labs Quality Measures - VTE Contraindication to Pharmacological VTE Prophylaxis: High Risk of Bleeding - Stroke Symptom Onset Unknown: No Specialty Discharge - Follow Up or Referrals
[2016-07-26] MEDS ORDERED: SODIUM POLYSTYRENE SULFATE 15 GM/60 ML BOTTLE PO STA (10:20)
[2016-07-26] MEDS: CHLORHEXIDINE 0.12% ORAL RINSE 60 ML BOTTLE SWISH/SPIT SCH ×2 (11:59→20:51)
--- NOTE | 2016-07-26 12:00 | XRay Report ---
Exam: XR chest 2V Indication: Shortness of breath, CABG Comparison study: 07/24/2016 Findings: Cardiac silhouette is enlarged, similar prior. There are patchy perihilar and left basilar interstitial/airspace opacities which are slightly increased from the prior study. There is no pneumothorax. Right-sided central venous catheter is in similar position. Impression: Interval worsening of patchy perihilar and left basilar interstitial/airspace opacities suggestive of interstitial edema and atelectasis. Underlying infiltrates are not excluded. PROCEDURE INTERPRETED AT [facility] DEPARTMENT OF RADIOLOGY Final Report Signed by: Darrick Bennett
--- NOTE | 2016-07-26 12:16 | Cardiology Progress Note ---
Assessment and Plan (1) S/P CABG x 3 Status: Acute Assessment and plan: She seems to be recovering well from a cardiovascular standpoint. Her somnolence appears to be related to pain medications and these may need to be reduced, have spoken with nursing about this. We will have to monitor her blood pressure closely this morning. Current Visit: Yes (2) Hypertension Status: Chronic Assessment and plan: This is controlled. Current Visit: Yes (3) Hyperlipidemia Status: Chronic Current Visit: Yes (4) Coronary artery disease Status: Chronic Current Visit: Yes Qualifiers: Coronary Disease-Associated Artery/Lesion type: [place] artery [place] vs. transplanted heart: [place] heart (5) Hyperkalemia Status: Acute Current Visit: Yes Cardiology - PN: Subj Interval history: Evening was uneventful. She denies any chest pain or shortness of breath. When I arrived in the room the was concerned that "something was not right". She denied having any complaints, and was able to answer orientation questions correctly. He was concerned that he was unable to get a good pulse on her. On exam, she did appear somewhat somnolent and her pulses were decreased. I asked nursing to come check her vital signs in the demonstrated a systolic blood pressure in the 70s. She had recently received some pain medications. We tried to get her back into the bed but she insisted to stay in the chair so we recline to the chair. Exam (Progress Note) - Constitutional Vitals: Period Temp Pulse Resp BP Sys/Cummings Pulse Ox Last 24 Hr 96.9 F-99 F 57-69 18-20 81-148/43-69 91-100 Exam: General appearance: normal weight, mildly somnolent but definitely arousable, no apparent distress. - Head Head exam: Present: normal inspection, normocephalic, atraumatic. Absent: hematoma, laceration - Eye Eye exam: Present: EOMI. Absent: conjunctival injection, nystagmus, periorbital swelling, scleral icterus, laceration to eyelids Pupils: Present: PERRL. Absent: constricted, dilated, fixed, irregular, unequal - ENT ENT exam: Present: normal exam, normal external ear exam - Neck Neck exam: Present: normal inspection. Absent: lymphadenopathy, meningismus, tenderness, thyromegaly - Respiratory Respiratory exam: Present: There are decreased breath sounds in the bases left greater than right with scant crackles, shelter up the left side. Absent: accessory muscle use, chest wall tenderness - Cardiovascular Cardiovascular exam: Present: regular rate and rhythm. Absent: carotid bruit, gallop, JVD, rubs - GI/Abdominal GI/Abdominal exam: Present: normal bowel sounds, soft. Absent: distended, firm , guarding, hernia, mass, tenderness, rebound. - Extremities Exam Extremities exam: Present: By vein harvest site appears intact without evidence of surrounding calor or erythema, trace edema, normal capillary refill. Absent : calf tenderness - Back Exam Back exam: Unable to inspect today because patient is sleepy - Neurological Exam Neurological exam: Present: alert, oriented X3, grossly intact without resting or intention tremor - Psychiatric Psychiatric exam: Present: normal affect, normal mood - Skin Skin exam: Present: normal color, warm, dry, intact. Absent: cyanosis, diaphoretic, rash, urticaria Result/EKG - Labs CBC & BMP: 07/26/16 04:32 07/26/16 04:32 Lab Results: I have reviewed the past 24 hour labs Labs: Laboratory Results - last 24 hr 07/25/16 07/25/16 07/25/16 12:06 16:27 20:34 WBC RBC Hgb Hct MCV MCH MCHC RDW Plt Count MPV Neut % (Auto) Lymph % (Auto) [place] % (Auto) Eos % (Auto) Baso % (Auto) Neut # (Auto) Lymph # (Auto) [place] # (Auto) Eos # (Auto) Baso # (Auto) Immature Gran % Nucleated RBC % Immature Gran # Nucleated RBCs # Sodium Potassium Chloride Carbon Dioxide Anion Gap BUN Creatinine GFR Calculation BUN/Creatinine Ratio Glucose POC Glucose 198 H 168 H 167 H Calculated Osmolality Calcium Magnesium Total Bilirubin Direct Bilirubin Indirect Bilirubin AST ALT Alkaline Phosphatase Total Creatine Kinase CK-MB (CK-2) Troponin I Total Protein Albumin Globulin Albumin/Globulin Ratio 07/26/16 07/26/16 07/26/16 04:32 04:32 04:32 WBC 11.0 RBC 3.28 L Hgb 9.0 L Hct 28.7 L MCV 87.5 MCH 27 MCHC 31.4 L RDW 14.6 Plt Count 286 D MPV 12.4 H Neut % (Auto) 57.6 Lymph % (Auto) 30.4 [place] % (Auto) 9.6 Eos % (Auto) 1.6 Baso % (Auto) 0.4 Neut # (Auto) 6.3 Lymph # (Auto) 3.3 [place] # (Auto) 1.1 H Eos # (Auto) 0.2 Baso # (Auto) 0.0 Immature Gran % 0.4 Nucleated RBC % 0.0 Immature Gran # 0.04 Nucleated RBCs # 0.00 Sodium 131 L 132 L Potassium 5.4 H 5.4 H Chloride 95 L 96 L Carbon Dioxide 29 29 Anion Gap 12.4 12.4 BUN 37 H 36 H Creatinine 1.20 H 1.10 H GFR Calculation 57 63 BUN/Creatinine Ratio 30.00 H 32.00 H Glucose 171 H 171 H POC Glucose Calculated Osmolality 274.7 275.5 Calcium 7.7 L 7.7 L Magnesium 3.1 H Total Bilirubin 0.60 Direct Bilirubin 0.10 Indirect Bilirubin 0.5 AST 13 ALT 13 Alkaline Phosphatase 184 H Total Creatine Kinase 27 D CK-MB (CK-2) 1.1 Troponin I 1.020 H D Total Protein 5.4 L Albumin 2.3 L Globulin 3.1 Albumin/Globulin Ratio 0.7 L 07/26/16 07/26/16 07:36 11:02 WBC RBC Hgb Hct MCV MCH MCHC RDW Plt Count MPV Neut % (Auto) Lymph % (Auto) [place] % (Auto) Eos % (Auto) Baso % (Auto) Neut # (Auto) Lymph # (Auto) [place] # (Auto) Eos # (Auto) Baso # (Auto) Immature Gran % Nucleated RBC % Immature Gran # Nucleated RBCs # Sodium Potassium Chloride Carbon Dioxide Anion Gap BUN Creatinine GFR Calculation BUN/Creatinine Ratio Glucose POC Glucose 194 H 182 H Calculated Osmolality Calcium Magnesium Total Bilirubin Direct Bilirubin Indirect Bilirubin AST ALT Alkaline Phosphatase Total Creatine Kinase CK-MB (CK-2) Troponin I Total Protein Albumin Globulin Albumin/Globulin Ratio Quality Measures - VTE Contraindication to Pharmacological VTE Prophylaxis: High Risk of Bleeding - Stroke Symptom Onset Unknown: No Specialty Discharge - Follow Up or Referrals
[2016-07-26] MEDS: rOPINIRole 0.25 MG TABLET PO SCH (20:50)
[2016-07-26] MEDS: ROSUVASTATIN 10 MG TABLET PO SCH (20:50)
[2016-07-27] MEDS: ALBUTEROL/IPRATROPIUM 3 ML NEB RESP TX SCH ×4 (01:09→20:48)
[2016-07-27 05:17] LABS: Basophils % 0.3 % (0.0-0.8); Eosinophils # 0.2 10*3/uL (0.0-0.87); Hematocrit 30.2 VOL% (35.7-47.0); Hemoglobin 9.3 GM/DL (12.0-16.0); Immature Granulocytes % 0.4 %; Immature Granulocytes Absolute 0.05 #; Lymphocytes # 3.8 10*3/uL (1.4-4.0); Mean Corpuscular HGB Conc 30.8 GM/DL (32-36); Mean Corpuscular Hemoglobin 27 PG (27-34); Mean Corpuscular Volume 88.8 FL (87-102); Mean Platelet Volume 11.3 FL (9.6-12.0); Monocytes % 8.7 % (1.7-12.7); Neutrophils # 6.7 10*3/uL (1.4-7.4); Neutrophils % 56.6 % (38.7-73.9); Platelet Count 331 T/CUMM (130-400); Red Cell Distribution Width 14.5 % (9.3-17.3); White Blood Count 11.8 T/CUMM (4-12)
[2016-07-27 06:00] LABS: Alanine Aminotransferase 12 U/L (13-56); Albumin 2.3 G/DL (3.4-5.0); Alkaline Phosphatase 187 U/L (45-117); Aspartate Amino Transferase 12 U/L (0-37); Bilirubin,Indirect 0.2 MG/DL (0.0-1.0); Blood Urea Nitrogen 32 MG/DL (7-18); Calcium 7.6 MG/DL (8.5-10.1); Glucose 145 MG/DL (74-106); Osmolality,Calculated 277.2 MOS/KG (273-304); Potassium 4.9 MMOL/L (3.5-5.1); Sodium 134 MMOL/L (136-145); Total Protein 5.6 G/DL (6.4-8.3)
[2016-07-27 06:01] LABS: Troponin I Only 0.684 NG/ML (0.00-0.045)
--- NOTE | 2016-07-27 07:59 | EKG Report ---
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
--- NOTE | 2016-07-27 08:06 | Cardiothoracic Progress Note ---
Cardiothoracic Subjective Interval history: Patient continues to improve slowly. Her pain seems somewhat less and we are going to discontinue her intravenous Dilaudid. She does have significant tolerance to opiate medication from pre-existing use. This will probably continue to be a problem in the future. Vital signs have been stable and she seems to be breathing more comfortably. I have encouraged more activity today and I also discontinued her pacing wires. I think that when her respiratory condition permits that she will be ready for discharge. Exam (Progress Note) - Constitutional Vitals: Period Temp Pulse Resp BP Sys/Cummings Pulse Ox Last 24 Hr 97 F-98.6 F 55-75 16-22 92-146/48-68 86-98 Result/EKG - Labs CBC & BMP: 07/27/16 04:27 07/27/16 04:25 Labs: Laboratory Results - last 24 hr 07/26/16 07/26/16 07/26/16 11:02 15:12 20:20 WBC RBC Hgb Hct MCV MCH MCHC RDW Plt Count MPV Neut % (Auto) Lymph % (Auto) [place] % (Auto) Eos % (Auto) Baso % (Auto) Neut # (Auto) Lymph # (Auto) [place] # (Auto) Eos # (Auto) Baso # (Auto) Immature Gran % Nucleated RBC % Immature Gran # Nucleated RBCs # Sodium Potassium Chloride Carbon Dioxide Anion Gap BUN Creatinine GFR Calculation BUN/Creatinine Ratio Glucose POC Glucose 182 H 159 H 208 H Calculated Osmolality Calcium Magnesium Total Bilirubin Direct Bilirubin Indirect Bilirubin AST ALT Alkaline Phosphatase Total Creatine Kinase CK-MB (CK-2) Troponin I Total Protein Albumin Globulin Albumin/Globulin Ratio 07/27/16 07/27/16 07/27/16 04:25 04:27 07:03 WBC 11.8 RBC 3.40 L Hgb 9.3 L Hct 30.2 L MCV 88.8 MCH 27 MCHC 30.8 L RDW 14.5 Plt Count 331 MPV 11.3 Neut % (Auto) 56.6 Lymph % (Auto) 32.0 [place] % (Auto) 8.7 Eos % (Auto) 2.0 Baso % (Auto) 0.3 Neut # (Auto) 6.7 Lymph # (Auto) 3.8 [place] # (Auto) 1.0 H Eos # (Auto) 0.2 Baso # (Auto) 0.0 Immature Gran % 0.4 Nucleated RBC % 0.0 Immature Gran # 0.05 Nucleated RBCs # 0.00 Sodium 134 L Potassium 4.9 Chloride 96 L Carbon Dioxide 30 Anion Gap 12.9 BUN 32 H Creatinine 1.00 GFR Calculation 71 BUN/Creatinine Ratio 32.00 H Glucose 145 H POC Glucose 173 H Calculated Osmolality 277.2 Calcium 7.6 L Magnesium 3.0 H Total Bilirubin 0.40 Direct Bilirubin 0.20 Indirect Bilirubin 0.2 AST 12 ALT 12 L Alkaline Phosphatase 187 H Total Creatine Kinase 21 L D CK-MB (CK-2) < 1.0 Troponin I 0.684 H D Total Protein 5.6 L Albumin 2.3 L Globulin 3.3 Albumin/Globulin Ratio 0.6 L Quality Measures - VTE Contraindication to Pharmacological VTE Prophylaxis: High Risk of Bleeding - Stroke Symptom Onset Unknown: No Specialty Discharge - Follow Up or Referrals
[2016-07-27] MEDS: GABAPENTIN 300 MG CAPSULE PO SCH ×3 (08:41→20:14)
[2016-07-27] MEDS: ASPIRIN EC 325 MG TABLET PO SCH (08:41)
[2016-07-27] MEDS: ESCITALOPRAM 10 MG TABLET PO SCH (08:41)
[2016-07-27] MEDS: DOCUSATE SODIUM 100 MG CAPSULE PO SCH (08:41)
[2016-07-27] MEDS: NIFEdipine 10 MG CAPSULE PO PRN (08:41)
[2016-07-27] MEDS: tiZANidine 4 MG TABLET PO SCH ×2 (08:41→20:14)
[2016-07-27] MEDS: CARVEDILOL 6.25 MG TABLET PO SCH ×2 (08:41→20:14)
[2016-07-27] MEDS: PANTOPRAZOLE 40 MG TABLET PO SCH (08:42)
[2016-07-27] MEDS: NICOTINE 21 MG/24 HR PATCH TRANSDERM SCH (08:42)
[2016-07-27] MEDS: INSULIN REGULAR 100 UNIT/ML SUBCUT SCH ×3 (08:59→16:21)
[2016-07-27] MEDS: FERROUS SULFATE 325 MG TABLET PO SCH (09:30)
[2016-07-27] MEDS: INSULIN NPH 100 UNIT/ML SUBCUT SCH ×2 (09:30→16:21)
[2016-07-27] MEDS: INSULIN LISPRO 100 UNIT/ML SUBCUT SCH ×4 (09:30→20:15)
[2016-07-27] MEDS: CHLORHEXIDINE 0.12% ORAL RINSE 60 ML BOTTLE SWISH/SPIT SCH ×2 (09:31→20:18)
--- NOTE | 2016-07-27 09:55 | Hospitalist Progress Note ---
Assessment and Plan (1) S/P CABG x 3 Status: Acute Assessment and plan: Patient is recovering from CABG. noted left pleural effusion being followed by the Dr. Hinds. Conservative management planned by Dr. Hinds we will continue to monitor. Today on x-ray pleural effusion effusion by my reading seemed to be improved but official report still pending Current Visit: Yes (2) Acute kidney injury Status: Acute Assessment and plan: Renal function improved on lab work today still have high BUN. Encouraged p.o. intake Current Visit: Yes (3) Hypertension Status: Chronic Assessment and plan: Blood pressures had been okay except the last reading seems to be significantly elevated need to want to watch blood pressure patient is asymptomatic Current Visit: Yes (4) IDDM (insulin dependent diabetes mellitus) Status: Chronic Assessment and plan: Continue to monitor blood sugar with the current insulin regimen identified home insulin regimen Current Visit: Yes (5) Tobacco abuse Status: Chronic Assessment and plan: Encouraged to quit Current Visit: Yes (6) Hyperkalemia Status: Acute Assessment and plan: Resolved potassium level is a high normal range probably related to doing low renin activity with diabetes mellitus and associated hypoaldosteronism Current Visit: Yes Hospitalist: Subjective Interval history: Ms. See is a 60-year-old female with history of hypertension diabetes mellitus dyslipidemia, smoking and coronary artery disease. She was admitted with the chest pain which was workup with cardiac cath and revealed three- vessel coronary disease. she was noted to have progression of coronary disease with the 3 vessels involvement. She underwent CABG on 07/21/2016 and has been recovering. No acute symptom continued to improve subjectively afebrile. Exam - Constitutional Vitals: Period Temp Pulse Resp BP Sys/Cummings Pulse Ox Last 24 Hr 97 F-98.6 F 55-75 16-22 92-208/48-74 86-98 General appearance: no acute distress - Respiratory Respiratory exam: Present: decreased breath sounds (Decreased breath sounds left base with some crackles), rales - Cardiovascular Cardiovascular exam: Present: regular rate and rhythm. Absent: tachycardia - GI/Abdominal GI/Abdominal exam: Present: normal bowel sounds, soft. Absent: distended, tenderness - Extremities Exam Extremities exam: Present: edema (Mild edema left lower ) - Neurological Exam Neurological exam: Present: alert Results - Labs CBC & BMP: 07/27/16 04:27 07/27/16 04:25 Lab Results: I have reviewed the past 24 hour labs Quality Measures - VTE Contraindication to Pharmacological VTE Prophylaxis: High Risk of Bleeding - Stroke Symptom Onset Unknown: No Specialty Discharge - Follow Up or Referrals
--- NOTE | 2016-07-27 10:03 | Cardiology Progress Note ---
Assessment and Plan (1) S/P CABG x 3 Status: Acute Assessment and plan: She seems to be recovering well from a cardiovascular standpoint. We will follow up on her blood pressure readings. Current Visit: Yes (2) Hypertension Status: Chronic Assessment and plan: This is controlled. Current Visit: Yes (3) Hyperlipidemia Status: Chronic Current Visit: Yes (4) Coronary artery disease Status: Chronic Current Visit: Yes Qualifiers: Coronary Disease-Associated Artery/Lesion type: [place] artery [place] vs. transplanted heart: [place] heart (5) Hyperkalemia Status: Acute Current Visit: Yes Cardiology - PN: Subj Interval history: NON LINEAR EDITOR: DR. REBOLLEDO PCP: MAGDALENA LOZANO SUMMARY: Ms. See, 60-year-old female, has a history of coronary artery disease, hypertension, dyslipidemia, diabetes. Admitted July 16, 2016 with chest pain. LHC revealed three-vessel CAD, now s/p CABG with left internal mammary graft to the anterior descending coronary artery and saphenous vein graft to second obtuse marginal and the posterior descending coronary arteries 07/21/16. Evening overall was uneventful. Dilaudid has been discontinued. She denies chest pain or shortness of breath. Blood pressure was recorded as very high this morning, this is an isolated reading and nurse is going to recheck this. She has just received her medications. She had been well controlled prior to this morning. Exam (Progress Note) - Constitutional Vitals: Period Temp Pulse Resp BP Sys/Cummings Pulse Ox Last 24 Hr 97 F-98.6 F 55-75 16-22 92-208/48-74 86-98 Exam: General appearance: normal weight, no apparent distress. - Head Head exam: Present: normal inspection, normocephalic, atraumatic. Absent: hematoma, laceration - Eye Eye exam: Present: EOMI. Absent: conjunctival injection, nystagmus, periorbital swelling, scleral icterus, laceration to eyelids Pupils: Present: PERRL. Absent: constricted, dilated, fixed, irregular, unequal - ENT ENT exam: Present: normal exam, normal external ear exam - Neck Neck exam: Present: normal inspection. Absent: lymphadenopathy, meningismus, tenderness, thyromegaly - Respiratory Respiratory exam: Present: There are decreased breath sounds in the bases left greater than right. Absent: accessory muscle use, chest wall tenderness - Cardiovascular Cardiovascular exam: Present: regular rate and rhythm. Absent: carotid bruit, gallop, JVD, rubs - GI/Abdominal GI/Abdominal exam: Present: normal bowel sounds, soft. Absent: distended, firm , guarding, hernia, mass, tenderness, rebound. - Extremities Exam Extremities exam: Present: vein harvest site appears intact without evidence of surrounding calor or erythema, trace edema, normal capillary refill. Absent: calf tenderness - Back Exam Back exam: No vertebral tenderness or spasm - Neurological Exam Neurological exam: Present: alert, oriented X3, grossly intact without resting or intention tremor - Psychiatric Psychiatric exam: Present: normal affect, normal mood - Skin Skin exam: Present: normal color, warm, dry, intact. Absent: cyanosis, diaphoretic, rash, urticaria Result/EKG - Labs CBC & BMP: 07/27/16 04:27 07/27/16 04:25 Lab Results: I have reviewed the past 24 hour labs Labs: Laboratory Results - last 24 hr 07/26/16 07/26/16 07/26/16 11:02 15:12 20:20 WBC RBC Hgb Hct MCV MCH MCHC RDW Plt Count MPV Neut % (Auto) Lymph % (Auto) [place] % (Auto) Eos % (Auto) Baso % (Auto) Neut # (Auto) Lymph # (Auto) [place] # (Auto) Eos # (Auto) Baso # (Auto) Immature Gran % Nucleated RBC % Immature Gran # Nucleated RBCs # Sodium Potassium Chloride Carbon Dioxide Anion Gap BUN Creatinine GFR Calculation BUN/Creatinine Ratio Glucose POC Glucose 182 H 159 H 208 H Calculated Osmolality Calcium Magnesium Total Bilirubin Direct Bilirubin Indirect Bilirubin AST ALT Alkaline Phosphatase Total Creatine Kinase CK-MB (CK-2) Troponin I Total Protein Albumin Globulin Albumin/Globulin Ratio 07/27/16 07/27/16 07/27/16 04:25 04:27 07:03 WBC 11.8 RBC 3.40 L Hgb 9.3 L Hct 30.2 L MCV 88.8 MCH 27 MCHC 30.8 L RDW 14.5 Plt Count 331 MPV 11.3 Neut % (Auto) 56.6 Lymph % (Auto) 32.0 [place] % (Auto) 8.7 Eos % (Auto) 2.0 Baso % (Auto) 0.3 Neut # (Auto) 6.7 Lymph # (Auto) 3.8 [place] # (Auto) 1.0 H Eos # (Auto) 0.2 Baso # (Auto) 0.0 Immature Gran % 0.4 Nucleated RBC % 0.0 Immature Gran # 0.05 Nucleated RBCs # 0.00 Sodium 134 L Potassium 4.9 Chloride 96 L Carbon Dioxide 30 Anion Gap 12.9 BUN 32 H Creatinine 1.00 GFR Calculation 71 BUN/Creatinine Ratio 32.00 H Glucose 145 H POC Glucose 173 H Calculated Osmolality 277.2 Calcium 7.6 L Magnesium 3.0 H Total Bilirubin 0.40 Direct Bilirubin 0.20 Indirect Bilirubin 0.2 AST 12 ALT 12 L Alkaline Phosphatase 187 H Total Creatine Kinase 21 L D CK-MB (CK-2) < 1.0 Troponin I 0.684 H D Total Protein 5.6 L Albumin 2.3 L Globulin 3.3 Albumin/Globulin Ratio 0.6 L Quality Measures - VTE Contraindication to Pharmacological VTE Prophylaxis: High Risk of Bleeding - Stroke Symptom Onset Unknown: No Specialty Discharge - Follow Up or Referrals
--- NOTE | 2016-07-27 12:57 | XRay Report ---
Exam: XR chest 2V Indication: Left pleural effusion Comparison study: Prior chest radiograph 07/17/2016 Findings: Right-sided central venous catheter is in similar position. Cardiac silhouette is mildly enlarged, similar to prior. There is slight improved aeration within the right lung base. Minimal improvement is suggested on the left with residual left basilar opacities likely representing atelectasis/infiltrates and small to moderate pleural effusion. There is no pneumothorax. Median sternotomy wiring appears similar to prior. There is no acute osseous abnormality.. Impression: If any change, slight improved aeration within the lung bases. Residual basilar opacities may represent atelectasis versus infiltrates and small to moderate left pleural effusion. PROCEDURE INTERPRETED AT [facility] DEPARTMENT OF RADIOLOGY Final Report Signed by: Darrick Bennett
[2016-07-27] MEDS: ROSUVASTATIN 10 MG TABLET PO SCH (20:14)
[2016-07-27] MEDS: rOPINIRole 0.25 MG TABLET PO SCH (20:14)
[2016-07-28] MEDS: ALBUTEROL/IPRATROPIUM 3 ML NEB RESP TX SCH ×4 (00:09→20:32)
[2016-07-28 06:05] LABS: Calcium 7.8 MG/DL (8.5-10.1); Magnesium 2.6 MG/DL (1.8-2.4); Potassium 4.9 MMOL/L (3.5-5.1)
--- NOTE | 2016-07-28 06:18 | Cardiothoracic Progress Note ---
Cardiothoracic Subjective Interval history: Patient looks and feels okay. She is still having a fair amount of chest discomfort but her wounds look okay. Vital signs have been stable and she appears to be breathing fairly comfortably. We will try to increase her activity some today. I think she needs at least another 24 hours in the hospital. Overall her progress is satisfactory. Exam (Progress Note) - Constitutional Vitals: Period Temp Pulse Resp BP Sys/Cummings Pulse Ox Last 24 Hr 96.9 F-98.4 F 53-79 16-25 81-208/45-81 92-98 Result/EKG - Labs CBC & BMP: 07/27/16 04:27 07/28/16 05:05 Labs: Laboratory Results - last 24 hr 07/27/16 07/27/16 07/27/16 07:03 11:19 15:34 Sodium Potassium Chloride Carbon Dioxide Anion Gap BUN Creatinine GFR Calculation BUN/Creatinine Ratio Glucose POC Glucose 173 H 162 H 116 H Calculated Osmolality Calcium Magnesium 07/27/16 07/28/16 19:40 05:05 Sodium 136 Potassium 4.9 Chloride 98 Carbon Dioxide 31 Anion Gap 11.9 BUN 22 H Creatinine 0.80 GFR Calculation 93 BUN/Creatinine Ratio 27.00 H Glucose 176 H POC Glucose 270 H Calculated Osmolality 278.0 Calcium 7.8 L Magnesium 2.6 H Quality Measures - VTE Contraindication to Pharmacological VTE Prophylaxis: High Risk of Bleeding - Stroke Symptom Onset Unknown: No Specialty Discharge - Follow Up or Referrals
[2016-07-28] MEDS: POLYETHYLENE GLYCOL POWDER 17 GM PACK PO PRN (09:15)
[2016-07-28] MEDS: INSULIN LISPRO 100 UNIT/ML SUBCUT SCH ×4 (09:16→22:53)
[2016-07-28] MEDS: DOCUSATE SODIUM 100 MG CAPSULE PO SCH (09:17)
[2016-07-28] MEDS: PANTOPRAZOLE 40 MG TABLET PO SCH (09:17)
[2016-07-28] MEDS: GABAPENTIN 300 MG CAPSULE PO SCH ×3 (09:17→22:00)
[2016-07-28] MEDS: CARVEDILOL 6.25 MG TABLET PO SCH (09:18)
[2016-07-28] MEDS: FERROUS SULFATE 325 MG TABLET PO SCH (09:18)
[2016-07-28] MEDS: ASPIRIN EC 325 MG TABLET PO SCH (09:18)
[2016-07-28] MEDS: tiZANidine 4 MG TABLET PO SCH ×2 (09:18→22:00)
[2016-07-28] MEDS: INSULIN NPH 100 UNIT/ML SUBCUT SCH ×2 (09:18→17:42)
[2016-07-28] MEDS: INSULIN REGULAR 100 UNIT/ML SUBCUT SCH ×3 (09:18→17:43)
[2016-07-28] MEDS: CHLORHEXIDINE 0.12% ORAL RINSE 60 ML BOTTLE SWISH/SPIT SCH ×2 (09:19→22:54)
[2016-07-28] MEDS: NICOTINE 21 MG/24 HR PATCH TRANSDERM SCH (09:19)
--- NOTE | 2016-07-28 11:37 | Hospitalist Progress Note ---
Assessment and Plan (1) S/P CABG x 3 Status: Acute Assessment and plan: The patient continue standard postoperative course and is still requiring some supportive care here in the hospital. No new complications were identified today. Current Visit: Yes (2) Hypertension Status: Chronic Current Visit: Yes Hospitalist: Subjective Interval history: This is the seventh postoperative day for Mrs. See. The patient is awake alert and getting a little bit of strength each day. She still has chest wall tenderness. The patient has some cough and some upper airway congestion but improving. Dr. García's note today suggests that she may be ready for discharge home tomorrow. The patient does not complain of abdominal pain or obstipation. Exam - Constitutional Vitals: Period Temp Pulse Resp BP Sys/Cummings Pulse Ox Last 24 Hr 96.8 F-98.4 F 53-79 16-25 87-198/50-84 92-98 Exam: General appearance: no acute distress - Respiratory Respiratory exam: Present: decreased breath sounds (Decreased breath sounds left base with some crackles), rales - Cardiovascular Cardiovascular exam: Present: regular rate and rhythm. Absent: tachycardia - GI/Abdominal GI/Abdominal exam: Present: normal bowel sounds, soft. Absent: distended, tenderness - Extremities Exam Extremities exam: Present: edema (Mild edema left lower ) - Neurological Exam Neurological exam: Present: alert Results - Labs CBC & BMP: 07/27/16 04:27 07/28/16 05:05 Lab Results: I have reviewed the past 24 hour labs Quality Measures - VTE Contraindication to Pharmacological VTE Prophylaxis: High Risk of Bleeding - Stroke Symptom Onset Unknown: No Specialty Discharge - Follow Up or Referrals
--- NOTE | 2016-07-28 12:13 | Cardiology Progress Note ---
Assessment and Plan (1) S/P CABG x 3 Status: Acute Assessment and plan: Patient is progressing well. Continue routine postoperative protocol. Further plan and addendum to follow per Dr. Bass. Current Visit: Yes (2) Hypertension Status: Chronic Assessment and plan: Blood pressure is suboptimally controlled this morning. I have increased patient's dose of Coreg. Will further adjust medications as needed throughout her hospital stay. Further plan and addendum to follow per Dr. Bass. Current Visit: Yes (3) Hyperlipidemia Status: Chronic Assessment and plan: Continue current plan of care with lipid lowering agent. Current Visit: Yes (4) IDDM (insulin dependent diabetes mellitus) Status: Chronic Assessment and plan: Management per hospital medicine. Current Visit: Yes (5) Tobacco abuse Status: Chronic Assessment and plan: Smoking cessation encouraged. Current Visit: Yes (6) Coronary artery disease Status: Chronic Assessment and plan: Now status post CABG 07/21/16 with left internal mammary graft to the anterior descending coronary artery and saphenous vein graft to second obtuse marginal and the posterior descending coronary arteries. Patient is progressing nicely without complications. Continue current plan of care. Current Visit: Yes Qualifiers: Coronary Disease-Associated Artery/Lesion type: [place] artery [place] vs. transplanted heart: [place] heart (7) Peripheral neuropathy Status: Chronic Assessment and plan: Continue current plan of care. Current Visit: Yes Cardiology - PN: Subj Interval history: [place] COORDINATOR: DR. REBOLLEDO PCP: MAGDALENA LOZANO SUMMARY: Ms. See, 60-year-old female, has a history of known coronary artery disease, hypertension, dyslipidemia, diabetes, sedentary lifestyle and tobaccoism. She presented to the emergency department July 16, 2016 with complaints of chest pain. She underwent cardiac catheterization which revealed three-vessel CAD. Dr. García was then consulted and she underwent CABG with left internal mammary graft to the anterior descending coronary artery and saphenous vein graft to second obtuse marginal and the posterior descending coronary arteries 07/21/16. Patient was seen and examined on the telemetry unit. She is postop day #7 today. Patient continues to progress well. She denies chest pain and shortness of breath. She reports that she walked the halls last night without any difficulty. He has been encouraged to increase her activity level today. Her blood pressure is suboptimally controlled this morning. I will increase her Coreg. We will make further adjustments as needed throughout her hospital stay. Surgical incisions are healing well without signs of infection. Labs been reviewed. Vital signs are stable. Further plan is for him to follow per Dr. Bass. Active Medications Acetaminophen (Tylenol Tab) 650 mg PO Q4H PRN PRN Reason: Temperature greater than 100F Hydrocodone Bitart/Acetaminophen ([place] 10-325) 2 tablet PO Q4H PRN PRN Reason: Pain Moderate (4-7) Last Admin: 07/28/16 09:17 Dose: 2 tablet Al Hydrox/Mg Hydrox/Simethicone (Mylanta Max Strength Liquid) 30 ml PO Q4H PRN PRN Reason: Dyspepsia Albuterol/Ipratropium (Duoneb) 3 ml RESP TX RT Q6H [facility] Last Admin: 07/28/16 07:22 Dose: 3 ml Aspirin () 325 mg PO DAILY [facility] Last Admin: 07/28/16 09:18 Dose: 325 mg Carvedilol (Coreg) 12.5 mg PO BID [facility] Chlorhexidine Gluconate (Peridex) 15 ml SWISH/SPIT BID [facility] Last Admin: 07/28/16 09:19 Dose: 15 ml Clorazepate Dipotassium (Tranxene) 3.75 mg PO Q4H PRN PRN Reason: Anxiety Last Admin: 07/25/16 22:51 Dose: 3.75 mg Dextrose/Water (D50) 25 gm IV PRN PRN PRN Reason: Hypoglycemia with IV access Docusate Sodium (Colace Cap) 100 mg PO DAILY [facility] Last Admin: 07/28/16 09:17 Dose: 100 mg Escitalopram Oxalate (Lexapro) 10 mg PO BEDTIME [facility] Ferrous Sulfate (Feosol Original Tab) 325 mg PO DAILY [facility] Last Admin: 07/28/16 09:18 Dose: 325 mg Gabapentin (Neurontin Cap/Tab) 300 mg PO TID [facility] Last Admin: 07/28/16 09:17 Dose: 300 mg Glucagon () 1 mg IM PRN PRN PRN Reason: Hypoglycemia w/o IV access Hydromorphone HCl (Dilaudid Inj) 2 mg IV Q2H PRN PRN Reason: Pain Severe (8-10) Last Admin: 07/26/16 06:33 Dose: 2 mg Magnesium Sulfate 4 gm/ Premix 100 mls @ 25 mls/hr IV .PER PROTOCOL PRN; Protocol PRN Reason: Per Protocol Magnesium Sulfate 2 gm/ Premix 50 mls @ 25 mls/hr IV .PER PROTOCOL PRN; Protocol PRN Reason: Per Protocol Insulin Human Lispro (Humalog) 0 unit SUBCUT ACHS [facility] PRN Reason: Protocol Last Admin: 07/28/16 12:11 Dose: Not Given Insulin Human NPH (Humulin N) 15 unit SUBCUT BIDAC [facility] Last Admin: 07/28/16 09:18 Dose: Not Given Insulin Human Regular (Humulin R) 3 unit SUBCUT TIDAC [facility] Last Admin: 07/28/16 09:18 Dose: Not Given Magnesium Hydroxide (Milk Of Magnesia) 30 ml PO Q6H PRN PRN Reason: Constipation Last Admin: 07/25/16 09:18 Dose: 30 ml Nicotine (Nicoderm Cq 21) 1 patch TRANSDERM DAILY [facility] Last Admin: 07/28/16 09:19 Dose: 1 patch Nifedipine (Procardia) 10 mg PO Q4HR PRN PRN Reason: Hypertension Last Admin: 07/27/16 08:41 Dose: 10 mg Ondansetron HCl (Zofran Inj) 4 mg IV Q4H PRN PRN Reason: Nausea/Vomiting Pantoprazole Sodium (Protonix Tab) 40 mg PO DAILY [facility] Last Admin: 07/28/16 09:17 Dose: 40 mg Polyethylene Glycol (Miralax) 17 gm PO DAILY PRN PRN Reason: Constipation Last Admin: 07/28/16 09:15 Dose: 17 gm Potassium Chloride (K Dur) 20 meq PO .PER PROTOCOL PRN; Protocol PRN Reason: Per Protocol Ropinirole HCl (Requip) 0.25 mg PO BEDTIME [facility] Last Admin: 07/27/16 20:14 Dose: 0.25 mg Rosuvastatin Calcium (Crestor) 10 mg PO BEDTIME [facility] Last Admin: 07/27/16 20:14 Dose: 10 mg Tizanidine HCl (Zanaflex) 4 mg PO BID [facility] Last Admin: 07/28/16 09:18 Dose: 4 mg Zaleplon (Sonata) 5 mg PO BEDTIME PRN PRN Reason: Sleep Exam (Progress Note) - Constitutional Vitals: Period Temp Pulse Resp BP Sys/Cummings Pulse Ox Last 24 Hr 96.8 F-97.4 F 57-79 16-25 111-198/54-84 92-98 Exam: General appearance: normal weight, no apparent distress. - Head Head exam: Present: normal inspection, normocephalic, atraumatic. Absent: hematoma, laceration - Eye Eye exam: Present: EOMI. Absent: conjunctival injection, nystagmus, periorbital swelling, scleral icterus, laceration to eyelids Pupils: Present: PERRL. Absent: constricted, dilated, fixed, irregular, unequal - ENT ENT exam: Present: normal exam, normal external ear exam - Neck Neck exam: Present: normal inspection. Absent: lymphadenopathy, meningismus, tenderness, thyromegaly - Respiratory Respiratory exam: Present: There are decreased breath sounds in the bases left greater than right. Absent: accessory muscle use, chest wall tenderness - Cardiovascular Cardiovascular exam: Present: regular rate and rhythm. Absent: carotid bruit, gallop, JVD, rubs - GI/Abdominal GI/Abdominal exam: Present: normal bowel sounds, soft. Absent: distended, firm , guarding, hernia, mass, tenderness, rebound. - Extremities Exam Extremities exam: Present: vein harvest site appears intact without evidence of surrounding calor or erythema, trace edema, normal capillary refill. Absent: calf tenderness - Back Exam Back exam: No vertebral tenderness or spasm - Neurological Exam Neurological exam: Present: alert, oriented X3, grossly intact without resting or intention tremor - Psychiatric Psychiatric exam: Present: normal affect, normal mood - Skin Skin exam: Present: normal color, warm, dry, intact. Surgical incisions are healing well without signs of infection. Absent: cyanosis, diaphoretic, rash, urticaria Result/EKG - Labs CBC & BMP: 07/27/16 04:27 07/28/16 05:05 Lab Results: I have reviewed the past 24 hour labs Labs: Laboratory Results - last 24 hr 07/27/16 07/27/16 07/28/16 15:34 19:40 05:05 Sodium 136 Potassium 4.9 Chloride 98 Carbon Dioxide 31 Anion Gap 11.9 BUN 22 H Creatinine 0.80 GFR Calculation 93 BUN/Creatinine Ratio 27.00 H Glucose 176 H POC Glucose 116 H 270 H Calculated Osmolality 278.0 Calcium 7.8 L Magnesium 2.6 H 07/28/16 07/28/16 06:57 11:35 Sodium Potassium Chloride Carbon Dioxide Anion Gap BUN Creatinine GFR Calculation BUN/Creatinine Ratio Glucose POC Glucose 181 H 126 H Calculated Osmolality Calcium Magnesium Quality Measures - VTE Contraindication to Pharmacological VTE Prophylaxis: High Risk of Bleeding - Stroke Symptom Onset Unknown: No Specialty Discharge - Follow Up or Referrals
[2016-07-28] MEDS ORDERED: CARVEDILOL 12.5 MG TABLET PO SCH (12:15)
[2016-07-28] MEDS: NIFEdipine 10 MG CAPSULE PO PRN (13:17)
[2016-07-28] MEDS ORDERED: ESCITALOPRAM 10 MG TABLET PO SCH (21:00)
[2016-07-28] MEDS: rOPINIRole 0.25 MG TABLET PO SCH (21:59)
[2016-07-28] MEDS: ROSUVASTATIN 10 MG TABLET PO SCH (22:00)
[2016-07-28] MEDS: cloNIDine 0.1 MG TABLET PO SCH (22:00)
[2016-07-28] MEDS: CARVEDILOL 12.5 MG TABLET PO SCH (22:53)
[2016-07-29] MEDS ORDERED: cloNIDine 0.1 MG TABLET PO SCH
[2016-07-29] MEDS: NIFEdipine 10 MG CAPSULE PO PRN ×2 (00:23→09:02)
[2016-07-29] MEDS: ALBUTEROL/IPRATROPIUM 3 ML NEB RESP TX SCH ×2 (02:30→07:09)
[2016-07-29] MEDS: cloNIDine 0.1 MG TABLET PO SCH ×2 (05:02→10:44)
[2016-07-29 06:22] LABS: Basophils # 0.1 10*3/uL (0.0-0.2); Basophils % 0.4 % (0.0-0.8); Eosinophils # 0.4 10*3/uL (0.0-0.87); Eosinophils % 2.7 % (0.00-10.9); Hematocrit 31.1 VOL% (35.7-47.0); Hemoglobin 9.9 GM/DL (12.0-16.0); Immature Granulocytes % 0.7 %; Lymphocytes # 4.2 10*3/uL (1.4-4.0); Lymphocytes % 30.9 % (21.3-54.2); Mean Corpuscular HGB Conc 31.8 GM/DL (32-36); Mean Corpuscular Hemoglobin 27 PG (27-34); Mean Corpuscular Volume 85.9 FL (87-102); Mean Platelet Volume 10.6 FL (9.6-12.0); Monocytes # 0.7 10*3/uL (0.11-0.8); Monocytes % 5.1 % (1.7-12.7); Neutrophils # 8.1 10*3/uL (1.4-7.4); Neutrophils % 60.2 % (38.7-73.9); Platelet Count 448 T/CUMM (130-400); Red Blood Count 3.62 MC/CUMM (3.8-5.5); Red Cell Distribution Width 14.5 % (9.3-17.3); White Blood Count 13.5 T/CUMM (4-12)
[2016-07-29 06:52] LABS: Calcium 7.9 MG/DL (8.5-10.1); Magnesium 2.2 MG/DL (1.8-2.4); Osmolality,Calculated 275.8 MOS/KG (273-304); Potassium 4.8 MMOL/L (3.5-5.1)
--- NOTE | 2016-07-29 08:11 | Discharge Summary ---
Hospital Course - Hospital Course Hospital Course: History of present illness: Patient is a 60-year-old lady who was admitted to the hospital with symptoms of substernal chest discomfort. After cardiology evaluation it was suggested that she have cardiac catheterization which was done and revealed three-vessel coronary artery disease. Patient was referred for bypass surgery. Past medical history is significant and the patient has chronic pain syndrome related to back and neck degenerative arthritis and takes significant amount of opioid pain medication. The remainder of her past medical history review of systems social history and family history is documented in her admission notes. Hospital course: The patient was taken to surgery and three-vessel bypass grafting was carried out with a left internal mammary graft to the anterior descending coronary artery and saphenous vein graft to the obtuse marginal and right posterior descending coronary vessels. The patient's postoperative course was largely uncomplicated except for the expected problem with pain control. She did require fairly high doses of opiate pain medication however this gradually improved during her postoperative hospitalization. At the time of discharge she was ambulating with minimal assistance and requiring essentially her preoperative pain medicine for control. She is instructed to return for follow-up in 1 month and discharge medications are listed below. Specialty Discharge - Follow Up or Referrals Follow up with: Aiden García MD [Physician] - 1 Month Discharge Plan - Discharge Data Disposition: Disch To Home/Self Care Condition at Discharge: Stable Discharge Diet: advance to your usual diet Activity: resume usual activities as tolerated Hygiene: no restrictions Weight Bearing at Discharge: full weight bearing Driving: not until seen by doctor - Discharge Medications New Aspirin EC Tab 325 mg PO DAILY tablet cloNIDine TAB [Catapres Tab] 0.1 mg PO Q6H #120 tablet Albuterol/Ipratropium Neb [Duoneb] 3 ml RESP TX RT Q6H #60 Carvedilol [Coreg] 12.5 mg PO BID #60 tablet Escitalopram [Lexapro] 10 mg PO BEDTIME tablet Gabapentin Cap/Tab [Neurontin Cap/Tab] 300 mg PO TID capsule NIFEdipine CAP [Procardia] 10 mg PO Q4HR PRN #0 capsule PRN Reason: Hypertension Nicotine 21 mg/24 Hr Patch [Nicoderm CQ 21 mg/24 hr Patch] 1 patch TRANSDERM DAILY #30 patch Rosuvastatin [Crestor] 10 mg PO BEDTIME tablet rOPINIRole [Requip] 0.25 mg PO BEDTIME tablet tiZANidine [Zanaflex] 4 mg PO BID tablet Continue Promethazine Tab [Phenergan Tab] 25 mg PO Q4-6H PRN PRN Reason: Nausea Omeprazole [Prilosec] 20 mg PO DAILY Nitroglycerin Sl Tab [Nitrostat] 0.4 mg SL Q5M PRN PRN Reason: Chest Pain Escitalopram [Lexapro] 10 mg PO BEDTIME tiZANidine [Zanaflex] 4 mg PO BID HYDROcodone/ACETAMIN 10-325 [[place] 10-325] 1 tablet PO QID Gabapentin 300 mg PO TID Lisinopril 10 mg PO DAILY - Follow Up or Referral - Forms/Instructions Instructions: Coronary Artery Disease (GEN), Heart Healthy Diet (GEN), Coronary Artery Bypass Graft, Alteration Specialist (GEN), Sternal Precautions (GEN) Exam - Constitutional Vitals: Period Temp Pulse Resp BP Sys/Cummings Pulse Ox Last 24 Hr 96.9 F-97.9 F 61-80 17-20 120-208/58-93 90-99 Discharge Results Procedures and tests throughout hospitalization: Pending Orders 07/20/16 04:27 Fresh Frozen Plasma IN AM Red Blood Cells Leuko Red IN AM Single Donor Platelets IN AM Type and Screen Routine 07/30/16 04:00 BMP w/ Mg [Basic Metabolic Panel w/Mg] IN AM CBC [Comp Blood Count Auto Diff] IN AM 07/31/16 04:00 BMP w/ Mg [Basic Metabolic Panel w/Mg] IN AM CBC [Comp Blood Count Auto Diff] IN AM 08/01/16 04:00 BMP w/ Mg [Basic Metabolic Panel w/Mg] IN AM CBC [Comp Blood Count Auto Diff] IN AM 08/02/16 04:00 BMP w/ Mg [Basic Metabolic Panel w/Mg] IN AM CBC [Comp Blood Count Auto Diff] IN AM Labs on day of discharge: Labs from last 24 hours 07/29/16 07/29/16 07/29/16 07:05 05:53 05:53 WBC 13.5 H RBC 3.62 L Hgb 9.9 L Hct 31.1 L MCV 85.9 L MCH 27 MCHC 31.8 L RDW 14.5 Plt Count 448 H D MPV 10.6 Neut % (Auto) 60.2 Lymph % (Auto) 30.9 Sunflower % (Auto) 5.1 Eos % (Auto) 2.7 Baso % (Auto) 0.4 Neut # (Auto) 8.1 H Lymph # (Auto) 4.2 H Sunflower # (Auto) 0.7 Eos # (Auto) 0.4 Baso # (Auto) 0.1 Immature Gran % 0.7 Nucleated RBC % 0.0 Immature Gran # 0.10 Nucleated RBCs # 0.00 Sodium 137 Potassium 4.8 Chloride 99 Carbon Dioxide 30 Anion Gap 12.8 BUN 13 Creatinine 0.60 GFR Calculation 114 BUN/Creatinine Ratio 21.00 H Glucose 148 H POC Glucose 178 H Calculated Osmolality 275.8 Calcium 7.9 L Magnesium 2.2 07/28/16 07/28/16 07/28/16 21:10 17:39 15:58 WBC RBC Hgb Hct MCV MCH MCHC RDW Plt Count MPV Neut % (Auto) Lymph % (Auto) Sunflower % (Auto) Eos % (Auto) Baso % (Auto) Neut # (Auto) Lymph # (Auto) Sunflower # (Auto) Eos # (Auto) Baso # (Auto) Immature Gran % Nucleated RBC % Immature Gran # Nucleated RBCs # Sodium Potassium Chloride Carbon Dioxide Anion Gap BUN Creatinine GFR Calculation BUN/Creatinine Ratio Glucose POC Glucose 138 H 193 H 181 H Calculated Osmolality Calcium Magnesium 07/28/16 07/28/16 07/28/16 14:34 11:35 06:57 WBC RBC Hgb Hct MCV MCH MCHC RDW Plt Count MPV Neut % (Auto) Lymph % (Auto) Sunflower % (Auto) Eos % (Auto) Baso % (Auto) Neut # (Auto) Lymph # (Auto) Sunflower # (Auto) Eos # (Auto) Baso # (Auto) Immature Gran % Nucleated RBC % Immature Gran # Nucleated RBCs # Sodium Potassium Chloride Carbon Dioxide Anion Gap BUN Creatinine GFR Calculation BUN/Creatinine Ratio Glucose POC Glucose 154 H 126 H 181 H Calculated Osmolality Calcium Magnesium DS: Provider Date of admission: 07/15/16 18:44 Primary care physician: Donald Murillo MD Attending physician on admission: Missael Cohen MD Consults: 07/18/16 07:11 Consult to Dietitian [CONS] Routine Reason for Dietitian: Other Consult Comment: low salt, low cholesterol, diet 07/22/16 06:15 Consult to Cardiac Rehabilitation [CONS] Routine Reason for Cardiac Rehabilitation: Other Consult Comment: Post CABG/heart surgery Consult to Diabetes Center, Educator [CONS] Routine Reason for Resident Care Coordinator: Diabetes Education Initial Insulin Education Consult Comment: insulin education Consult to Dietitian [CONS] Routine Reason for Dietitian: Dietary Consult Consult Comment: Cardiac, low salt, low cholesterol diet Consult to Physical Therapy [CONS] Routine Reason for Physical Therapy: Other Consult Comment: CV Rehab Consult to Physician [CONS] Routine Comment: Management of diabetes Consulting Provider: Consult to Specialist Group: Hospitalist Discharging clinician: Aiden García MD Expected date of discharge: 07/29/16
[2016-07-29] MEDS: INSULIN LISPRO 100 UNIT/ML SUBCUT SCH (09:01)
[2016-07-29] MEDS: FERROUS SULFATE 325 MG TABLET PO SCH (09:02)
[2016-07-29] MEDS: INSULIN NPH 100 UNIT/ML SUBCUT SCH (09:02)
[2016-07-29] MEDS: PANTOPRAZOLE 40 MG TABLET PO SCH (09:02)
[2016-07-29] MEDS: CARVEDILOL 12.5 MG TABLET PO SCH (09:02)
[2016-07-29] MEDS: tiZANidine 4 MG TABLET PO SCH (09:02)
[2016-07-29] MEDS: INSULIN REGULAR 100 UNIT/ML SUBCUT SCH (09:02)
[2016-07-29] MEDS: DOCUSATE SODIUM 100 MG CAPSULE PO SCH (09:02)
[2016-07-29] MEDS: GABAPENTIN 300 MG CAPSULE PO SCH (09:03)
[2016-07-29] MEDS: ASPIRIN EC 325 MG TABLET PO SCH (09:03)
[2016-07-29] MEDS: NICOTINE 21 MG/24 HR PATCH TRANSDERM SCH (09:04)
--- NOTE | 2016-07-29 10:58 | Hospitalist Progress Note ---
Assessment and Plan (1) S/P CABG x 3 Status: Acute Assessment and plan: The patient continues standard postoperative course. No new complications were identified today. The patient is ready for discharge home today Current Visit: Yes (2) Hypertension Status: Chronic Current Visit: Yes Hospitalist: Subjective Interval history: The patient's strength is improving a little each day. The patient is cheerful about going home. She denies angina or palpitation. Exam - Constitutional Vitals: Period Temp Pulse Resp BP Sys/Cummings Pulse Ox Last 24 Hr 96.9 F-97.9 F 61-80 17-20 120-208/58-93 90-99 Exam: General appearance: no acute distress - Respiratory Respiratory exam: Present: Reduced lung volumes consistent with postoperative chest - Cardiovascular Cardiovascular exam: Present: regular rate and rhythm. Absent: tachycardia - GI/Abdominal GI/Abdominal exam: Present: normal bowel sounds, soft. Absent: distended, tenderness - Extremities Exam Extremities exam: Present: edema resolved - Neurological Exam Neurological exam: Present: alert Results - Labs CBC & BMP: 07/29/16 05:53 07/29/16 05:53 Lab Results: I have reviewed the past 24 hour labs Quality Measures - VTE Contraindication to Pharmacological VTE Prophylaxis: High Risk of Bleeding - Stroke Symptom Onset Unknown: No Specialty Discharge - Follow Up or Referrals Follow up with: Aiden García MD [Physician] - 08/26/16 10:45 am
[2016-07-29 11:52] VITALS: BP 107/53
== END 2016-07-29 12:37 | disposition home or self-care (01) | DRG 234 ==
LOC: N.ED 15:25 → N.EDINP 18:44 → SUATTDRO 18:44 → N.TELES 20:10 → N.CVR 07-21 09:48 → N.TELES 07-22 09:07
PROVIDERS: ADMIT Internal Medicine; ATTEND Internal Medicine
PROC: CLCCHCL (ICD-10-PCS; 2016-07-16 12:45)

== ENCOUNTER 2017-06-04 21:15 | Inpatient (IN) ==
[2017-06-04] MEDS ORDERED: NITROGLYCERIN 2% OINT 1 INCH/GM PACK TOP STA (21:38)
[2017-06-04] MEDS ORDERED: ASPIRIN 325 MG TABLET PO STA (21:38)
[2017-06-04] MEDS ORDERED: ONDANSETRON 4 MG/2 ML VIAL IV STA (21:38)
[2017-06-04] MEDS ORDERED: PANTOPRAZOLE 40 MG VIAL IV STA (21:38)
[2017-06-04] MEDS ORDERED: KETOROLAC 30 MG/1 ML VIAL IV STA (21:38)
[2017-06-04 21:49] LABS: Basophils # 0.1 10*3/uL (0.0-0.2); Basophils % 0.4 % (0.0-0.8); Eosinophils # 0.1 10*3/uL (0.0-0.87); Eosinophils % 0.5 % (0.00-10.9); Hematocrit 39.4 VOL% (35.7-47.0); Hemoglobin 12.7 GM/DL (12.0-16.0); Immature Granulocytes % 0.5 %; Immature Granulocytes Absolute 0.09 #; Lymphocytes % 34.9 % (21.3-54.2); Mean Corpuscular HGB Conc 32.2 GM/DL (32-36); Mean Corpuscular Hemoglobin 27 PG (27-34); Mean Corpuscular Volume 82.6 FL (87-102); Mean Platelet Volume 11.7 FL (9.6-12.0); Monocytes # 0.8 10*3/uL (0.11-0.8); Monocytes % 4.9 % (1.7-12.7); Neutrophils % 58.8 % (38.7-73.9); Platelet Count 267 T/CUMM (130-400); Red Blood Count 4.77 MC/CUMM (3.8-5.5); Red Cell Distribution Width 14.5 % (9.3-17.3); White Blood Count 17.1 T/CUMM (4-12)
[2017-06-04 21:57] LABS: INR 0.9; PT Patient Result 9.6 SECS; Partial Thromboplastin Time 24.2 SECS (0-40)
[2017-06-04] MEDS ORDERED: NITROGLYCERIN 2% OINT 1 INCH/GM PACK TOP ONE (21:58)
[2017-06-04] MEDS ORDERED: ONDANSETRON 4 MG/2 ML VIAL ONE (21:58)
[2017-06-04] MEDS ORDERED: KETOROLAC 30 MG/1 ML VIAL ONE (21:58)
[2017-06-04] MEDS ORDERED: PANTOPRAZOLE 40 MG VIAL IV ONE (21:58)
[2017-06-04] MEDS ORDERED: ASPIRIN 325 MG TABLET ONE (21:59)
[2017-06-04 22:12] LABS: Alanine Aminotransferase 21 U/L (13-56); Albumin 2.5 G/DL (3.4-5.0); Alkaline Phosphatase 137 U/L (45-117); Aspartate Amino Transferase 21 U/L (0-37); Bilirubin,Total < 0.39 MG/DL (0.2-1.0); Blood Urea Nitrogen 17 MG/DL (7-18); Calcium 7.6 MG/DL (8.5-10.1); Glucose 293 MG/DL (74-106); Osmolality,Calculated 282.1 MOS/KG (273-304); Potassium 4.7 MMOL/L (3.5-5.1); Sodium 135 MMOL/L (136-145); Total Protein 6.6 G/DL (6.4-8.3); Troponin I Only < 0.015 NG/ML (0.00-0.045)
[2017-06-04] MEDS ORDERED: LEVOFLOXACIN INJ 750 MG in PREMIX 1 EACH IV STA (22:15)
[2017-06-04] MEDS ORDERED: FUROSEMIDE 40 MG/4 ML VIAL IV STA (22:33)
[2017-06-04] MEDS ORDERED: ALBUTEROL/IPRATROPIUM 3 ML NEB RESP TX STA (22:33)
[2017-06-04] MEDS ORDERED: FUROSEMIDE 40 MG/4 ML VIAL ONE (22:50)
[2017-06-04] MEDS ORDERED: LEVOFLOXACIN INJ 150 ML IV ONE (22:50)
[2017-06-04 22:53] LABS: Apearance,Urine CLEAR (Clear); Bacteria,Urine Occasional /HPF (Few); Bilirubin,Urine Negative (Negative); Blood, Urine Negative (Negative); Glucose,Urine (UA) 150 mg/dL (Negative); Ketones,Urine Negative (Negative); Nitrite,Urine Negative (Negative); Protein,Urine >=500 MG/DL; RBC,Urine 1 /HPF (0-4); Urine Color Yellow (Yellow); Urine Specific Gravity 1.025 (1.001-1.035); WBC,Urine 1 /HPF (0-6)
[2017-06-05] MEDS ORDERED: ALBUTEROL/IPRATROPIUM 3 ML NEB RESP TX PRN (01:26)
[2017-06-05] MEDS ORDERED: ONDANSETRON 4 MG/2 ML VIAL IV PRN (01:26)
[2017-06-05] MEDS ORDERED: DEXTROSE 50% 25 GM/50 ML VIAL IV PRN (01:26)
[2017-06-05] MEDS ORDERED: ROSUVASTATIN 10 MG TABLET PO SCH (01:26)
[2017-06-05] MEDS ORDERED: GLUCAGON 1 MG VIAL IM PRN (01:26)
[2017-06-05] MEDS ORDERED: CALCIUM GLUCONATE 1,000 MG in SODIUM CHLORIDE 0.9% 100 ML IV ONE (01:26)
[2017-06-05] MEDS ORDERED: methylPREDNISolone SOD SUC 125 MG/2 ML VIAL IV ONE (01:26)
[2017-06-05] MEDS: cloNIDine 0.1 MG TABLET PO SCH ×2 (01:51→21:32)
[2017-06-05] MEDS: CARVEDILOL 12.5 MG TABLET PO SCH ×3 (01:51→21:32)
[2017-06-05] MEDS: tiZANidine 4 MG TABLET PO SCH ×3 (01:51→21:32)
[2017-06-05] MEDS: rOPINIRole 0.25 MG TABLET PO SCH ×2 (01:51→21:32)
[2017-06-05] MEDS: ALBUTEROL/IPRATROPIUM 3 ML NEB RESP TX SCH ×4 (02:10→19:48)
[2017-06-05 02:32] LABS: Lactic Acid 0.8 MMOL/L (0.4-2.0)
[2017-06-05 02:38] LABS: VLDL CHOLESTEROL 47.6 MG/DL
[2017-06-05 02:39] LABS: Risk Ratio 8.14; Thyroid Stimulating Hormone 3.64 uIU/ml (0.358-3.74)
[2017-06-05] MEDS: INSULIN REGULAR 100 UNIT/ML SUBCUT SCH ×5 (02:40→21:35)
[2017-06-05] MEDS: ZALEPLON 5 MG CAPSULE PO PRN ×2 (02:42→21:36)
[2017-06-05] MEDS: NICOTINE 21 MG/24 HR PATCH TRANSDERM PRN ×2 (02:55→21:36)
[2017-06-05] MEDS ORDERED: FUROSEMIDE 40 MG TABLET PO SCH (08:00)
[2017-06-05] MEDS ORDERED: CALCIUM (CARBONATE)/VITAMIN D 250 MG-125 UNIT TABLET PO SCH (09:00)
[2017-06-05] MEDS ORDERED: INSULIN NPH/REGULAR 70/30 100 UNIT/ML SUBCUT SCH (09:00)
[2017-06-05] MEDS ORDERED: LISINOPRIL 10 MG TABLET PO SCH (09:00)
[2017-06-05] MEDS: FUROSEMIDE 40 MG/4 ML VIAL IV SCH ×2 (09:04→16:08)
[2017-06-05] MEDS: ASPIRIN EC 325 MG TABLET PO SCH (09:10)
[2017-06-05] MEDS: CALCIUM (CARBONATE)/VITAMIN D 500 MG-200 UNIT TABLET PO SCH ×2 (09:13→21:31)
[2017-06-05] MEDS: HYDROmorphone 2 MG/1 ML VIAL IV PRN ×4 (09:26→22:13)
[2017-06-05] MEDS: DOCUSATE SODIUM 100 MG CAPSULE PO SCH ×2 (09:31→21:32)
[2017-06-05] MEDS: GABAPENTIN 300 MG CAPSULE PO SCH ×3 (09:32→21:31)
[2017-06-05] MEDS: INSULIN NPH/REGULAR 70/30 100 UNIT/ML SUBCUT SCH (09:32)
[2017-06-05] MEDS: PANTOPRAZOLE 40 MG TABLET PO SCH ×2 (09:32→22:12)
[2017-06-05] MEDS: ENOXAPARIN 40 MG/0.4 ML SYRINGE SUBCUT SCH (09:32)
[2017-06-05] MEDS ORDERED: NITROGLYCERIN SL 0.4 MG TABLET SL PRN (09:43)
[2017-06-05] MEDS: methylPREDNISolone SOD SUC 40 MG/1 ML VIAL IV SCH ×2 (10:38→17:37)
[2017-06-05] MEDS: traMADol 50 MG TABLET PO SCH ×2 (12:02→21:32)
[2017-06-05] MEDS: clonazePAM 0.5 MG TABLET PO SCH ×2 (16:05→21:31)
[2017-06-05] MEDS: LIDOCAINE 5% PATCH TRANSDERM SCH (16:06)
[2017-06-05] MEDS ORDERED: ESCITALOPRAM 10 MG TABLET PO SCH (21:00)
[2017-06-05] MEDS ORDERED: INSULIN GLARGINE 100 UNIT/ML SUBCUT SCH (21:00)
[2017-06-05] MEDS ORDERED: INSULIN REGULAR 100 UNIT/ML SUBCUT SCH (21:00)
[2017-06-05] MEDS: ROSUVASTATIN 20 MG TABLET PO SCH (21:30)
[2017-06-05] MEDS: ESCITALOPRAM 10 MG TABLET PO SCH (21:31)
[2017-06-05] MEDS: INSULIN GLARGINE 100 UNIT/ML SUBCUT SCH (21:35)
[2017-06-05] MEDS: LEVOFLOXACIN INJ 750 MG in PREMIX 1 EACH IV SCH (22:43)
[2017-06-06] MEDS: INSULIN REGULAR 100 UNIT/ML SUBCUT SCH ×5 (00:33→16:52)
[2017-06-06] MEDS: ALBUTEROL/IPRATROPIUM 3 ML NEB RESP TX SCH ×4 (01:27→19:14)
[2017-06-06 02:53] LABS: Hematocrit 36.6 VOL% (35.7-47.0); Lymphocytes # 1.5 10*3/uL (1.4-4.0); Lymphocytes % 14.1 % (21.3-54.2); Mean Corpuscular HGB Conc 32.8 GM/DL (32-36); Mean Corpuscular Hemoglobin 27 PG (27-34); Mean Platelet Volume 12.2 FL (9.6-12.0); Monocytes # 0.3 10*3/uL (0.11-0.8); Monocytes % 3.3 % (1.7-12.7); Neutrophils # 8.4 10*3/uL (1.4-7.4); Neutrophils % 81.6 % (38.7-73.9); Platelet Count 218 T/CUMM (130-400); Red Blood Count 4.52 MC/CUMM (3.8-5.5); White Blood Count 10.3 T/CUMM (4-12)
[2017-06-06] MEDS: methylPREDNISolone SOD SUC 40 MG/1 ML VIAL IV SCH ×4 (03:02→22:23)
[2017-06-06] MEDS: HYDROmorphone 2 MG/1 ML VIAL IV PRN ×6 (03:08→23:51)
[2017-06-06 03:11] LABS: Troponin I Only < 0.015 NG/ML (0.00-0.045)
[2017-06-06 05:52] LABS: Calcium 7.9 MG/DL (8.5-10.1); Osmolality,Calculated 286.4 MOS/KG (273-304); Potassium 4.8 MMOL/L (3.5-5.1)
[2017-06-06] MEDS: INSULIN LISPRO 100 UNIT/ML SUBCUT SCH ×3 (09:05→22:24)
[2017-06-06] MEDS: FUROSEMIDE 40 MG/4 ML VIAL IV SCH ×2 (09:06→16:52)
[2017-06-06] MEDS: LISINOPRIL 20 MG TABLET PO SCH (09:07)
[2017-06-06] MEDS: INSULIN NPH/REGULAR 70/30 100 UNIT/ML SUBCUT SCH (09:07)
[2017-06-06] MEDS: CALCIUM (CARBONATE)/VITAMIN D 500 MG-200 UNIT TABLET PO SCH ×2 (09:08→22:28)
[2017-06-06] MEDS: tiZANidine 4 MG TABLET PO SCH ×2 (09:08→22:26)
[2017-06-06] MEDS: clonazePAM 0.5 MG TABLET PO SCH ×2 (09:08→22:26)
[2017-06-06] MEDS: GABAPENTIN 300 MG CAPSULE PO SCH ×3 (09:09→22:25)
[2017-06-06] MEDS: ENOXAPARIN 40 MG/0.4 ML SYRINGE SUBCUT SCH (09:09)
[2017-06-06] MEDS: CARVEDILOL 12.5 MG TABLET PO SCH ×2 (09:09→22:26)
[2017-06-06] MEDS: traMADol 50 MG TABLET PO SCH ×2 (09:09→22:26)
[2017-06-06] MEDS: DOCUSATE SODIUM 100 MG CAPSULE PO SCH ×2 (09:09→22:25)
[2017-06-06] MEDS: ASPIRIN EC 325 MG TABLET PO SCH (09:14)
[2017-06-06] MEDS ORDERED: POLYETHYLENE GLYCOL POWDER 17 GM PACK PO PRN (14:23)
[2017-06-06] MEDS: LIDOCAINE 5% PATCH TRANSDERM SCH (15:27)
[2017-06-06] MEDS ORDERED: INSULIN LISPRO 100 UNIT/ML SUBCUT ONE (18:33)
[2017-06-06] MEDS ORDERED: PANTOPRAZOLE 40 MG TABLET PO SCH (21:00)
[2017-06-06] MEDS: INSULIN GLARGINE 100 UNIT/ML SUBCUT SCH (22:24)
[2017-06-06] MEDS: rOPINIRole 0.25 MG TABLET PO SCH (22:25)
[2017-06-06] MEDS: ZALEPLON 5 MG CAPSULE PO PRN (22:25)
[2017-06-06] MEDS: ROSUVASTATIN 20 MG TABLET PO SCH (22:25)
[2017-06-06] MEDS: ESCITALOPRAM 10 MG TABLET PO SCH (22:25)
[2017-06-06] MEDS: cloNIDine 0.1 MG TABLET PO SCH (22:26)
[2017-06-06] MEDS: LEVOFLOXACIN INJ 750 MG in PREMIX 1 EACH IV SCH (23:50)
[2017-06-07] MEDS: INSULIN LISPRO 100 UNIT/ML SUBCUT SCH ×4 (00:33→13:34)
[2017-06-07] MEDS: ALBUTEROL/IPRATROPIUM 3 ML NEB RESP TX SCH ×2 (01:32→06:54)
[2017-06-07] MEDS: HYDROmorphone 2 MG/1 ML VIAL IV PRN ×3 (05:44→13:32)
[2017-06-07 06:29] LABS: Basophils % 0.1 % (0.0-0.8); Hematocrit 39.5 VOL% (35.7-47.0); Hemoglobin 12.7 GM/DL (12.0-16.0); Immature Granulocytes % 0.9 %; Immature Granulocytes Absolute 0.16 #; Lymphocytes # 1.7 10*3/uL (1.4-4.0); Lymphocytes % 9.9 % (21.3-54.2); Mean Corpuscular HGB Conc 32.2 GM/DL (32-36); Mean Corpuscular Hemoglobin 26 PG (27-34); Mean Corpuscular Volume 81.6 FL (87-102); Monocytes # 0.2 10*3/uL (0.11-0.8); Monocytes % 1.4 % (1.7-12.7); Neutrophils # 14.9 10*3/uL (1.4-7.4); Neutrophils % 87.7 % (38.7-73.9); Platelet Count 258 T/CUMM (130-400); Red Blood Count 4.84 MC/CUMM (3.8-5.5); Red Cell Distribution Width 14.5 % (9.3-17.3)
[2017-06-07 07:03] LABS: Alanine Aminotransferase 14 U/L (13-56); Albumin 2.7 G/DL (3.4-5.0); Alkaline Phosphatase 117 U/L (45-117); Aspartate Amino Transferase 16 U/L (0-37); Bilirubin,Total < 0.39 MG/DL (0.2-1.0); Blood Urea Nitrogen 31 MG/DL (7-18); Calcium 7.9 MG/DL (8.5-10.1); Glucose 327 MG/DL (74-106); Osmolality,Calculated 287.2 MOS/KG (273-304); Potassium 4.1 MMOL/L (3.5-5.1); Sodium 134 MMOL/L (136-145); Total Protein 6.4 G/DL (6.4-8.3)
[2017-06-07] MEDS: LISINOPRIL 20 MG TABLET PO SCH (08:54)
[2017-06-07] MEDS: DOCUSATE SODIUM 100 MG CAPSULE PO SCH (08:54)
[2017-06-07] MEDS: GABAPENTIN 300 MG CAPSULE PO SCH (08:54)
[2017-06-07] MEDS: ASPIRIN EC 325 MG TABLET PO SCH (08:54)
[2017-06-07] MEDS: CARVEDILOL 12.5 MG TABLET PO SCH (08:54)
[2017-06-07] MEDS: tiZANidine 4 MG TABLET PO SCH (08:54)
[2017-06-07] MEDS: CALCIUM (CARBONATE)/VITAMIN D 500 MG-200 UNIT TABLET PO SCH (08:54)
[2017-06-07] MEDS: traMADol 50 MG TABLET PO SCH (08:54)
[2017-06-07] MEDS: clonazePAM 0.5 MG TABLET PO SCH (08:55)
[2017-06-07] MEDS: ENOXAPARIN 40 MG/0.4 ML SYRINGE SUBCUT SCH (08:55)
[2017-06-07] MEDS: INSULIN NPH/REGULAR 70/30 100 UNIT/ML SUBCUT SCH (08:56)
[2017-06-07] MEDS: FUROSEMIDE 40 MG/4 ML VIAL IV SCH (08:56)
[2017-06-07 13:22] VITALS: BP 128/50
[2017-06-07] MEDS: LIDOCAINE 5% PATCH TRANSDERM SCH (13:33)
[2017-06-08] MEDS ORDERED: predniSONE 20 MG TABLET PO SCH (09:00)
[2017-06-08] MEDS ORDERED: LEVOFLOXACIN 500 MG TABLET PO SCH (09:00)
== END 2017-06-07 14:26 | disposition home or self-care (01) | DRG 292 ==
LOC: N.ED 21:15 → N.EDINP 06-05 00:17 → N.3E 06-05 01:13 → N.TELES 06-05 09:55

== ENCOUNTER 2017-09-11 22:12 | Observation (INO) ==
[2017-09-11 23:37] LABS: Basophils # 0.1 10*3/uL (0.0-0.2); Basophils % 0.3 % (0.0-0.8); Eosinophils # 0.2 10*3/uL (0.0-0.87); Eosinophils % 0.9 % (0.00-10.9); Hematocrit 40.1 VOL% (35.7-47.0); Hemoglobin 12.7 GM/DL (12.0-16.0); Immature Granulocytes % 0.5 %; Immature Granulocytes Absolute 0.08 #; Lymphocytes # 3.9 10*3/uL (1.4-4.0); Lymphocytes % 23.6 % (21.3-54.2); Mean Corpuscular HGB Conc 31.7 GM/DL (32-36); Mean Corpuscular Hemoglobin 27 PG (27-34); Mean Corpuscular Volume 85.1 FL (87-102); Mean Platelet Volume 11.1 FL (9.6-12.0); Monocytes # 0.7 10*3/uL (0.11-0.8); Monocytes % 4.4 % (1.7-12.7); Neutrophils # 11.7 10*3/uL (1.4-7.4); Neutrophils % 70.3 % (38.7-73.9); Platelet Count 265 T/CUMM (130-400); Red Blood Count 4.71 MC/CUMM (3.8-5.5); Red Cell Distribution Width 14.5 % (9.3-17.3); White Blood Count 16.7 T/CUMM (4-12)
[2017-09-11 23:46] LABS: INR 0.9; PT Patient Result 9.9 SECS; Partial Thromboplastin Time 27.9 SECS (0-40)
[2017-09-11 23:56] LABS: Alanine Aminotransferase 16 U/L (13-56); Albumin 2.6 G/DL (3.4-5.0); Alkaline Phosphatase 106 U/L (45-117); Amylase 35 U/L (25-115); Aspartate Amino Transferase 11 U/L (0-37); Bilirubin,Total < 0.39 MG/DL (0.2-1.0); Blood Urea Nitrogen 24 MG/DL (7-18); Calcium 7.6 MG/DL (8.5-10.1); Glucose 275 MG/DL (74-106); Osmolality,Calculated 281.2 MOS/KG (273-304); Sodium 134 MMOL/L (136-145); Total Protein 6.5 G/DL (6.4-8.3); Troponin I Only < 0.015 NG/ML (0.00-0.045)
[2017-09-12] MEDS ORDERED: NITROGLYCERIN SL 0.4 MG TABLET SL PRN (01:01)
[2017-09-12] MEDS ORDERED: ASPIRIN 325 MG TABLET PO STA (01:01)
[2017-09-12] MEDS ORDERED: MORPHINE 4 MG/1 ML VIAL ONE (01:21)
[2017-09-12 02:32] LABS: Calcium 7.8 MG/DL (8.5-10.1); Osmolality,Calculated 280.1 MOS/KG (273-304); Potassium 5.8 MMOL/L (3.5-5.1)
[2017-09-12] MEDS ORDERED: fentaNYL 100 MCG/2 ML VIAL ONE (02:47)
[2017-09-12] MEDS ORDERED: ONDANSETRON 4 MG/2 ML VIAL IM STA (02:49)
[2017-09-12] MEDS ORDERED: fentaNYL 100 MCG/2 ML VIAL IV STA (02:50)
[2017-09-12] MEDS ORDERED: ONDANSETRON 4 MG/2 ML VIAL IV STA (04:23)
[2017-09-12] MEDS ORDERED: NICOTINE 21 MG/24 HR PATCH TRANSDERM PRN (05:07)
[2017-09-12] MEDS ORDERED: PROMETHAZINE 25 MG/1 ML VIAL IM PRN (05:07)
[2017-09-12] MEDS ORDERED: DEXTROSE 50% 25 GM/50 ML VIAL IV PRN (05:07)
[2017-09-12] MEDS ORDERED: ALBUTEROL/IPRATROPIUM 3 ML NEB RESP TX PRN (05:07)
[2017-09-12] MEDS ORDERED: traZODone 50 MG TABLET PO PRN (05:07)
[2017-09-12] MEDS ORDERED: GLUCAGON 1 MG VIAL IM PRN (05:07)
[2017-09-12] MEDS ORDERED: SODIUM POLYSTYRENE SULFATE 15 GM/60 ML BOTTLE PO ONE ×2 (05:07→10:40)
[2017-09-12] MEDS: oxyCODONE IR 5 MG TABLET PO PRN ×3 (06:00→14:40)
[2017-09-12] MEDS: ONDANSETRON 4 MG/2 ML VIAL IV PRN ×3 (06:01→18:31)
[2017-09-12] MEDS: ACETAMINOPHEN 500 MG TABLET PO SCH ×2 (06:03→13:36)
[2017-09-12 06:33] LABS: Risk Ratio 5.32; Thyroid Stimulating Hormone 2.68 uIU/ml (0.358-3.74); VLDL CHOLESTEROL 37.2 MG/DL
[2017-09-12] MEDS ORDERED: tiZANidine 4 MG TABLET PO SCH (09:00)
[2017-09-12] MEDS ORDERED: PANTOPRAZOLE 40 MG TABLET PO SCH (09:00)
[2017-09-12] MEDS ORDERED: CARVEDILOL 12.5 MG TABLET PO SCH (09:00)
[2017-09-12] MEDS ORDERED: ENOXAPARIN 40 MG/0.4 ML SYRINGE SUBCUT SCH (09:00)
[2017-09-12] MEDS ORDERED: ASPIRIN EC 325 MG TABLET PO SCH (09:00)
[2017-09-12] MEDS ORDERED: DOCUSATE SODIUM 100 MG CAPSULE PO SCH (09:00)
[2017-09-12] MEDS ORDERED: LISINOPRIL 10 MG TABLET PO SCH (09:00)
[2017-09-12] MEDS ORDERED: CALCIUM (CARBONATE)/VITAMIN D 500 MG-200 UNIT TABLET PO SCH (09:00)
[2017-09-12] MEDS: GABAPENTIN 300 MG CAPSULE PO SCH ×2 (10:24→14:32)
[2017-09-12] MEDS: INSULIN REGULAR 100 UNIT/ML SUBCUT SCH ×3 (10:26→17:36)
[2017-09-12] MEDS: metroNIDAZOLE INJ 500 MG in PREMIX 1 EACH IV SCH ×2 (10:28→18:37)
[2017-09-12] MEDS: SODIUM POLYSTYRENE SULFATE 15 GM/60 ML BOTTLE PO SCH ×2 (13:34→17:36)
[2017-09-12 14:56] LABS: Calcium 7.8 MG/DL (8.5-10.1); Osmolality,Calculated 274.1 MOS/KG (273-304); Potassium 4.8 MMOL/L (3.5-5.1)
[2017-09-12 16:22] VITALS: BP 148/62
[2017-09-12] MEDS ORDERED: ROSUVASTATIN 10 MG TABLET PO SCH (21:00)
[2017-09-12] MEDS ORDERED: ESCITALOPRAM 10 MG TABLET PO SCH (21:00)
[2017-09-12] MEDS ORDERED: cloNIDine 0.1 MG TABLET PO SCH (21:00)
== END 2017-09-12 18:38 | disposition home or self-care (01) ==
LOC: N.EDINP 22:12 → N.ED 22:12 → N.EDINP 09-12 05:07 → N.TELES 09-12 05:13
PROVIDERS: ADMIT Internal Medicine; ATTEND Internal Medicine

== ENCOUNTER 2019-04-28 11:59 | Inpatient (IN) ==
[2019-04-28] MEDS ORDERED: NITROGLYCERIN 2% OINT 1 INCH/GM PACK TOP STA (12:32)
[2019-04-28] MEDS ORDERED: ASPIRIN 325 MG TABLET PO STA (12:32)
[2019-04-28] MEDS ORDERED: ALUM/MAG/SIMETH/LIDO VISC 1:1 30 ML BOTTLE PO STA (12:32)
[2019-04-28] MEDS ORDERED: ENOXAPARIN 100 MG/ML SYRINGE SUBCUT STA (12:32)
[2019-04-28] MEDS ORDERED: ONDANSETRON 4 MG/2 ML VIAL IV STA (12:32)
[2019-04-28] MEDS ORDERED: fentaNYL 100 MCG/2 ML VIAL IV STA (12:35)
[2019-04-28 13:00] LABS: Alanine Aminotransferase 13 U/L (13-56); Albumin 2.4 G/DL (3.4-5.0); Alkaline Phosphatase 131 U/L (45-117); Aspartate Amino Transferase 19 U/L (0-37); Bilirubin,Total < 0.39 MG/DL (0.2-1.0); Blood Urea Nitrogen 24 MG/DL (7-18); Estimated Glom Filtration Rate 54 ML/MIN; Glucose 159 MG/DL (74-106); Osmolality,Calculated 276.1 MOS/KG (273-304)
[2019-04-28 13:02] LABS: PT Patient Result 10.6 SECS (9.6-12.2); Partial Thromboplastin Time 28.8 SECS (20.8-36.0)
[2019-04-28] MEDS ORDERED: SODIUM BICARBONATE 50 MEQ/50 ML VIAL IV STA (13:12)
[2019-04-28] MEDS ORDERED: DEXTROSE 50% 25 GM/50 ML VIAL IV STA (13:12)
[2019-04-28] MEDS ORDERED: INSULIN REGULAR 100 UNIT/ML IV STA (13:12)
[2019-04-28] MEDS ORDERED: CALCIUM CHLORIDE 1,000 MG/10 ML SYRINGE IV STA (13:13)
[2019-04-28 13:15] LABS: Basophils % 0.4 % (0.0-0.8); Eosinophils # 0.2 10*3/uL (0.0-0.87); Eosinophils % 1.8 % (0.00-10.9); Hematocrit 38.5 VOL% (35.7-47.0); Hemoglobin 11.5 GM/DL (12.0-16.0); Immature Granulocytes % 0.3 %; Immature Granulocytes Absolute 0.03 #; Lymphocytes # 2.8 10*3/uL (1.4-4.0); Lymphocytes % 28.8 % (21.3-54.2); Mean Corpuscular HGB Conc 29.9 GM/DL (32-36); Mean Corpuscular Volume 83.5 FL (87-102); Mean Platelet Volume 11.3 FL (9.6-12.0); Monocytes % 5.6 % (1.7-12.7); Neutrophils % 63.1 % (38.7-73.9); Platelet Count 246 T/CUMM (130-400); Red Blood Count 4.61 MC/CUMM (3.8-5.5); White Blood Count 9.7 T/CUMM (4-12)
[2019-04-28] MEDS ORDERED: DEXTROSE 50% 25 GM/50 ML SYRINGE IV ONE (13:24)
[2019-04-28 13:25] LABS: Apearance,Urine CLEAR (Clear); Bilirubin,Urine Negative (Negative); Blood, Urine Negative (Negative); Glucose,Urine (UA) 50 mg/dL (Negative); Ketones,Urine Negative (Negative); Nitrite,Urine Negative (Negative); Protein,Urine >=500 MG/DL; RBC,Urine 7 /HPF (0-4); Squamous Epithelial Cell,Urine Occasional /HPF (0-10); Urine Color Yellow (Yellow); Urine Specific Gravity 1.026 (1.001-1.035); Urine Urobilinogen < 2.0 EU/DL (0.2-1.0); WBC,Urine 3 /HPF (0-6)
[2019-04-28 13:26] LABS: Barbiturates Screen,Urine Negative (Negative); Benzodiazepines Screen,Urine Negative (Negative); Cannabinoid Screen,Urine Negative (Negative); Opiate Screen,Urine Positive (Negative); Phencyclidine Screen,Urine Negative (Negative)
[2019-04-28] MEDS ORDERED: NICOTINE 21 MG/24 HR PATCH TRANSDERM PRN (14:09)
[2019-04-28] MEDS ORDERED: NITROGLYCERIN SL 0.4 MG TABLET SL PRN (14:10)
[2019-04-28] MEDS ORDERED: DEXTROSE 10% 25 GM/250 ML BAG IV PRN (14:13)
[2019-04-28] MEDS ORDERED: ALBUTEROL/IPRATROPIUM 3 ML NEB RESP TX PRN (14:15)
[2019-04-28] MEDS ORDERED: ENOXAPARIN 40 MG/0.4 ML SYRINGE SUBCUT SCH (14:30)
[2019-04-28] MEDS ORDERED: hydrALAZINE 20 MG/1 ML VIAL IV PRN (14:34)
[2019-04-28] MEDS ORDERED: LEVOFLOXACIN INJ 500 MG in PREMIX 1 EACH IV ONE (15:01)
[2019-04-28 15:37] LABS: % Iron Saturation 7.9 % (18-50); Ferritin 13.6 ng/ml (8-252)
[2019-04-28] MEDS ORDERED: methylPREDNISolone SOD SUC 125 MG/2 ML VIAL IV SCH (16:00)
[2019-04-28] MEDS: ALBUTEROL/IPRATROPIUM 3 ML NEB RESP TX SCH ×2 (16:00→20:12)
[2019-04-28] MEDS: INSULIN LISPRO 100 UNIT/ML SUBCUT SCH ×2 (18:52→20:57)
[2019-04-28] MEDS ORDERED: SODIUM POLYSTYRENE SULFATE 15 GM/60 ML BOTTLE PO ONE (19:15)
[2019-04-28] MEDS: FUROSEMIDE 40 MG/4 ML VIAL IV SCH (19:42)
[2019-04-28] MEDS: NITROGLYCERIN 2% OINT 1 INCH/GM PACK TOP SCH (19:46)
[2019-04-28] MEDS: ESCITALOPRAM 10 MG TABLET PO SCH (20:57)
[2019-04-28] MEDS: tiZANidine 4 MG TABLET PO SCH (20:57)
[2019-04-28] MEDS: rOPINIRole 0.25 MG TABLET PO SCH (20:58)
[2019-04-28] MEDS: GABAPENTIN 300 MG CAPSULE PO SCH (20:58)
[2019-04-28] MEDS: carvediloL 12.5 MG TABLET PO SCH (20:59)
[2019-04-28] MEDS ORDERED: ROSUVASTATIN 20 MG TABLET PO SCH (21:00)
[2019-04-28] MEDS ORDERED: cloNIDine 0.1 MG TABLET PO SCH (21:00)
[2019-04-29] MEDS: NITROGLYCERIN 2% OINT 1 INCH/GM PACK TOP SCH ×3 (00:28→12:33)
[2019-04-29] MEDS: ENOXAPARIN 80 MG/0.8 ML SYRINGE SUBCUT SCH (00:29)
[2019-04-29] MEDS: ALBUTEROL/IPRATROPIUM 3 ML NEB RESP TX SCH ×4 (01:02→19:41)
[2019-04-29] MEDS ORDERED: MEPERIDINE 25 MG/1 ML VIAL IV ONE (03:46)
[2019-04-29 04:54] LABS: Basophils % 0.5 % (0.0-0.8); Eosinophils # 0.1 10*3/uL (0.0-0.87); Eosinophils % 1.6 % (0.00-10.9); Immature Granulocytes % 0.3 %; Immature Granulocytes Absolute 0.02 #; Lymphocytes # 3.1 10*3/uL (1.4-4.0); Lymphocytes % 40.4 % (21.3-54.2); Mean Corpuscular HGB Conc 28.9 GM/DL (32-36); Mean Platelet Volume 10.7 FL (9.6-12.0); Monocytes % 5.6 % (1.7-12.7); Neutrophils % 51.6 % (38.7-73.9); Platelet Count 203 T/CUMM (130-400); Red Blood Count 4.07 MC/CUMM (3.8-5.5); Red Cell Distribution Width 17.1 % (9.3-17.3); White Blood Count 7.7 T/CUMM (4-12)
[2019-04-29 05:36] LABS: Hematocrit 33.4 VOL% (35.7-47.0)
[2019-04-29 05:43] LABS: Albumin 2.1 G/DL (3.4-5.0); Bilirubin,Total 0.7 MG/DL (0.2-1.0); Calcium 7.1 MG/DL (8.5-10.1); Osmolality,Calculated 280.8 MOS/KG (273-304); Risk Ratio 6.65; Total Protein 5.6 G/DL (6.4-8.3); VLDL CHOLESTEROL 32.8 MG/DL
[2019-04-29 05:51] LABS: Troponin I < 0.015 NG/ML (0.00-0.045)
[2019-04-29] MEDS ORDERED: SODIUM POLYSTYRENE SULFATE 15 GM/60 ML BOTTLE PO ONE (08:09)
[2019-04-29] MEDS ORDERED: lisinopriL 10 MG TABLET PO SCH (09:00)
[2019-04-29] MEDS ORDERED: ENOXAPARIN 40 MG/0.4 ML SYRINGE SUBCUT SCH (09:00)
[2019-04-29] MEDS: carvediloL 12.5 MG TABLET PO SCH ×2 (09:06→22:02)
[2019-04-29] MEDS: GABAPENTIN 300 MG CAPSULE PO SCH ×3 (09:06→22:03)
[2019-04-29] MEDS: FUROSEMIDE 40 MG/4 ML VIAL IV SCH ×2 (09:06→17:17)
[2019-04-29] MEDS: tiZANidine 4 MG TABLET PO SCH ×2 (09:06→22:01)
[2019-04-29] MEDS: ASPIRIN EC 81 MG TABLET PO SCH (09:06)
[2019-04-29] MEDS: PANTOPRAZOLE 40 MG TABLET PO SCH (09:06)
[2019-04-29] MEDS: methylPREDNISolone SOD SUC 40 MG/1 ML VIAL IV SCH ×2 (09:07→17:17)
[2019-04-29] MEDS: INSULIN LISPRO 100 UNIT/ML SUBCUT SCH ×4 (09:25→22:06)
[2019-04-29] MEDS: LEVOFLOXACIN 250 MG TABLET PO SCH (11:45)
[2019-04-29] MEDS ORDERED: FUROSEMIDE 40 MG/4 ML VIAL IV ONE (13:09)
[2019-04-29] MEDS: amLODIPine 5 MG TABLET PO SCH (15:02)
[2019-04-29] MEDS: ENOXAPARIN 40 MG/0.4 ML SYRINGE SUBCUT SCH (15:02)
[2019-04-29] MEDS: MEPERIDINE 25 MG/1 ML VIAL IV PRN ×2 (17:17→23:22)
[2019-04-29] MEDS: ROSUVASTATIN 20 MG TABLET PO SCH (22:01)
[2019-04-29] MEDS: ESCITALOPRAM 10 MG TABLET PO SCH (22:04)
[2019-04-29] MEDS: rOPINIRole 0.25 MG TABLET PO SCH (22:04)
[2019-04-29] MEDS: ONDANSETRON 4 MG/2 ML VIAL IV PRN (23:22)
[2019-04-30] MEDS: ALBUTEROL/IPRATROPIUM 3 ML NEB RESP TX SCH ×4 (01:15→19:25)
[2019-04-30] MEDS: methylPREDNISolone SOD SUC 40 MG/1 ML VIAL IV SCH ×3 (03:02→21:56)
[2019-04-30] MEDS: ONDANSETRON 4 MG/2 ML VIAL IV PRN (05:48)
[2019-04-30] MEDS: MEPERIDINE 25 MG/1 ML VIAL IV PRN ×3 (05:48→18:00)
[2019-04-30 06:18] LABS: Hematocrit 34.2 VOL% (35.7-47.0); Immature Granulocytes % 0.6 %; Immature Granulocytes Absolute 0.04 #; Lymphocytes # 1.1 10*3/uL (1.4-4.0); Lymphocytes % 16.1 % (21.3-54.2); Mean Corpuscular HGB Conc 29.2 GM/DL (32-36); Mean Corpuscular Volume 83.2 FL (87-102); Mean Platelet Volume 11.5 FL (9.6-12.0); Neutrophils % 82.3 % (38.7-73.9); Platelet Count 201 T/CUMM (130-400); Red Blood Count 4.11 MC/CUMM (3.8-5.5); Red Cell Distribution Width 16.7 % (9.3-17.3)
[2019-04-30 06:53] LABS: Hemoglobin 10.2 GM/DL (12.0-16.0)
[2019-04-30 07:09] LABS: Albumin 2.2 G/DL (3.4-5.0); Bilirubin,Total 0.5 MG/DL (0.2-1.0); Calcium 6.9 MG/DL (8.5-10.1); Osmolality,Calculated 286.5 MOS/KG (273-304)
[2019-04-30] MEDS: FUROSEMIDE 40 MG/4 ML VIAL IV SCH ×2 (10:20→17:00)
[2019-04-30] MEDS: ASPIRIN EC 81 MG TABLET PO SCH (10:21)
[2019-04-30] MEDS: PANTOPRAZOLE 40 MG TABLET PO SCH (10:21)
[2019-04-30] MEDS: LEVOFLOXACIN 250 MG TABLET PO SCH (10:21)
[2019-04-30] MEDS: GABAPENTIN 300 MG CAPSULE PO SCH ×3 (10:22→21:46)
[2019-04-30] MEDS: carvediloL 12.5 MG TABLET PO SCH ×2 (10:22→21:45)
[2019-04-30] MEDS: tiZANidine 4 MG TABLET PO SCH ×2 (10:22→21:45)
[2019-04-30] MEDS: amLODIPine 5 MG TABLET PO SCH (10:22)
[2019-04-30] MEDS: INSULIN LISPRO 100 UNIT/ML SUBCUT SCH ×4 (10:23→21:55)
[2019-04-30] MEDS ORDERED: SODIUM POLYSTYRENE SULFATE 15 GM/60 ML BOTTLE PO STA (12:08)
[2019-04-30] MEDS: ENOXAPARIN 40 MG/0.4 ML SYRINGE SUBCUT SCH (14:22)
[2019-04-30] MEDS ORDERED: INSULIN GLARGINE 100 UNIT/ML SUBCUT SCH ×2 (21:00)
[2019-04-30] MEDS: rOPINIRole 0.25 MG TABLET PO SCH (21:45)
[2019-04-30] MEDS: ROSUVASTATIN 20 MG TABLET PO SCH (21:47)
[2019-04-30] MEDS: ESCITALOPRAM 10 MG TABLET PO SCH (21:55)
[2019-04-30] MEDS: INSULIN GLARGINE 100 UNIT/ML SUBCUT SCH (21:55)
[2019-05-01] MEDS: MEPERIDINE 25 MG/1 ML VIAL IV PRN ×4 (00:02→19:38)
[2019-05-01] MEDS: ONDANSETRON 4 MG/2 ML VIAL IV PRN ×3 (00:02→19:38)
[2019-05-01] MEDS: ALBUTEROL/IPRATROPIUM 3 ML NEB RESP TX SCH ×4 (01:49→22:12)
[2019-05-01 05:20] LABS: Basophils % 0.1 % (0.0-0.8); Hematocrit 33.3 VOL% (35.7-47.0); Hemoglobin 9.9 GM/DL (12.0-16.0); Immature Granulocytes % 1.2 %; Immature Granulocytes Absolute 0.15 #; Lymphocytes # 0.9 10*3/uL (1.4-4.0); Mean Corpuscular HGB Conc 29.7 GM/DL (32-36); Mean Corpuscular Volume 83.3 FL (87-102); Mean Platelet Volume 11.7 FL (9.6-12.0); Monocytes % 1.3 % (1.7-12.7); Neutrophils % 90.4 % (38.7-73.9); Platelet Count 188 T/CUMM (130-400); Red Cell Distribution Width 16.5 % (9.3-17.3); White Blood Count 12.6 T/CUMM (4-12)
[2019-05-01 05:43] LABS: Albumin 2.2 G/DL (3.4-5.0); Bilirubin,Total 0.9 MG/DL (0.2-1.0); Calcium 6.7 MG/DL (8.5-10.1); Osmolality,Calculated 293.8 MOS/KG (273-304); Total Protein 5.8 G/DL (6.4-8.3)
[2019-05-01] MEDS: INSULIN LISPRO 100 UNIT/ML SUBCUT SCH ×5 (06:19→23:11)
[2019-05-01] MEDS ORDERED: DEXTROSE 50% 25 GM, SODIUM BICARB INJ 50 MEQ, INSULIN REGULAR 10 UNIT in SODIUM CHLORID... IV SCH (06:30)
[2019-05-01] MEDS: LEVOFLOXACIN 250 MG TABLET PO SCH ×2 (07:27→09:05)
[2019-05-01] MEDS: ASPIRIN EC 81 MG TABLET PO SCH ×2 (07:27→09:05)
[2019-05-01] MEDS: PANTOPRAZOLE 40 MG TABLET PO SCH ×2 (07:27→09:05)
[2019-05-01] MEDS: GABAPENTIN 300 MG CAPSULE PO SCH ×3 (07:28→23:06)
[2019-05-01] MEDS: ENOXAPARIN 80 MG/0.8 ML SYRINGE SUBCUT SCH (07:51)
[2019-05-01] MEDS: carvediloL 12.5 MG TABLET PO SCH ×2 (08:29→23:02)
[2019-05-01] MEDS: methylPREDNISolone SOD SUC 40 MG/1 ML VIAL IV SCH ×2 (08:30→23:07)
[2019-05-01] MEDS: tiZANidine 4 MG TABLET PO SCH ×2 (08:30→23:05)
[2019-05-01] MEDS: FUROSEMIDE 40 MG/4 ML VIAL IV SCH ×2 (08:30→15:21)
[2019-05-01] MEDS: amLODIPine 5 MG TABLET PO SCH (08:30)
[2019-05-01] MEDS ORDERED: SODIUM BICARB INJ 150 MEQ in STERILE WATER INJ 850 ML IV SCH (08:30)
[2019-05-01] MEDS: SODIUM ZIRCONIUM CYCLOSILICATE 10 GM PACK PO SCH ×2 (08:39→15:21)
[2019-05-01] MEDS: ENOXAPARIN 40 MG/0.4 ML SYRINGE SUBCUT SCH (13:01)
[2019-05-01] MEDS: BENZONATATE 100 MG CAPSULE PO PRN (18:14)
[2019-05-01] MEDS ORDERED: MICONAZOLE 100 MG VAG SUPP 7/BOX VAG SCH (21:00)
[2019-05-01] MEDS: rOPINIRole 0.25 MG TABLET PO SCH (23:01)
[2019-05-01] MEDS: ESCITALOPRAM 10 MG TABLET PO SCH (23:02)
[2019-05-01] MEDS: ROSUVASTATIN 20 MG TABLET PO SCH (23:05)
[2019-05-01] MEDS: INSULIN GLARGINE 100 UNIT/ML SUBCUT SCH (23:11)
[2019-05-02] MEDS: ALBUTEROL/IPRATROPIUM 3 ML NEB RESP TX SCH ×3 (01:07→13:00)
[2019-05-02] MEDS: MEPERIDINE 25 MG/1 ML VIAL IV PRN ×2 (03:38→09:49)
[2019-05-02] MEDS: ONDANSETRON 4 MG/2 ML VIAL IV PRN (03:38)
[2019-05-02 04:55] LABS: Basophils % 0.1 % (0.0-0.8); Hematocrit 32.3 VOL% (35.7-47.0); Hemoglobin 9.9 GM/DL (12.0-16.0); Immature Granulocytes % 0.8 %; Immature Granulocytes Absolute 0.09 #; Lymphocytes # 1.2 10*3/uL (1.4-4.0); Lymphocytes % 9.8 % (21.3-54.2); Mean Corpuscular HGB Conc 30.7 GM/DL (32-36); Mean Corpuscular Volume 82.2 FL (87-102); Mean Platelet Volume 11.3 FL (9.6-12.0); Monocytes % 2.3 % (1.7-12.7); Platelet Count 183 T/CUMM (130-400); Red Blood Count 3.93 MC/CUMM (3.8-5.5); Red Cell Distribution Width 16.4 % (9.3-17.3); White Blood Count 11.8 T/CUMM (4-12)
[2019-05-02 05:24] LABS: Calcium 6.7 MG/DL (8.5-10.1); Osmolality,Calculated 286.4 MOS/KG (273-304)
[2019-05-02] MEDS: ACETAMINOPHEN 325 MG TABLET PO PRN ×2 (05:57→13:37)
[2019-05-02] MEDS ORDERED: NICOTINE 21 MG/24 HR PATCH TRANSDERM SCH (09:00)
[2019-05-02] MEDS: ASPIRIN EC 81 MG TABLET PO SCH (09:41)
[2019-05-02] MEDS: LEVOFLOXACIN 250 MG TABLET PO SCH (09:42)
[2019-05-02] MEDS: amLODIPine 5 MG TABLET PO SCH (09:43)
[2019-05-02] MEDS: PANTOPRAZOLE 40 MG TABLET PO SCH (09:43)
[2019-05-02] MEDS: carvediloL 12.5 MG TABLET PO SCH (09:43)
[2019-05-02] MEDS: GABAPENTIN 300 MG CAPSULE PO SCH ×2 (09:43→12:10)
[2019-05-02] MEDS: tiZANidine 4 MG TABLET PO SCH (09:44)
[2019-05-02] MEDS: INSULIN LISPRO 100 UNIT/ML SUBCUT SCH ×3 (09:44→15:40)
[2019-05-02] MEDS: FUROSEMIDE 40 MG/4 ML VIAL IV SCH (09:44)
[2019-05-02] MEDS: methylPREDNISolone SOD SUC 40 MG/1 ML VIAL IV SCH (09:47)
[2019-05-02] MEDS ORDERED: carvediloL 25 MG TABLET PO SCH (09:49)
[2019-05-02] MEDS ORDERED: amLODIPine 10 MG TABLET PO SCH (09:53)
[2019-05-02] MEDS ORDERED: carvediloL 12.5 MG TABLET PO SCH (09:54)
[2019-05-02] MEDS: ENOXAPARIN 40 MG/0.4 ML SYRINGE SUBCUT SCH ×2 (12:10→13:03)
[2019-05-02 12:32] VITALS: BP 145/66
[2019-05-02] MEDS: BENZONATATE 100 MG CAPSULE PO PRN (13:38)
[2019-05-02] MEDS ORDERED: FUROSEMIDE 40 MG TABLET PO SCH (16:00)
[2019-05-02] MEDS ORDERED: FUROSEMIDE 80 MG TABLET PO SCH (16:00)
[2019-05-02] MEDS ORDERED: FERROUS SULFATE 325 MG TABLET PO SCH (21:00)
[2019-05-03] MEDS ORDERED: metOLazone 5 MG TABLET PO SCH (09:00)
[2019-05-03 14:39] LABS: Myeloperoxidase Antibody < 0.2 U
== END 2019-05-02 17:05 | disposition home or self-care (01) | DRG 291 ==
LOC: N.ED 11:59 → N.EDINP 14:08 → SUATTDRO 14:08 → N.TELEN 17:22
PROVIDERS: ADMIT Internal Medicine; ATTEND Internal Medicine Geriatric Medicine

== ENCOUNTER 2020-05-27 14:41 | Inpatient (IN) ==
[2020-05-27] MEDS ORDERED: ONDANSETRON 4 MG/2 ML VIAL IV STA (15:35)
[2020-05-27] MEDS ORDERED: HYDROmorphone 2 MG/1 ML VIAL IV STA (15:35)
[2020-05-27 15:57] LABS: Basophils % 0.3 % (0.0-0.8); Eosinophils # 0.1 10*3/uL (0.0-0.87); Eosinophils % 1.3 % (0.00-10.9); Hematocrit 38.1 VOL% (35.7-47.0); Hemoglobin 11.8 GM/DL (12.0-16.0); Immature Granulocytes % 0.6 %; Immature Granulocytes Absolute 0.05 #; Lymphocytes # 1.9 10*3/uL (1.4-4.0); Lymphocytes % 21.3 % (21.3-54.2); Mean Corpuscular Volume 85.8 FL (87-102); Mean Platelet Volume 9.9 FL (9.6-12.0); Monocytes % 6.3 % (1.7-12.7); Neutrophils % 70.2 % (38.7-73.9); Platelet Count 302 T/CUMM (130-400); Red Blood Count 4.44 MC/CUMM (3.8-5.5); Red Cell Distribution Width 17.9 % (9.3-17.3)
[2020-05-27 16:32] LABS: Bilirubin,Total 1.4 MG/DL (0.2-1.0); Osmolality,Calculated 288.5 MOS/KG (273-304); Total Protein 6.6 G/DL (6.4-8.3)
[2020-05-27 16:34] LABS: Calcium 5.1 MG/DL (8.5-10.1)
[2020-05-27] MEDS ORDERED: POTASSIUM CHLORIDE 20 MEQ TABLET PO STA (16:39)
[2020-05-27 17:00] LABS: Bacteria,Urine Occasional /HPF (Few); Bilirubin,Urine Negative (Negative); Blood, Urine Small mg/dL (Negative); Glucose,Urine (UA) Negative (Negative); Hyaline Casts,Urine 16 /LPF (0-3); Ketones,Urine Negative (Negative); Mucus,Urine Occasional /LPF (Occasional); Nitrite,Urine Negative (Negative); Protein,Urine 100 MG/DL; RBC,Urine 3 /HPF (0-4); Squamous Epithelial Cell,Urine Occasional /HPF (0-10); Urine Appearance Slightly Hazy (Clear); Urine Color Amber (Yellow); Urine Specific Gravity 1.015 (1.001-1.035); WBC,Urine 4 /HPF (0-6)
[2020-05-27] MEDS ORDERED: SODIUM CHLORIDE 0.9% 1,000 ML IV STA (17:04)
[2020-05-27] MEDS ORDERED: CALCIUM CHLORIDE 1,000 MG/10 ML SYRINGE IV STA (17:04)
[2020-05-27] MEDS ORDERED: DEXTROSE 50% 25 GM/50 ML VIAL IV PRN (17:48)
[2020-05-27] MEDS ORDERED: ONDANSETRON 4 MG/2 ML VIAL IV PRN (17:48)
[2020-05-27] MEDS ORDERED: GLUCAGON 1 MG VIAL IM PRN (17:48)
[2020-05-27] MEDS ORDERED: NICOTINE 21 MG/24 HR PATCH TRANSDERM PRN (17:48)
[2020-05-27] MEDS ORDERED: hydrALAZINE 20 MG/1 ML VIAL IV PRN (17:48)
[2020-05-27] MEDS: SODIUM CHLORIDE 0.9% 1,000 ML IV SCH (20:07)
[2020-05-27] MEDS: ALBUTEROL 2.5 MG/3 ML NEB RESP TX SCH (20:08)
[2020-05-27] MEDS: ENOXAPARIN 30 MG/0.3 ML SYRINGE SUBCUT SCH (20:12)
[2020-05-27] MEDS: INSULIN LISPRO 100 UNIT/ML SUBCUT SCH (20:12)
[2020-05-28] MEDS: ALBUTEROL 2.5 MG/3 ML NEB RESP TX SCH ×4 (00:18→19:40)
[2020-05-28] MEDS: SODIUM CHLORIDE 0.9% 1,000 ML IV SCH ×2 (05:35→15:35)
[2020-05-28 06:11] LABS: Basophils % 0.2 % (0.0-0.8); Eosinophils # 0.2 10*3/uL (0.0-0.87); Hematocrit 38.1 VOL% (35.7-47.0); Hemoglobin 11.6 GM/DL (12.0-16.0); Immature Granulocytes % 0.6 %; Immature Granulocytes Absolute 0.05 #; Lymphocytes # 2.2 10*3/uL (1.4-4.0); Lymphocytes % 24.2 % (21.3-54.2); Mean Corpuscular HGB Conc 30.4 GM/DL (32-36); Mean Platelet Volume 10.2 FL (9.6-12.0); Monocytes % 7.6 % (1.7-12.7); Neutrophils % 65.4 % (38.7-73.9); Platelet Count 295 T/CUMM (130-400); Red Blood Count 4.33 MC/CUMM (3.8-5.5); Red Cell Distribution Width 18.2 % (9.3-17.3)
[2020-05-28 06:49] LABS: Osmolality,Calculated 299.8 MOS/KG (273-304); Potassium 3.4 MMOL/L (3.5-5.1)
[2020-05-28 07:01] LABS: Calcium 5.5 MG/DL (8.5-10.1)
[2020-05-28] MEDS: INSULIN LISPRO 100 UNIT/ML SUBCUT SCH ×4 (08:59→22:38)
[2020-05-28] MEDS: SEVELAMER CARBONATE 800 MG TABLET PO SCH ×2 (09:08→12:31)
[2020-05-28] MEDS: PANTOPRAZOLE 40 MG TABLET PO SCH (09:08)
[2020-05-28] MEDS ORDERED: ALBUTEROL 2.5 MG/3 ML NEB RESP TX PRN (09:27)
[2020-05-28] MEDS: HYDROmorphone 2 MG/1 ML VIAL IV PRN ×3 (10:43→22:44)
[2020-05-28] MEDS: LACTULOSE 20 GM/30 ML UDCUP PO PRN (10:44)
[2020-05-28] MEDS: GABAPENTIN 300 MG CAPSULE PO SCH ×2 (12:44→22:43)
[2020-05-28] MEDS ORDERED: CALCIUM GLUCONATE 2,000 MG in SODIUM CHLORIDE 0.9% 100 ML IV ONE (14:30)
[2020-05-28] MEDS: ENOXAPARIN 30 MG/0.3 ML SYRINGE SUBCUT SCH (18:04)
[2020-05-28] MEDS: CALCIUM ACETATE 667 MG CAPSULE PO SCH (18:04)
[2020-05-28] MEDS ORDERED: tiZANidine 4 MG TABLET PO PRN (21:00)
[2020-05-28] MEDS: rOPINIRole 0.25 MG TABLET PO SCH (22:41)
[2020-05-28] MEDS: cloNIDine 0.1 MG TABLET PO SCH (22:41)
[2020-05-28] MEDS: ESCITALOPRAM 10 MG TABLET PO SCH (22:43)
[2020-05-28] MEDS: carvediloL 12.5 MG TABLET PO SCH (22:43)
[2020-05-28] MEDS: ROSUVASTATIN 20 MG TABLET PO SCH (22:45)
[2020-05-29] MEDS: ALBUTEROL 2.5 MG/3 ML NEB RESP TX SCH ×4 (00:55→19:48)
[2020-05-29] MEDS: SODIUM CHLORIDE 0.9% 1,000 ML IV SCH ×3 (02:47→20:37)
[2020-05-29] MEDS: HYDROmorphone 2 MG/1 ML VIAL IV PRN ×3 (07:44→19:17)
[2020-05-29] MEDS: CALCIUM ACETATE 667 MG CAPSULE PO SCH ×3 (07:45→17:15)
[2020-05-29] MEDS: GABAPENTIN 300 MG CAPSULE PO SCH ×3 (07:45→20:36)
[2020-05-29] MEDS: INSULIN LISPRO 100 UNIT/ML SUBCUT SCH ×3 (08:09→20:43)
[2020-05-29 08:31] LABS: Osmolality,Calculated 291.1 MOS/KG (273-304); Potassium 3.5 MMOL/L (3.5-5.1)
[2020-05-29 08:36] LABS: Calcium 5.7 MG/DL (8.5-10.1)
[2020-05-29] MEDS ORDERED: NON-FORMULARY MEDICATION (Omeprazole 20 MG capsule,delayed release(DR/EC)) PO SCH (09:00)
[2020-05-29] MEDS: ASPIRIN EC 81 MG TABLET PO SCH (12:11)
[2020-05-29] MEDS: carvediloL 12.5 MG TABLET PO SCH ×2 (12:12→20:36)
[2020-05-29] MEDS: PANTOPRAZOLE 40 MG TABLET PO SCH (12:12)
[2020-05-29] MEDS ORDERED: CALCIUM GLUCONATE 2,000 MG in SODIUM CHLORIDE 0.9% 100 ML IV ONE (14:00)
[2020-05-29] MEDS: calcitrioL 0.25 MCG CAPSULE PO SCH (17:15)
[2020-05-29] MEDS: ENOXAPARIN 30 MG/0.3 ML SYRINGE SUBCUT SCH (19:26)
[2020-05-29] MEDS: rOPINIRole 0.25 MG TABLET PO SCH (20:36)
[2020-05-29] MEDS: ROSUVASTATIN 20 MG TABLET PO SCH (20:36)
[2020-05-29] MEDS: cloNIDine 0.1 MG TABLET PO SCH (20:36)
[2020-05-29] MEDS: ESCITALOPRAM 10 MG TABLET PO SCH (20:36)
[2020-05-30] MEDS: ALBUTEROL 2.5 MG/3 ML NEB RESP TX SCH ×4 (00:09→19:30)
[2020-05-30] MEDS: HYDROmorphone 2 MG/1 ML VIAL IV PRN ×3 (02:19→22:22)
[2020-05-30 05:47] LABS: Calcium 6.3 MG/DL (8.5-10.1); Osmolality,Calculated 296.7 MOS/KG (273-304); Potassium 3.6 MMOL/L (3.5-5.1)
[2020-05-30] MEDS ORDERED: ROPIVACAINE 0.5% 30 ML VIAL ONE (06:46)
[2020-05-30] MEDS ORDERED: LIDOCAINE 1% 5 ML VIAL ONE (06:46)
[2020-05-30] MEDS ORDERED: MIDAZOLAM 2 MG/2 ML VIAL ONE (06:51)
[2020-05-30] MEDS ORDERED: fentaNYL 100 MCG/2 ML VIAL ONE (06:51)
[2020-05-30] MEDS ORDERED: ceFAZolin 2,000 MG in PREMIX 1 EACH IV ONE (08:00)
[2020-05-30] MEDS: INSULIN LISPRO 100 UNIT/ML SUBCUT SCH ×4 (08:36→22:10)
[2020-05-30] MEDS: SODIUM CHLORIDE 0.9% 1,000 ML IV SCH (08:36)
[2020-05-30] MEDS ORDERED: FUROSEMIDE 40 MG/4 ML VIAL IV ONE ×2 (09:38→11:41)
[2020-05-30] MEDS: CALCIUM ACETATE 667 MG CAPSULE PO SCH ×3 (09:56→17:45)
[2020-05-30] MEDS: PANTOPRAZOLE 40 MG TABLET PO SCH ×2 (09:56→12:49)
[2020-05-30] MEDS: calcitrioL 0.25 MCG CAPSULE PO SCH ×2 (09:56→12:49)
[2020-05-30] MEDS: carvediloL 12.5 MG TABLET PO SCH ×3 (09:56→20:56)
[2020-05-30] MEDS: GABAPENTIN 300 MG CAPSULE PO SCH ×3 (09:56→20:56)
[2020-05-30] MEDS: ASPIRIN EC 81 MG TABLET PO SCH ×2 (09:56→12:50)
[2020-05-30 10:41] LABS: Amorphous Crystals,Urine Few /HPF (Few); Bilirubin,Urine Negative (Negative); Blood, Urine Small mg/dL (Negative); Glucose,Urine (UA) Negative (Negative); Ketones,Urine Negative (Negative); Nitrite,Urine Negative (Negative); Protein,Urine 100 MG/DL; RBC,Urine 1 /HPF (0-4); Urine Appearance CLOUDY (Clear); Urine Color Yellow (Yellow); Urine Specific Gravity 1.014 (1.001-1.035); Urine Urobilinogen < 2.0 EU/DL (0.2-1.0)
[2020-05-30] MEDS ORDERED: ONDANSETRON 4 MG/2 ML VIAL ONE (10:46)
[2020-05-30] MEDS ORDERED: SODIUM CHLORIDE 0.9% 0 ML IV ONE (10:46)
[2020-05-30] MEDS ORDERED: PHENYLEPHRINE 1 MG/10 ML SYRINGE IV ONE (10:46)
[2020-05-30] MEDS ORDERED: SEVOFLURANE 1 UNIT/15 MINUTE INH ONE (10:46)
[2020-05-30] MEDS ORDERED: LIDOCAINE 2% 5 ML VIAL ONE (10:46)
[2020-05-30] MEDS ORDERED: propofoL 200 MG/20 ML VIAL IV ONE ×2 (10:46)
[2020-05-30] MEDS ORDERED: CALCIUM GLUCONATE 2,000 MG in SODIUM CHLORIDE 0.9% 100 ML IV ONE (11:36)
[2020-05-30] MEDS: ENOXAPARIN 30 MG/0.3 ML SYRINGE SUBCUT SCH (17:45)
[2020-05-30] MEDS: ROSUVASTATIN 20 MG TABLET PO SCH (20:56)
[2020-05-30] MEDS: rOPINIRole 0.25 MG TABLET PO SCH (20:56)
[2020-05-30] MEDS: ESCITALOPRAM 10 MG TABLET PO SCH (20:56)
[2020-05-30] MEDS: cloNIDine 0.1 MG TABLET PO SCH (20:56)
[2020-05-31] MEDS: ALBUTEROL 2.5 MG/3 ML NEB RESP TX SCH ×4 (02:22→19:40)
[2020-05-31 06:09] LABS: Osmolality,Calculated 297.5 MOS/KG (273-304); Potassium 3.5 MMOL/L (3.5-5.1)
[2020-05-31] MEDS: HYDROmorphone 2 MG/1 ML VIAL IV PRN ×5 (08:04→21:20)
[2020-05-31] MEDS: INSULIN LISPRO 100 UNIT/ML SUBCUT SCH ×4 (08:25→21:20)
[2020-05-31] MEDS: PANTOPRAZOLE 40 MG TABLET PO SCH (09:05)
[2020-05-31] MEDS: calcitrioL 0.25 MCG CAPSULE PO SCH (09:05)
[2020-05-31] MEDS: ASPIRIN EC 81 MG TABLET PO SCH (09:05)
[2020-05-31] MEDS: GABAPENTIN 300 MG CAPSULE PO SCH ×3 (09:05→21:16)
[2020-05-31] MEDS: carvediloL 12.5 MG TABLET PO SCH ×2 (09:05→21:16)
[2020-05-31] MEDS: FUROSEMIDE 40 MG TABLET PO SCH (09:06)
[2020-05-31] MEDS: CALCIUM ACETATE 667 MG CAPSULE PO SCH (10:27)
[2020-05-31] MEDS: CALCIUM CARBONATE CHEW 500 MG TABLET PO SCH ×2 (12:07→17:10)
[2020-05-31] MEDS: LACTULOSE 20 GM/30 ML UDCUP PO PRN (14:21)
[2020-05-31] MEDS ORDERED: BISACODYL 5 MG TABLET PO PRN (17:33)
[2020-05-31] MEDS: ENOXAPARIN 30 MG/0.3 ML SYRINGE SUBCUT SCH (18:10)
[2020-05-31] MEDS: ROSUVASTATIN 20 MG TABLET PO SCH (21:15)
[2020-05-31] MEDS: cloNIDine 0.1 MG TABLET PO SCH (21:16)
[2020-05-31] MEDS: ESCITALOPRAM 10 MG TABLET PO SCH (21:16)
[2020-05-31] MEDS: rOPINIRole 0.25 MG TABLET PO SCH (21:16)
[2020-05-31] MEDS: NYSTATIN POWDER 15 GM BOTTLE TOP SCH (21:20)
[2020-06-01] MEDS: ALBUTEROL 2.5 MG/3 ML NEB RESP TX SCH ×2 (00:25→07:26)
[2020-06-01] MEDS: HYDROmorphone 2 MG/1 ML VIAL IV PRN ×4 (03:46→12:19)
[2020-06-01 05:48] LABS: Calcium 6.7 MG/DL (8.5-10.1); Osmolality,Calculated 299.3 MOS/KG (273-304); Potassium 3.9 MMOL/L (3.5-5.1)
[2020-06-01 07:32] VITALS: BP 143/53
[2020-06-01] MEDS: INSULIN LISPRO 100 UNIT/ML SUBCUT SCH ×2 (08:16→12:29)
[2020-06-01] MEDS ORDERED: CALCIUM GLUCONATE 2,000 MG in SODIUM CHLORIDE 0.9% 100 ML IV ONE (08:20)
[2020-06-01] MEDS: carvediloL 12.5 MG TABLET PO SCH (09:07)
[2020-06-01] MEDS: CALCIUM CARBONATE CHEW 500 MG TABLET PO SCH ×2 (09:07→12:30)
[2020-06-01] MEDS: FUROSEMIDE 40 MG TABLET PO SCH (09:07)
[2020-06-01] MEDS: ASPIRIN EC 81 MG TABLET PO SCH (09:07)
[2020-06-01] MEDS: PANTOPRAZOLE 40 MG TABLET PO SCH (09:08)
[2020-06-01] MEDS: NYSTATIN POWDER 15 GM BOTTLE TOP SCH (09:08)
[2020-06-01] MEDS: GABAPENTIN 300 MG CAPSULE PO SCH ×2 (09:08→12:29)
== END 2020-06-01 12:43 | disposition home health service (06) | DRG 682 ==
LOC: N.EDINP 14:41 → N.ED 14:41 → N.EDINP 18:53 → N.4E 19:27
PROVIDERS: ADMIT Internal Medicine Geriatric Medicine; ATTEND Internal Medicine Geriatric Medicine

== ENCOUNTER 2020-06-14 00:47 | Inpatient (IN) ==
[2020-06-14] MEDS ORDERED: ALBUTEROL/IPRATROPIUM 3 ML NEB RESP TX STA (02:21)
[2020-06-14] MEDS ORDERED: FUROSEMIDE 40 MG/4 ML VIAL IV STA (02:21)
[2020-06-14] MEDS ORDERED: methylPREDNISolone SOD SUC 125 MG/2 ML VIAL IV STA (02:21)
[2020-06-14 02:23] LABS: Basophils # 0.1 10*3/uL (0.0-0.2); Basophils % 0.6 % (0.0-0.8); Monocytes % 6.3 % (1.7-12.7); Red Blood Count 4.47 MC/CUMM (3.8-5.5)
[2020-06-14 02:43] LABS: Eosinophils # 0.3 10*3/uL (0.0-0.87); Eosinophils % 3.5 % (0.00-10.9); Hematocrit 40.7 VOL% (35.7-47.0); Hemoglobin 12.3 GM/DL (12.0-16.0); Immature Granulocytes % 0.2 %; Immature Granulocytes Absolute 0.02 #; Lymphocytes # 2.4 10*3/uL (1.4-4.0); Lymphocytes % 28.4 % (21.3-54.2); Mean Corpuscular HGB Conc 30.2 GM/DL (32-36); Mean Corpuscular Volume 91.1 FL (87-102); Mean Platelet Volume 10.8 FL (9.6-12.0); Platelet Count 260 T/CUMM (130-400); Red Cell Distribution Width 17.5 % (9.3-17.3); White Blood Count 8.3 T/CUMM (4-12)
[2020-06-14 02:50] LABS: Albumin 2.6 G/DL (3.4-5.0); Bilirubin,Total 0.5 MG/DL (0.2-1.0); Osmolality,Calculated 288.4 MOS/KG (273-304); Potassium 3.9 MMOL/L (3.5-5.1); Total Protein 6.8 G/DL (5.0-7.5)
[2020-06-14 02:57] LABS: PT Patient Result 11.2 SECS (9.8-11.9); Partial Thromboplastin Time 29.5 SECS (23.9-33.8)
[2020-06-14] MEDS ORDERED: ONDANSETRON 4 MG/2 ML VIAL IV ONE (04:03)
[2020-06-14] MEDS ORDERED: fentaNYL 100 MCG/2 ML VIAL IV STA (04:03)
[2020-06-14] MEDS ORDERED: ONDANSETRON 4 MG/2 ML VIAL IV PRN (05:10)
[2020-06-14] MEDS ORDERED: hydrALAZINE 20 MG/1 ML VIAL IV PRN (05:10)
[2020-06-14] MEDS ORDERED: GLUCAGON 1 MG VIAL IM PRN (05:10)
[2020-06-14] MEDS ORDERED: NICOTINE 21 MG/24 HR PATCH TRANSDERM PRN (05:10)
[2020-06-14] MEDS ORDERED: diphenhydrAMINE CAP 25 MG CAPSULE PO PRN (05:10)
[2020-06-14] MEDS ORDERED: guaiFENesin/DM ER 600-30 MG TABLET PO PRN (05:10)
[2020-06-14] MEDS ORDERED: DEXTROSE 50% 25 GM/50 ML VIAL IV PRN (05:10)
[2020-06-14] MEDS ORDERED: ALBUTEROL/IPRATROPIUM 3 ML NEB RESP TX SCH (07:00)
[2020-06-14] MEDS ORDERED: FUROSEMIDE 40 MG/4 ML VIAL IV SCH (08:00)
[2020-06-14] MEDS: INSULIN REGULAR 100 UNIT/ML SUBCUT SCH ×4 (09:23→20:57)
[2020-06-14] MEDS ORDERED: MAGNESIUM SULF RIDER 2 GM in PREMIX 1 EACH IV ONE (10:00)
[2020-06-14] MEDS ORDERED: NITROGLYCERIN SL 0.4 MG TABLET SL PRN (10:45)
[2020-06-14] MEDS ORDERED: ALBUTEROL/IPRATROPIUM 3 ML NEB RESP TX PRN (10:45)
[2020-06-14] MEDS ORDERED: metOLazone 5 MG TABLET PO PRN (10:48)
[2020-06-14] MEDS: GABAPENTIN 300 MG CAPSULE PO SCH ×2 (11:40→20:55)
[2020-06-14] MEDS: ASPIRIN EC 81 MG TABLET PO SCH (11:40)
[2020-06-14] MEDS: carvediloL 12.5 MG TABLET PO SCH ×2 (11:41→20:55)
[2020-06-14] MEDS: CALCIUM CARBONATE CHEW 500 MG TABLET PO SCH ×2 (11:41→16:31)
[2020-06-14] MEDS: methylPREDNISolone SOD SUC 40 MG/1 ML VIAL IV SCH (14:31)
[2020-06-14] MEDS ORDERED: FUROSEMIDE 40 MG/4 ML VIAL IV ONE (16:00)
[2020-06-14] MEDS: INSULIN GLARGINE 100 UNIT/ML SUBCUT SCH (16:31)
[2020-06-14] MEDS ORDERED: tiZANidine 4 MG TABLET PO PRN (18:30)
[2020-06-14] MEDS ORDERED: INSULIN NPH/REGULAR 70/30 100 UNIT/ML SUBCUT SCH (19:00)
[2020-06-14] MEDS: cloNIDine 0.1 MG TABLET PO SCH (20:55)
[2020-06-14] MEDS: ESCITALOPRAM 10 MG TABLET PO SCH (20:55)
[2020-06-14] MEDS: rOPINIRole 0.25 MG TABLET PO SCH (20:55)
[2020-06-14] MEDS: ROSUVASTATIN 20 MG TABLET PO SCH (20:55)
[2020-06-15] MEDS: methylPREDNISolone SOD SUC 40 MG/1 ML VIAL IV SCH ×2 (03:47→14:53)
[2020-06-15 06:03] LABS: Calcium 6.4 MG/DL (8.5-10.1); Osmolality,Calculated 289.8 MOS/KG (273-304); Potassium 3.9 MMOL/L (3.5-5.1)
[2020-06-15] MEDS: INSULIN REGULAR 100 UNIT/ML SUBCUT SCH ×4 (08:35→21:03)
[2020-06-15] MEDS: FUROSEMIDE 80 MG TABLET PO SCH (08:36)
[2020-06-15] MEDS: CALCIUM CARBONATE CHEW 500 MG TABLET PO SCH ×3 (08:36→17:14)
[2020-06-15] MEDS: PANTOPRAZOLE 40 MG TABLET PO SCH (08:37)
[2020-06-15] MEDS: ASPIRIN EC 81 MG TABLET PO SCH (08:37)
[2020-06-15] MEDS: GABAPENTIN 300 MG CAPSULE PO SCH ×3 (08:37→21:01)
[2020-06-15] MEDS: carvediloL 12.5 MG TABLET PO SCH ×2 (08:37→21:00)
[2020-06-15] MEDS ORDERED: INSULIN NPH/REGULAR 70/30 100 UNIT/ML SUBCUT SCH (09:00)
[2020-06-15] MEDS ORDERED: metOLazone 5 MG TABLET PO SCH (09:00)
[2020-06-15] MEDS: INSULIN GLARGINE 100 UNIT/ML SUBCUT SCH (17:13)
[2020-06-15] MEDS: ROSUVASTATIN 20 MG TABLET PO SCH (21:00)
[2020-06-15] MEDS: cloNIDine 0.1 MG TABLET PO SCH (21:00)
[2020-06-15] MEDS: rOPINIRole 0.25 MG TABLET PO SCH (21:01)
[2020-06-15] MEDS: ESCITALOPRAM 10 MG TABLET PO SCH (21:01)
[2020-06-16] MEDS: methylPREDNISolone SOD SUC 40 MG/1 ML VIAL IV SCH ×2 (03:18→15:19)
[2020-06-16 06:14] LABS: Calcium 6.4 MG/DL (8.5-10.1); Osmolality,Calculated 292.8 MOS/KG (273-304); Potassium 3.8 MMOL/L (3.5-5.1)
[2020-06-16] MEDS: CALCIUM CARBONATE CHEW 500 MG TABLET PO SCH ×3 (08:50→17:00)
[2020-06-16] MEDS: INSULIN REGULAR 100 UNIT/ML SUBCUT SCH ×4 (08:50→21:58)
[2020-06-16] MEDS: FUROSEMIDE 80 MG TABLET PO SCH (08:51)
[2020-06-16] MEDS: GABAPENTIN 300 MG CAPSULE PO SCH ×3 (08:52→21:05)
[2020-06-16] MEDS: carvediloL 12.5 MG TABLET PO SCH ×2 (08:52→21:05)
[2020-06-16] MEDS: PANTOPRAZOLE 40 MG TABLET PO SCH (08:52)
[2020-06-16] MEDS: ASPIRIN EC 81 MG TABLET PO SCH (08:53)
[2020-06-16] MEDS: INSULIN GLARGINE 100 UNIT/ML SUBCUT SCH (17:00)
[2020-06-16] MEDS: DOXYCYCLINE HYCLATE 100 MG CAPSULE PO SCH (21:05)
[2020-06-16] MEDS: ESCITALOPRAM 10 MG TABLET PO SCH (21:05)
[2020-06-16] MEDS: cloNIDine 0.1 MG TABLET PO SCH (21:05)
[2020-06-16] MEDS: rOPINIRole 0.25 MG TABLET PO SCH (21:05)
[2020-06-16] MEDS: ROSUVASTATIN 20 MG TABLET PO SCH (21:12)
[2020-06-16] MEDS: BUDESONIDE/FORMOTEROL 80-4.5 INHALER 6.9 GM INH SCH (21:35)
[2020-06-17] MEDS: methylPREDNISolone SOD SUC 40 MG/1 ML VIAL IV SCH (02:22)
[2020-06-17 04:51] LABS: Calcium 6.6 MG/DL (8.5-10.1); Osmolality,Calculated 294.1 MOS/KG (273-304); Potassium 3.7 MMOL/L (3.5-5.1)
[2020-06-17] MEDS: CALCIUM CARBONATE CHEW 500 MG TABLET PO SCH ×3 (08:28→16:02)
[2020-06-17] MEDS: DOXYCYCLINE HYCLATE 100 MG CAPSULE PO SCH ×2 (08:28→21:22)
[2020-06-17] MEDS: carvediloL 12.5 MG TABLET PO SCH ×2 (08:29→21:23)
[2020-06-17] MEDS: GABAPENTIN 300 MG CAPSULE PO SCH ×3 (08:29→21:23)
[2020-06-17] MEDS: INSULIN REGULAR 100 UNIT/ML SUBCUT SCH ×4 (08:29→21:24)
[2020-06-17] MEDS: FUROSEMIDE 80 MG TABLET PO SCH (08:29)
[2020-06-17] MEDS: PANTOPRAZOLE 40 MG TABLET PO SCH (08:29)
[2020-06-17] MEDS: ASPIRIN EC 81 MG TABLET PO SCH (08:29)
[2020-06-17] MEDS: BUDESONIDE/FORMOTEROL 80-4.5 INHALER 6.9 GM INH SCH ×2 (08:33→21:32)
[2020-06-17] MEDS: INSULIN GLARGINE 100 UNIT/ML SUBCUT SCH (16:02)
[2020-06-17] MEDS: rOPINIRole 0.25 MG TABLET PO SCH (21:22)
[2020-06-17] MEDS: cloNIDine 0.1 MG TABLET PO SCH (21:23)
[2020-06-17] MEDS: ESCITALOPRAM 10 MG TABLET PO SCH (21:24)
[2020-06-17] MEDS: ROSUVASTATIN 20 MG TABLET PO SCH (21:32)
[2020-06-18] MEDS: INSULIN REGULAR 100 UNIT/ML SUBCUT SCH ×4 (08:16→21:20)
[2020-06-18] MEDS: BUDESONIDE/FORMOTEROL 80-4.5 INHALER 6.9 GM INH SCH ×2 (08:21→20:26)
[2020-06-18] MEDS: FUROSEMIDE 80 MG TABLET PO SCH (08:21)
[2020-06-18] MEDS: carvediloL 12.5 MG TABLET PO SCH ×2 (08:22→20:26)
[2020-06-18] MEDS: ASPIRIN EC 81 MG TABLET PO SCH (08:22)
[2020-06-18] MEDS: PANTOPRAZOLE 40 MG TABLET PO SCH (08:22)
[2020-06-18] MEDS: GABAPENTIN 300 MG CAPSULE PO SCH ×3 (08:22→20:42)
[2020-06-18] MEDS: CALCIUM CARBONATE CHEW 500 MG TABLET PO SCH ×4 (08:22→16:13)
[2020-06-18] MEDS: DOXYCYCLINE HYCLATE 100 MG CAPSULE PO SCH ×2 (08:22→20:26)
[2020-06-18] MEDS ORDERED: methylPREDNISolone SOD SUC 40 MG/1 ML VIAL IV SCH (09:00)
[2020-06-18 09:01] LABS: Basophils % 0.1 % (0.0-0.8); Hematocrit 38.1 VOL% (35.7-47.0); Hemoglobin 11.7 GM/DL (12.0-16.0); Immature Granulocytes Absolute 0.09 #; Lymphocytes # 1.2 10*3/uL (1.4-4.0); Lymphocytes % 13.7 % (21.3-54.2); Mean Corpuscular HGB Conc 30.7 GM/DL (32-36); Mean Corpuscular Volume 89.6 FL (87-102); Mean Platelet Volume 11.4 FL (9.6-12.0); Monocytes % 8.1 % (1.7-12.7); Neutrophils % 77.1 % (38.7-73.9); Platelet Count 197 T/CUMM (130-400); Red Blood Count 4.25 MC/CUMM (3.8-5.5); Red Cell Distribution Width 16.6 % (9.3-17.3); White Blood Count 8.8 T/CUMM (4-12)
[2020-06-18] MEDS ORDERED: DOCUSATE SODIUM 100 MG CAPSULE PO PRN (09:07)
[2020-06-18 09:23] LABS: Calcium 6.7 MG/DL (8.5-10.1); Osmolality,Calculated 297.8 MOS/KG (273-304); Potassium 3.6 MMOL/L (3.5-5.1)
[2020-06-18] MEDS: INSULIN GLARGINE 100 UNIT/ML SUBCUT SCH (17:04)
[2020-06-18] MEDS: rOPINIRole 0.25 MG TABLET PO SCH (20:26)
[2020-06-18] MEDS: cloNIDine 0.1 MG TABLET PO SCH (20:26)
[2020-06-18] MEDS: ESCITALOPRAM 10 MG TABLET PO SCH (20:26)
[2020-06-18] MEDS: ROSUVASTATIN 20 MG TABLET PO SCH (20:26)
[2020-06-19 05:58] LABS: Hematocrit 37.2 VOL% (35.7-47.0); Hemoglobin 11.8 GM/DL (12.0-16.0); Immature Granulocytes % 1.3 %; Immature Granulocytes Absolute 0.12 #; Lymphocytes # 1.2 10*3/uL (1.4-4.0); Lymphocytes % 13.1 % (21.3-54.2); Mean Corpuscular HGB Conc 31.7 GM/DL (32-36); Mean Corpuscular Volume 88.4 FL (87-102); Mean Platelet Volume 11.5 FL (9.6-12.0); Monocytes % 6.2 % (1.7-12.7); Neutrophils % 79.4 % (38.7-73.9); Platelet Count 191 T/CUMM (130-400); Red Blood Count 4.21 MC/CUMM (3.8-5.5); Red Cell Distribution Width 16.1 % (9.3-17.3); White Blood Count 9.3 T/CUMM (4-12)
[2020-06-19 06:13] LABS: Osmolality,Calculated 291.1 MOS/KG (273-304); Potassium 3.7 MMOL/L (3.5-5.1)
[2020-06-19 08:01] VITALS: BP 171/54
[2020-06-19] MEDS: ASPIRIN EC 81 MG TABLET PO SCH (09:00)
[2020-06-19] MEDS ORDERED: predniSONE 20 MG TABLET PO SCH (09:00)
[2020-06-19] MEDS: PANTOPRAZOLE 40 MG TABLET PO SCH (09:00)
[2020-06-19] MEDS ORDERED: methylPREDNISolone 4 MG TABLET PO SCH (09:00)
[2020-06-19] MEDS: GABAPENTIN 300 MG CAPSULE PO SCH (09:00)
[2020-06-19] MEDS: carvediloL 12.5 MG TABLET PO SCH (09:00)
[2020-06-19] MEDS: INSULIN REGULAR 100 UNIT/ML SUBCUT SCH (09:00)
[2020-06-19] MEDS: DOXYCYCLINE HYCLATE 100 MG CAPSULE PO SCH (09:00)
[2020-06-19] MEDS: FUROSEMIDE 80 MG TABLET PO SCH (09:00)
[2020-06-19] MEDS: BUDESONIDE/FORMOTEROL 80-4.5 INHALER 6.9 GM INH SCH (09:01)
[2020-06-19] MEDS: CALCIUM CARBONATE CHEW 500 MG TABLET PO SCH (09:01)
== END 2020-06-19 10:43 | disposition home health service (06) | DRG 291 ==
LOC: N.ED 00:47 → N.EDINP 00:47 → N.3E 06:48 → SUATTDRO 06-17 13:14
PROVIDERS: ADMIT Internal Medicine; ATTEND Internal Medicine

== ENCOUNTER 2021-03-22 13:36 | Inpatient (IN) ==
[2021-03-22] MEDS ORDERED: ALBUTEROL/IPRATROPIUM 3 ML NEB RESP TX STA (14:06)
[2021-03-22] MEDS ORDERED: methylPREDNISolone SOD SUC 125 MG/2 ML VIAL IV STA (14:06)
[2021-03-22] MEDS ORDERED: MORPHINE 2 MG/1 ML SYRINGE IV STA (14:06)
[2021-03-22 14:42] LABS: Basophils % 0.1 % (0.0-0.8); Hematocrit 34.1 VOL% (35.7-47.0); Hemoglobin 10.6 GM/DL (12.0-16.0); Immature Granulocytes % 1.2 %; Immature Granulocytes Absolute 0.25 #; Lymphocytes # 0.7 10*3/uL (1.4-4.0); Lymphocytes % 3.2 % (21.3-54.2); Mean Corpuscular HGB Conc 31.1 GM/DL (32-36); Mean Corpuscular Volume 90.7 FL (87-102); Mean Platelet Volume 10.8 FL (9.6-12.0); Monocytes % 2.5 % (1.7-12.7); Platelet Count 115 T/CUMM (130-400); Red Blood Count 3.76 MC/CUMM (3.8-5.5); Red Cell Distribution Width 17.2 % (9.3-17.3); White Blood Count 21.2 T/CUMM (4-12)
[2021-03-22 14:54] LABS: PT Patient Result 11.3 SECS (10.5-12.0); Partial Thromboplastin Time 24.8 SECS (23.8-32.1)
[2021-03-22 15:01] LABS: Albumin 2.7 G/DL (3.4-5.0); Bilirubin,Total 0.7 MG/DL (0.20-1.00); Calcium 6.8 MG/DL (8.5-10.1); Osmolality,Calculated 291.1 MOS/KG (273-304); Potassium 4.2 MMOL/L (3.5-5.1); Total Protein 5.6 G/DL (6.4-8.2)
[2021-03-22 15:18] LABS: Lymphocytes 5 % (20-55); Microcytosis Slight; Segmented Neutrophils 93 % (50-85); Stomatocytes Few; Total Cells Counted 100
[2021-03-22 15:19] LABS: Platelet Estimate Decreased; Schistocytes Slight
[2021-03-22] MEDS ORDERED: ALBUTEROL 2.5 MG/3 ML NEB RESP TX PRN (16:27)
[2021-03-22] MEDS ORDERED: POTASSIUM CHLORIDE RIDER 10 MEQ/100 ML PREMIX IV PRN (16:27)
[2021-03-22] MEDS ORDERED: DOCUSATE SODIUM 100 MG CAPSULE PO PRN (16:27)
[2021-03-22] MEDS ORDERED: MAGNESIUM SULF RIDER 4 GM/100 ML PREMIX IV PRN (16:27)
[2021-03-22] MEDS ORDERED: GLUCAGON 1 MG VIAL IM PRN (16:27)
[2021-03-22] MEDS ORDERED: hydrALAZINE 20 MG/1 ML VIAL IV PRN (16:27)
[2021-03-22] MEDS ORDERED: MAGNESIUM SULF RIDER 2 GM/50 ML PREMIX IV PRN (16:27)
[2021-03-22] MEDS ORDERED: DEXTROSE 50% 25 GM/50 ML SYRINGE IV PRN (16:39)
[2021-03-22] MEDS: AZITHROMYCIN INJ 500 MG in SODIUM CHLORIDE 0.9% 250 ML IV SCH (17:14)
[2021-03-22 17:24] LABS: ABG Base Excess 3.8 MMOL/L (-2.5-2.5); ABG HCO3 27.6 MMOL/L (20-26); ABG Oxygen Saturation 90.3 % (95-100); ABG PCO2 51.4 MM HG (35-48); ABG PH 7.373 (7.35-7.45); ABG TCO2 27.2 MMOL/L (23-27)
[2021-03-22] MEDS: PIPERACILLIN/TAZOBACTAM 3,375 MG in SODIUM CHLORIDE 0.9% 100 ML IV SCH (17:43)
[2021-03-22] MEDS: ALBUTEROL/IPRATROPIUM 3 ML NEB RESP TX SCH (20:50)
[2021-03-22] MEDS: INSULIN LISPRO 100 UNIT/ML SUBCUT SCH (22:26)
[2021-03-22] MEDS: methylPREDNISolone SOD SUC 40 MG/1 ML VIAL IV SCH (22:26)
[2021-03-22] MEDS: ONDANSETRON 4 MG/2 ML VIAL IV PRN (22:27)
[2021-03-23] MEDS: PIPERACILLIN/TAZOBACTAM 3,375 MG in SODIUM CHLORIDE 0.9% 100 ML IV SCH ×2 (01:00→10:26)
[2021-03-23] MEDS: ALBUTEROL/IPRATROPIUM 3 ML NEB RESP TX SCH ×4 (01:55→20:56)
[2021-03-23] MEDS: ONDANSETRON 4 MG/2 ML VIAL IV PRN ×3 (05:16→21:28)
[2021-03-23] MEDS: methylPREDNISolone SOD SUC 40 MG/1 ML VIAL IV SCH ×3 (05:30→21:16)
[2021-03-23 06:05] LABS: Basophils % 0.1 % (0.0-0.8); Hematocrit 26.3 VOL% (35.7-47.0); Immature Granulocytes % 0.8 %; Immature Granulocytes Absolute 0.14 #; Lymphocytes # 0.3 10*3/uL (1.4-4.0); Lymphocytes % 1.9 % (21.3-54.2); Mean Corpuscular HGB Conc 31.2 GM/DL (32-36); Mean Platelet Volume 11.3 FL (9.6-12.0); Monocytes % 1.9 % (1.7-12.7); Neutrophils % 95.3 % (38.7-73.9); Platelet Count 106 T/CUMM (130-400); Red Blood Count 2.89 MC/CUMM (3.8-5.5); White Blood Count 17.6 T/CUMM (4-12)
[2021-03-23 06:07] LABS: Hemoglobin 8.2 GM/DL (12.0-16.0)
[2021-03-23 06:22] LABS: Hypochromia 1+; Lymphocytes 2 % (20-55); Microcytosis 1+; Platelet Estimate Decreased; Segmented Neutrophils 98 % (50-85); Total Cells Counted 100
[2021-03-23 06:23] LABS: Calcium 6.9 MG/DL (8.5-10.1); Osmolality,Calculated 288.2 MOS/KG (273-304); Potassium 4.3 MMOL/L (3.5-5.1); Thyroid Stimulating Hormone 0.942 uIU/ml (0.358-3.74)
[2021-03-23] MEDS ORDERED: MAGNESIUM SULF RIDER 2 GM/50 ML PREMIX IV ONE (07:36)
[2021-03-23] MEDS ORDERED: NITROGLYCERIN SL 0.4 MG TABLET SL PRN (07:39)
[2021-03-23] MEDS ORDERED: metOLazone 5 MG TABLET PO PRN (07:39)
[2021-03-23] MEDS ORDERED: PANTOPRAZOLE 40 MG TABLET PO SCH (09:00)
[2021-03-23] MEDS: INSULIN LISPRO 100 UNIT/ML SUBCUT SCH ×4 (10:06→21:17)
[2021-03-23] MEDS: carvediloL 12.5 MG TABLET PO SCH ×2 (10:25→21:16)
[2021-03-23] MEDS: FUROSEMIDE 40 MG/4 ML VIAL IV SCH ×2 (11:11→16:21)
[2021-03-23] MEDS ORDERED: ORPHENADRINE 60 MG/2 ML VIAL IV ONE (12:19)
[2021-03-23] MEDS: DICYCLOMINE 10 MG CAPSULE PO SCH ×3 (13:03→21:16)
[2021-03-23] MEDS: AZITHROMYCIN INJ 500 MG in SODIUM CHLORIDE 0.9% 250 ML IV SCH (15:54)
[2021-03-23] MEDS ORDERED: OXYMETAZOLINE 0.05% NASAL SPRAY 15 ML BOTTLE BOTH NARES PRN (16:13)
[2021-03-23] MEDS: BUDESONIDE 0.5 MG/2 ML NEB RESP TX SCH (20:56)
[2021-03-23] MEDS: ROSUVASTATIN 20 MG TABLET PO SCH (21:16)
[2021-03-23] MEDS: cloNIDine 0.1 MG TABLET PO SCH (21:16)
[2021-03-23] MEDS: CHOLESTYRAMINE 4 GM PACK PO SCH ×2 (21:16→21:20)
[2021-03-23] MEDS: INSULIN GLARGINE 100 UNIT/ML SUBCUT SCH (21:17)
[2021-03-24] MEDS: ACETYLCYSTEINE 20% 800 MG/4 ML VIAL RESP TX SCH ×3 (01:17→15:00)
[2021-03-24] MEDS: ALBUTEROL/IPRATROPIUM 3 ML NEB RESP TX SCH ×4 (01:17→19:37)
[2021-03-24 05:09] LABS: Immature Granulocytes % 0.7 %; Immature Granulocytes Absolute 0.09 #; Lymphocytes # 0.4 10*3/uL (1.4-4.0); Lymphocytes % 3.3 % (21.3-54.2); Mean Corpuscular HGB Conc 31.1 GM/DL (32-36); Mean Platelet Volume 11.5 FL (9.6-12.0); Monocytes % 2.2 % (1.7-12.7); Neutrophils % 93.8 % (38.7-73.9); Red Cell Distribution Width 17.3 % (9.3-17.3); White Blood Count 13.2 T/CUMM (4-12)
[2021-03-24 05:14] LABS: Platelet Count 86 T/CUMM (130-400)
[2021-03-24 05:18] LABS: Hemoglobin 5.6 GM/DL (12.0-16.0)
[2021-03-24] MEDS ORDERED: SODIUM CHLORIDE 0.9% 1,000 ML IV PRN (05:22)
[2021-03-24 05:24] LABS: Calcium 6.8 MG/DL (8.5-10.1); Osmolality,Calculated 291.7 MOS/KG (273-304); Potassium 4.4 MMOL/L (3.5-5.1)
[2021-03-24 05:40] LABS: Hypochromia 1+; Lymphocytes 1 % (20-55); Segmented Neutrophils 98 % (50-85); Total Cells Counted 100
[2021-03-24 05:41] LABS: Microcytosis 1+; Platelet Estimate Decreased
[2021-03-24] MEDS ORDERED: MAGNESIUM SULF RIDER 2 GM/50 ML PREMIX IV ONE (07:41)
[2021-03-24] MEDS: BUDESONIDE 0.5 MG/2 ML NEB RESP TX SCH ×2 (08:20→19:37)
[2021-03-24] MEDS: INSULIN LISPRO 100 UNIT/ML SUBCUT SCH ×4 (09:05→21:24)
[2021-03-24] MEDS: carvediloL 12.5 MG TABLET PO SCH ×2 (09:31→21:24)
[2021-03-24] MEDS: DICYCLOMINE 10 MG CAPSULE PO SCH ×4 (09:31→21:24)
[2021-03-24] MEDS: methylPREDNISolone SOD SUC 40 MG/1 ML VIAL IV SCH ×2 (09:32→21:16)
[2021-03-24] MEDS: PANTOPRAZOLE 40 MG VIAL IV SCH ×2 (09:34→21:19)
[2021-03-24] MEDS: FUROSEMIDE 40 MG/4 ML VIAL IV SCH (09:35)
[2021-03-24] MEDS: cefTRIAXone 2,000 MG in SODIUM CHLORIDE 0.9% 100 ML IV SCH (09:41)
[2021-03-24] MEDS: CHOLESTYRAMINE 4 GM PACK PO SCH ×3 (10:13→21:24)
[2021-03-24 11:25] LABS: Bacteria,Urine Occasional /HPF (Few); Bilirubin,Urine Negative (Negative); Blood, Urine Negative (Negative); Glucose,Urine (UA) Negative (Negative); Ketones,Urine Negative (Negative); Mucus,Urine Occasional /LPF (Occasional); Nitrite,Urine Negative (Negative); Protein,Urine 30 MG/DL; RBC,Urine 8 /HPF (0-4); Squamous Epithelial Cell,Urine Occasional /HPF (0-10); Urine Appearance CLEAR (Clear); Urine Color Yellow (Yellow); Urine Specific Gravity 1.014 (1.001-1.035); Urine Urobilinogen < 2.0 EU/DL (<2.0)
[2021-03-24] MEDS: ONDANSETRON 4 MG/2 ML VIAL IV PRN ×2 (12:40→21:21)
[2021-03-24 13:01] LABS: Basophils % 0.1 % (0.0-0.8); Immature Granulocytes % 1.4 %; Immature Granulocytes Absolute 0.18 #; Lymphocytes # 0.3 10*3/uL (1.4-4.0); Lymphocytes % 2.5 % (21.3-54.2); Mean Corpuscular HGB Conc 31.6 GM/DL (32-36); Mean Corpuscular Volume 88.6 FL (87-102); Mean Platelet Volume 11.1 FL (9.6-12.0); Monocytes % 1.8 % (1.7-12.7); Neutrophils % 94.2 % (38.7-73.9); Platelet Count 100 T/CUMM (130-400); Red Blood Count 1.93 MC/CUMM (3.8-5.5); Red Cell Distribution Width 17.3 % (9.3-17.3); White Blood Count 13.2 T/CUMM (4-12)
[2021-03-24 13:06] LABS: Hematocrit 17.1 VOL% (35.7-47.0); Hemoglobin 5.4 GM/DL (12.0-16.0)
[2021-03-24 13:17] LABS: % Iron Saturation 15.1 % (18-50); Ferritin 679.3 ng/mL (8-252)
[2021-03-24 13:28] LABS: Folate 3.68 NG/ML (5.38-24.0)
[2021-03-24 13:32] LABS: Lymphocytes 2 % (20-55); Segmented Neutrophils 95 % (50-85); Total Cells Counted 100
[2021-03-24 13:33] LABS: Anisocytosis 1+
[2021-03-24 13:34] LABS: Hypochromia 1+; Platelet Estimate Adequate; Polychromasia Few
[2021-03-24] MEDS ORDERED: CYANOCOBALAMIN 1000 MCG/1 ML VIAL IM ONE (14:47)
[2021-03-24] MEDS: CYANOCOBALAMIN 500 MCG TABLET PO SCH (14:54)
[2021-03-24] MEDS: FUROSEMIDE 40 MG TABLET PO SCH (16:16)
[2021-03-24] MEDS: AZITHROMYCIN INJ 500 MG in SODIUM CHLORIDE 0.9% 250 ML IV SCH (21:22)
[2021-03-24] MEDS: ROSUVASTATIN 20 MG TABLET PO SCH (21:23)
[2021-03-24] MEDS: FOLIC ACID 1 MG TABLET PO SCH (21:23)
[2021-03-24] MEDS: cloNIDine 0.1 MG TABLET PO SCH (21:23)
[2021-03-24] MEDS: INSULIN GLARGINE 100 UNIT/ML SUBCUT SCH (21:24)
[2021-03-24 22:47] LABS: Hemoglobin 8.1 GM/DL (12.0-16.0)
[2021-03-25] MEDS: ACETYLCYSTEINE 20% 800 MG/4 ML VIAL RESP TX SCH ×2 (01:00→18:41)
[2021-03-25] MEDS: ALBUTEROL/IPRATROPIUM 3 ML NEB RESP TX SCH ×4 (01:00→20:17)
[2021-03-25 04:32] LABS: Basophils % 0.1 % (0.0-0.8); Hematocrit 25.4 VOL% (35.7-47.0); Hemoglobin 8.2 GM/DL (12.0-16.0); Immature Granulocytes Absolute 0.13 #; Lymphocytes # 0.2 10*3/uL (1.4-4.0); Lymphocytes % 1.8 % (21.3-54.2); Mean Corpuscular HGB Conc 32.3 GM/DL (32-36); Mean Corpuscular Volume 90.4 FL (87-102); Mean Platelet Volume 11.3 FL (9.6-12.0); Monocytes % 1.6 % (1.7-12.7); Neutrophils % 95.5 % (38.7-73.9); Platelet Count 103 T/CUMM (130-400); Red Blood Count 2.81 MC/CUMM (3.8-5.5); Red Cell Distribution Width 15.5 % (9.3-17.3); White Blood Count 13.3 T/CUMM (4-12)
[2021-03-25 04:59] LABS: Calcium 6.8 MG/DL (8.5-10.1); Potassium 4.1 MMOL/L (3.5-5.1)
[2021-03-25 05:00] LABS: Hypochromia 1+; Lymphocytes 3 % (20-55); Microcytosis 1+; Platelet Estimate Decreased; Segmented Neutrophils 95 % (50-85); Total Cells Counted 100
[2021-03-25] MEDS: BUDESONIDE 0.5 MG/2 ML NEB RESP TX SCH ×2 (07:58→20:17)
[2021-03-25] MEDS: CHOLESTYRAMINE 4 GM PACK PO SCH (09:18)
[2021-03-25] MEDS: FUROSEMIDE 40 MG TABLET PO SCH ×2 (09:19→17:14)
[2021-03-25] MEDS: INSULIN LISPRO 100 UNIT/ML SUBCUT SCH ×4 (09:19→21:22)
[2021-03-25] MEDS: carvediloL 12.5 MG TABLET PO SCH ×2 (09:20→21:22)
[2021-03-25] MEDS: CYANOCOBALAMIN 500 MCG TABLET PO SCH (09:20)
[2021-03-25] MEDS: DICYCLOMINE 10 MG CAPSULE PO SCH (09:20)
[2021-03-25] MEDS: cefTRIAXone 2,000 MG in SODIUM CHLORIDE 0.9% 100 ML IV SCH (09:20)
[2021-03-25] MEDS: PANTOPRAZOLE 40 MG VIAL IV SCH ×2 (10:28→21:23)
[2021-03-25] MEDS: methylPREDNISolone SOD SUC 40 MG/1 ML VIAL IV SCH ×2 (10:31→21:23)
[2021-03-25] MEDS ORDERED: MAGNESIUM HYDROXIDE SUSP 30 ML UDCUP PO ONE (11:56)
[2021-03-25] MEDS: POLYETHYLENE GLYCOL POWDER 17 GM PACK PO SCH ×3 (12:40→21:36)
[2021-03-25] MEDS: CYANOCOBALAMIN 1000 MCG/1 ML VIAL IM SCH (12:44)
[2021-03-25] MEDS: AZITHROMYCIN INJ 500 MG in SODIUM CHLORIDE 0.9% 250 ML IV SCH (17:14)
[2021-03-25] MEDS: cloNIDine 0.1 MG TABLET PO SCH (21:22)
[2021-03-25] MEDS: DOCUSATE SODIUM 100 MG CAPSULE PO SCH (21:22)
[2021-03-25] MEDS: FOLIC ACID 1 MG TABLET PO SCH (21:22)
[2021-03-25] MEDS: buPROPion SR 100 MG TABLET PO SCH (21:22)
[2021-03-25] MEDS: ROSUVASTATIN 20 MG TABLET PO SCH (21:22)
[2021-03-25] MEDS: INSULIN GLARGINE 100 UNIT/ML SUBCUT SCH (21:23)
[2021-03-26] MEDS: ALBUTEROL/IPRATROPIUM 3 ML NEB RESP TX SCH ×4 (01:34→19:50)
[2021-03-26] MEDS: BUDESONIDE 0.5 MG/2 ML NEB RESP TX SCH ×2 (07:11→19:51)
[2021-03-26] MEDS: methylPREDNISolone SOD SUC 40 MG/1 ML VIAL IV SCH ×2 (07:41→15:00)
[2021-03-26] MEDS: PANTOPRAZOLE 40 MG VIAL IV SCH ×3 (07:41→21:07)
[2021-03-26] MEDS: ONDANSETRON 4 MG/2 ML VIAL IV PRN (07:51)
[2021-03-26] MEDS: buPROPion SR 100 MG TABLET PO SCH ×2 (09:52→21:07)
[2021-03-26] MEDS: DOCUSATE SODIUM 100 MG CAPSULE PO SCH ×2 (09:56→21:11)
[2021-03-26] MEDS: carvediloL 12.5 MG TABLET PO SCH ×2 (09:56→21:07)
[2021-03-26] MEDS: CYANOCOBALAMIN 500 MCG TABLET PO SCH (09:56)
[2021-03-26] MEDS: INSULIN LISPRO 100 UNIT/ML SUBCUT SCH ×4 (09:57→21:14)
[2021-03-26] MEDS: FUROSEMIDE 40 MG TABLET PO SCH ×2 (09:57→16:08)
[2021-03-26] MEDS: LINACLOTIDE 145 MCG CAPSULE PO SCH (10:01)
[2021-03-26] MEDS: POLYETHYLENE GLYCOL POWDER 17 GM PACK PO SCH ×2 (10:01→21:07)
[2021-03-26] MEDS: cefTRIAXone 2,000 MG in SODIUM CHLORIDE 0.9% 100 ML IV SCH (10:02)
[2021-03-26] MEDS: CYANOCOBALAMIN 1000 MCG/1 ML VIAL IM SCH (10:04)
[2021-03-26] MEDS: AZITHROMYCIN INJ 500 MG in SODIUM CHLORIDE 0.9% 250 ML IV SCH (16:08)
[2021-03-26] MEDS: ROSUVASTATIN 20 MG TABLET PO SCH (21:07)
[2021-03-26] MEDS: FOLIC ACID 1 MG TABLET PO SCH (21:07)
[2021-03-26] MEDS: cloNIDine 0.1 MG TABLET PO SCH (21:07)
[2021-03-26] MEDS: INSULIN GLARGINE 100 UNIT/ML SUBCUT SCH (22:08)
[2021-03-27] MEDS: ALBUTEROL/IPRATROPIUM 3 ML NEB RESP TX SCH ×4 (00:18→19:32)
[2021-03-27 06:12] LABS: Eosinophils % 0.3 % (0.00-10.9); Hematocrit 26.6 VOL% (35.7-47.0); Hemoglobin 8.5 GM/DL (12.0-16.0); Immature Granulocytes % 0.7 %; Immature Granulocytes Absolute 0.07 #; Lymphocytes # 0.9 10*3/uL (1.4-4.0); Lymphocytes % 8.3 % (21.3-54.2); Mean Corpuscular Volume 92.4 FL (87-102); Mean Platelet Volume 10.6 FL (9.6-12.0); Neutrophils % 85.7 % (38.7-73.9); Platelet Count 118 T/CUMM (130-400); Red Blood Count 2.88 MC/CUMM (3.8-5.5); Red Cell Distribution Width 15.5 % (9.3-17.3); White Blood Count 10.4 T/CUMM (4-12)
[2021-03-27 06:29] LABS: Calcium 6.9 MG/DL (8.5-10.1); Osmolality,Calculated 284.7 MOS/KG (273-304); Potassium 3.8 MMOL/L (3.5-5.1)
[2021-03-27] MEDS: BUDESONIDE 0.5 MG/2 ML NEB RESP TX SCH ×2 (06:59→19:32)
[2021-03-27] MEDS: INSULIN LISPRO 100 UNIT/ML SUBCUT SCH ×4 (09:28→21:26)
[2021-03-27] MEDS: CYANOCOBALAMIN 1000 MCG/1 ML VIAL IM SCH (09:52)
[2021-03-27] MEDS: ONDANSETRON 4 MG/2 ML VIAL IV PRN (09:59)
[2021-03-27] MEDS: cefTRIAXone 2,000 MG in SODIUM CHLORIDE 0.9% 100 ML IV SCH (10:02)
[2021-03-27] MEDS: PANTOPRAZOLE 40 MG VIAL IV SCH ×2 (10:02→21:29)
[2021-03-27] MEDS: buPROPion SR 100 MG TABLET PO SCH ×2 (10:05→21:27)
[2021-03-27] MEDS: DOCUSATE SODIUM 100 MG CAPSULE PO SCH ×2 (10:06→21:29)
[2021-03-27] MEDS: POLYETHYLENE GLYCOL POWDER 17 GM PACK PO SCH ×2 (10:06→21:29)
[2021-03-27] MEDS: carvediloL 12.5 MG TABLET PO SCH ×2 (10:07→21:28)
[2021-03-27] MEDS: CYANOCOBALAMIN 500 MCG TABLET PO SCH (10:07)
[2021-03-27] MEDS: FUROSEMIDE 40 MG TABLET PO SCH ×2 (10:07→16:37)
[2021-03-27] MEDS: LINACLOTIDE 145 MCG CAPSULE PO SCH (10:08)
[2021-03-27] MEDS ORDERED: LACTULOSE 20 GM/30 ML UDCUP PO ONE (16:32)
[2021-03-27] MEDS: AZITHROMYCIN INJ 500 MG in SODIUM CHLORIDE 0.9% 250 ML IV SCH (16:37)
[2021-03-27] MEDS: ALVIMOPAN 12 MG CAPSULE PO SCH (21:27)
[2021-03-27] MEDS: ROSUVASTATIN 20 MG TABLET PO SCH (21:27)
[2021-03-27] MEDS: cloNIDine 0.1 MG TABLET PO SCH (21:28)
[2021-03-27] MEDS: FOLIC ACID 1 MG TABLET PO SCH (21:28)
[2021-03-28] MEDS: ACETYLCYSTEINE 20% 800 MG/4 ML VIAL RESP TX SCH ×4 (00:26→14:05)
[2021-03-28] MEDS: ALBUTEROL/IPRATROPIUM 3 ML NEB RESP TX SCH ×6 (00:26→22:44)
[2021-03-28] MEDS: ONDANSETRON 4 MG/2 ML VIAL IV PRN ×4 (05:48→20:49)
[2021-03-28] MEDS ORDERED: LINACLOTIDE 145 MCG CAPSULE PO SCH (07:30)
[2021-03-28] MEDS: INSULIN LISPRO 100 UNIT/ML SUBCUT SCH ×4 (07:39→20:44)
[2021-03-28] MEDS: FUROSEMIDE 40 MG TABLET PO SCH ×2 (09:45→16:08)
[2021-03-28] MEDS: DOCUSATE SODIUM 100 MG CAPSULE PO SCH ×2 (09:46→20:44)
[2021-03-28] MEDS: ALVIMOPAN 12 MG CAPSULE PO SCH ×2 (09:46→20:45)
[2021-03-28] MEDS: buPROPion SR 100 MG TABLET PO SCH ×2 (09:47→20:44)
[2021-03-28] MEDS: POLYETHYLENE GLYCOL POWDER 17 GM PACK PO SCH ×2 (09:47→20:44)
[2021-03-28] MEDS: carvediloL 12.5 MG TABLET PO SCH ×2 (09:47→20:44)
[2021-03-28] MEDS: CYANOCOBALAMIN 500 MCG TABLET PO SCH (09:47)
[2021-03-28] MEDS: PANTOPRAZOLE 40 MG VIAL IV SCH ×2 (09:51→20:46)
[2021-03-28] MEDS: cefTRIAXone 2,000 MG in SODIUM CHLORIDE 0.9% 100 ML IV SCH (09:52)
[2021-03-28] MEDS: BUDESONIDE 0.5 MG/2 ML NEB RESP TX SCH ×3 (13:16→22:44)
[2021-03-28] MEDS: VANCOMYCIN INJ 1,250 MG in SODIUM CHLORIDE 0.9% 250 ML IV SCH (16:45)
[2021-03-28] MEDS: FOLIC ACID 1 MG TABLET PO SCH (20:45)
[2021-03-28] MEDS: cloNIDine 0.1 MG TABLET PO SCH (20:45)
[2021-03-28] MEDS: ROSUVASTATIN 20 MG TABLET PO SCH (20:45)
[2021-03-29] MEDS: ALBUTEROL/IPRATROPIUM 3 ML NEB RESP TX SCH ×5 (00:48→20:00)
[2021-03-29] MEDS: ACETYLCYSTEINE 20% 800 MG/4 ML VIAL RESP TX SCH ×3 (00:48→07:49)
[2021-03-29] MEDS: ONDANSETRON 4 MG/2 ML VIAL IV PRN ×4 (03:20→20:56)
[2021-03-29] MEDS: BUDESONIDE 0.5 MG/2 ML NEB RESP TX SCH ×2 (07:49→20:00)
[2021-03-29] MEDS: PANTOPRAZOLE 40 MG VIAL IV SCH ×2 (08:16→20:56)
[2021-03-29] MEDS: cefTRIAXone 2,000 MG in SODIUM CHLORIDE 0.9% 100 ML IV SCH (08:17)
[2021-03-29] MEDS: CYANOCOBALAMIN 500 MCG TABLET PO SCH (08:20)
[2021-03-29] MEDS: DOCUSATE SODIUM 100 MG CAPSULE PO SCH ×2 (08:20→20:54)
[2021-03-29] MEDS: FUROSEMIDE 40 MG TABLET PO SCH ×3 (08:20→19:02)
[2021-03-29] MEDS: carvediloL 12.5 MG TABLET PO SCH ×2 (08:20→20:56)
[2021-03-29] MEDS: ALVIMOPAN 12 MG CAPSULE PO SCH ×2 (08:20→20:55)
[2021-03-29] MEDS: buPROPion SR 100 MG TABLET PO SCH ×2 (08:20→20:55)
[2021-03-29] MEDS: POLYETHYLENE GLYCOL POWDER 17 GM PACK PO SCH ×2 (08:26→20:56)
[2021-03-29] MEDS: INSULIN LISPRO 100 UNIT/ML SUBCUT SCH ×4 (08:59→21:05)
[2021-03-29] MEDS: VANCOMYCIN INJ 1,250 MG in SODIUM CHLORIDE 0.9% 250 ML IV SCH (16:09)
[2021-03-29] MEDS: DORNASE ALFA 2.5 MG/2.5 ML VIAL RESP TX SCH (20:10)
[2021-03-29] MEDS: SIMETHICONE CHEW 125 MG TABLET PO SCH (20:54)
[2021-03-29] MEDS: ROSUVASTATIN 20 MG TABLET PO SCH (20:55)
[2021-03-29] MEDS: FOLIC ACID 1 MG TABLET PO SCH (20:55)
[2021-03-29] MEDS: cloNIDine 0.1 MG TABLET PO SCH (20:56)
[2021-03-29] MEDS: VORICONAZOLE INJ 200 MG in SODIUM CHLORIDE 0.9% 100 ML IV SCH (20:57)
[2021-03-29] MEDS ORDERED: TEMAZEPAM 7.5 MG CAPSULE PO ONE (23:02)
[2021-03-30] MEDS: ALBUTEROL/IPRATROPIUM 3 ML NEB RESP TX SCH ×4 (01:14→19:30)
[2021-03-30 04:58] LABS: Eosinophils # 0.2 10*3/uL (0.0-0.87); Eosinophils % 3.4 % (0.00-10.9); Hematocrit 26.9 VOL% (35.7-47.0); Hemoglobin 8.4 GM/DL (12.0-16.0); Immature Granulocytes % 0.6 %; Immature Granulocytes Absolute 0.03 #; Lymphocytes # 0.8 10*3/uL (1.4-4.0); Lymphocytes % 16.1 % (21.3-54.2); Mean Corpuscular HGB Conc 31.2 GM/DL (32-36); Mean Corpuscular Volume 91.8 FL (87-102); Mean Platelet Volume 10.4 FL (9.6-12.0); Monocytes % 6.8 % (1.7-12.7); Neutrophils % 73.1 % (38.7-73.9); Platelet Count 116 T/CUMM (130-400); Red Blood Count 2.93 MC/CUMM (3.8-5.5); Red Cell Distribution Width 14.6 % (9.3-17.3)
[2021-03-30 05:49] LABS: Albumin 1.5 G/DL (3.4-5.0); Bilirubin,Total 0.4 MG/DL (0.20-1.00); Calcium 6.6 MG/DL (8.5-10.1); Osmolality,Calculated 282.7 MOS/KG (273-304); Potassium 2.7 MMOL/L (3.5-5.1); Total Protein 4.5 G/DL (6.4-8.2)
[2021-03-30] MEDS: ONDANSETRON 4 MG/2 ML VIAL IV PRN ×4 (05:56→20:59)
[2021-03-30] MEDS: BUDESONIDE 0.5 MG/2 ML NEB RESP TX SCH ×2 (07:25→19:30)
[2021-03-30] MEDS: DORNASE ALFA 2.5 MG/2.5 ML VIAL RESP TX SCH ×2 (07:25→19:40)
[2021-03-30] MEDS: carvediloL 12.5 MG TABLET PO SCH ×2 (08:10→20:53)
[2021-03-30] MEDS: DOCUSATE SODIUM 100 MG CAPSULE PO SCH ×3 (08:10→22:24)
[2021-03-30] MEDS: FUROSEMIDE 40 MG TABLET PO SCH (08:10)
[2021-03-30] MEDS: buPROPion SR 100 MG TABLET PO SCH ×2 (08:10→20:53)
[2021-03-30] MEDS: ALVIMOPAN 12 MG CAPSULE PO SCH ×2 (08:10→20:53)
[2021-03-30] MEDS: PANTOPRAZOLE 40 MG VIAL IV SCH ×2 (08:11→20:55)
[2021-03-30] MEDS: cefTRIAXone 2,000 MG in SODIUM CHLORIDE 0.9% 100 ML IV SCH (08:12)
[2021-03-30] MEDS: POLYETHYLENE GLYCOL POWDER 17 GM PACK PO SCH ×2 (08:13→22:24)
[2021-03-30] MEDS: VORICONAZOLE INJ 200 MG in SODIUM CHLORIDE 0.9% 100 ML IV SCH ×2 (08:56→21:22)
[2021-03-30] MEDS: CYANOCOBALAMIN 500 MCG TABLET PO SCH (08:56)
[2021-03-30] MEDS: INSULIN LISPRO 100 UNIT/ML SUBCUT SCH ×4 (08:57→22:24)
[2021-03-30] MEDS ORDERED: POTASSIUM CHLORIDE 20 MEQ TABLET PO ONE (10:19)
[2021-03-30] MEDS: PROMETHAZINE 25 MG TABLET PO PRN ×2 (10:55→15:15)
[2021-03-30] MEDS: SIMETHICONE CHEW 125 MG TABLET PO SCH (11:51)
[2021-03-30] MEDS: MULTIVITAMIN (BEROCCA) TABLET PO SCH (15:20)
[2021-03-30] MEDS: cloNIDine 0.1 MG TABLET PO SCH (20:53)
[2021-03-30] MEDS: FOLIC ACID 1 MG TABLET PO SCH (20:53)
[2021-03-30] MEDS: rOPINIRole 0.25 MG TABLET PO SCH (20:54)
[2021-03-30] MEDS: ROSUVASTATIN 20 MG TABLET PO SCH (20:54)
[2021-03-30] MEDS ORDERED: INSULIN GLARGINE 100 UNIT/ML SUBCUT SCH (21:00)
[2021-03-30] MEDS ORDERED: TEMAZEPAM 7.5 MG CAPSULE PO ONE (21:10)
[2021-03-31] MEDS: ALBUTEROL/IPRATROPIUM 3 ML NEB RESP TX SCH ×4 (00:17→20:10)
[2021-03-31 05:18] LABS: Eosinophils # 0.2 10*3/uL (0.0-0.87); Eosinophils % 4.5 % (0.00-10.9); Hematocrit 26.8 VOL% (35.7-47.0); Hemoglobin 8.6 GM/DL (12.0-16.0); Immature Granulocytes % 0.4 %; Immature Granulocytes Absolute 0.02 #; Lymphocytes % 20.2 % (21.3-54.2); Mean Corpuscular HGB Conc 32.1 GM/DL (32-36); Mean Corpuscular Volume 92.7 FL (87-102); Mean Platelet Volume 10.4 FL (9.6-12.0); Neutrophils % 63.9 % (38.7-73.9); Platelet Count 140 T/CUMM (130-400); Red Blood Count 2.89 MC/CUMM (3.8-5.5); Red Cell Distribution Width 14.7 % (9.3-17.3); White Blood Count 4.9 T/CUMM (4-12)
[2021-03-31 05:45] LABS: Albumin 1.5 G/DL (3.4-5.0); Bilirubin,Total 0.7 MG/DL (0.20-1.00); Calcium 5.9 MG/DL (8.5-10.1); Osmolality,Calculated 281.3 MOS/KG (273-304); Potassium 2.8 MMOL/L (3.5-5.1); Total Protein 4.5 G/DL (6.4-8.2)
[2021-03-31] MEDS: DORNASE ALFA 2.5 MG/2.5 ML VIAL RESP TX SCH ×2 (07:04→20:20)
[2021-03-31] MEDS: BUDESONIDE 0.5 MG/2 ML NEB RESP TX SCH ×2 (07:04→20:10)
[2021-03-31] MEDS: MULTIVITAMIN (BEROCCA) TABLET PO SCH (08:44)
[2021-03-31] MEDS: carvediloL 12.5 MG TABLET PO SCH ×2 (08:44→20:29)
[2021-03-31] MEDS: POTASSIUM CHLORIDE 20 MEQ TABLET PO SCH (08:45)
[2021-03-31] MEDS: CALCIUM (CARBONATE) 500 MG TABLET PO SCH (08:45)
[2021-03-31] MEDS: cloNIDine 0.1 MG TABLET PO SCH ×2 (08:45→20:29)
[2021-03-31] MEDS: CYANOCOBALAMIN 500 MCG TABLET PO SCH (08:45)
[2021-03-31] MEDS: FUROSEMIDE 40 MG TABLET PO SCH (08:45)
[2021-03-31] MEDS: FOLIC ACID 1 MG TABLET PO SCH ×2 (08:45→20:29)
[2021-03-31] MEDS: buPROPion SR 100 MG TABLET PO SCH ×2 (08:45→20:29)
[2021-03-31] MEDS: ALVIMOPAN 12 MG CAPSULE PO SCH ×2 (08:45→20:29)
[2021-03-31] MEDS: DOCUSATE SODIUM 100 MG CAPSULE PO SCH ×2 (08:45→21:49)
[2021-03-31] MEDS: POLYETHYLENE GLYCOL POWDER 17 GM PACK PO SCH ×2 (08:46→21:49)
[2021-03-31] MEDS: cefTRIAXone 2,000 MG in SODIUM CHLORIDE 0.9% 100 ML IV SCH (08:46)
[2021-03-31] MEDS: PANTOPRAZOLE 40 MG VIAL IV SCH ×2 (08:46→20:29)
[2021-03-31] MEDS: VORICONAZOLE INJ 200 MG in SODIUM CHLORIDE 0.9% 100 ML IV SCH ×2 (09:25→20:36)
[2021-03-31] MEDS: INSULIN LISPRO 100 UNIT/ML SUBCUT SCH ×4 (10:02→21:49)
[2021-03-31] MEDS: POTASSIUM CHLORIDE 20 MEQ TABLET PO PRN ×3 (10:11→16:55)
[2021-03-31] MEDS: ONDANSETRON 4 MG/2 ML VIAL IV PRN ×2 (11:33→16:55)
[2021-03-31] MEDS: PROMETHAZINE 25 MG TABLET PO PRN (20:29)
[2021-03-31] MEDS: ROSUVASTATIN 20 MG TABLET PO SCH (20:29)
[2021-03-31] MEDS: rOPINIRole 0.25 MG TABLET PO SCH (20:29)
[2021-04-01] MEDS: ALBUTEROL/IPRATROPIUM 3 ML NEB RESP TX SCH ×4 (01:11→19:05)
[2021-04-01 05:24] LABS: Eosinophils # 0.2 10*3/uL (0.0-0.87); Eosinophils % 4.4 % (0.00-10.9); Hematocrit 26.8 VOL% (35.7-47.0); Hemoglobin 8.3 GM/DL (12.0-16.0); Immature Granulocytes % 0.8 %; Immature Granulocytes Absolute 0.04 #; Lymphocytes # 1.1 10*3/uL (1.4-4.0); Mean Corpuscular Volume 92.4 FL (87-102); Mean Platelet Volume 10.2 FL (9.6-12.0); Monocytes % 12.1 % (1.7-12.7); Neutrophils % 61.7 % (38.7-73.9); Platelet Count 142 T/CUMM (130-400); Red Cell Distribution Width 14.9 % (9.3-17.3); White Blood Count 5.1 T/CUMM (4-12)
[2021-04-01] MEDS: PROMETHAZINE 25 MG TABLET PO PRN ×2 (05:35→21:56)
[2021-04-01 05:51] LABS: Albumin 1.5 G/DL (3.4-5.0); Bilirubin,Total 0.4 MG/DL (0.20-1.00); Osmolality,Calculated 274.7 MOS/KG (273-304); Potassium 3.7 MMOL/L (3.5-5.1); Total Protein 4.7 G/DL (6.4-8.2)
[2021-04-01] MEDS: BUDESONIDE 0.5 MG/2 ML NEB RESP TX SCH ×2 (07:16→19:12)
[2021-04-01] MEDS: DORNASE ALFA 2.5 MG/2.5 ML VIAL RESP TX SCH ×2 (07:21→19:19)
[2021-04-01] MEDS: CYANOCOBALAMIN 500 MCG TABLET PO SCH (09:16)
[2021-04-01] MEDS: cloNIDine 0.1 MG TABLET PO SCH ×2 (09:16→21:57)
[2021-04-01] MEDS: MULTIVITAMIN (BEROCCA) TABLET PO SCH (09:17)
[2021-04-01] MEDS: carvediloL 12.5 MG TABLET PO SCH ×2 (09:17→21:57)
[2021-04-01] MEDS: ALVIMOPAN 12 MG CAPSULE PO SCH ×2 (09:17→21:57)
[2021-04-01] MEDS: DOCUSATE SODIUM 100 MG CAPSULE PO SCH ×2 (09:17→21:57)
[2021-04-01] MEDS: POTASSIUM CHLORIDE 20 MEQ TABLET PO SCH (09:17)
[2021-04-01] MEDS: FUROSEMIDE 40 MG TABLET PO SCH (09:17)
[2021-04-01] MEDS: buPROPion SR 100 MG TABLET PO SCH ×2 (09:17→21:57)
[2021-04-01] MEDS: CALCIUM (CARBONATE) 500 MG TABLET PO SCH (09:17)
[2021-04-01] MEDS: PANTOPRAZOLE 40 MG VIAL IV SCH ×2 (09:20→21:56)
[2021-04-01] MEDS: VORICONAZOLE INJ 200 MG in SODIUM CHLORIDE 0.9% 100 ML IV SCH ×2 (11:03→21:59)
[2021-04-01] MEDS: POLYETHYLENE GLYCOL POWDER 17 GM PACK PO SCH ×2 (11:19→21:57)
[2021-04-01] MEDS: INSULIN LISPRO 100 UNIT/ML SUBCUT SCH ×4 (11:19→21:57)
[2021-04-01] MEDS: ONDANSETRON 4 MG/2 ML VIAL IV PRN (13:00)
[2021-04-01] MEDS: FOLIC ACID 1 MG TABLET PO SCH (21:56)
[2021-04-01] MEDS: rOPINIRole 0.25 MG TABLET PO SCH (21:56)
[2021-04-01] MEDS: ROSUVASTATIN 20 MG TABLET PO SCH (21:57)
[2021-04-02] MEDS: ALBUTEROL/IPRATROPIUM 3 ML NEB RESP TX SCH ×3 (01:14→13:05)
[2021-04-02] MEDS: ONDANSETRON 4 MG/2 ML VIAL IV PRN (02:18)
[2021-04-02 06:23] LABS: Basophils % 0.2 % (0.0-0.8); Eosinophils # 0.2 10*3/uL (0.0-0.87); Eosinophils % 3.7 % (0.00-10.9); Hematocrit 26.1 VOL% (35.7-47.0); Hemoglobin 8.3 GM/DL (12.0-16.0); Immature Granulocytes % 0.4 %; Immature Granulocytes Absolute 0.02 #; Lymphocytes % 21.3 % (21.3-54.2); Mean Corpuscular HGB Conc 31.8 GM/DL (32-36); Mean Corpuscular Volume 91.9 FL (87-102); Mean Platelet Volume 10.3 FL (9.6-12.0); Monocytes % 13.9 % (1.7-12.7); Neutrophils % 60.5 % (38.7-73.9); Platelet Count 145 T/CUMM (130-400); Red Blood Count 2.84 MC/CUMM (3.8-5.5); Red Cell Distribution Width 14.6 % (9.3-17.3); White Blood Count 4.9 T/CUMM (4-12)
[2021-04-02 06:44] LABS: Albumin 1.5 G/DL (3.4-5.0); Bilirubin,Total 0.8 MG/DL (0.20-1.00); Osmolality,Calculated 273.7 MOS/KG (273-304); Potassium 3.2 MMOL/L (3.5-5.1); Total Protein 4.7 G/DL (6.4-8.2)
[2021-04-02 06:46] LABS: Calcium 5.8 MG/DL (8.5-10.1)
[2021-04-02] MEDS: DORNASE ALFA 2.5 MG/2.5 ML VIAL RESP TX SCH (06:52)
[2021-04-02] MEDS: BUDESONIDE 0.5 MG/2 ML NEB RESP TX SCH (06:52)
[2021-04-02] MEDS ORDERED: POTASSIUM CHLORIDE 20 MEQ TABLET PO ONE (08:30)
[2021-04-02] MEDS ORDERED: CALCIUM (CARBONATE) 500 MG TABLET PO SCH (09:00)
[2021-04-02] MEDS ORDERED: VORICONAZOLE 200 MG TABLET PO SCH (09:00)
[2021-04-02] MEDS: buPROPion SR 100 MG TABLET PO SCH (10:07)
[2021-04-02] MEDS: DOCUSATE SODIUM 100 MG CAPSULE PO SCH (10:07)
[2021-04-02] MEDS: POTASSIUM CHLORIDE 20 MEQ TABLET PO SCH (10:08)
[2021-04-02] MEDS: MULTIVITAMIN (BEROCCA) TABLET PO SCH (10:08)
[2021-04-02] MEDS: ALVIMOPAN 12 MG CAPSULE PO SCH (10:08)
[2021-04-02] MEDS: cloNIDine 0.1 MG TABLET PO SCH (10:08)
[2021-04-02] MEDS: CYANOCOBALAMIN 500 MCG TABLET PO SCH (10:08)
[2021-04-02] MEDS: carvediloL 12.5 MG TABLET PO SCH (10:08)
[2021-04-02] MEDS: FUROSEMIDE 40 MG TABLET PO SCH (10:08)
[2021-04-02] MEDS: PANTOPRAZOLE 40 MG VIAL IV SCH (10:09)
[2021-04-02] MEDS: POLYETHYLENE GLYCOL POWDER 17 GM PACK PO SCH (11:15)
[2021-04-02] MEDS: INSULIN LISPRO 100 UNIT/ML SUBCUT SCH ×3 (11:15→16:56)
[2021-04-02] MEDS ORDERED: VORICONAZOLE INJ 200 MG in SODIUM CHLORIDE 0.9% 100 ML IV SCH (12:00)
[2021-04-02 17:35] VITALS: BP 153/87
[2021-04-02 23:21] LABS: Fungitell Quantitative Value 168 pg/mL (<60 pg/mL)
[2021-04-03] MEDS ORDERED: VORICONAZOLE 200 MG TABLET PO SCH (09:00)
== END 2021-04-02 19:10 | DRG 867 ==
LOC: EDBD → EDUNIT# → N.ED 13:36 → N.TELEN 16:27
PROVIDERS: ADMIT Hospitalist; ATTEND Hospitalist

== ENCOUNTER 2021-10-09 15:36 | Inpatient (IN) ==
[2021-10-09 16:34] LABS: Basophils % 0.5 % (0.0-0.8); Eosinophils # 0.2 10*3/uL (0.0-0.87); Eosinophils % 3.3 % (0.00-10.9); Hematocrit 24.9 VOL% (35.7-47.0); Hemoglobin 7.7 GM/DL (12.0-16.0); Immature Granulocytes % 0.7 %; Immature Granulocytes Absolute 0.04 #; Lymphocytes # 1.6 10*3/uL (1.4-4.0); Mean Corpuscular HGB Conc 30.9 GM/DL (32-36); Mean Corpuscular Volume 93.3 FL (87-102); Mean Platelet Volume 9.7 FL (9.6-12.0); Monocytes # 0.6 10*3/uL (0.11-0.8); Monocytes % 9.4 % (1.7-12.7); Neutrophils % 60.1 % (38.7-73.9); Platelet Count 254 T/CUMM (130-400); Red Blood Count 2.67 MC/CUMM (3.8-5.5); Red Cell Distribution Width 15.9 % (9.3-17.3); White Blood Count 6.1 T/CUMM (4-12)
[2021-10-09 17:09] LABS: Alanine Aminotransferase 16 U/L (13-56); Albumin 2.1 G/DL (3.4-5.0); Alkaline Phosphatase 219 U/L (45-117); Aspartate Amino Transferase 15 U/L (0-37); Bilirubin,Total < 0.39 MG/DL (0.20-1.00); Blood Urea Nitrogen 80 MG/DL (7-18); Calcium 6.2 MG/DL (8.5-10.1); Carbon Dioxide 18 MMOL/L (21-32); Chloride 106 MMOL/L (98-107); Glucose 120 MG/DL (74-106); Potassium 4.7 MMOL/L (3.5-5.1); Sodium 136 MMOL/L (136-145); Total Protein 6.6 G/DL (6.4-8.2)
[2021-10-09 17:27] LABS: Thyroid Stimulating Hormone 4.03 uIU/ml (0.358-3.74)
[2021-10-09] MEDS ORDERED: ALUMINUM/MAGNES/SIMETH MAX STR 30 ML UDCUP PO PRN (18:00)
[2021-10-09] MEDS ORDERED: GLUCAGON 1 MG VIAL IM PRN (18:00)
[2021-10-09] MEDS ORDERED: ACETAMINOPHEN 325 MG TABLET PO PRN (18:00)
[2021-10-09] MEDS ORDERED: LACTULOSE 20 GM/30 ML UDCUP PO PRN (18:00)
[2021-10-09] MEDS ORDERED: NITROGLYCERIN SL 0.4 MG TABLET SL PRN (18:10)
[2021-10-09] MEDS ORDERED: DEXTROSE 10% 250 ML BAG IV PRN (18:19)
[2021-10-09] MEDS: FUROSEMIDE 40 MG/4 ML VIAL IV SCH (19:12)
[2021-10-09] MEDS: BUDESONIDE 0.5 MG/2 ML NEB RESP TX SCH (20:43)
[2021-10-09] MEDS: levETIRAcetam 500 MG TABLET PO SCH (22:06)
[2021-10-09] MEDS: carvediloL 12.5 MG TABLET PO SCH (22:06)
[2021-10-09] MEDS: DOCUSATE SODIUM 100 MG CAPSULE PO SCH (22:06)
[2021-10-09] MEDS: ATORVASTATIN 10 MG TABLET PO SCH (22:06)
[2021-10-09] MEDS: MELATONIN 3 MG TABLET PO SCH (22:06)
[2021-10-09] MEDS: MORPHINE 2 MG/1 ML SYRINGE IV PRN (22:07)
[2021-10-10] MEDS: LEVOTHYROXINE 75 MCG TABLET PO SCH (05:35)
[2021-10-10 05:53] LABS: Basophils % 0.4 % (0.0-0.8); Eosinophils # 0.2 10*3/uL (0.0-0.87); Eosinophils % 3.3 % (0.00-10.9); Hematocrit 22.2 VOL% (35.7-47.0); Hemoglobin 6.6 GM/DL (12.0-16.0); Immature Granulocytes % 0.6 %; Immature Granulocytes Absolute 0.03 #; Lymphocytes # 1.5 10*3/uL (1.4-4.0); Lymphocytes % 29.7 % (21.3-54.2); Mean Corpuscular HGB Conc 29.7 GM/DL (32-36); Mean Corpuscular Volume 94.1 FL (87-102); Mean Platelet Volume 9.8 FL (9.6-12.0); Monocytes # 0.5 10*3/uL (0.11-0.8); Monocytes % 8.8 % (1.7-12.7); Neutrophils % 57.2 % (38.7-73.9); Platelet Count 213 T/CUMM (130-400); Red Blood Count 2.36 MC/CUMM (3.8-5.5); Red Cell Distribution Width 15.5 % (9.3-17.3); White Blood Count 5.1 T/CUMM (4-12)
[2021-10-10 06:13] LABS: % Iron Saturation 13.4 % (18-50)
[2021-10-10 06:41] LABS: Calcium 6.1 MG/DL (8.5-10.1); Osmolality,Calculated 301.7 MOS/KG (273-304); Potassium 4.8 MMOL/L (3.5-5.1); Risk Ratio 4.62; VLDL Cholesterol 22.8 MG/DL
[2021-10-10] MEDS: BUDESONIDE 0.5 MG/2 ML NEB RESP TX SCH ×3 (07:15→21:00)
[2021-10-10] MEDS: ALBUTEROL 2.5 MG/3 ML NEB RESP TX PRN ×2 (07:15→07:50)
[2021-10-10] MEDS ORDERED: SODIUM CHLORIDE 0.9% 1,000 ML IV PRN (07:50)
[2021-10-10] MEDS: FUROSEMIDE 40 MG/4 ML VIAL IV SCH (08:33)
[2021-10-10] MEDS: ASCORBIC ACID 500 MG TABLET PO SCH (08:33)
[2021-10-10] MEDS: PANTOPRAZOLE 40 MG TABLET PO SCH (08:33)
[2021-10-10] MEDS: amLODIPine 10 MG TABLET PO SCH (08:33)
[2021-10-10] MEDS: MONTELUKAST 10 MG TABLET PO SCH (08:34)
[2021-10-10] MEDS: DOCUSATE SODIUM 100 MG CAPSULE PO SCH ×2 (08:34→21:24)
[2021-10-10] MEDS: carvediloL 12.5 MG TABLET PO SCH ×2 (08:34→17:28)
[2021-10-10] MEDS: ESCITALOPRAM 10 MG TABLET PO SCH (08:36)
[2021-10-10] MEDS: levETIRAcetam 500 MG TABLET PO SCH ×2 (08:36→21:24)
[2021-10-10] MEDS: CHOLECALCIFEROL 1,000 UNIT TABLET PO SCH (08:42)
[2021-10-10] MEDS: FERROUS SULFATE 325 MG TABLET PO SCH ×2 (08:42→21:24)
[2021-10-10] MEDS: levETIRAcetam 250 MG TABLET PO SCH (08:42)
[2021-10-10] MEDS: MORPHINE 2 MG/1 ML SYRINGE IV PRN (09:02)
[2021-10-10] MEDS ORDERED: AZITHROMYCIN INJ 500 MG in SODIUM CHLORIDE 0.9% 250 ML IV ONE (14:56)
[2021-10-10] MEDS ORDERED: SODIUM CHLORIDE 0.9% 1,000 ML IV SCH (16:00)
[2021-10-10] MEDS: cefTRIAXone 1,000 MG in SODIUM CHLORIDE 0.9% 100 ML IV SCH (17:23)
[2021-10-10] MEDS: DOXYCYCLINE HYCLATE INJ 100 MG in SODIUM CHLORIDE 0.9% 100 ML IV SCH (18:09)
[2021-10-10 18:39] LABS: Hematocrit 29.1 VOL% (35.7-47.0); Hemoglobin 8.9 GM/DL (12.0-16.0)
[2021-10-10 19:21] LABS: Bilirubin,Urine Negative (Negative); Glucose,Urine (UA) Negative (Negative); Ketones,Urine Negative (Negative); Nitrite,Urine Negative (Negative); Protein,Urine 100 mg/dL (Negative); RBC,Urine 52 /HPF (0-4); Urine Appearance Cloudy (Clear); Urine Color Yellow (Yellow); Urine Specific Gravity 1.025 (1.001-1.035); Urine pH 5.5 (4.5-8.0)
[2021-10-10 19:22] LABS: Blood, Urine Moderate mg/dL (Negative); Urine Urobilinogen 0.2 eU/dL (<2.0)
[2021-10-10] MEDS: ALBUTEROL/IPRATROPIUM 3 ML NEB RESP TX SCH (21:00)
[2021-10-10] MEDS: MELATONIN 3 MG TABLET PO SCH (21:23)
[2021-10-10] MEDS: ATORVASTATIN 10 MG TABLET PO SCH (21:24)
[2021-10-10] MEDS: SODIUM BICARBONATE 650 MG TABLET PO SCH (21:25)
[2021-10-11] MEDS: MORPHINE 2 MG/1 ML SYRINGE IV PRN ×2 (02:32→19:32)
[2021-10-11] MEDS: DOXYCYCLINE HYCLATE INJ 100 MG in SODIUM CHLORIDE 0.9% 100 ML IV SCH ×2 (04:20→16:36)
[2021-10-11 05:26] LABS: Basophils % 0.3 % (0.0-0.8); Eosinophils # 0.2 10*3/uL (0.0-0.87); Eosinophils % 2.7 % (0.00-10.9); Hematocrit 29.6 VOL% (35.7-47.0); Hemoglobin 9.1 GM/DL (12.0-16.0); Immature Granulocytes % 0.4 %; Immature Granulocytes Absolute 0.03 #; Lymphocytes % 29.7 % (21.3-54.2); Mean Corpuscular HGB Conc 30.7 GM/DL (32-36); Mean Corpuscular Volume 92.2 FL (87-102); Mean Platelet Volume 9.7 FL (9.6-12.0); Monocytes # 0.7 10*3/uL (0.11-0.8); Neutrophils % 56.9 % (38.7-73.9); Platelet Count 213 T/CUMM (130-400); Red Blood Count 3.21 MC/CUMM (3.8-5.5); White Blood Count 6.7 T/CUMM (4-12)
[2021-10-11 05:45] LABS: Calcium 6.2 MG/DL (8.5-10.1); Osmolality,Calculated 301.7 MOS/KG (273-304); Potassium 4.4 MMOL/L (3.5-5.1)
[2021-10-11] MEDS: LEVOTHYROXINE 75 MCG TABLET PO SCH (05:45)
[2021-10-11] MEDS: BUDESONIDE 0.5 MG/2 ML NEB RESP TX SCH ×2 (07:00→19:00)
[2021-10-11] MEDS: ALBUTEROL/IPRATROPIUM 3 ML NEB RESP TX SCH ×4 (07:00→19:00)
[2021-10-11] MEDS: CHOLECALCIFEROL 1,000 UNIT TABLET PO SCH (10:00)
[2021-10-11] MEDS: carvediloL 12.5 MG TABLET PO SCH ×2 (10:00→17:12)
[2021-10-11] MEDS: FERROUS SULFATE 325 MG TABLET PO SCH ×2 (10:00→21:00)
[2021-10-11] MEDS: ASCORBIC ACID 500 MG TABLET PO SCH (10:00)
[2021-10-11] MEDS: MONTELUKAST 10 MG TABLET PO SCH (10:00)
[2021-10-11] MEDS: amLODIPine 10 MG TABLET PO SCH (10:00)
[2021-10-11] MEDS: ESCITALOPRAM 10 MG TABLET PO SCH (10:00)
[2021-10-11] MEDS: levETIRAcetam 250 MG TABLET PO SCH (10:00)
[2021-10-11] MEDS: PANTOPRAZOLE 40 MG TABLET PO SCH (10:00)
[2021-10-11] MEDS: SODIUM BICARBONATE 650 MG TABLET PO SCH ×2 (10:00→21:00)
[2021-10-11] MEDS: DOCUSATE SODIUM 100 MG CAPSULE PO SCH ×2 (10:00→21:00)
[2021-10-11] MEDS: ALBUTEROL 2.5 MG/3 ML NEB RESP TX PRN (10:25)
[2021-10-11] MEDS: ONDANSETRON 4 MG/2 ML VIAL IV PRN (12:23)
[2021-10-11] MEDS ORDERED: AZITHROMYCIN INJ 250 MG in SODIUM CHLORIDE 0.9% 250 ML IV SCH (15:00)
[2021-10-11] MEDS: cefTRIAXone 1,000 MG in SODIUM CHLORIDE 0.9% 100 ML IV SCH (16:10)
[2021-10-11] MEDS: MAGNESIUM HYDROXIDE SUSP 30 ML UDCUP PO ONE ×2 (16:25→17:12)
[2021-10-11] MEDS: MELATONIN 3 MG TABLET PO SCH (21:00)
[2021-10-11] MEDS: ATORVASTATIN 10 MG TABLET PO SCH (21:00)
[2021-10-11] MEDS: levETIRAcetam 500 MG TABLET PO SCH (21:00)
[2021-10-12] MEDS: ALBUTEROL/IPRATROPIUM 3 ML NEB RESP TX SCH ×4 (00:45→18:51)
[2021-10-12] MEDS: DOXYCYCLINE HYCLATE INJ 100 MG in SODIUM CHLORIDE 0.9% 100 ML IV SCH ×2 (04:06→17:32)
[2021-10-12] MEDS: MORPHINE 2 MG/1 ML SYRINGE IV PRN (05:30)
[2021-10-12 05:48] LABS: Basophils % 0.3 % (0.0-0.8); Eosinophils # 0.2 10*3/uL (0.0-0.87); Eosinophils % 3.3 % (0.00-10.9); Hematocrit 30.6 VOL% (35.7-47.0); Hemoglobin 9.3 GM/DL (12.0-16.0); Immature Granulocytes % 0.5 %; Immature Granulocytes Absolute 0.03 #; Lymphocytes # 1.7 10*3/uL (1.4-4.0); Lymphocytes % 26.4 % (21.3-54.2); Mean Corpuscular HGB Conc 30.4 GM/DL (32-36); Mean Platelet Volume 9.8 FL (9.6-12.0); Monocytes # 0.7 10*3/uL (0.11-0.8); Monocytes % 10.2 % (1.7-12.7); Neutrophils % 59.3 % (38.7-73.9); Platelet Count 215 T/CUMM (130-400); Red Blood Count 3.29 MC/CUMM (3.8-5.5); Red Cell Distribution Width 16.2 % (9.3-17.3); White Blood Count 6.4 T/CUMM (4-12)
[2021-10-12 06:08] LABS: Calcium 6.1 MG/DL (8.5-10.1); Osmolality,Calculated 303.7 MOS/KG (273-304); Potassium 4.7 MMOL/L (3.5-5.1)
[2021-10-12] MEDS: LEVOTHYROXINE 75 MCG TABLET PO SCH (06:25)
[2021-10-12] MEDS: BUDESONIDE 0.5 MG/2 ML NEB RESP TX SCH ×2 (07:20→18:51)
[2021-10-12] MEDS ORDERED: SODIUM CHLORIDE 0.9% 1,000 ML IV SCH (08:00)
[2021-10-12] MEDS ORDERED: SODIUM BICARBONATE 650 MG TABLET PO SCH (09:00)
[2021-10-12] MEDS: MONTELUKAST 10 MG TABLET PO SCH (09:56)
[2021-10-12] MEDS: ASCORBIC ACID 500 MG TABLET PO SCH (09:56)
[2021-10-12] MEDS: amLODIPine 10 MG TABLET PO SCH (09:56)
[2021-10-12] MEDS: levETIRAcetam 250 MG TABLET PO SCH (09:56)
[2021-10-12] MEDS: PANTOPRAZOLE 40 MG TABLET PO SCH (09:56)
[2021-10-12] MEDS: FERROUS SULFATE 325 MG TABLET PO SCH ×2 (09:56→22:00)
[2021-10-12] MEDS: ESCITALOPRAM 10 MG TABLET PO SCH (09:56)
[2021-10-12] MEDS: carvediloL 12.5 MG TABLET PO SCH ×2 (09:56→17:37)
[2021-10-12] MEDS: CHOLECALCIFEROL 1,000 UNIT TABLET PO SCH (09:57)
[2021-10-12] MEDS: DOCUSATE SODIUM 100 MG CAPSULE PO SCH ×2 (09:58→22:00)
[2021-10-12] MEDS: SODIUM BICARB INJ 100 MEQ in DEXTROSE 5% NACL 0.45% 1,000 ML IV SCH (13:23)
[2021-10-12] MEDS: cefTRIAXone 1,000 MG in SODIUM CHLORIDE 0.9% 100 ML IV SCH (16:19)
[2021-10-12] MEDS: MELATONIN 3 MG TABLET PO SCH (22:00)
[2021-10-12] MEDS: ATORVASTATIN 10 MG TABLET PO SCH (22:00)
[2021-10-12] MEDS: levETIRAcetam 500 MG TABLET PO SCH (22:00)
[2021-10-13] MEDS: ALBUTEROL/IPRATROPIUM 3 ML NEB RESP TX SCH ×4 (00:10→19:20)
[2021-10-13] MEDS: SODIUM BICARB INJ 100 MEQ in DEXTROSE 5% NACL 0.45% 1,000 ML IV SCH (02:30)
[2021-10-13] MEDS: DOXYCYCLINE HYCLATE INJ 100 MG in SODIUM CHLORIDE 0.9% 100 ML IV SCH (04:15)
[2021-10-13 05:26] LABS: Basophils % 0.4 % (0.0-0.8); Eosinophils # 0.2 10*3/uL (0.0-0.87); Eosinophils % 3.2 % (0.00-10.9); Hematocrit 30.2 VOL% (35.7-47.0); Hemoglobin 9.3 GM/DL (12.0-16.0); Immature Granulocytes % 0.5 %; Immature Granulocytes Absolute 0.03 #; Lymphocytes # 1.2 10*3/uL (1.4-4.0); Lymphocytes % 21.9 % (21.3-54.2); Mean Corpuscular HGB Conc 30.8 GM/DL (32-36); Mean Corpuscular Volume 92.6 FL (87-102); Mean Platelet Volume 10.2 FL (9.6-12.0); Monocytes # 0.5 10*3/uL (0.11-0.8); Monocytes % 9.2 % (1.7-12.7); Neutrophils % 64.8 % (38.7-73.9); Platelet Count 221 T/CUMM (130-400); Red Blood Count 3.26 MC/CUMM (3.8-5.5); Red Cell Distribution Width 16.2 % (9.3-17.3); White Blood Count 5.7 T/CUMM (4-12)
[2021-10-13 06:02] LABS: Calcium 6.4 MG/DL (8.5-10.1); Osmolality,Calculated 305.5 MOS/KG (273-304); Potassium 4.5 MMOL/L (3.5-5.1)
[2021-10-13] MEDS: LEVOTHYROXINE 75 MCG TABLET PO SCH (06:06)
[2021-10-13] MEDS: BUDESONIDE 0.5 MG/2 ML NEB RESP TX SCH ×2 (06:52→19:20)
[2021-10-13] MEDS: CHOLECALCIFEROL 1,000 UNIT TABLET PO SCH (09:28)
[2021-10-13] MEDS: ESCITALOPRAM 10 MG TABLET PO SCH (09:28)
[2021-10-13] MEDS: MONTELUKAST 10 MG TABLET PO SCH (09:28)
[2021-10-13] MEDS: amLODIPine 10 MG TABLET PO SCH (09:28)
[2021-10-13] MEDS: DOCUSATE SODIUM 100 MG CAPSULE PO SCH ×2 (09:28→22:00)
[2021-10-13] MEDS: ASCORBIC ACID 500 MG TABLET PO SCH (09:28)
[2021-10-13] MEDS: levETIRAcetam 250 MG TABLET PO SCH ×2 (09:28→22:01)
[2021-10-13] MEDS: FERROUS SULFATE 325 MG TABLET PO SCH ×2 (09:28→22:01)
[2021-10-13] MEDS: carvediloL 12.5 MG TABLET PO SCH ×2 (09:28→18:44)
[2021-10-13] MEDS: PANTOPRAZOLE 40 MG TABLET PO SCH (09:28)
[2021-10-13] MEDS ORDERED: MAGNESIUM HYDROXIDE SUSP 30 ML UDCUP PO ONE (11:20)
[2021-10-13 17:07] LABS: Osmolality,Calculated 302.7 MOS/KG (273-304); Potassium 4.4 MMOL/L (3.5-5.1)
[2021-10-13] MEDS ORDERED: SODIUM CHLORIDE 0.9% 1,000 ML IV SCH (17:30)
[2021-10-13] MEDS: ATORVASTATIN 10 MG TABLET PO SCH (22:01)
[2021-10-13] MEDS: MELATONIN 3 MG TABLET PO SCH (22:02)
[2021-10-13] MEDS: DOXYCYCLINE HYCLATE 100 MG CAPSULE PO SCH (22:02)
[2021-10-14] MEDS: ALBUTEROL/IPRATROPIUM 3 ML NEB RESP TX SCH ×4 (00:10→19:28)
[2021-10-14] MEDS: LEVOTHYROXINE 75 MCG TABLET PO SCH (06:23)
[2021-10-14 06:50] LABS: Basophils % 0.4 % (0.0-0.8); Eosinophils # 0.2 10*3/uL (0.0-0.87); Eosinophils % 2.5 % (0.00-10.9); Hematocrit 31.4 VOL% (35.7-47.0); Hemoglobin 9.5 GM/DL (12.0-16.0); Immature Granulocytes % 0.4 %; Immature Granulocytes Absolute 0.03 #; Lymphocytes # 1.6 10*3/uL (1.4-4.0); Lymphocytes % 21.7 % (21.3-54.2); Mean Corpuscular HGB Conc 30.3 GM/DL (32-36); Mean Corpuscular Volume 92.4 FL (87-102); Mean Platelet Volume 9.3 FL (9.6-12.0); Monocytes # 0.6 10*3/uL (0.11-0.8); Monocytes % 8.5 % (1.7-12.7); Neutrophils % 66.5 % (38.7-73.9); Platelet Count 210 T/CUMM (130-400); Red Cell Distribution Width 16.4 % (9.3-17.3); White Blood Count 7.6 T/CUMM (4-12)
[2021-10-14] MEDS: BUDESONIDE 0.5 MG/2 ML NEB RESP TX SCH ×2 (07:15→07:28)
[2021-10-14 07:34] LABS: Calcium 6.4 MG/DL (8.5-10.1); Osmolality,Calculated 305.4 MOS/KG (273-304); Potassium 4.4 MMOL/L (3.5-5.1)
[2021-10-14] MEDS: carvediloL 12.5 MG TABLET PO SCH ×2 (09:06→18:05)
[2021-10-14] MEDS: amLODIPine 10 MG TABLET PO SCH (09:06)
[2021-10-14] MEDS: DOXYCYCLINE HYCLATE 100 MG CAPSULE PO SCH ×2 (09:06→22:15)
[2021-10-14] MEDS: MONTELUKAST 10 MG TABLET PO SCH (09:06)
[2021-10-14] MEDS: levETIRAcetam 250 MG TABLET PO SCH ×2 (09:07→22:15)
[2021-10-14] MEDS: DOCUSATE SODIUM 100 MG CAPSULE PO SCH ×2 (09:07→22:15)
[2021-10-14] MEDS: PANTOPRAZOLE 40 MG TABLET PO SCH (09:07)
[2021-10-14] MEDS: ESCITALOPRAM 10 MG TABLET PO SCH (09:07)
[2021-10-14] MEDS: ASCORBIC ACID 500 MG TABLET PO SCH (09:07)
[2021-10-14] MEDS: CHOLECALCIFEROL 1,000 UNIT TABLET PO SCH (09:07)
[2021-10-14] MEDS: FERROUS SULFATE 325 MG TABLET PO SCH ×2 (09:07→22:15)
[2021-10-14] MEDS: ONDANSETRON 4 MG/2 ML VIAL IV PRN (09:10)
[2021-10-14] MEDS ORDERED: BISACODYL 10 MG SUPP RECTAL PRN (11:46)
[2021-10-14] MEDS ORDERED: BISACODYL 10 MG SUPP RECTAL ONE (11:47)
[2021-10-14] MEDS ORDERED: FUROSEMIDE 40 MG/4 ML VIAL IV ONE (16:30)
[2021-10-14] MEDS: ATORVASTATIN 10 MG TABLET PO SCH (22:15)
[2021-10-14] MEDS: CALCIUM (CARBONATE)/VITAMIN D 600 MG-400 UNIT TABLET PO SCH (22:15)
[2021-10-14] MEDS: MELATONIN 3 MG TABLET PO SCH (22:15)
[2021-10-15] MEDS: ALBUTEROL/IPRATROPIUM 3 ML NEB RESP TX SCH ×4 (00:39→19:44)
[2021-10-15 05:37] LABS: Basophils % 0.3 % (0.0-0.8); Eosinophils # 0.1 10*3/uL (0.0-0.87); Eosinophils % 2.3 % (0.00-10.9); Hemoglobin 9.3 GM/DL (12.0-16.0); Immature Granulocytes % 0.5 %; Immature Granulocytes Absolute 0.03 #; Lymphocytes # 1.4 10*3/uL (1.4-4.0); Lymphocytes % 22.9 % (21.3-54.2); Mean Corpuscular Volume 93.4 FL (87-102); Mean Platelet Volume 10.2 FL (9.6-12.0); Monocytes # 0.5 10*3/uL (0.11-0.8); Monocytes % 8.8 % (1.7-12.7); Neutrophils % 65.2 % (38.7-73.9); Platelet Count 214 T/CUMM (130-400); Red Blood Count 3.32 MC/CUMM (3.8-5.5)
[2021-10-15 05:47] LABS: Calcium 6.4 MG/DL (8.5-10.1); Osmolality,Calculated 307.1 MOS/KG (273-304); Potassium 4.3 MMOL/L (3.5-5.1)
[2021-10-15] MEDS: LEVOTHYROXINE 75 MCG TABLET PO SCH (06:05)
[2021-10-15] MEDS: BUDESONIDE 0.5 MG/2 ML NEB RESP TX SCH ×2 (07:22→19:44)
[2021-10-15] MEDS: POLYETHYLENE GLYCOL POWDER 17 GM PACK PO SCH (09:42)
[2021-10-15] MEDS: carvediloL 12.5 MG TABLET PO SCH ×2 (09:42→17:49)
[2021-10-15] MEDS: ESCITALOPRAM 10 MG TABLET PO SCH (09:42)
[2021-10-15] MEDS: PANTOPRAZOLE 40 MG TABLET PO SCH (09:50)
[2021-10-15] MEDS: FERROUS SULFATE 325 MG TABLET PO SCH ×2 (09:50→21:12)
[2021-10-15] MEDS: ASCORBIC ACID 500 MG TABLET PO SCH (09:51)
[2021-10-15] MEDS: MONTELUKAST 10 MG TABLET PO SCH (09:51)
[2021-10-15] MEDS: levETIRAcetam 250 MG TABLET PO SCH ×2 (09:51→21:12)
[2021-10-15] MEDS: DOXYCYCLINE HYCLATE 100 MG CAPSULE PO SCH ×2 (09:52→21:13)
[2021-10-15] MEDS: CHOLECALCIFEROL 1,000 UNIT TABLET PO SCH (09:52)
[2021-10-15] MEDS: DOCUSATE SODIUM 100 MG CAPSULE PO SCH ×2 (09:52→21:12)
[2021-10-15] MEDS: CALCIUM (CARBONATE)/VITAMIN D 600 MG-400 UNIT TABLET PO SCH ×2 (09:53→21:12)
[2021-10-15] MEDS: MORPHINE 2 MG/1 ML SYRINGE IV PRN ×2 (09:57→17:53)
[2021-10-15] MEDS ORDERED: FUROSEMIDE 40 MG/4 ML VIAL IV ONE (14:45)
[2021-10-15] MEDS: MELATONIN 3 MG TABLET PO SCH (21:13)
[2021-10-15] MEDS: ATORVASTATIN 10 MG TABLET PO SCH (21:13)
[2021-10-16] MEDS: ALBUTEROL/IPRATROPIUM 3 ML NEB RESP TX SCH ×3 (00:05→13:44)
[2021-10-16] MEDS: MORPHINE 2 MG/1 ML SYRINGE IV PRN (02:29)
[2021-10-16 06:01] LABS: Basophils % 0.4 % (0.0-0.8); Eosinophils # 0.3 10*3/uL (0.0-0.87); Eosinophils % 3.6 % (0.00-10.9); Hematocrit 31.7 VOL% (35.7-47.0); Hemoglobin 9.8 GM/DL (12.0-16.0); Immature Granulocytes % 0.4 %; Immature Granulocytes Absolute 0.03 #; Lymphocytes # 1.5 10*3/uL (1.4-4.0); Lymphocytes % 20.6 % (21.3-54.2); Mean Corpuscular HGB Conc 30.9 GM/DL (32-36); Mean Platelet Volume 9.5 FL (9.6-12.0); Monocytes # 0.7 10*3/uL (0.11-0.8); Monocytes % 9.3 % (1.7-12.7); Neutrophils % 65.7 % (38.7-73.9); Platelet Count 224 T/CUMM (130-400); Red Blood Count 3.41 MC/CUMM (3.8-5.5); Red Cell Distribution Width 16.1 % (9.3-17.3); White Blood Count 7.2 T/CUMM (4-12)
[2021-10-16] MEDS: LEVOTHYROXINE 75 MCG TABLET PO SCH (06:04)
[2021-10-16 06:17] LABS: Calcium 6.8 MG/DL (8.5-10.1); Osmolality,Calculated 306.1 MOS/KG (273-304); Potassium 4.6 MMOL/L (3.5-5.1)
[2021-10-16] MEDS: BUDESONIDE 0.5 MG/2 ML NEB RESP TX SCH (07:05)
[2021-10-16] MEDS: POLYETHYLENE GLYCOL POWDER 17 GM PACK PO SCH (09:15)
[2021-10-16] MEDS: CALCIUM (CARBONATE)/VITAMIN D 600 MG-400 UNIT TABLET PO SCH (09:15)
[2021-10-16] MEDS: DOXYCYCLINE HYCLATE 100 MG CAPSULE PO SCH (09:15)
[2021-10-16] MEDS: ASCORBIC ACID 500 MG TABLET PO SCH (09:15)
[2021-10-16] MEDS: carvediloL 12.5 MG TABLET PO SCH (09:15)
[2021-10-16] MEDS: PANTOPRAZOLE 40 MG TABLET PO SCH (09:15)
[2021-10-16] MEDS: levETIRAcetam 250 MG TABLET PO SCH (09:15)
[2021-10-16] MEDS: DOCUSATE SODIUM 100 MG CAPSULE PO SCH (09:15)
[2021-10-16] MEDS: FERROUS SULFATE 325 MG TABLET PO SCH (09:16)
[2021-10-16] MEDS: CHOLECALCIFEROL 1,000 UNIT TABLET PO SCH (09:16)
[2021-10-16] MEDS: ESCITALOPRAM 10 MG TABLET PO SCH (09:16)
[2021-10-16] MEDS: MONTELUKAST 10 MG TABLET PO SCH (09:17)
[2021-10-16 12:23] VITALS: BP 178/65
== END 2021-10-16 14:35 | disposition home or self-care (01) | DRG 682 ==
LOC: N.ED 15:36 → N.EDINP 18:00 → SUATTDRO 18:00 → N.TELES 20:07
PROVIDERS: ADMIT Internal Medicine; ATTEND Internal Medicine

== ENCOUNTER 2021-12-20 07:05 | Inpatient (IN) ==
[2021-12-20] MEDS ORDERED: FUROSEMIDE 40 MG/4 ML VIAL IV STA (07:17)
[2021-12-20] MEDS ORDERED: MEROPENEM 500 MG in SODIUM CHLORIDE 0.9% 100 ML IV ONE (07:50)
[2021-12-20 07:54] LABS: Basophils % 0.2 % (0.0-0.8); Eosinophils # 0.1 10*3/uL (0.0-0.87); Eosinophils % 0.6 % (0.00-10.9); Hematocrit 34.9 VOL% (35.7-47.0); Hemoglobin 10.5 GM/DL (12.0-16.0); Immature Granulocytes % 0.6 %; Immature Granulocytes Absolute 0.09 #; Lymphocytes # 1.3 10*3/uL (1.4-4.0); Lymphocytes % 9.2 % (21.3-54.2); Mean Corpuscular HGB Conc 30.1 GM/DL (32-36); Mean Corpuscular Volume 95.4 FL (87-102); Mean Platelet Volume 10.7 FL (9.6-12.0); Monocytes # 0.5 10*3/uL (0.11-0.8); Monocytes % 3.6 % (1.7-12.7); Neutrophils % 85.8 % (38.7-73.9); Platelet Count 218 T/CUMM (130-400); Red Blood Count 3.66 MC/CUMM (3.8-5.5); White Blood Count 14.1 T/CUMM (4-12)
[2021-12-20 08:05] LABS: INR 0.9; PT Patient Result 10.4 SECS (10.1-12.1); Partial Thromboplastin Time 36.2 SECS (23.7-32.9)
[2021-12-20 08:05] LABS: Arterial Base Excess iSTAT -17 MMOL/L (-2.5-2.5); Arterial Bicarbonate iSTAT 12.3 MMOL/L (20-26); Arterial O2 Saturation iSTAT 81 % (95-100); Arterial PCO2 iSTAT 40 MM HG (35-48); Arterial PO2 iSTAT 61 MM HG (80-95); Arterial Total CO2 iSTAT 14 MMO/L (23-27); Arterial pH iSTAT 7.097 (7.35-7.45)
[2021-12-20 08:16] LABS: Alanine Aminotransferase 22 U/L (13-56); Albumin 2.4 G/DL (3.4-5.0); Alkaline Phosphatase 78 U/L (45-117); Aspartate Amino Transferase 18 U/L (0-37); Bilirubin,Total < 0.39 MG/DL (0.20-1.00); Blood Urea Nitrogen 86 MG/DL (7-18); Calcium 7.2 MG/DL (8.5-10.1); Carbon Dioxide 15 MMOL/L (21-32); Chloride 110 MMOL/L (98-107); Glucose 148 MG/DL (74-106); Osmolality,Calculated 292.5 MOS/KG (273-304); Sodium 132 MMOL/L (136-145); Total Protein 6.2 G/DL (6.4-8.2)
[2021-12-20 08:27] LABS: Potassium 8.5 MMOL/L (3.5-5.1)
[2021-12-20] MEDS ORDERED: DEXTROSE 50% 25 GM/50 ML VIAL IV STA (08:29)
[2021-12-20] MEDS ORDERED: SODIUM BICARBONATE 50 MEQ/50 ML VIAL IV STA ×2 (08:29→10:33)
[2021-12-20] MEDS ORDERED: INSULIN REGULAR 100 UNIT/ML IV STA (08:29)
[2021-12-20] MEDS ORDERED: CALCIUM CHLORIDE 1,000 MG/10 ML SYRINGE IV STA (08:30)
[2021-12-20] MEDS ORDERED: DEXTROSE 50% 25 GM/50 ML SYRINGE IV STA (08:32)
[2021-12-20 08:48] LABS: Amorphous Crystals,Urine Occasional /HPF (Few); Bacteria,Urine Occasional /HPF (Few); Hyaline Casts,Urine 7 /LPF (0-3); Mucus,Urine Occasional /LPF (Occasional); RBC,Urine 13 /HPF (0-4); Squamous Epithelial Cell,Urine Occasional /HPF (0-10)
[2021-12-20 08:49] LABS: Protein,Urine >=300 mg/dL (Negative); Urine Appearance Hazy (Clear); Urine Color Yellow (Yellow); Urine Specific Gravity >= 1.030 (1.001-1.035)
[2021-12-20 08:50] LABS: Bilirubin,Urine Negative (Negative); Blood, Urine Moderate mg/dL (Negative); Glucose,Urine (UA) Negative (Negative); Ketones,Urine Negative (Negative); Nitrite,Urine Negative (Negative); Urine Urobilinogen 0.2 eU/dL (<2.0)
[2021-12-20] MEDS ORDERED: ALBUTEROL 2.5 MG/3 ML NEB RESP TX PRN (10:38)
[2021-12-20] MEDS ORDERED: ONDANSETRON 4 MG/2 ML VIAL IV PRN (10:40)
[2021-12-20] MEDS: HEPARIN 5,000 UNIT/1 ML VIAL SUBCUT SCH ×2 (11:17→23:20)
[2021-12-20] MEDS: cefTRIAXone 1,000 MG in SODIUM CHLORIDE 0.9% 100 ML IV SCH (11:22)
[2021-12-20 11:47] LABS: Hepatitis B Core IgM Quant 0.14 Index; Hepatitis B Surface Ag Quant < 0.10 Index; Hepatitis B Surface Ag Result Non-Reactive (NonReactive); Hepatitis C Virus Ab Quant 0.08 Index; Hepatitis C Virus Ab Result Non-Reactive (NonReactive)
[2021-12-20] MEDS ORDERED: HEPARIN 10,000 UNIT/10 ML VIAL IV SCH (13:00)
[2021-12-20] MEDS ORDERED: AZITHROMYCIN 250 MG TABLET PO ONE (15:11)
[2021-12-20 15:51] LABS: Osmolality,Calculated 281.5 MOS/KG (273-304); Potassium 3.6 MMOL/L (3.5-5.1)
[2021-12-20 15:56] LABS: Arterial Base Excess iSTAT -1 MMOL/L (-2.5-2.5); Arterial Bicarbonate iSTAT 25.4 MMOL/L (20-26); Arterial O2 Saturation iSTAT 85 % (95-100); Arterial PCO2 iSTAT 48 MM HG (35-48); Arterial PO2 iSTAT 54 MM HG (80-95); Arterial Total CO2 iSTAT 27 MMO/L (23-27); Arterial pH iSTAT 7.332 (7.35-7.45)
[2021-12-20 16:26] LABS: Basophils % 0.2 % (0.0-0.8); Eosinophils % 0.3 % (0.00-10.9); Hemoglobin 10.1 GM/DL (12.0-16.0); Immature Granulocytes % 0.6 %; Immature Granulocytes Absolute 0.05 #; Lymphocytes # 1.9 10*3/uL (1.4-4.0); Lymphocytes % 21.1 % (21.3-54.2); Mean Corpuscular HGB Conc 31.6 GM/DL (32-36); Mean Corpuscular Volume 90.9 FL (87-102); Mean Platelet Volume 9.7 FL (9.6-12.0); Monocytes # 0.4 10*3/uL (0.11-0.8); Neutrophils % 73.8 % (38.7-73.9); Platelet Count 179 T/CUMM (130-400); Red Blood Count 3.52 MC/CUMM (3.8-5.5); Red Cell Distribution Width 15.7 % (9.3-17.3)
[2021-12-20 17:18] LABS: Urine Appearance Clear (Clear); Urine Color Yellow (Yellow); Urine pH 5.5 (4.5-8.0)
[2021-12-20 17:19] LABS: Bilirubin,Urine Negative (Negative); Blood, Urine Small mg/dL (Negative); Glucose,Urine (UA) Negative (Negative); Ketones,Urine Negative (Negative); Nitrite,Urine Negative (Negative); Protein,Urine 100 mg/dL (Negative); Urine Urobilinogen 0.2 eU/dL (<2.0)
[2021-12-20 17:22] LABS: Amorphous Crystals,Urine Occasional /HPF (Few); Mucus,Urine Occasional /LPF (Occasional); RBC,Urine 2 /HPF (0-4); Squamous Epithelial Cell,Urine Occasional /HPF (0-10)
[2021-12-21 04:14] LABS: Basophils % 0.3 % (0.0-0.8); Eosinophils # 0.1 10*3/uL (0.0-0.87); Eosinophils % 1.5 % (0.00-10.9); Hematocrit 27.8 VOL% (35.7-47.0); Immature Granulocytes % 0.3 %; Immature Granulocytes Absolute 0.02 #; Lymphocytes # 1.5 10*3/uL (1.4-4.0); Lymphocytes % 24.3 % (21.3-54.2); Mean Corpuscular HGB Conc 32.4 GM/DL (32-36); Mean Corpuscular Volume 90.6 FL (87-102); Mean Platelet Volume 10.1 FL (9.6-12.0); Monocytes # 0.4 10*3/uL (0.11-0.8); Neutrophils % 66.6 % (38.7-73.9); Platelet Count 176 T/CUMM (130-400); Red Blood Count 3.07 MC/CUMM (3.8-5.5); Red Cell Distribution Width 15.8 % (9.3-17.3); White Blood Count 6.2 T/CUMM (4-12)
[2021-12-21 04:34] LABS: Alanine Aminotransferase 16 U/L (13-56); Alkaline Phosphatase 67 U/L (45-117); Aspartate Amino Transferase 15 U/L (0-37); Bilirubin,Total < 0.39 MG/DL (0.20-1.00); Blood Urea Nitrogen 39 MG/DL (7-18); Calcium 7.6 MG/DL (8.5-10.1); Carbon Dioxide 25 MMOL/L (21-32); Chloride 108 MMOL/L (98-107); Glucose 107 MG/DL (74-106); Osmolality,Calculated 287.4 MOS/KG (273-304); Sodium 140 MMOL/L (136-145); Total Protein 5.7 G/DL (6.4-8.2)
[2021-12-21] MEDS ORDERED: POLYETHYLENE GLYCOL POWDER 17 GM PACK PO PRN (09:14)
[2021-12-21] MEDS: DOCUSATE SODIUM 100 MG CAPSULE PO SCH ×2 (10:32→22:24)
[2021-12-21] MEDS: AZITHROMYCIN 250 MG TABLET PO SCH (10:32)
[2021-12-21] MEDS: carvediloL 12.5 MG TABLET PO SCH ×2 (10:32→22:24)
[2021-12-21] MEDS: PANTOPRAZOLE 40 MG TABLET PO SCH (10:32)
[2021-12-21] MEDS: FERROUS SULFATE 325 MG TABLET PO SCH (10:32)
[2021-12-21] MEDS: NON-FORMULARY MEDICATION (Fluticasone-Umeclidin-Vilanter [Trelegy Ellipta] 100-62.5-25 mcg INH SCH (10:34)
[2021-12-21] MEDS: ESCITALOPRAM 10 MG TABLET PO SCH (10:35)
[2021-12-21] MEDS: CHOLECALCIFEROL 1,000 UNIT TABLET PO SCH (10:35)
[2021-12-21] MEDS: LEVOTHYROXINE 75 MCG TABLET PO SCH (10:35)
[2021-12-21] MEDS: MONTELUKAST 10 MG TABLET PO SCH (10:35)
[2021-12-21] MEDS: ATORVASTATIN 10 MG TABLET PO SCH (10:35)
[2021-12-21] MEDS: GABAPENTIN 300 MG CAPSULE PO SCH ×2 (10:35→22:25)
[2021-12-21] MEDS: levETIRAcetam 250 MG TABLET PO SCH (12:01)
[2021-12-21] MEDS: cefTRIAXone 1,000 MG in SODIUM CHLORIDE 0.9% 100 ML IV SCH (12:14)
[2021-12-21] MEDS ORDERED: VANCOMYCIN INJ 1,000 MG in SODIUM CHLORIDE 0.9% 250 ML IV PRN (15:00)
[2021-12-21] MEDS ORDERED: VANCOMYCIN INJ 1,000 MG in SODIUM CHLORIDE 0.9% 250 ML IV SCH (15:00)
[2021-12-21] MEDS ORDERED: VANCOMYCIN INJ 1,000 MG in SODIUM CHLORIDE 0.9% 250 ML IV ONE (16:00)
[2021-12-21] MEDS: HEPARIN 5,000 UNIT/1 ML VIAL SUBCUT SCH ×2 (17:17→22:54)
[2021-12-21] MEDS: MELATONIN 3 MG TABLET PO SCH (22:24)
[2021-12-21] MEDS: levETIRAcetam 500 MG TABLET PO SCH (22:24)
[2021-12-22 06:14] LABS: Basophils % 0.5 % (0.0-0.8); Eosinophils # 0.2 10*3/uL (0.0-0.87); Eosinophils % 3.5 % (0.00-10.9); Hematocrit 28.6 VOL% (35.7-47.0); Immature Granulocytes % 0.5 %; Immature Granulocytes Absolute 0.03 #; Lymphocytes # 1.7 10*3/uL (1.4-4.0); Lymphocytes % 28.4 % (21.3-54.2); Mean Corpuscular HGB Conc 31.5 GM/DL (32-36); Mean Corpuscular Volume 93.2 FL (87-102); Mean Platelet Volume 10.5 FL (9.6-12.0); Monocytes # 0.5 10*3/uL (0.11-0.8); Neutrophils % 59.1 % (38.7-73.9); Platelet Count 191 T/CUMM (130-400); Red Blood Count 3.07 MC/CUMM (3.8-5.5); Red Cell Distribution Width 15.6 % (9.3-17.3)
[2021-12-22] MEDS: LEVOTHYROXINE 75 MCG TABLET PO SCH (06:17)
[2021-12-22 06:36] LABS: Calcium 7.3 MG/DL (8.5-10.1); Osmolality,Calculated 291.3 MOS/KG (273-304); Potassium 3.7 MMOL/L (3.5-5.1)
[2021-12-22] MEDS: levETIRAcetam 250 MG TABLET PO SCH (10:01)
[2021-12-22] MEDS: carvediloL 12.5 MG TABLET PO SCH ×2 (10:01→20:42)
[2021-12-22] MEDS: DOCUSATE SODIUM 100 MG CAPSULE PO SCH ×2 (10:01→20:43)
[2021-12-22] MEDS: FERROUS SULFATE 325 MG TABLET PO SCH (10:01)
[2021-12-22] MEDS: ESCITALOPRAM 10 MG TABLET PO SCH (10:02)
[2021-12-22] MEDS: ATORVASTATIN 10 MG TABLET PO SCH (10:02)
[2021-12-22] MEDS: CHOLECALCIFEROL 1,000 UNIT TABLET PO SCH (10:02)
[2021-12-22] MEDS: MONTELUKAST 10 MG TABLET PO SCH (10:02)
[2021-12-22] MEDS: AZITHROMYCIN 250 MG TABLET PO SCH (10:02)
[2021-12-22] MEDS: GABAPENTIN 300 MG CAPSULE PO SCH ×2 (10:02→20:42)
[2021-12-22] MEDS: PANTOPRAZOLE 40 MG TABLET PO SCH (10:02)
[2021-12-22] MEDS: NON-FORMULARY MEDICATION (Fluticasone-Umeclidin-Vilanter [Trelegy Ellipta] 100-62.5-25 mcg INH SCH (10:12)
[2021-12-22] MEDS: HEPARIN 5,000 UNIT/1 ML VIAL SUBCUT SCH (10:47)
[2021-12-22] MEDS: cefTRIAXone 1,000 MG in SODIUM CHLORIDE 0.9% 100 ML IV SCH (10:47)
[2021-12-22] MEDS ORDERED: VANCOMYCIN INJ 1,000 MG in SODIUM CHLORIDE 0.9% 250 ML IV ONE (18:00)
[2021-12-22] MEDS: MELATONIN 3 MG TABLET PO SCH (20:42)
[2021-12-22] MEDS: levETIRAcetam 500 MG TABLET PO SCH (20:43)
[2021-12-23] MEDS: HEPARIN 5,000 UNIT/1 ML VIAL SUBCUT SCH ×3 (00:30→22:00)
[2021-12-23 04:35] LABS: Basophils % 0.5 % (0.0-0.8); Eosinophils # 0.3 10*3/uL (0.0-0.87); Eosinophils % 4.3 % (0.00-10.9); Hematocrit 28.5 VOL% (35.7-47.0); Immature Granulocytes % 0.3 %; Immature Granulocytes Absolute 0.02 #; Lymphocytes # 2.1 10*3/uL (1.4-4.0); Lymphocytes % 35.6 % (21.3-54.2); Mean Corpuscular HGB Conc 31.6 GM/DL (32-36); Mean Corpuscular Volume 92.8 FL (87-102); Mean Platelet Volume 10.2 FL (9.6-12.0); Monocytes # 0.5 10*3/uL (0.11-0.8); Monocytes % 8.3 % (1.7-12.7); Platelet Count 192 T/CUMM (130-400); Red Blood Count 3.07 MC/CUMM (3.8-5.5); Red Cell Distribution Width 15.2 % (9.3-17.3); White Blood Count 5.8 T/CUMM (4-12)
[2021-12-23 04:45] LABS: Osmolality,Calculated 290.3 MOS/KG (273-304); Potassium 3.7 MMOL/L (3.5-5.1)
[2021-12-23] MEDS: LEVOTHYROXINE 75 MCG TABLET PO SCH (06:23)
[2021-12-23] MEDS: FERROUS SULFATE 325 MG TABLET PO SCH (09:48)
[2021-12-23] MEDS: CHOLECALCIFEROL 1,000 UNIT TABLET PO SCH (09:48)
[2021-12-23] MEDS: AZITHROMYCIN 250 MG TABLET PO SCH (09:49)
[2021-12-23] MEDS: levETIRAcetam 250 MG TABLET PO SCH (09:49)
[2021-12-23] MEDS: carvediloL 12.5 MG TABLET PO SCH ×2 (09:49→20:59)
[2021-12-23] MEDS: MONTELUKAST 10 MG TABLET PO SCH (09:49)
[2021-12-23] MEDS: PANTOPRAZOLE 40 MG TABLET PO SCH (09:49)
[2021-12-23] MEDS: ESCITALOPRAM 10 MG TABLET PO SCH (09:49)
[2021-12-23] MEDS: DOCUSATE SODIUM 100 MG CAPSULE PO SCH ×2 (09:49→20:59)
[2021-12-23] MEDS: ATORVASTATIN 10 MG TABLET PO SCH (09:50)
[2021-12-23] MEDS: GABAPENTIN 300 MG CAPSULE PO SCH ×2 (09:50→20:59)
[2021-12-23] MEDS: NON-FORMULARY MEDICATION (Fluticasone-Umeclidin-Vilanter [Trelegy Ellipta] 100-62.5-25 mcg INH SCH (10:45)
[2021-12-23] MEDS: cefTRIAXone 1,000 MG in SODIUM CHLORIDE 0.9% 100 ML IV SCH (11:05)
[2021-12-23] MEDS: levETIRAcetam 500 MG TABLET PO SCH (20:59)
[2021-12-23] MEDS: MELATONIN 3 MG TABLET PO SCH (20:59)
[2021-12-24 03:47] LABS: Basophils % 0.5 % (0.0-0.8); Eosinophils # 0.3 10*3/uL (0.0-0.87); Eosinophils % 5.1 % (0.00-10.9); Hematocrit 29.7 VOL% (35.7-47.0); Hemoglobin 9.1 GM/DL (12.0-16.0); Immature Granulocytes % 0.6 %; Immature Granulocytes Absolute 0.04 #; Lymphocytes # 2.4 10*3/uL (1.4-4.0); Lymphocytes % 37.1 % (21.3-54.2); Mean Corpuscular HGB Conc 30.6 GM/DL (32-36); Mean Corpuscular Volume 95.5 FL (87-102); Mean Platelet Volume 10.1 FL (9.6-12.0); Monocytes # 0.6 10*3/uL (0.11-0.8); Monocytes % 8.6 % (1.7-12.7); Neutrophils % 48.1 % (38.7-73.9); Platelet Count 199 T/CUMM (130-400); Red Blood Count 3.11 MC/CUMM (3.8-5.5); Red Cell Distribution Width 15.4 % (9.3-17.3); White Blood Count 6.4 T/CUMM (4-12)
[2021-12-24 03:50] LABS: Calcium 6.7 MG/DL (8.5-10.1); Osmolality,Calculated 295.1 MOS/KG (273-304); Potassium 3.4 MMOL/L (3.5-5.1)
[2021-12-24] MEDS: LEVOTHYROXINE 75 MCG TABLET PO SCH (06:09)
[2021-12-24] MEDS: AZITHROMYCIN 250 MG TABLET PO SCH (08:00)
[2021-12-24] MEDS: MONTELUKAST 10 MG TABLET PO SCH (08:00)
[2021-12-24] MEDS: levETIRAcetam 250 MG TABLET PO SCH (08:01)
[2021-12-24] MEDS: PANTOPRAZOLE 40 MG TABLET PO SCH (08:01)
[2021-12-24] MEDS: ESCITALOPRAM 10 MG TABLET PO SCH (08:01)
[2021-12-24] MEDS: GABAPENTIN 300 MG CAPSULE PO SCH ×2 (08:01→20:11)
[2021-12-24] MEDS: carvediloL 12.5 MG TABLET PO SCH ×2 (08:01→20:11)
[2021-12-24] MEDS: ATORVASTATIN 10 MG TABLET PO SCH (08:01)
[2021-12-24] MEDS: FERROUS SULFATE 325 MG TABLET PO SCH (08:01)
[2021-12-24] MEDS: CHOLECALCIFEROL 1,000 UNIT TABLET PO SCH (08:01)
[2021-12-24] MEDS: DOCUSATE SODIUM 100 MG CAPSULE PO SCH ×2 (08:01→20:11)
[2021-12-24] MEDS: NON-FORMULARY MEDICATION (Fluticasone-Umeclidin-Vilanter [Trelegy Ellipta] 100-62.5-25 mcg INH SCH (08:01)
[2021-12-24] MEDS: HEPARIN 5,000 UNIT/1 ML VIAL SUBCUT SCH ×2 (10:00→23:53)
[2021-12-24] MEDS: cefTRIAXone 1,000 MG in SODIUM CHLORIDE 0.9% 100 ML IV SCH (10:00)
[2021-12-24] MEDS ORDERED: POTASSIUM CHLORIDE 20 MEQ TABLET PO ONE (10:39)
[2021-12-24] MEDS ORDERED: amLODIPine 10 MG TABLET PO ONE (15:06)
[2021-12-24 17:29] LABS: % Iron Saturation 30.4 % (18-50)
[2021-12-24] MEDS: levETIRAcetam 500 MG TABLET PO SCH (20:11)
[2021-12-24] MEDS: MELATONIN 3 MG TABLET PO SCH (20:11)
[2021-12-25] MEDS: LEVOTHYROXINE 75 MCG TABLET PO SCH (05:55)
[2021-12-25 06:43] LABS: Basophils % 0.5 % (0.0-0.8); Eosinophils # 0.3 10*3/uL (0.0-0.87); Eosinophils % 5.1 % (0.00-10.9); Hematocrit 28.4 VOL% (35.7-47.0); Hemoglobin 8.5 GM/DL (12.0-16.0); Immature Granulocytes % 1.4 %; Immature Granulocytes Absolute 0.09 #; Lymphocytes # 2.6 10*3/uL (1.4-4.0); Lymphocytes % 40.9 % (21.3-54.2); Mean Corpuscular HGB Conc 29.9 GM/DL (32-36); Mean Corpuscular Volume 95.3 FL (87-102); Monocytes # 0.6 10*3/uL (0.11-0.8); Monocytes % 8.9 % (1.7-12.7); Neutrophils % 43.2 % (38.7-73.9); Platelet Count 187 T/CUMM (130-400); Red Blood Count 2.98 MC/CUMM (3.8-5.5); Red Cell Distribution Width 15.3 % (9.3-17.3); White Blood Count 6.4 T/CUMM (4-12)
[2021-12-25 07:03] LABS: Calcium 6.8 MG/DL (8.5-10.1); Osmolality,Calculated 288.5 MOS/KG (273-304); Potassium 4.4 MMOL/L (3.5-5.1)
[2021-12-25 08:01] LABS: Folate 2.38 NG/ML (5.38-24.0)
[2021-12-25] MEDS ORDERED: amLODIPine 10 MG TABLET PO SCH (09:00)
[2021-12-25] MEDS ORDERED: SODIUM BICARBONATE 650 MG TABLET PO SCH (09:00)
[2021-12-25] MEDS: GABAPENTIN 300 MG CAPSULE PO SCH (09:17)
[2021-12-25] MEDS: ESCITALOPRAM 10 MG TABLET PO SCH (09:17)
[2021-12-25] MEDS: MONTELUKAST 10 MG TABLET PO SCH (09:18)
[2021-12-25] MEDS: FERROUS SULFATE 325 MG TABLET PO SCH (09:18)
[2021-12-25] MEDS: levETIRAcetam 250 MG TABLET PO SCH (09:18)
[2021-12-25] MEDS: cefTRIAXone 1,000 MG in SODIUM CHLORIDE 0.9% 100 ML IV SCH (09:19)
[2021-12-25] MEDS: HEPARIN 5,000 UNIT/1 ML VIAL SUBCUT SCH (09:19)
[2021-12-25] MEDS: DOCUSATE SODIUM 100 MG CAPSULE PO SCH (09:19)
[2021-12-25] MEDS: CHOLECALCIFEROL 1,000 UNIT TABLET PO SCH (09:19)
[2021-12-25] MEDS: carvediloL 12.5 MG TABLET PO SCH (09:19)
[2021-12-25] MEDS: NON-FORMULARY MEDICATION (Fluticasone-Umeclidin-Vilanter [Trelegy Ellipta] 100-62.5-25 mcg INH SCH (09:21)
[2021-12-25] MEDS: PANTOPRAZOLE 40 MG TABLET PO SCH (09:21)
[2021-12-25] MEDS: ATORVASTATIN 10 MG TABLET PO SCH (11:33)
[2021-12-25 12:20] VITALS: BP 142/69
== END 2021-12-25 15:13 | disposition home health service (06) | DRG 682 ==
LOC: N.ED 07:05 → N.EDINP 10:38 → SUATTDRO 10:38 → N.CC 11:36 → N.5E 12-24 16:37
PROVIDERS: ADMIT Family Medicine; ATTEND Internal Medicine

== ENCOUNTER 2022-01-02 15:54 | Inpatient (IN) ==
[2022-01-02] MEDS ORDERED: FUROSEMIDE 100 MG/10 ML VIAL IV STA (17:01)
[2022-01-02 17:11] LABS: Basophils # 0.1 10*3/uL (0.0-0.2); Basophils % 0.8 % (0.0-0.8); Eosinophils # 0.3 10*3/uL (0.0-0.87); Eosinophils % 4.1 % (0.00-10.9); Hematocrit 28.8 VOL% (35.7-47.0); Hemoglobin 8.8 GM/DL (12.0-16.0); Immature Granulocytes % 0.5 %; Immature Granulocytes Absolute 0.04 #; Lymphocytes # 2.1 10*3/uL (1.4-4.0); Lymphocytes % 27.3 % (21.3-54.2); Mean Corpuscular HGB Conc 30.6 GM/DL (32-36); Mean Corpuscular Volume 97.3 FL (87-102); Mean Platelet Volume 9.7 FL (9.6-12.0); Monocytes # 0.5 10*3/uL (0.11-0.8); Neutrophils % 61.3 % (38.7-73.9); Platelet Count 280 T/CUMM (130-400); Red Blood Count 2.96 MC/CUMM (3.8-5.5); Red Cell Distribution Width 15.2 % (9.3-17.3); White Blood Count 7.6 T/CUMM (4-12)
[2022-01-02 17:23] LABS: Alanine Aminotransferase 16 U/L (13-56); Albumin 2.2 G/DL (3.4-5.0); Alkaline Phosphatase 75 U/L (45-117); Aspartate Amino Transferase 17 U/L (0-37); Bilirubin,Total < 0.39 MG/DL (0.20-1.00); Blood Urea Nitrogen 79 MG/DL (7-18); Calcium 7.1 MG/DL (8.5-10.1); Carbon Dioxide 24 MMOL/L (21-32); Chloride 110 MMOL/L (98-107); Glucose 110 MG/DL (74-106); Osmolality,Calculated 301.5 MOS/KG (273-304); Sodium 139 MMOL/L (136-145); Total Protein 6.2 G/DL (6.4-8.2)
[2022-01-02 17:33] LABS: Potassium 6.7 MMOL/L (3.5-5.1)
[2022-01-02] MEDS ORDERED: INSULIN REGULAR 10 UNIT, CALCIUM GLUCONATE 1,000 MG in DEXTROSE 10% 250 ML IV ONE ×2 (18:55→20:00)
[2022-01-02] MEDS ORDERED: hydrALAZINE 20 MG/1 ML VIAL IV PRN (18:58)
[2022-01-02] MEDS ORDERED: ACETAMINOPHEN 325 MG TABLET PO PRN (18:58)
[2022-01-02] MEDS ORDERED: ALBUTEROL 2.5 MG/3 ML NEB RESP TX PRN (19:08)
[2022-01-02] MEDS ORDERED: KETOROLAC 30 MG/1 ML VIAL IV STA (19:34)
[2022-01-02] MEDS ORDERED: SODIUM POLYSTYRENE SULFATE 15 GM/60 ML BOTTLE PO STA (19:35)
[2022-01-02] MEDS ORDERED: POLYETHYLENE GLYCOL POWDER 17 GM PACK PO PRN (19:49)
[2022-01-02] MEDS: HEPARIN 5,000 UNIT/1 ML VIAL SUBCUT SCH (21:20)
[2022-01-02] MEDS: carvediloL 12.5 MG TABLET PO SCH (23:00)
[2022-01-02] MEDS: SODIUM BICARBONATE 650 MG TABLET PO SCH (23:00)
[2022-01-02] MEDS: levETIRAcetam 500 MG TABLET PO SCH (23:00)
[2022-01-02] MEDS: DOCUSATE SODIUM 100 MG CAPSULE PO SCH (23:00)
[2022-01-02] MEDS: GABAPENTIN 300 MG CAPSULE PO SCH (23:00)
[2022-01-02] MEDS: MELATONIN 3 MG TABLET PO SCH (23:00)
[2022-01-03] MEDS: INSULIN REGULAR 100 UNIT/ML SUBCUT SCH ×5 (00:07→22:28)
[2022-01-03 06:20] LABS: Basophils # 0.1 10*3/uL (0.0-0.2); Basophils % 0.7 % (0.0-0.8); Eosinophils # 0.4 10*3/uL (0.0-0.87); Eosinophils % 5.2 % (0.00-10.9); Hematocrit 26.9 VOL% (35.7-47.0); Hemoglobin 8.2 GM/DL (12.0-16.0); Immature Granulocytes % 0.3 %; Immature Granulocytes Absolute 0.02 #; Lymphocytes # 2.1 10*3/uL (1.4-4.0); Lymphocytes % 32.1 % (21.3-54.2); Mean Corpuscular HGB Conc 30.5 GM/DL (32-36); Mean Corpuscular Volume 97.1 FL (87-102); Mean Platelet Volume 9.5 FL (9.6-12.0); Monocytes # 0.5 10*3/uL (0.11-0.8); Neutrophils % 54.7 % (38.7-73.9); Platelet Count 245 T/CUMM (130-400); Red Blood Count 2.77 MC/CUMM (3.8-5.5); Red Cell Distribution Width 15.2 % (9.3-17.3); White Blood Count 6.7 T/CUMM (4-12)
[2022-01-03] MEDS: LEVOTHYROXINE 75 MCG TABLET PO SCH (06:41)
[2022-01-03 06:43] LABS: Alanine Aminotransferase 20 U/L (13-56); Alkaline Phosphatase 72 U/L (45-117); Aspartate Amino Transferase 25 U/L (0-37); Bilirubin,Total < 0.39 MG/DL (0.20-1.00); Blood Urea Nitrogen 81 MG/DL (7-18); Calcium 7.3 MG/DL (8.5-10.1); Carbon Dioxide 26 MMOL/L (21-32); Chloride 108 MMOL/L (98-107); Glucose 93 MG/DL (74-106); Osmolality,Calculated 300.5 MOS/KG (273-304); Sodium 139 MMOL/L (136-145); Total Protein 6.2 G/DL (6.4-8.2)
[2022-01-03 06:46] LABS: Potassium 6.1 MMOL/L (3.5-5.1)
[2022-01-03] MEDS ORDERED: SODIUM POLYSTYRENE SULFATE 15 GM/60 ML BOTTLE PO ONE (07:15)
[2022-01-03] MEDS: ESCITALOPRAM 10 MG TABLET PO SCH (09:00)
[2022-01-03] MEDS: PANTOPRAZOLE 40 MG TABLET PO SCH (09:05)
[2022-01-03] MEDS: amLODIPine 10 MG TABLET PO SCH (09:05)
[2022-01-03] MEDS: GABAPENTIN 300 MG CAPSULE PO SCH ×2 (09:05→21:25)
[2022-01-03] MEDS: carvediloL 12.5 MG TABLET PO SCH ×2 (09:05→21:24)
[2022-01-03] MEDS: SODIUM BICARBONATE 650 MG TABLET PO SCH ×2 (09:05→21:25)
[2022-01-03] MEDS: MONTELUKAST 10 MG TABLET PO SCH (09:05)
[2022-01-03] MEDS: FERROUS SULFATE 325 MG TABLET PO SCH (09:05)
[2022-01-03] MEDS: ATORVASTATIN 10 MG TABLET PO SCH (09:05)
[2022-01-03] MEDS: CHOLECALCIFEROL 1,000 UNIT TABLET PO SCH (09:05)
[2022-01-03] MEDS: DOCUSATE SODIUM 100 MG CAPSULE PO SCH ×2 (09:05→21:24)
[2022-01-03] MEDS: levETIRAcetam 250 MG TABLET PO SCH (09:26)
[2022-01-03] MEDS: FUROSEMIDE 40 MG/4 ML VIAL IV SCH ×2 (12:51→18:01)
[2022-01-03] MEDS: HEPARIN 5,000 UNIT/1 ML VIAL SUBCUT SCH ×2 (12:52→21:24)
[2022-01-03] MEDS: LIDOCAINE 5% PATCH TRANSDERM SCH (12:55)
[2022-01-03 15:01] LABS: Calcium 6.7 MG/DL (8.5-10.1); Osmolality,Calculated 299.7 MOS/KG (273-304); Potassium 5.9 MMOL/L (3.5-5.1)
[2022-01-03] MEDS: NON-FORMULARY MEDICATION (Fluticasone-Umeclidin-Vilanter [Trelegy Ellipta] 100-62.5-25 mcg INH SCH (18:05)
[2022-01-03] MEDS: levETIRAcetam 500 MG TABLET PO SCH (21:25)
[2022-01-03] MEDS: MELATONIN 3 MG TABLET PO SCH (21:25)
[2022-01-04 05:38] LABS: Ferritin 201.6 ng/mL (8-252); Phosphorous 8.4 MG/DL (2.5-4.9); Uric Acid 8.6 MG/DL (2.6-6.0)
[2022-01-04] MEDS: LEVOTHYROXINE 75 MCG TABLET PO SCH (07:06)
[2022-01-04 07:30] LABS: Basophils % 0.6 % (0.0-0.8); Eosinophils # 0.4 10*3/uL (0.0-0.87); Eosinophils % 5.1 % (0.00-10.9); Hematocrit 25.9 VOL% (35.7-47.0); Hemoglobin 7.8 GM/DL (12.0-16.0); Immature Granulocytes % 0.3 %; Immature Granulocytes Absolute 0.02 #; Lymphocytes # 2.2 10*3/uL (1.4-4.0); Lymphocytes % 32.3 % (21.3-54.2); Mean Corpuscular HGB Conc 30.1 GM/DL (32-36); Mean Corpuscular Volume 97.4 FL (87-102); Monocytes # 0.5 10*3/uL (0.11-0.8); Monocytes % 7.2 % (1.7-12.7); Neutrophils % 54.5 % (38.7-73.9); Platelet Count 249 T/CUMM (130-400); Red Blood Count 2.66 MC/CUMM (3.8-5.5); Red Cell Distribution Width 15.5 % (9.3-17.3); White Blood Count 6.9 T/CUMM (4-12)
[2022-01-04 07:36] LABS: Calcium 6.9 MG/DL (8.5-10.1)
[2022-01-04 07:46] LABS: Osmolality,Calculated 299.7 MOS/KG (273-304); Potassium 5.9 MMOL/L (3.5-5.1)
[2022-01-04] MEDS: INSULIN REGULAR 100 UNIT/ML SUBCUT SCH ×4 (08:10→21:21)
[2022-01-04] MEDS: FUROSEMIDE 40 MG/4 ML VIAL IV SCH ×2 (09:58→17:36)
[2022-01-04] MEDS: CHOLECALCIFEROL 1,000 UNIT TABLET PO SCH (09:59)
[2022-01-04] MEDS: DOCUSATE SODIUM 100 MG CAPSULE PO SCH ×2 (09:59→21:20)
[2022-01-04] MEDS: SODIUM BICARBONATE 650 MG TABLET PO SCH ×2 (09:59→21:22)
[2022-01-04] MEDS: carvediloL 12.5 MG TABLET PO SCH ×2 (09:59→21:28)
[2022-01-04] MEDS: SODIUM ZIRCONIUM CYCLOSILICATE 10 GM PACK PO SCH ×3 (10:00→21:21)
[2022-01-04] MEDS: MONTELUKAST 10 MG TABLET PO SCH (10:00)
[2022-01-04] MEDS: amLODIPine 10 MG TABLET PO SCH (10:00)
[2022-01-04] MEDS: PANTOPRAZOLE 40 MG TABLET PO SCH (10:00)
[2022-01-04] MEDS: ATORVASTATIN 10 MG TABLET PO SCH (10:00)
[2022-01-04] MEDS: levETIRAcetam 250 MG TABLET PO SCH (10:00)
[2022-01-04] MEDS: GABAPENTIN 300 MG CAPSULE PO SCH ×2 (10:00→21:21)
[2022-01-04] MEDS: HEPARIN 5,000 UNIT/1 ML VIAL SUBCUT SCH ×2 (10:00→21:20)
[2022-01-04] MEDS: ZALEPLON 5 MG CAPSULE PO PRN (10:01)
[2022-01-04] MEDS: FERROUS SULFATE 325 MG TABLET PO SCH (10:01)
[2022-01-04] MEDS: ESCITALOPRAM 10 MG TABLET PO SCH (10:03)
[2022-01-04] MEDS: LIDOCAINE 5% PATCH TRANSDERM SCH (10:20)
[2022-01-04] MEDS: NON-FORMULARY MEDICATION (Fluticasone-Umeclidin-Vilanter [Trelegy Ellipta] 100-62.5-25 mcg INH SCH (10:21)
[2022-01-04 16:54] LABS: Glucose,Urine (UA) Negative (Negative); Ketones,Urine Negative (Negative); Nitrite,Urine Negative (Negative); Protein,Urine 100 mg/dL (Negative); Urine Appearance Clear (Clear); Urine Color Yellow (Yellow); Urine Specific Gravity 1.015 (1.001-1.035); Urine pH 5.5 (4.5-8.0)
[2022-01-04 16:55] LABS: Bilirubin,Urine Negative (Negative); Blood, Urine Small mg/dL (Negative); Urine Urobilinogen < 2.0 eU/dL (<2.0)
[2022-01-04 16:58] LABS: RBC,Urine 5 /HPF (0-4)
[2022-01-04] MEDS: MELATONIN 3 MG TABLET PO SCH (21:21)
[2022-01-04] MEDS: levETIRAcetam 500 MG TABLET PO SCH (21:21)
[2022-01-05] MEDS: LEVOTHYROXINE 75 MCG TABLET PO SCH (05:54)
[2022-01-05 06:05] LABS: Basophils % 0.7 % (0.0-0.8); Eosinophils # 0.3 10*3/uL (0.0-0.87); Eosinophils % 5.2 % (0.00-10.9); Hematocrit 25.1 VOL% (35.7-47.0); Hemoglobin 7.5 GM/DL (12.0-16.0); Immature Granulocytes % 0.3 %; Immature Granulocytes Absolute 0.02 #; Lymphocytes # 1.8 10*3/uL (1.4-4.0); Lymphocytes % 31.4 % (21.3-54.2); Mean Corpuscular HGB Conc 29.9 GM/DL (32-36); Mean Corpuscular Volume 98.4 FL (87-102); Mean Platelet Volume 9.9 FL (9.6-12.0); Monocytes # 0.4 10*3/uL (0.11-0.8); Monocytes % 6.3 % (1.7-12.7); Neutrophils % 56.1 % (38.7-73.9); Platelet Count 231 T/CUMM (130-400); Red Blood Count 2.55 MC/CUMM (3.8-5.5); Red Cell Distribution Width 15.3 % (9.3-17.3); White Blood Count 5.7 T/CUMM (4-12)
[2022-01-05 06:26] LABS: Calcium 6.9 MG/DL (8.5-10.1); Osmolality,Calculated 307.3 MOS/KG (273-304); Potassium 5.8 MMOL/L (3.5-5.1)
[2022-01-05 06:30] LABS: Parathyroid Hormone Intact 312.5 PG/ML (18.4-80.1)
[2022-01-05] MEDS: INSULIN REGULAR 100 UNIT/ML SUBCUT SCH ×4 (08:21→22:21)
[2022-01-05] MEDS: FUROSEMIDE 40 MG/4 ML VIAL IV SCH ×2 (09:38→16:37)
[2022-01-05] MEDS: SODIUM ZIRCONIUM CYCLOSILICATE 10 GM PACK PO SCH ×3 (09:39→22:21)
[2022-01-05] MEDS: SODIUM BICARBONATE 650 MG TABLET PO SCH ×2 (09:40→22:21)
[2022-01-05] MEDS: ATORVASTATIN 10 MG TABLET PO SCH (09:41)
[2022-01-05] MEDS: ZALEPLON 5 MG CAPSULE PO PRN (09:41)
[2022-01-05] MEDS: SEVELAMER CARBONATE 800 MG TABLET PO SCH ×3 (09:41→16:37)
[2022-01-05] MEDS: FERROUS SULFATE 325 MG TABLET PO SCH (09:42)
[2022-01-05] MEDS: DOCUSATE SODIUM 100 MG CAPSULE PO SCH ×2 (09:42→22:20)
[2022-01-05] MEDS: GABAPENTIN 300 MG CAPSULE PO SCH ×2 (09:42→22:21)
[2022-01-05] MEDS: ESCITALOPRAM 10 MG TABLET PO SCH (09:42)
[2022-01-05] MEDS: amLODIPine 10 MG TABLET PO SCH (09:42)
[2022-01-05] MEDS: CHOLECALCIFEROL 1,000 UNIT TABLET PO SCH (09:43)
[2022-01-05] MEDS: MONTELUKAST 10 MG TABLET PO SCH (09:43)
[2022-01-05] MEDS: metOLazone 5 MG TABLET PO SCH (09:43)
[2022-01-05] MEDS: carvediloL 12.5 MG TABLET PO SCH ×2 (09:43→22:20)
[2022-01-05] MEDS: levETIRAcetam 250 MG TABLET PO SCH (09:43)
[2022-01-05] MEDS: PANTOPRAZOLE 40 MG TABLET PO SCH (09:43)
[2022-01-05] MEDS: HEPARIN 5,000 UNIT/1 ML VIAL SUBCUT SCH ×2 (09:44→22:20)
[2022-01-05] MEDS: NON-FORMULARY MEDICATION (Fluticasone-Umeclidin-Vilanter [Trelegy Ellipta] 100-62.5-25 mcg INH SCH (09:44)
[2022-01-05] MEDS: LIDOCAINE 5% PATCH TRANSDERM SCH (09:44)
[2022-01-05] MEDS ORDERED: NITROGLYCERIN SL 0.4 MG TABLET SL PRN (10:18)
[2022-01-05 13:07] LABS: Protein/Creatinine Ratio,Urine 3.7 RATIO
[2022-01-05] MEDS: levETIRAcetam 500 MG TABLET PO SCH (22:21)
[2022-01-05] MEDS: MELATONIN 3 MG TABLET PO SCH (22:21)
[2022-01-06] MEDS: LEVOTHYROXINE 75 MCG TABLET PO SCH (06:14)
[2022-01-06 06:22] LABS: Basophils % 0.6 % (0.0-0.8); Eosinophils # 0.3 10*3/uL (0.0-0.87); Eosinophils % 4.2 % (0.00-10.9); Hemoglobin 7.5 GM/DL (12.0-16.0); Immature Granulocytes % 0.3 %; Immature Granulocytes Absolute 0.02 #; Lymphocytes # 2.1 10*3/uL (1.4-4.0); Lymphocytes % 31.8 % (21.3-54.2); Mean Platelet Volume 9.8 FL (9.6-12.0); Monocytes # 0.5 10*3/uL (0.11-0.8); Monocytes % 7.3 % (1.7-12.7); Neutrophils % 55.8 % (38.7-73.9); Platelet Count 221 T/CUMM (130-400); Red Blood Count 2.55 MC/CUMM (3.8-5.5); Red Cell Distribution Width 15.3 % (9.3-17.3); White Blood Count 6.7 T/CUMM (4-12)
[2022-01-06 07:00] LABS: Alanine Aminotransferase 28 U/L (13-56); Albumin 1.8 G/DL (3.4-5.0); Alkaline Phosphatase 93 U/L (45-117); Aspartate Amino Transferase 26 U/L (0-37); Bilirubin,Total < 0.39 MG/DL (0.20-1.00); Blood Urea Nitrogen 82 MG/DL (7-18); Calcium 6.7 MG/DL (8.5-10.1); Carbon Dioxide 27 MMOL/L (21-32); Chloride 107 MMOL/L (98-107); Glucose 92 MG/DL (74-106); Osmolality,Calculated 307.1 MOS/KG (273-304); Potassium 5.4 MMOL/L (3.5-5.1); Sodium 142 MMOL/L (136-145); Total Protein 5.8 G/DL (6.4-8.2)
[2022-01-06] MEDS ORDERED: MORPHINE 2 MG/1 ML SYRINGE IV ONE (09:33)
[2022-01-06] MEDS: SEVELAMER CARBONATE 800 MG TABLET PO SCH ×3 (10:09→18:14)
[2022-01-06] MEDS: amLODIPine 10 MG TABLET PO SCH (10:10)
[2022-01-06] MEDS: SODIUM BICARBONATE 650 MG TABLET PO SCH ×2 (10:10→20:58)
[2022-01-06] MEDS: ATORVASTATIN 10 MG TABLET PO SCH (10:10)
[2022-01-06] MEDS: PANTOPRAZOLE 40 MG TABLET PO SCH (10:11)
[2022-01-06] MEDS: MONTELUKAST 10 MG TABLET PO SCH (10:11)
[2022-01-06] MEDS: CHOLECALCIFEROL 1,000 UNIT TABLET PO SCH (10:11)
[2022-01-06] MEDS: metOLazone 5 MG TABLET PO SCH (10:11)
[2022-01-06] MEDS: FERROUS SULFATE 325 MG TABLET PO SCH (10:11)
[2022-01-06] MEDS: ESCITALOPRAM 10 MG TABLET PO SCH (10:11)
[2022-01-06] MEDS: DOCUSATE SODIUM 100 MG CAPSULE PO SCH ×2 (10:12→20:57)
[2022-01-06] MEDS: GABAPENTIN 300 MG CAPSULE PO SCH ×2 (10:12→20:57)
[2022-01-06] MEDS: levETIRAcetam 250 MG TABLET PO SCH (10:12)
[2022-01-06] MEDS: carvediloL 12.5 MG TABLET PO SCH ×2 (10:12→20:57)
[2022-01-06] MEDS: FUROSEMIDE 40 MG/4 ML VIAL IV SCH ×2 (10:13→18:13)
[2022-01-06] MEDS: HEPARIN 5,000 UNIT/1 ML VIAL SUBCUT SCH ×2 (10:14→20:56)
[2022-01-06] MEDS: LIDOCAINE 5% PATCH TRANSDERM SCH (10:14)
[2022-01-06] MEDS: SODIUM ZIRCONIUM CYCLOSILICATE 10 GM PACK PO SCH ×3 (10:15→21:09)
[2022-01-06] MEDS: NON-FORMULARY MEDICATION (Fluticasone-Umeclidin-Vilanter [Trelegy Ellipta] 100-62.5-25 mcg INH SCH (12:45)
[2022-01-06] MEDS: INSULIN REGULAR 100 UNIT/ML SUBCUT SCH ×3 (12:45→20:18)
[2022-01-06] MEDS: levETIRAcetam 500 MG TABLET PO SCH (20:57)
[2022-01-06] MEDS: MELATONIN 3 MG TABLET PO SCH (20:57)
[2022-01-06] MEDS: traZODone 50 MG TABLET PO PRN (21:09)
[2022-01-06] MEDS: ZALEPLON 5 MG CAPSULE PO PRN (23:35)
[2022-01-07] MEDS: LEVOTHYROXINE 75 MCG TABLET PO SCH (05:45)
[2022-01-07 05:53] LABS: Basophils % 0.6 % (0.0-0.8); Eosinophils # 0.3 10*3/uL (0.0-0.87); Eosinophils % 4.2 % (0.00-10.9); Hematocrit 25.5 VOL% (35.7-47.0); Hemoglobin 7.7 GM/DL (12.0-16.0); Immature Granulocytes % 0.5 %; Immature Granulocytes Absolute 0.03 #; Lymphocytes # 2.1 10*3/uL (1.4-4.0); Lymphocytes % 32.4 % (21.3-54.2); Mean Corpuscular HGB Conc 30.2 GM/DL (32-36); Mean Corpuscular Volume 97.3 FL (87-102); Mean Platelet Volume 10.2 FL (9.6-12.0); Monocytes # 0.5 10*3/uL (0.11-0.8); Monocytes % 7.5 % (1.7-12.7); Neutrophils % 54.8 % (38.7-73.9); Platelet Count 211 T/CUMM (130-400); Red Blood Count 2.62 MC/CUMM (3.8-5.5); Red Cell Distribution Width 15.2 % (9.3-17.3); White Blood Count 6.4 T/CUMM (4-12)
[2022-01-07 06:11] LABS: Calcium 7.4 MG/DL (8.5-10.1); Osmolality,Calculated 306.3 MOS/KG (273-304); Potassium 4.8 MMOL/L (3.5-5.1)
[2022-01-07] MEDS: INSULIN REGULAR 100 UNIT/ML SUBCUT SCH ×4 (07:38→21:29)
[2022-01-07] MEDS: SEVELAMER CARBONATE 800 MG TABLET PO SCH ×3 (08:29→17:36)
[2022-01-07] MEDS: FUROSEMIDE 40 MG/4 ML VIAL IV SCH (08:30)
[2022-01-07] MEDS: carvediloL 12.5 MG TABLET PO SCH ×2 (08:31→21:44)
[2022-01-07] MEDS: HEPARIN 5,000 UNIT/1 ML VIAL SUBCUT SCH ×2 (08:31→21:45)
[2022-01-07] MEDS: GABAPENTIN 300 MG CAPSULE PO SCH ×2 (08:31→21:45)
[2022-01-07] MEDS: SODIUM BICARBONATE 650 MG TABLET PO SCH ×2 (08:31→21:44)
[2022-01-07] MEDS: ESCITALOPRAM 10 MG TABLET PO SCH (08:31)
[2022-01-07] MEDS: metOLazone 5 MG TABLET PO SCH (08:31)
[2022-01-07] MEDS: amLODIPine 10 MG TABLET PO SCH (08:31)
[2022-01-07] MEDS: FERROUS SULFATE 325 MG TABLET PO SCH (08:32)
[2022-01-07] MEDS: LIDOCAINE 5% PATCH TRANSDERM SCH (08:32)
[2022-01-07] MEDS: CHOLECALCIFEROL 1,000 UNIT TABLET PO SCH (08:32)
[2022-01-07] MEDS: PANTOPRAZOLE 40 MG TABLET PO SCH (08:32)
[2022-01-07] MEDS: ATORVASTATIN 10 MG TABLET PO SCH (08:32)
[2022-01-07] MEDS: MONTELUKAST 10 MG TABLET PO SCH (08:32)
[2022-01-07] MEDS: levETIRAcetam 250 MG TABLET PO SCH (08:32)
[2022-01-07] MEDS: DOCUSATE SODIUM 100 MG CAPSULE PO SCH ×2 (08:32→21:44)
[2022-01-07] MEDS: NON-FORMULARY MEDICATION (Fluticasone-Umeclidin-Vilanter [Trelegy Ellipta] 100-62.5-25 mcg INH SCH (08:33)
[2022-01-07] MEDS: SODIUM ZIRCONIUM CYCLOSILICATE 10 GM PACK PO SCH (08:36)
[2022-01-07] MEDS ORDERED: ceFAZolin 2,000 MG/50 ML DUPLEX IV ONE (09:00)
[2022-01-07] MEDS ORDERED: LIDOCAINE 2%/EPI 20 ML VIAL ONE (12:28)
[2022-01-07] MEDS ORDERED: BUPIVACAINE MPF 0.25% 10 ML VIAL ONE (12:30)
[2022-01-07] MEDS ORDERED: LIDOCAINE 2% 5 ML VIAL ONE (12:49)
[2022-01-07] MEDS ORDERED: propofoL 200 MG/20 ML VIAL IV ONE (12:49)
[2022-01-07] MEDS ORDERED: MIDAZOLAM 2 MG/2 ML VIAL ONE (12:50)
[2022-01-07] MEDS ORDERED: fentaNYL 100 MCG/2 ML VIAL ONE (12:50)
[2022-01-07] MEDS ORDERED: SODIUM CHLORIDE 0.9% 250 ML IV SCH (13:30)
[2022-01-07] MEDS ORDERED: HYDROmorphone 1 MG/1 ML SYRINGE IV PRN (14:07)
[2022-01-07] MEDS ORDERED: ONDANSETRON 4 MG/2 ML VIAL IV PRN (14:07)
[2022-01-07] MEDS: ONDANSETRON 4 MG/2 ML VIAL IV PRN (14:15)
[2022-01-07] MEDS ORDERED: HEPARIN 10,000 UNIT/10 ML VIAL IV PRN (15:28)
[2022-01-07] MEDS: MELATONIN 3 MG TABLET PO SCH (21:44)
[2022-01-07] MEDS: levETIRAcetam 500 MG TABLET PO SCH (21:44)
[2022-01-07] MEDS: traZODone 50 MG TABLET PO PRN (21:44)
[2022-01-08] MEDS: ZALEPLON 5 MG CAPSULE PO PRN (01:37)
[2022-01-08 05:05] LABS: Basophils % 0.5 % (0.0-0.8); Eosinophils # 0.3 10*3/uL (0.0-0.87); Eosinophils % 4.8 % (0.00-10.9); Hemoglobin 7.8 GM/DL (12.0-16.0); Immature Granulocytes % 0.3 %; Immature Granulocytes Absolute 0.02 #; Lymphocytes # 1.4 10*3/uL (1.4-4.0); Lymphocytes % 22.8 % (21.3-54.2); Mean Corpuscular Volume 99.2 FL (87-102); Mean Platelet Volume 9.8 FL (9.6-12.0); Monocytes # 0.3 10*3/uL (0.11-0.8); Monocytes % 5.3 % (1.7-12.7); Neutrophils % 66.3 % (38.7-73.9); Platelet Count 209 T/CUMM (130-400); Red Blood Count 2.62 MC/CUMM (3.8-5.5); Red Cell Distribution Width 15.1 % (9.3-17.3); White Blood Count 6.1 T/CUMM (4-12)
[2022-01-08 05:25] LABS: Calcium 7.6 MG/DL (8.5-10.1); Osmolality,Calculated 294.1 MOS/KG (273-304); Potassium 5.2 MMOL/L (3.5-5.1)
[2022-01-08] MEDS: LEVOTHYROXINE 75 MCG TABLET PO SCH (05:52)
[2022-01-08] MEDS: INSULIN REGULAR 100 UNIT/ML SUBCUT SCH ×4 (08:04→20:45)
[2022-01-08] MEDS: MONTELUKAST 10 MG TABLET PO SCH (08:52)
[2022-01-08] MEDS: ATORVASTATIN 10 MG TABLET PO SCH (08:52)
[2022-01-08] MEDS: GABAPENTIN 300 MG CAPSULE PO SCH ×2 (08:52→20:45)
[2022-01-08] MEDS: SODIUM BICARBONATE 650 MG TABLET PO SCH ×2 (08:53→20:44)
[2022-01-08] MEDS: SEVELAMER CARBONATE 800 MG TABLET PO SCH ×3 (08:53→17:57)
[2022-01-08] MEDS: DOCUSATE SODIUM 100 MG CAPSULE PO SCH ×2 (08:53→20:45)
[2022-01-08] MEDS: PANTOPRAZOLE 40 MG TABLET PO SCH (08:53)
[2022-01-08] MEDS: ESCITALOPRAM 10 MG TABLET PO SCH (08:54)
[2022-01-08] MEDS: carvediloL 12.5 MG TABLET PO SCH ×2 (08:54→20:45)
[2022-01-08] MEDS: amLODIPine 10 MG TABLET PO SCH (08:54)
[2022-01-08] MEDS: CHOLECALCIFEROL 1,000 UNIT TABLET PO SCH (08:54)
[2022-01-08] MEDS: FERROUS SULFATE 325 MG TABLET PO SCH ×2 (08:54→20:45)
[2022-01-08] MEDS: levETIRAcetam 250 MG TABLET PO SCH (08:54)
[2022-01-08] MEDS: NON-FORMULARY MEDICATION (Fluticasone-Umeclidin-Vilanter [Trelegy Ellipta] 100-62.5-25 mcg INH SCH (08:56)
[2022-01-08] MEDS: HEPARIN 5,000 UNIT/1 ML VIAL SUBCUT SCH ×2 (08:57→20:45)
[2022-01-08] MEDS: LIDOCAINE 5% PATCH TRANSDERM SCH (09:00)
[2022-01-08 12:56] LABS: Hepatitis B Core IgM Quant < 0.05 Index; Hepatitis B Surface Ag Quant < 0.10 Index; Hepatitis B Surface Ag Result Non-Reactive (NonReactive); Hepatitis C Virus Ab Quant 0.23 Index; Hepatitis C Virus Ab Result Non-Reactive (NonReactive)
[2022-01-08] MEDS: traZODone 50 MG TABLET PO PRN (20:44)
[2022-01-08] MEDS: MELATONIN 3 MG TABLET PO SCH (20:45)
[2022-01-08] MEDS: levETIRAcetam 500 MG TABLET PO SCH (20:45)
[2022-01-09 05:59] LABS: Basophils % 0.5 % (0.0-0.8); Eosinophils # 0.2 10*3/uL (0.0-0.87); Eosinophils % 4.4 % (0.00-10.9); Hematocrit 23.9 VOL% (35.7-47.0); Hemoglobin 7.2 GM/DL (12.0-16.0); Immature Granulocytes % 0.4 %; Immature Granulocytes Absolute 0.02 #; Lymphocytes % 36.3 % (21.3-54.2); Mean Corpuscular HGB Conc 30.1 GM/DL (32-36); Mean Platelet Volume 10.2 FL (9.6-12.0); Monocytes # 0.4 10*3/uL (0.11-0.8); Monocytes % 6.9 % (1.7-12.7); Neutrophils % 51.5 % (38.7-73.9); Platelet Count 180 T/CUMM (130-400); Red Blood Count 2.44 MC/CUMM (3.8-5.5); Red Cell Distribution Width 15.1 % (9.3-17.3); White Blood Count 5.5 T/CUMM (4-12)
[2022-01-09] MEDS: LEVOTHYROXINE 75 MCG TABLET PO SCH (06:15)
[2022-01-09 06:22] LABS: Calcium 7.6 MG/DL (8.5-10.1); Osmolality,Calculated 285.3 MOS/KG (273-304)
[2022-01-09] MEDS ORDERED: SODIUM CHLORIDE 0.9% 1,000 ML IV PRN (07:39)
[2022-01-09] MEDS: INSULIN REGULAR 100 UNIT/ML SUBCUT SCH ×4 (08:21→20:48)
[2022-01-09] MEDS: SEVELAMER CARBONATE 800 MG TABLET PO SCH ×3 (08:22→19:11)
[2022-01-09] MEDS: HEPARIN 5,000 UNIT/1 ML VIAL SUBCUT SCH ×2 (08:22→20:50)
[2022-01-09] MEDS: NON-FORMULARY MEDICATION (Fluticasone-Umeclidin-Vilanter [Trelegy Ellipta] 100-62.5-25 mcg INH SCH (08:22)
[2022-01-09] MEDS: SODIUM BICARBONATE 650 MG TABLET PO SCH ×2 (13:00→20:47)
[2022-01-09] MEDS: CHOLECALCIFEROL 1,000 UNIT TABLET PO SCH (13:00)
[2022-01-09] MEDS: levETIRAcetam 250 MG TABLET PO SCH (13:00)
[2022-01-09] MEDS: PANTOPRAZOLE 40 MG TABLET PO SCH (13:00)
[2022-01-09] MEDS: sitaGLIPtin 25 MG TABLET PO SCH (13:00)
[2022-01-09] MEDS: MONTELUKAST 10 MG TABLET PO SCH (13:00)
[2022-01-09] MEDS: GABAPENTIN 300 MG CAPSULE PO SCH ×2 (13:00→20:47)
[2022-01-09] MEDS: DOCUSATE SODIUM 100 MG CAPSULE PO SCH ×2 (13:01→20:47)
[2022-01-09] MEDS: ESCITALOPRAM 10 MG TABLET PO SCH (13:01)
[2022-01-09] MEDS: carvediloL 12.5 MG TABLET PO SCH ×2 (13:01→20:46)
[2022-01-09] MEDS: ATORVASTATIN 10 MG TABLET PO SCH (13:01)
[2022-01-09] MEDS: FERROUS SULFATE 325 MG TABLET PO SCH ×2 (13:01→20:47)
[2022-01-09] MEDS: LIDOCAINE 5% PATCH TRANSDERM SCH (13:07)
[2022-01-09] MEDS: ONDANSETRON 4 MG/2 ML VIAL IV PRN (13:07)
[2022-01-09] MEDS: amLODIPine 10 MG TABLET PO SCH (14:31)
[2022-01-09] MEDS: levETIRAcetam 500 MG TABLET PO SCH (20:46)
[2022-01-09] MEDS: MELATONIN 3 MG TABLET PO SCH (20:47)
[2022-01-09] MEDS: traZODone 50 MG TABLET PO PRN (20:47)
[2022-01-10 05:11] LABS: Basophils % 0.5 % (0.0-0.8); Eosinophils # 0.3 10*3/uL (0.0-0.87); Eosinophils % 5.3 % (0.00-10.9); Hematocrit 29.3 VOL% (35.7-47.0); Hemoglobin 8.9 GM/DL (12.0-16.0); Immature Granulocytes % 0.2 %; Immature Granulocytes Absolute 0.01 #; Lymphocytes # 1.9 10*3/uL (1.4-4.0); Lymphocytes % 34.2 % (21.3-54.2); Mean Corpuscular HGB Conc 30.4 GM/DL (32-36); Mean Corpuscular Volume 97.7 FL (87-102); Mean Platelet Volume 9.9 FL (9.6-12.0); Monocytes # 0.5 10*3/uL (0.11-0.8); Monocytes % 9.3 % (1.7-12.7); Neutrophils % 50.5 % (38.7-73.9); Platelet Count 155 T/CUMM (130-400); Red Cell Distribution Width 15.7 % (9.3-17.3); White Blood Count 5.5 T/CUMM (4-12)
[2022-01-10] MEDS: LEVOTHYROXINE 75 MCG TABLET PO SCH (05:30)
[2022-01-10 05:36] LABS: Calcium 7.6 MG/DL (8.5-10.1); Osmolality,Calculated 285.1 MOS/KG (273-304); Potassium 4.2 MMOL/L (3.5-5.1)
[2022-01-10] MEDS: SEVELAMER CARBONATE 800 MG TABLET PO SCH ×2 (11:11→12:58)
[2022-01-10] MEDS: INSULIN REGULAR 100 UNIT/ML SUBCUT SCH ×2 (11:11→12:58)
[2022-01-10] MEDS: HEPARIN 5,000 UNIT/1 ML VIAL SUBCUT SCH (12:56)
[2022-01-10] MEDS: ATORVASTATIN 10 MG TABLET PO SCH (12:57)
[2022-01-10] MEDS: ESCITALOPRAM 10 MG TABLET PO SCH (12:57)
[2022-01-10] MEDS: GABAPENTIN 300 MG CAPSULE PO SCH (12:57)
[2022-01-10] MEDS: SODIUM BICARBONATE 650 MG TABLET PO SCH (12:57)
[2022-01-10] MEDS: carvediloL 12.5 MG TABLET PO SCH (12:57)
[2022-01-10] MEDS: PANTOPRAZOLE 40 MG TABLET PO SCH (12:57)
[2022-01-10] MEDS: sitaGLIPtin 25 MG TABLET PO SCH (12:57)
[2022-01-10] MEDS: DOCUSATE SODIUM 100 MG CAPSULE PO SCH (12:57)
[2022-01-10] MEDS: amLODIPine 10 MG TABLET PO SCH (12:57)
[2022-01-10] MEDS: levETIRAcetam 250 MG TABLET PO SCH (12:58)
[2022-01-10] MEDS: FERROUS SULFATE 325 MG TABLET PO SCH (12:58)
[2022-01-10] MEDS: LIDOCAINE 5% PATCH TRANSDERM SCH (12:58)
[2022-01-10] MEDS: CHOLECALCIFEROL 1,000 UNIT TABLET PO SCH (12:58)
[2022-01-10] MEDS: MONTELUKAST 10 MG TABLET PO SCH (12:58)
[2022-01-10] MEDS: NON-FORMULARY MEDICATION (Fluticasone-Umeclidin-Vilanter [Trelegy Ellipta] 100-62.5-25 mcg INH SCH (13:00)
[2022-01-10 14:54] VITALS: BP 176/60
== END 2022-01-10 15:39 | disposition home or self-care (01) | DRG 673 ==
LOC: EDBD → EDUNIT# → N.EDINP 15:54 → N.ED 15:54 → N.2W 20:20 → SUATTDRO 01-03 08:09 → N.5E 01-03 17:54
PROVIDERS: ADMIT Internal Medicine; ATTEND Internal Medicine

== ENCOUNTER 2022-02-02 22:53 | Inpatient (IN) ==
[2022-02-03] MEDS ORDERED: ALBUTEROL/IPRATROPIUM 3 ML NEB RESP TX STA (00:21)
[2022-02-03 00:40] LABS: Basophils % 0.3 % (0.0-0.8); Eosinophils # 0.1 10*3/uL (0.0-0.87); Eosinophils % 1.6 % (0.00-10.9); Hemoglobin 9.6 GM/DL (12.0-16.0); Immature Granulocytes Absolute 0.09 #; Lymphocytes # 1.9 10*3/uL (1.4-4.0); Mean Corpuscular HGB Conc 29.1 GM/DL (32-36); Mean Corpuscular Volume 102.2 FL (87-102); Monocytes # 0.5 10*3/uL (0.11-0.8); Monocytes % 5.8 % (1.7-12.7); NRBC # 0.03 10*3/uL; Neutrophils % 70.3 % (38.7-73.9); Platelet Count 198 T/CUMM (130-400); Red Blood Count 3.23 MC/CUMM (3.8-5.5); Red Cell Distribution Width 14.9 % (9.3-17.3); White Blood Count 8.8 T/CUMM (4-12)
[2022-02-03 00:42] LABS: PT Patient Result 11.2 SECS (10.1-12.1); Partial Thromboplastin Time 33.9 SECS (23.7-32.9)
[2022-02-03 00:54] LABS: Alanine Aminotransferase 9 U/L (13-56); Albumin 2.7 G/DL (3.4-5.0); Alkaline Phosphatase 102 U/L (45-117); Aspartate Amino Transferase 8 U/L (0-37); Bilirubin,Total < 0.39 MG/DL (0.20-1.00); Blood Urea Nitrogen 15 MG/DL (7-18); Carbon Dioxide 33 MMOL/L (21-32); Chloride 101 MMOL/L (98-107); Glucose 111 MG/DL (74-106); Osmolality,Calculated 276.7 MOS/KG (273-304); Potassium 3.6 MMOL/L (3.5-5.1); Sodium 138 MMOL/L (136-145); Total Protein 6.8 G/DL (6.4-8.2)
[2022-02-03 01:00] LABS: Arterial Base Excess iSTAT 9 MMOL/L (-2.5-2.5); Arterial Bicarbonate iSTAT 37.6 MMOL/L (20-26); Arterial O2 Saturation iSTAT 22 % (95-100); Arterial PCO2 iSTAT 76 MM HG (35-48); Arterial PO2 iSTAT 19 MM HG (80-95); Arterial Total CO2 iSTAT 40 MMO/L (23-27)
[2022-02-03] MEDS ORDERED: MORPHINE 2 MG/1 ML SYRINGE IV STA (01:27)
[2022-02-03] MEDS ORDERED: ONDANSETRON 4 MG/2 ML VIAL IV ONE (01:27)
[2022-02-03] MEDS ORDERED: ACETAMINOPHEN 325 MG TABLET PO PRN (02:35)
[2022-02-03] MEDS ORDERED: hydrALAZINE 20 MG/1 ML VIAL IV PRN (02:35)
[2022-02-03] MEDS ORDERED: ONDANSETRON 4 MG/2 ML VIAL IV PRN (02:35)
[2022-02-03] MEDS ORDERED: POLYETHYLENE GLYCOL POWDER 255 GM BOTTLE PO PRN (02:49)
[2022-02-03] MEDS ORDERED: FUROSEMIDE 40 MG/4 ML VIAL IV STA (02:49)
[2022-02-03] MEDS ORDERED: NITROGLYCERIN SL 0.4 MG TABLET SL PRN (02:49)
[2022-02-03] MEDS ORDERED: POLYETHYLENE GLYCOL POWDER 17 GM PACK PO PRN (03:37)
[2022-02-03] MEDS ORDERED: PIPERACILLIN/TAZOBACTAM 2,250 MG in SODIUM CHLORIDE 0.9% 100 ML IV SCH (04:00)
[2022-02-03] MEDS: PIPERACILLIN/TAZOBACTAM 3,375 MG in SODIUM CHLORIDE 0.9% 100 ML IV SCH ×2 (04:18→22:26)
[2022-02-03 05:33] LABS: Basophils % 0.4 % (0.0-0.8); Eosinophils # 0.2 10*3/uL (0.0-0.87); Eosinophils % 2.3 % (0.00-10.9); Hematocrit 32.1 VOL% (35.7-47.0); Hemoglobin 9.1 GM/DL (12.0-16.0); Immature Granulocytes Absolute 0.09 #; Lymphocytes # 2.4 10*3/uL (1.4-4.0); Lymphocytes % 25.7 % (21.3-54.2); Mean Corpuscular HGB Conc 28.3 GM/DL (32-36); Mean Corpuscular Volume 105.2 FL (87-102); Mean Platelet Volume 10.6 FL (9.6-12.0); Monocytes # 0.6 10*3/uL (0.11-0.8); Monocytes % 6.8 % (1.7-12.7); NRBC # 0.02 10*3/uL; Neutrophils % 63.8 % (38.7-73.9); Platelet Count 175 T/CUMM (130-400); Red Blood Count 3.05 MC/CUMM (3.8-5.5); Red Cell Distribution Width 14.8 % (9.3-17.3); White Blood Count 9.2 T/CUMM (4-12)
[2022-02-03 05:56] LABS: Calcium 7.8 MG/DL (8.5-10.1); Osmolality,Calculated 282.3 MOS/KG (273-304); Potassium 3.6 MMOL/L (3.5-5.1)
[2022-02-03] MEDS: LEVOTHYROXINE 75 MCG TABLET PO SCH (06:38)
[2022-02-03] MEDS: ALBUTEROL/IPRATROPIUM 3 ML NEB RESP TX SCH ×3 (07:33→19:26)
[2022-02-03] MEDS: SEVELAMER CARBONATE 800 MG TABLET PO SCH ×3 (08:29→19:35)
[2022-02-03] MEDS: DOCUSATE SODIUM 100 MG CAPSULE PO SCH ×2 (08:55→22:28)
[2022-02-03] MEDS: HEPARIN 5,000 UNIT/1 ML VIAL SUBCUT SCH ×2 (08:56→22:32)
[2022-02-03] MEDS: carvediloL 12.5 MG TABLET PO SCH ×2 (08:56→22:28)
[2022-02-03] MEDS: FERROUS SULFATE 325 MG TABLET PO SCH ×2 (08:56→22:27)
[2022-02-03] MEDS: levETIRAcetam 250 MG TABLET PO SCH (08:57)
[2022-02-03] MEDS: ESCITALOPRAM 10 MG TABLET PO SCH (08:57)
[2022-02-03] MEDS: ATORVASTATIN 10 MG TABLET PO SCH (08:58)
[2022-02-03] MEDS: MONTELUKAST 10 MG TABLET PO SCH (08:58)
[2022-02-03] MEDS: PANTOPRAZOLE 40 MG TABLET PO SCH (08:58)
[2022-02-03] MEDS: GABAPENTIN 300 MG CAPSULE PO SCH ×2 (08:58→22:27)
[2022-02-03] MEDS: amLODIPine 5 MG TABLET PO SCH (08:58)
[2022-02-03] MEDS: CHOLECALCIFEROL 1,000 UNIT TABLET PO SCH (08:59)
[2022-02-03] MEDS: SODIUM BICARBONATE 650 MG TABLET PO SCH ×2 (09:16→22:27)
[2022-02-03 10:48] LABS: % Iron Saturation 15.8 % (18-50)
[2022-02-03 10:58] LABS: Folate 5.21 NG/ML (5.38-24.0)
[2022-02-03] MEDS ORDERED: MORPHINE 2 MG/1 ML SYRINGE ONE (11:04)
[2022-02-03] MEDS: MORPHINE 2 MG/1 ML SYRINGE IV PRN (11:10)
[2022-02-03 12:17] LABS: Arterial Base Excess iSTAT 7 MMOL/L (-2.5-2.5); Arterial Bicarbonate iSTAT 36.8 MMOL/L (20-26); Arterial O2 Saturation iSTAT 69 % (95-100); Arterial PCO2 iSTAT 93 MM HG (35-48); Arterial PO2 iSTAT 46 MM HG (80-95); Arterial Total CO2 iSTAT 40 MMO/L (23-27); Arterial pH iSTAT 7.206 (7.35-7.45)
[2022-02-03] MEDS: FOLIC ACID 1 MG TABLET PO SCH ×2 (17:33→22:28)
[2022-02-03] MEDS: MELATONIN 3 MG TABLET PO SCH (22:27)
[2022-02-03] MEDS: levETIRAcetam 500 MG TABLET PO SCH (22:28)
[2022-02-04] MEDS: FERRIC GLUCONATE COMPLEX 125 MG in SODIUM CHLORIDE 0.9% 100 ML IV SCH (00:36)
[2022-02-04] MEDS: ALBUTEROL/IPRATROPIUM 3 ML NEB RESP TX SCH ×4 (01:40→20:05)
[2022-02-04 02:41] LABS: Arterial Base Excess iSTAT 4 MMOL/L (-2.5-2.5); Arterial Bicarbonate iSTAT 32.6 MMOL/L (20-26); Arterial O2 Saturation iSTAT 97 % (95-100); Arterial PCO2 iSTAT 73 MM HG (35-48); Arterial PO2 iSTAT 113 MM HG (80-95); Arterial Total CO2 iSTAT 35 MMO/L (23-27); Arterial pH iSTAT 7.258 (7.35-7.45)
[2022-02-04] MEDS: LEVOTHYROXINE 75 MCG TABLET PO SCH (05:26)
[2022-02-04 06:28] LABS: Calcium 7.7 MG/DL (8.5-10.1); Osmolality,Calculated 280.1 MOS/KG (273-304); Potassium 3.6 MMOL/L (3.5-5.1)
[2022-02-04 06:31] LABS: Basophils % 0.3 % (0.0-0.8); Eosinophils # 0.1 10*3/uL (0.0-0.87); Eosinophils % 0.9 % (0.00-10.9); Hematocrit 27.6 VOL% (35.7-47.0); Immature Granulocytes % 0.4 %; Immature Granulocytes Absolute 0.03 #; Lymphocytes # 1.7 10*3/uL (1.4-4.0); Lymphocytes % 25.5 % (21.3-54.2); Mean Corpuscular HGB Conc 28.6 GM/DL (32-36); Mean Corpuscular Volume 103.8 FL (87-102); Mean Platelet Volume 10.2 FL (9.6-12.0); Monocytes # 0.4 10*3/uL (0.11-0.8); Monocytes % 6.4 % (1.7-12.7); Neutrophils % 66.5 % (38.7-73.9); Platelet Count 162 T/CUMM (130-400); Red Blood Count 2.66 MC/CUMM (3.8-5.5); Red Cell Distribution Width 15.4 % (9.3-17.3); White Blood Count 6.7 T/CUMM (4-12)
[2022-02-04 06:35] LABS: Hemoglobin 7.9 GM/DL (12.0-16.0)
[2022-02-04] MEDS ORDERED: ETOMIDATE 40 MG/20 ML VIAL IV ONE (09:03)
[2022-02-04] MEDS ORDERED: propofoL 200 MG/20 ML VIAL IV ONE (09:03)
[2022-02-04] MEDS ORDERED: SODIUM CHLORIDE 0.9% 250 ML IV ONE (09:03)
[2022-02-04] MEDS ORDERED: fentaNYL 100 MCG/2 ML VIAL ONE (09:04)
[2022-02-04] MEDS ORDERED: MIDAZOLAM 2 MG/2 ML VIAL ONE (09:04)
[2022-02-04] MEDS ORDERED: KETAMINE 500 MG/10 ML VIAL ONE (09:04)
[2022-02-04] MEDS ORDERED: LIDOCAINE MPF 1% /EPI 30 ML VIAL ONE (09:09)
[2022-02-04] MEDS ORDERED: BUPIVACAINE MPF 0.25% 10 ML VIAL ONE (09:09)
[2022-02-04] MEDS: SEVELAMER CARBONATE 800 MG TABLET PO SCH ×3 (09:49→18:42)
[2022-02-04] MEDS ORDERED: PHENYLEPHRINE 1 MG/10 ML SYRINGE IV ONE (10:14)
[2022-02-04] MEDS ORDERED: MORPHINE 2 MG/1 ML SYRINGE IV PRN (10:37)
[2022-02-04] MEDS ORDERED: ONDANSETRON 4 MG/2 ML VIAL IV PRN (10:37)
[2022-02-04] MEDS ORDERED: MORPHINE 10 MG/1 ML VIAL ONE (10:40)
[2022-02-04] MEDS ORDERED: HEPARIN 10,000 UNIT/10 ML VIAL IV PRN (11:37)
[2022-02-04] MEDS: MORPHINE 2 MG/1 ML SYRINGE IV PRN ×3 (14:26→23:23)
[2022-02-04] MEDS: NON-FORMULARY MEDICATION (Fluticasone-Umeclidin-Vilanter [Trelegy Ellipta] 100-62.5-25 mcg INH SCH (14:33)
[2022-02-04] MEDS: FOLIC ACID 1 MG TABLET PO SCH ×2 (14:33→20:54)
[2022-02-04] MEDS: FERROUS SULFATE 325 MG TABLET PO SCH ×2 (14:33→20:54)
[2022-02-04] MEDS: carvediloL 12.5 MG TABLET PO SCH ×2 (14:33→20:54)
[2022-02-04] MEDS: DOCUSATE SODIUM 100 MG CAPSULE PO SCH ×2 (14:33→20:54)
[2022-02-04] MEDS: GABAPENTIN 300 MG CAPSULE PO SCH ×2 (14:34→20:54)
[2022-02-04] MEDS: HEPARIN 5,000 UNIT/1 ML VIAL SUBCUT SCH ×2 (14:34→20:55)
[2022-02-04] MEDS: ATORVASTATIN 10 MG TABLET PO SCH (15:11)
[2022-02-04] MEDS: sitaGLIPtin 25 MG TABLET PO SCH (15:11)
[2022-02-04] MEDS: PANTOPRAZOLE 40 MG TABLET PO SCH (15:11)
[2022-02-04] MEDS: amLODIPine 5 MG TABLET PO SCH (15:11)
[2022-02-04] MEDS: levETIRAcetam 250 MG TABLET PO SCH (15:11)
[2022-02-04] MEDS: ESCITALOPRAM 10 MG TABLET PO SCH (15:11)
[2022-02-04] MEDS: MONTELUKAST 10 MG TABLET PO SCH (15:11)
[2022-02-04] MEDS: CHOLECALCIFEROL 1,000 UNIT TABLET PO SCH (15:11)
[2022-02-04] MEDS: SODIUM BICARBONATE 650 MG TABLET PO SCH ×2 (15:11→20:54)
[2022-02-04] MEDS: PIPERACILLIN/TAZOBACTAM 3,375 MG in SODIUM CHLORIDE 0.9% 100 ML IV SCH ×2 (15:12→22:39)
[2022-02-04] MEDS: levETIRAcetam 500 MG TABLET PO SCH (20:54)
[2022-02-04] MEDS: MELATONIN 3 MG TABLET PO SCH (20:54)
[2022-02-04] MEDS: traZODone 50 MG TABLET PO PRN (20:58)
[2022-02-05] MEDS: PIPERACILLIN/TAZOBACTAM 3,375 MG in SODIUM CHLORIDE 0.9% 100 ML IV SCH ×2 (02:12→18:32)
[2022-02-05] MEDS: ALBUTEROL/IPRATROPIUM 3 ML NEB RESP TX SCH ×4 (02:17→19:05)
[2022-02-05 05:31] LABS: Calcium 7.5 MG/DL (8.5-10.1); Potassium 3.3 MMOL/L (3.5-5.1)
[2022-02-05 05:40] LABS: Basophils % 0.5 % (0.0-0.8); Eosinophils # 0.2 10*3/uL (0.0-0.87); Hemoglobin 7.8 GM/DL (12.0-16.0); Immature Granulocytes % 0.9 %; Immature Granulocytes Absolute 0.06 #; Lymphocytes % 31.3 % (21.3-54.2); Mean Corpuscular HGB Conc 28.4 GM/DL (32-36); Mean Corpuscular Volume 104.6 FL (87-102); Mean Platelet Volume 10.2 FL (9.6-12.0); Monocytes # 0.7 10*3/uL (0.11-0.8); Monocytes % 10.4 % (1.7-12.7); Neutrophils % 53.9 % (38.7-73.9); Platelet Count 153 T/CUMM (130-400); Red Blood Count 2.63 MC/CUMM (3.8-5.5); Red Cell Distribution Width 15.5 % (9.3-17.3); White Blood Count 6.3 T/CUMM (4-12)
[2022-02-05 05:44] LABS: Hematocrit 27.5 VOL% (35.7-47.0)
[2022-02-05 06:05] LABS: Platelet Estimate Adequate
[2022-02-05] MEDS: LEVOTHYROXINE 75 MCG TABLET PO SCH ×2 (06:19→08:10)
[2022-02-05] MEDS: DOCUSATE SODIUM 100 MG CAPSULE PO SCH ×2 (08:09→20:18)
[2022-02-05] MEDS: GABAPENTIN 300 MG CAPSULE PO SCH ×2 (08:09→20:20)
[2022-02-05] MEDS: SEVELAMER CARBONATE 800 MG TABLET PO SCH ×3 (08:09→16:54)
[2022-02-05] MEDS: MONTELUKAST 10 MG TABLET PO SCH (08:09)
[2022-02-05] MEDS: SODIUM BICARBONATE 650 MG TABLET PO SCH ×2 (08:10→20:19)
[2022-02-05] MEDS: PANTOPRAZOLE 40 MG TABLET PO SCH (08:10)
[2022-02-05] MEDS: ATORVASTATIN 10 MG TABLET PO SCH (08:10)
[2022-02-05] MEDS: CHOLECALCIFEROL 1,000 UNIT TABLET PO SCH (08:10)
[2022-02-05] MEDS: ESCITALOPRAM 10 MG TABLET PO SCH (08:10)
[2022-02-05] MEDS: sitaGLIPtin 25 MG TABLET PO SCH (08:10)
[2022-02-05] MEDS: levETIRAcetam 250 MG TABLET PO SCH (08:10)
[2022-02-05] MEDS: FERROUS SULFATE 325 MG TABLET PO SCH ×2 (08:10→20:18)
[2022-02-05] MEDS: FOLIC ACID 1 MG TABLET PO SCH ×2 (08:10→20:18)
[2022-02-05] MEDS: NON-FORMULARY MEDICATION (Fluticasone-Umeclidin-Vilanter [Trelegy Ellipta] 100-62.5-25 mcg INH SCH (10:53)
[2022-02-05] MEDS: HEPARIN 5,000 UNIT/1 ML VIAL SUBCUT SCH ×2 (10:54→20:19)
[2022-02-05] MEDS: amLODIPine 5 MG TABLET PO SCH (11:56)
[2022-02-05] MEDS: carvediloL 12.5 MG TABLET PO SCH ×2 (11:56→20:18)
[2022-02-05] MEDS: MORPHINE 2 MG/1 ML SYRINGE IV PRN (12:32)
[2022-02-05] MEDS: HYDROmorphone 1 MG/1 ML SYRINGE IV PRN ×2 (15:55→20:20)
[2022-02-05] MEDS: SODIUM HYPOCHLORITE 0.25% IRRIG 473 ML BOTTLE TOP SCH (15:57)
[2022-02-05] MEDS: FERRIC GLUCONATE COMPLEX 125 MG in SODIUM CHLORIDE 0.9% 100 ML IV SCH (16:53)
[2022-02-05] MEDS: levETIRAcetam 500 MG TABLET PO SCH (20:19)
[2022-02-05] MEDS: MELATONIN 3 MG TABLET PO SCH (20:19)
[2022-02-06] MEDS: ALBUTEROL/IPRATROPIUM 3 ML NEB RESP TX SCH ×4 (00:18→19:05)
[2022-02-06] MEDS: PIPERACILLIN/TAZOBACTAM 3,375 MG in SODIUM CHLORIDE 0.9% 100 ML IV SCH ×2 (03:58→14:38)
[2022-02-06] MEDS: LEVOTHYROXINE 75 MCG TABLET PO SCH (05:20)
[2022-02-06 06:28] LABS: Basophils % 0.3 % (0.0-0.8); Eosinophils # 0.2 10*3/uL (0.0-0.87); Eosinophils % 3.1 % (0.00-10.9); Hematocrit 28.7 VOL% (35.7-47.0); Hemoglobin 8.3 GM/DL (12.0-16.0); Immature Granulocytes % 0.5 %; Immature Granulocytes Absolute 0.03 #; Lymphocytes # 1.6 10*3/uL (1.4-4.0); Lymphocytes % 26.7 % (21.3-54.2); Mean Corpuscular HGB Conc 28.9 GM/DL (32-36); Mean Corpuscular Volume 105.5 FL (87-102); Mean Platelet Volume 10.4 FL (9.6-12.0); Monocytes # 0.5 10*3/uL (0.11-0.8); Monocytes % 9.2 % (1.7-12.7); Neutrophils % 60.2 % (38.7-73.9); Platelet Count 156 T/CUMM (130-400); Red Blood Count 2.72 MC/CUMM (3.8-5.5); Red Cell Distribution Width 15.6 % (9.3-17.3); White Blood Count 5.9 T/CUMM (4-12)
[2022-02-06 07:06] LABS: Calcium 7.4 MG/DL (8.5-10.1); Osmolality,Calculated 283.1 MOS/KG (273-304); Potassium 3.5 MMOL/L (3.5-5.1); Risk Ratio 3.77; Thyroid Stimulating Hormone 1.19 uIU/ml (0.358-3.74); VLDL Cholesterol 42.2 MG/DL
[2022-02-06] MEDS: sitaGLIPtin 25 MG TABLET PO SCH (08:09)
[2022-02-06] MEDS: ESCITALOPRAM 10 MG TABLET PO SCH (08:10)
[2022-02-06] MEDS: amLODIPine 5 MG TABLET PO SCH (08:10)
[2022-02-06] MEDS: DOCUSATE SODIUM 100 MG CAPSULE PO SCH ×2 (08:10→21:14)
[2022-02-06] MEDS: carvediloL 12.5 MG TABLET PO SCH ×2 (08:10→21:14)
[2022-02-06] MEDS: levETIRAcetam 250 MG TABLET PO SCH (08:10)
[2022-02-06] MEDS: GABAPENTIN 300 MG CAPSULE PO SCH ×2 (08:11→21:15)
[2022-02-06] MEDS: FOLIC ACID 1 MG TABLET PO SCH ×2 (08:11→21:14)
[2022-02-06] MEDS: SODIUM BICARBONATE 650 MG TABLET PO SCH ×2 (08:11→21:15)
[2022-02-06] MEDS: MONTELUKAST 10 MG TABLET PO SCH (08:11)
[2022-02-06] MEDS: CHOLECALCIFEROL 1,000 UNIT TABLET PO SCH (08:11)
[2022-02-06] MEDS: PANTOPRAZOLE 40 MG TABLET PO SCH (08:12)
[2022-02-06] MEDS: FERROUS SULFATE 325 MG TABLET PO SCH ×2 (08:12→21:14)
[2022-02-06] MEDS: SEVELAMER CARBONATE 800 MG TABLET PO SCH ×3 (08:12→17:13)
[2022-02-06] MEDS: ATORVASTATIN 10 MG TABLET PO SCH (08:12)
[2022-02-06] MEDS: HEPARIN 5,000 UNIT/1 ML VIAL SUBCUT SCH ×2 (08:13→21:14)
[2022-02-06] MEDS: NON-FORMULARY MEDICATION (Fluticasone-Umeclidin-Vilanter [Trelegy Ellipta] 100-62.5-25 mcg INH SCH (08:15)
[2022-02-06] MEDS: SODIUM HYPOCHLORITE 0.25% IRRIG 473 ML BOTTLE TOP SCH (08:16)
[2022-02-06] MEDS: HYDROmorphone 1 MG/1 ML SYRINGE IV PRN ×3 (08:20→21:15)
[2022-02-06] MEDS: MORPHINE 2 MG/1 ML SYRINGE IV PRN (11:21)
[2022-02-06] MEDS: MELATONIN 3 MG TABLET PO SCH (21:14)
[2022-02-06] MEDS: levETIRAcetam 500 MG TABLET PO SCH (21:14)
[2022-02-07] MEDS: ALBUTEROL/IPRATROPIUM 3 ML NEB RESP TX SCH ×4 (00:30→23:49)
[2022-02-07] MEDS: MORPHINE 2 MG/1 ML SYRINGE IV PRN (01:18)
[2022-02-07] MEDS: PIPERACILLIN/TAZOBACTAM 3,375 MG in SODIUM CHLORIDE 0.9% 100 ML IV SCH ×2 (02:52→17:28)
[2022-02-07] MEDS: LEVOTHYROXINE 75 MCG TABLET PO SCH (05:17)
[2022-02-07 05:36] LABS: Calcium 7.3 MG/DL (8.5-10.1); Osmolality,Calculated 282.4 MOS/KG (273-304)
[2022-02-07 06:20] LABS: Basophils % 0.2 % (0.0-0.8); Eosinophils # 0.3 10*3/uL (0.0-0.87); Hematocrit 30.1 VOL% (35.7-47.0); Hemoglobin 8.8 GM/DL (12.0-16.0); Immature Granulocytes % 0.5 %; Immature Granulocytes Absolute 0.03 #; Lymphocytes # 1.8 10*3/uL (1.4-4.0); Lymphocytes % 28.3 % (21.3-54.2); Mean Corpuscular HGB Conc 29.2 GM/DL (32-36); Mean Corpuscular Volume 104.9 FL (87-102); Mean Platelet Volume 10.4 FL (9.6-12.0); Monocytes # 0.5 10*3/uL (0.11-0.8); Monocytes % 8.2 % (1.7-12.7); Neutrophils % 58.8 % (38.7-73.9); Platelet Count 153 T/CUMM (130-400); Red Blood Count 2.87 MC/CUMM (3.8-5.5); Red Cell Distribution Width 15.5 % (9.3-17.3); White Blood Count 6.4 T/CUMM (4-12)
[2022-02-07] MEDS: HYDROmorphone 1 MG/1 ML SYRINGE IV PRN ×2 (06:50→14:25)
[2022-02-07] MEDS: carvediloL 12.5 MG TABLET PO SCH ×2 (12:31→21:06)
[2022-02-07] MEDS: SEVELAMER CARBONATE 800 MG TABLET PO SCH ×3 (12:31→17:28)
[2022-02-07] MEDS: SODIUM HYPOCHLORITE 0.25% IRRIG 473 ML BOTTLE TOP SCH (12:31)
[2022-02-07] MEDS: FERROUS SULFATE 325 MG TABLET PO SCH ×2 (12:31→21:06)
[2022-02-07] MEDS: DOCUSATE SODIUM 100 MG CAPSULE PO SCH ×2 (12:31→21:06)
[2022-02-07] MEDS: PANTOPRAZOLE 40 MG TABLET PO SCH (12:32)
[2022-02-07] MEDS: NON-FORMULARY MEDICATION (Fluticasone-Umeclidin-Vilanter [Trelegy Ellipta] 100-62.5-25 mcg INH SCH (12:32)
[2022-02-07] MEDS: GABAPENTIN 300 MG CAPSULE PO SCH ×2 (12:32→21:06)
[2022-02-07] MEDS: FOLIC ACID 1 MG TABLET PO SCH ×2 (12:32→21:05)
[2022-02-07] MEDS: MONTELUKAST 10 MG TABLET PO SCH (12:32)
[2022-02-07] MEDS: levETIRAcetam 250 MG TABLET PO SCH (12:32)
[2022-02-07] MEDS: HEPARIN 5,000 UNIT/1 ML VIAL SUBCUT SCH ×2 (12:32→21:06)
[2022-02-07] MEDS: ATORVASTATIN 10 MG TABLET PO SCH (12:32)
[2022-02-07] MEDS: amLODIPine 5 MG TABLET PO SCH (12:32)
[2022-02-07] MEDS: SODIUM BICARBONATE 650 MG TABLET PO SCH ×2 (12:32→21:08)
[2022-02-07] MEDS: ESCITALOPRAM 10 MG TABLET PO SCH (12:32)
[2022-02-07] MEDS: sitaGLIPtin 25 MG TABLET PO SCH (12:32)
[2022-02-07] MEDS: CHOLECALCIFEROL 1,000 UNIT TABLET PO SCH (12:33)
[2022-02-07] MEDS: FERRIC GLUCONATE COMPLEX 125 MG in SODIUM CHLORIDE 0.9% 100 ML IV SCH (17:28)
[2022-02-07] MEDS: MELATONIN 3 MG TABLET PO SCH (21:06)
[2022-02-07] MEDS: levETIRAcetam 500 MG TABLET PO SCH (21:11)
[2022-02-08] MEDS: ALBUTEROL/IPRATROPIUM 3 ML NEB RESP TX SCH ×6 (00:11→20:22)
[2022-02-08] MEDS: PIPERACILLIN/TAZOBACTAM 3,375 MG in SODIUM CHLORIDE 0.9% 100 ML IV SCH ×2 (02:30→16:40)
[2022-02-08 06:01] LABS: Calcium 7.3 MG/DL (8.5-10.1); Osmolality,Calculated 277.7 MOS/KG (273-304); Potassium 3.7 MMOL/L (3.5-5.1)
[2022-02-08 06:15] LABS: Basophils % 0.2 % (0.0-0.8); Eosinophils # 0.3 10*3/uL (0.0-0.87); Eosinophils % 5.2 % (0.00-10.9); Hemoglobin 8.1 GM/DL (12.0-16.0); Immature Granulocytes % 0.5 %; Immature Granulocytes Absolute 0.03 #; Lymphocytes # 2.1 10*3/uL (1.4-4.0); Lymphocytes % 34.1 % (21.3-54.2); Mean Corpuscular HGB Conc 28.9 GM/DL (32-36); Mean Corpuscular Volume 103.3 FL (87-102); Mean Platelet Volume 10.4 FL (9.6-12.0); Monocytes # 0.6 10*3/uL (0.11-0.8); Monocytes % 9.3 % (1.7-12.7); Neutrophils % 50.7 % (38.7-73.9); Platelet Count 133 T/CUMM (130-400); Red Blood Count 2.71 MC/CUMM (3.8-5.5); Red Cell Distribution Width 15.5 % (9.3-17.3); White Blood Count 6.1 T/CUMM (4-12)
[2022-02-08] MEDS: LEVOTHYROXINE 75 MCG TABLET PO SCH (06:18)
[2022-02-08] MEDS: HEPARIN 5,000 UNIT/1 ML VIAL SUBCUT SCH ×2 (09:28→20:07)
[2022-02-08] MEDS: DOCUSATE SODIUM 100 MG CAPSULE PO SCH ×2 (09:28→20:07)
[2022-02-08] MEDS: ESCITALOPRAM 10 MG TABLET PO SCH (09:29)
[2022-02-08] MEDS: SODIUM BICARBONATE 650 MG TABLET PO SCH ×2 (09:29→20:07)
[2022-02-08] MEDS: ATORVASTATIN 10 MG TABLET PO SCH (09:29)
[2022-02-08] MEDS: PANTOPRAZOLE 40 MG TABLET PO SCH (09:29)
[2022-02-08] MEDS: NON-FORMULARY MEDICATION (Fluticasone-Umeclidin-Vilanter [Trelegy Ellipta] 100-62.5-25 mcg INH SCH (09:30)
[2022-02-08] MEDS: HYDROmorphone 1 MG/1 ML SYRINGE IV PRN ×3 (09:30→21:29)
[2022-02-08] MEDS: amLODIPine 5 MG TABLET PO SCH (09:30)
[2022-02-08] MEDS: carvediloL 12.5 MG TABLET PO SCH ×2 (09:30→20:08)
[2022-02-08] MEDS: GABAPENTIN 300 MG CAPSULE PO SCH ×2 (09:30→20:08)
[2022-02-08] MEDS: FERROUS SULFATE 325 MG TABLET PO SCH ×2 (09:30→20:07)
[2022-02-08] MEDS: CHOLECALCIFEROL 1,000 UNIT TABLET PO SCH (09:30)
[2022-02-08] MEDS: FOLIC ACID 1 MG TABLET PO SCH ×2 (09:30→20:08)
[2022-02-08] MEDS: SEVELAMER CARBONATE 800 MG TABLET PO SCH ×3 (09:30→16:41)
[2022-02-08] MEDS: sitaGLIPtin 25 MG TABLET PO SCH (09:30)
[2022-02-08] MEDS: levETIRAcetam 250 MG TABLET PO SCH (10:42)
[2022-02-08] MEDS: MONTELUKAST 10 MG TABLET PO SCH (10:42)
[2022-02-08] MEDS: SODIUM HYPOCHLORITE 0.25% IRRIG 473 ML BOTTLE TOP SCH (13:16)
[2022-02-08] MEDS ORDERED: SODIUM CHLORIDE 0.9% 250 ML IV ONE (15:27)
[2022-02-08] MEDS: MELATONIN 3 MG TABLET PO SCH (20:08)
[2022-02-08] MEDS: levETIRAcetam 500 MG TABLET PO SCH (20:08)
[2022-02-09] MEDS: HYDROmorphone 1 MG/1 ML SYRINGE IV PRN ×3 (01:45→18:21)
[2022-02-09] MEDS: ALBUTEROL/IPRATROPIUM 3 ML NEB RESP TX SCH ×4 (01:50→19:08)
[2022-02-09] MEDS: PIPERACILLIN/TAZOBACTAM 3,375 MG in SODIUM CHLORIDE 0.9% 100 ML IV SCH ×2 (03:10→17:19)
[2022-02-09] MEDS: LEVOTHYROXINE 75 MCG TABLET PO SCH (05:01)
[2022-02-09 05:33] LABS: Basophils % 0.2 % (0.0-0.8); Eosinophils # 0.4 10*3/uL (0.0-0.87); Eosinophils % 6.8 % (0.00-10.9); Hematocrit 29.3 VOL% (35.7-47.0); Hemoglobin 8.6 GM/DL (12.0-16.0); Immature Granulocytes % 0.4 %; Immature Granulocytes Absolute 0.02 #; Lymphocytes # 1.5 10*3/uL (1.4-4.0); Lymphocytes % 28.3 % (21.3-54.2); Mean Corpuscular HGB Conc 29.4 GM/DL (32-36); Mean Corpuscular Volume 102.1 FL (87-102); Mean Platelet Volume 10.6 FL (9.6-12.0); Monocytes # 0.4 10*3/uL (0.11-0.8); Monocytes % 8.1 % (1.7-12.7); Neutrophils % 56.2 % (38.7-73.9); Platelet Count 133 T/CUMM (130-400); Red Blood Count 2.87 MC/CUMM (3.8-5.5); Red Cell Distribution Width 15.4 % (9.3-17.3); White Blood Count 5.3 T/CUMM (4-12)
[2022-02-09 05:47] LABS: Calcium 7.1 MG/DL (8.5-10.1); Osmolality,Calculated 278.8 MOS/KG (273-304); Potassium 4.1 MMOL/L (3.5-5.1)
[2022-02-09] MEDS: PANTOPRAZOLE 40 MG TABLET PO SCH (08:24)
[2022-02-09] MEDS: ESCITALOPRAM 10 MG TABLET PO SCH (08:24)
[2022-02-09] MEDS: sitaGLIPtin 25 MG TABLET PO SCH (08:25)
[2022-02-09] MEDS: SEVELAMER CARBONATE 800 MG TABLET PO SCH ×3 (08:25→17:18)
[2022-02-09] MEDS: SODIUM BICARBONATE 650 MG TABLET PO SCH ×2 (08:25→21:58)
[2022-02-09] MEDS: ATORVASTATIN 10 MG TABLET PO SCH (08:25)
[2022-02-09] MEDS: CHOLECALCIFEROL 1,000 UNIT TABLET PO SCH (08:25)
[2022-02-09] MEDS: DOCUSATE SODIUM 100 MG CAPSULE PO SCH ×2 (08:25→21:58)
[2022-02-09] MEDS: levETIRAcetam 250 MG TABLET PO SCH (08:25)
[2022-02-09] MEDS: FOLIC ACID 1 MG TABLET PO SCH ×2 (08:25→21:57)
[2022-02-09] MEDS: FERROUS SULFATE 325 MG TABLET PO SCH ×2 (08:25→21:57)
[2022-02-09] MEDS: amLODIPine 5 MG TABLET PO SCH (08:25)
[2022-02-09] MEDS: carvediloL 12.5 MG TABLET PO SCH ×2 (08:25→21:57)
[2022-02-09] MEDS: MONTELUKAST 10 MG TABLET PO SCH (08:25)
[2022-02-09] MEDS: HEPARIN 5,000 UNIT/1 ML VIAL SUBCUT SCH ×2 (08:26→21:58)
[2022-02-09] MEDS: NON-FORMULARY MEDICATION (Fluticasone-Umeclidin-Vilanter [Trelegy Ellipta] 100-62.5-25 mcg INH SCH (08:26)
[2022-02-09] MEDS: GABAPENTIN 300 MG CAPSULE PO SCH ×2 (09:41→21:58)
[2022-02-09] MEDS: SODIUM HYPOCHLORITE 0.25% IRRIG 473 ML BOTTLE TOP SCH (12:04)
[2022-02-09] MEDS: traZODone 50 MG TABLET PO PRN (21:57)
[2022-02-09] MEDS: levETIRAcetam 500 MG TABLET PO SCH (21:57)
[2022-02-09] MEDS: MELATONIN 3 MG TABLET PO SCH (21:57)
[2022-02-10] MEDS: ALBUTEROL/IPRATROPIUM 3 ML NEB RESP TX SCH ×3 (00:52→13:55)
[2022-02-10] MEDS: LEVOTHYROXINE 75 MCG TABLET PO SCH ×2 (04:35)
[2022-02-10] MEDS: PIPERACILLIN/TAZOBACTAM 3,375 MG in SODIUM CHLORIDE 0.9% 100 ML IV SCH (04:35)
[2022-02-10 05:23] LABS: Basophils % 0.4 % (0.0-0.8); Eosinophils # 0.4 10*3/uL (0.0-0.87); Eosinophils % 6.7 % (0.00-10.9); Hematocrit 27.5 VOL% (35.7-47.0); Hemoglobin 8.2 GM/DL (12.0-16.0); Immature Granulocytes % 0.2 %; Immature Granulocytes Absolute 0.01 #; Lymphocytes # 1.9 10*3/uL (1.4-4.0); Lymphocytes % 33.6 % (21.3-54.2); Mean Corpuscular HGB Conc 29.8 GM/DL (32-36); Mean Corpuscular Volume 101.1 FL (87-102); Mean Platelet Volume 10.8 FL (9.6-12.0); Monocytes # 0.4 10*3/uL (0.11-0.8); Monocytes % 7.6 % (1.7-12.7); Neutrophils % 51.5 % (38.7-73.9); Platelet Count 129 T/CUMM (130-400); Red Blood Count 2.72 MC/CUMM (3.8-5.5); Red Cell Distribution Width 15.2 % (9.3-17.3); White Blood Count 5.5 T/CUMM (4-12)
[2022-02-10 06:05] LABS: Osmolality,Calculated 285.5 MOS/KG (273-304); Potassium 4.6 MMOL/L (3.5-5.1)
[2022-02-10] MEDS: NON-FORMULARY MEDICATION (Fluticasone-Umeclidin-Vilanter [Trelegy Ellipta] 100-62.5-25 mcg INH SCH (08:30)
[2022-02-10] MEDS: HEPARIN 5,000 UNIT/1 ML VIAL SUBCUT SCH (08:30)
[2022-02-10] MEDS: sitaGLIPtin 25 MG TABLET PO SCH (08:35)
[2022-02-10] MEDS: SEVELAMER CARBONATE 800 MG TABLET PO SCH ×2 (08:35→12:00)
[2022-02-10] MEDS: ESCITALOPRAM 10 MG TABLET PO SCH (08:35)
[2022-02-10] MEDS: GABAPENTIN 300 MG CAPSULE PO SCH (08:35)
[2022-02-10] MEDS: SODIUM BICARBONATE 650 MG TABLET PO SCH (08:35)
[2022-02-10] MEDS: FOLIC ACID 1 MG TABLET PO SCH (08:35)
[2022-02-10] MEDS: CHOLECALCIFEROL 1,000 UNIT TABLET PO SCH (08:36)
[2022-02-10] MEDS: DOCUSATE SODIUM 100 MG CAPSULE PO SCH (08:36)
[2022-02-10] MEDS: HYDROmorphone 1 MG/1 ML SYRINGE IV PRN (08:36)
[2022-02-10] MEDS: levETIRAcetam 250 MG TABLET PO SCH (08:36)
[2022-02-10] MEDS: MONTELUKAST 10 MG TABLET PO SCH (08:36)
[2022-02-10] MEDS: FERROUS SULFATE 325 MG TABLET PO SCH (08:36)
[2022-02-10] MEDS: ATORVASTATIN 10 MG TABLET PO SCH (08:36)
[2022-02-10] MEDS: PANTOPRAZOLE 40 MG TABLET PO SCH (08:36)
[2022-02-10] MEDS: carvediloL 12.5 MG TABLET PO SCH (14:46)
[2022-02-10] MEDS: amLODIPine 5 MG TABLET PO SCH (14:46)
[2022-02-10] MEDS: SODIUM HYPOCHLORITE 0.25% IRRIG 473 ML BOTTLE TOP SCH (14:47)
[2022-02-10 16:14] VITALS: BP 140/43
== END 2022-02-10 16:15 | disposition home health service (06) | DRG 291 ==
LOC: N.ED 22:53 → N.EDINP 02-03 02:35 → N.5E 02-03 17:28
PROVIDERS: ADMIT Internal Medicine; ATTEND Internal Medicine

== ENCOUNTER 2022-02-26 12:32 | Inpatient (IN) ==
[2022-02-26] MEDS ORDERED: ONDANSETRON ODT 4 MG TABLET PO STA (12:40)
[2022-02-26] MEDS ORDERED: MAGNESIUM SULF RIDER 2 GM/50 ML PREMIX IV STA (12:40)
[2022-02-26] MEDS ORDERED: ALBUTEROL/IPRATROPIUM 3 ML NEB RESP TX STA (12:40)
[2022-02-26 14:08] LABS: Basophils % 0.4 % (0.0-0.8); Eosinophils # 0.2 10*3/uL (0.0-0.87); Eosinophils % 2.4 % (0.00-10.9); Hematocrit 30.2 VOL% (35.7-47.0); Hemoglobin 9.1 GM/DL (12.0-16.0); Immature Granulocytes % 0.4 %; Immature Granulocytes Absolute 0.03 #; Lymphocytes # 1.5 10*3/uL (1.4-4.0); Lymphocytes % 20.6 % (21.3-54.2); Mean Corpuscular HGB Conc 30.1 GM/DL (32-36); Mean Corpuscular Volume 97.1 FL (87-102); Mean Platelet Volume 10.1 FL (9.6-12.0); Monocytes # 0.3 10*3/uL (0.11-0.8); Monocytes % 4.7 % (1.7-12.7); Neutrophils % 71.5 % (38.7-73.9); Platelet Count 150 T/CUMM (130-400); Red Blood Count 3.11 MC/CUMM (3.8-5.5); Red Cell Distribution Width 13.8 % (9.3-17.3); White Blood Count 7.2 T/CUMM (4-12)
[2022-02-26 14:15] LABS: Arterial Base Excess iSTAT 3 MMOL/L (-2.5-2.5); Arterial Bicarbonate iSTAT 30.5 MMOL/L (20-26); Arterial O2 Saturation iSTAT 89 % (95-100); Arterial PCO2 iSTAT 60 MM HG (35-48); Arterial PO2 iSTAT 64 MM HG (80-95); Arterial Total CO2 iSTAT 32 MMO/L (23-27); Arterial pH iSTAT 7.317 (7.35-7.45)
[2022-02-26 14:27] LABS: Alanine Aminotransferase 19 U/L (13-56); Albumin 2.1 G/DL (3.4-5.0); Alkaline Phosphatase 231 U/L (45-117); Aspartate Amino Transferase 16 U/L (0-37); Bilirubin,Total < 0.39 MG/DL (0.20-1.00); Blood Urea Nitrogen 34 MG/DL (7-18); Calcium 7.3 MG/DL (8.5-10.1); Carbon Dioxide 31 MMOL/L (21-32); Chloride 101 MMOL/L (98-107); Glucose 103 MG/DL (74-106); Osmolality,Calculated 284.5 MOS/KG (273-304); Sodium 139 MMOL/L (136-145); Total Protein 5.6 G/DL (6.4-8.2)
[2022-02-26 14:38] LABS: Amorphous Crystals,Urine Occasional /HPF (Few); Bilirubin,Urine Negative (Negative); Blood, Urine Negative (Negative); Glucose,Urine (UA) 100 mg/dL (Negative); Ketones,Urine Negative (Negative); Mucus,Urine Occasional /LPF (Occasional); Nitrite,Urine Negative (Negative); Protein,Urine >=300 mg/dL (Negative); Urine Appearance Clear (Clear); Urine Color Yellow (Yellow); Urine Specific Gravity 1.025 (1.001-1.035); Urine Urobilinogen 0.2 eU/dL (<2.0); Urine pH 5.5 (4.5-8.0)
[2022-02-26] MEDS ORDERED: DEXTROSE 10% 250 ML BAG IV PRN (15:04)
[2022-02-26] MEDS ORDERED: GLUCAGON 1 MG VIAL IM PRN (15:04)
[2022-02-26] MEDS ORDERED: FUROSEMIDE 40 MG/4 ML VIAL IV STA (15:11)
[2022-02-26] MEDS ORDERED: INSULIN REGULAR 100 UNIT/ML SUBCUT SCH (16:30)
[2022-02-26] MEDS: HEPARIN 5,000 UNIT/1 ML VIAL SUBCUT SCH (16:42)
[2022-02-26] MEDS: guaiFENesin/DM ER 600-30 MG TABLET PO SCH ×2 (16:42→21:18)
[2022-02-26] MEDS: methylPREDNISolone SOD SUC 40 MG/1 ML VIAL IV SCH ×2 (16:44→21:19)
[2022-02-26] MEDS: INSULIN REGULAR 100 UNIT/ML SUBCUT SCH ×2 (17:52→21:19)
[2022-02-26] MEDS: ALBUTEROL/IPRATROPIUM 3 ML NEB RESP TX SCH (18:58)
[2022-02-26] MEDS: BUDESONIDE 0.5 MG/2 ML NEB RESP TX SCH (19:04)
[2022-02-26] MEDS: DOXYCYCLINE HYCLATE INJ 100 MG in SODIUM CHLORIDE 0.9% 100 ML IV SCH (21:18)
[2022-02-27] MEDS: HEPARIN 5,000 UNIT/1 ML VIAL SUBCUT SCH ×2 (03:43→20:37)
[2022-02-27] MEDS: methylPREDNISolone SOD SUC 40 MG/1 ML VIAL IV SCH ×5 (04:36→20:36)
[2022-02-27 05:23] LABS: Basophils % 0.1 % (0.0-0.8); Hematocrit 31.2 VOL% (35.7-47.0); Hemoglobin 9.2 GM/DL (12.0-16.0); Immature Granulocytes % 0.6 %; Immature Granulocytes Absolute 0.04 #; Lymphocytes # 0.6 10*3/uL (1.4-4.0); Mean Corpuscular HGB Conc 29.5 GM/DL (32-36); Mean Corpuscular Volume 97.8 FL (87-102); Mean Platelet Volume 10.6 FL (9.6-12.0); Monocytes % 0.6 % (1.7-12.7); Neutrophils % 89.7 % (38.7-73.9); Platelet Count 164 T/CUMM (130-400); Red Blood Count 3.19 MC/CUMM (3.8-5.5); Red Cell Distribution Width 13.4 % (9.3-17.3); White Blood Count 6.9 T/CUMM (4-12)
[2022-02-27] MEDS: DOXYCYCLINE HYCLATE INJ 100 MG in SODIUM CHLORIDE 0.9% 100 ML IV SCH ×5 (05:34→20:37)
[2022-02-27 05:46] LABS: Alanine Aminotransferase 17 U/L (13-56); Albumin 2.1 G/DL (3.4-5.0); Alkaline Phosphatase 229 U/L (45-117); Aspartate Amino Transferase 16 U/L (0-37); Bilirubin,Total < 0.39 MG/DL (0.20-1.00); Blood Urea Nitrogen 41 MG/DL (7-18); Calcium 7.4 MG/DL (8.5-10.1); Carbon Dioxide 27 MMOL/L (21-32); Chloride 102 MMOL/L (98-107); Glucose 156 MG/DL (74-106); Osmolality,Calculated 285.8 MOS/KG (273-304); Potassium 4.7 MMOL/L (3.5-5.1); Sodium 137 MMOL/L (136-145); Total Protein 6.2 G/DL (6.4-8.2)
[2022-02-27] MEDS: ALBUTEROL/IPRATROPIUM 3 ML NEB RESP TX SCH ×4 (07:20→19:10)
[2022-02-27] MEDS: BUDESONIDE 0.5 MG/2 ML NEB RESP TX SCH ×2 (07:20→19:10)
[2022-02-27] MEDS: guaiFENesin/DM ER 600-30 MG TABLET PO SCH ×3 (07:59→20:37)
[2022-02-27] MEDS: PANTOPRAZOLE 40 MG TABLET PO SCH ×2 (07:59→08:38)
[2022-02-27] MEDS: INSULIN REGULAR 100 UNIT/ML SUBCUT SCH ×4 (08:24→21:43)
[2022-02-27] MEDS ORDERED: HEPARIN 10,000 UNIT/10 ML VIAL IV PRN (13:02)
[2022-02-27] MEDS: HEPARIN DRIP 25,000 UNITS/500 ML PREMIX IV SCH (17:04)
[2022-02-27] MEDS: WARFARIN 7.5 MG TABLET PO SCH (18:12)
[2022-02-27] MEDS: MORPHINE 2 MG/1 ML SYRINGE IV PRN (20:35)
[2022-02-28] MEDS: ALBUTEROL/IPRATROPIUM 3 ML NEB RESP TX SCH ×4 (02:41→19:34)
[2022-02-28] MEDS: methylPREDNISolone SOD SUC 40 MG/1 ML VIAL IV SCH ×4 (04:08→21:21)
[2022-02-28] MEDS: MORPHINE 2 MG/1 ML SYRINGE IV PRN ×6 (04:09→22:54)
[2022-02-28 05:34] LABS: Hematocrit 31.6 VOL% (35.7-47.0); Hemoglobin 9.3 GM/DL (12.0-16.0); Immature Granulocytes % 0.8 %; Immature Granulocytes Absolute 0.05 #; Lymphocytes # 0.7 10*3/uL (1.4-4.0); Lymphocytes % 9.9 % (21.3-54.2); Mean Corpuscular HGB Conc 29.4 GM/DL (32-36); Mean Corpuscular Volume 98.1 FL (87-102); Mean Platelet Volume 10.5 FL (9.6-12.0); Monocytes # 0.1 10*3/uL (0.11-0.8); Neutrophils % 87.3 % (38.7-73.9); Platelet Count 234 T/CUMM (130-400); Red Blood Count 3.22 MC/CUMM (3.8-5.5); Red Cell Distribution Width 13.4 % (9.3-17.3); White Blood Count 6.7 T/CUMM (4-12)
[2022-02-28 05:44] LABS: INR 1.1; PT Patient Result 11.6 SECS (10.1-12.1)
[2022-02-28 05:58] LABS: Alanine Aminotransferase 15 U/L (13-56); Albumin 2.3 G/DL (3.4-5.0); Alkaline Phosphatase 210 U/L (45-117); Aspartate Amino Transferase 9 U/L (0-37); Bilirubin,Total < 0.39 MG/DL (0.20-1.00); Blood Urea Nitrogen 34 MG/DL (7-18); Calcium 7.8 MG/DL (8.5-10.1); Carbon Dioxide 30 MMOL/L (21-32); Chloride 101 MMOL/L (98-107); Glucose 292 MG/DL (74-106); Osmolality,Calculated 288.1 MOS/KG (273-304); Phosphorous 4.1 MG/DL (2.5-4.9); Potassium 4.6 MMOL/L (3.5-5.1); Sodium 135 MMOL/L (136-145); Total Protein 6.8 G/DL (6.4-8.2); Uric Acid 4.3 MG/DL (2.6-6.0)
[2022-02-28] MEDS: BUDESONIDE 0.5 MG/2 ML NEB RESP TX SCH ×2 (07:15→19:34)
[2022-02-28] MEDS: DOXYCYCLINE HYCLATE INJ 100 MG in SODIUM CHLORIDE 0.9% 100 ML IV SCH (08:27)
[2022-02-28] MEDS: PANTOPRAZOLE 40 MG TABLET PO SCH (08:34)
[2022-02-28] MEDS: guaiFENesin/DM ER 600-30 MG TABLET PO SCH ×2 (08:34→21:21)
[2022-02-28] MEDS: INSULIN REGULAR 100 UNIT/ML SUBCUT SCH ×5 (08:35→21:22)
[2022-02-28 09:20] LABS: Alanine Aminotransferase 14 U/L (13-56); Albumin 2.3 G/DL (3.4-5.0); Alkaline Phosphatase 210 U/L (45-117); Aspartate Amino Transferase 10 U/L (0-37); Bilirubin,Direct < 0.100 MG/DL (0.0-0.20); Bilirubin,Indirect 0.3 MG/DL (0.0-1.0); Bilirubin,Total < 0.39 MG/DL (0.20-1.00); Total Protein 6.1 G/DL (6.4-8.2)
[2022-02-28 12:46] LABS: Hepatitis B Core IgM Quant < 0.05 Index; Hepatitis B Surface Ag Quant < 0.10 Index; Hepatitis B Surface Ag Result Non-Reactive (NonReactive); Hepatitis C Virus Ab Quant 0.04 Index; Hepatitis C Virus Ab Result Non-Reactive (NonReactive)
[2022-02-28] MEDS: HEPARIN DRIP 25,000 UNITS/500 ML PREMIX IV SCH (15:45)
[2022-02-28] MEDS: WARFARIN 5 MG TABLET PO SCH (17:16)
[2022-02-28] MEDS: DOXYCYCLINE HYCLATE 100 MG CAPSULE PO SCH (21:20)
[2022-02-28] MEDS ORDERED: MINERAL OIL ENEMA 133 ML BOTTLE RECTAL ONE (22:00)
[2022-03-01] MEDS: ALBUTEROL/IPRATROPIUM 3 ML NEB RESP TX SCH ×4 (00:10→19:20)
[2022-03-01] MEDS: methylPREDNISolone SOD SUC 40 MG/1 ML VIAL IV SCH ×3 (03:05→21:34)
[2022-03-01] MEDS: MORPHINE 2 MG/1 ML SYRINGE IV PRN ×3 (03:06→23:23)
[2022-03-01 03:13] LABS: Hematocrit 30.7 VOL% (35.7-47.0); Hemoglobin 9.1 GM/DL (12.0-16.0); Immature Granulocytes % 0.7 %; Immature Granulocytes Absolute 0.04 #; Lymphocytes # 0.5 10*3/uL (1.4-4.0); Lymphocytes % 7.7 % (21.3-54.2); Mean Corpuscular HGB Conc 29.6 GM/DL (32-36); Mean Corpuscular Volume 97.2 FL (87-102); Mean Platelet Volume 10.3 FL (9.6-12.0); Monocytes # 0.1 10*3/uL (0.11-0.8); Monocytes % 2.1 % (1.7-12.7); Neutrophils % 89.5 % (38.7-73.9); Platelet Count 227 T/CUMM (130-400); Red Blood Count 3.16 MC/CUMM (3.8-5.5); Red Cell Distribution Width 13.6 % (9.3-17.3); White Blood Count 6.1 T/CUMM (4-12)
[2022-03-01 03:24] LABS: INR 1.2
[2022-03-01 03:33] LABS: Alanine Aminotransferase 13 U/L (13-56); Albumin 2.4 G/DL (3.4-5.0); Alkaline Phosphatase 176 U/L (45-117); Aspartate Amino Transferase 9 U/L (0-37); Bilirubin,Total < 0.39 MG/DL (0.20-1.00); Blood Urea Nitrogen 27 MG/DL (7-18); Calcium 7.5 MG/DL (8.5-10.1); Carbon Dioxide 28 MMOL/L (21-32); Chloride 101 MMOL/L (98-107); Glucose 360 MG/DL (74-106); Potassium 4.1 MMOL/L (3.5-5.1); Sodium 136 MMOL/L (136-145); Total Protein 6.5 G/DL (6.4-8.2)
[2022-03-01] MEDS: BUDESONIDE 0.5 MG/2 ML NEB RESP TX SCH ×2 (08:30→19:20)
[2022-03-01] MEDS: DOXYCYCLINE HYCLATE 100 MG CAPSULE PO SCH ×2 (09:22→21:35)
[2022-03-01] MEDS: guaiFENesin/DM ER 600-30 MG TABLET PO SCH ×2 (09:22→21:35)
[2022-03-01] MEDS: PANTOPRAZOLE 40 MG TABLET PO SCH (09:22)
[2022-03-01] MEDS: ONDANSETRON 4 MG/2 ML VIAL IV PRN (09:23)
[2022-03-01] MEDS: INSULIN REGULAR 100 UNIT/ML SUBCUT SCH ×4 (09:27→21:35)
[2022-03-01] MEDS ORDERED: FUROSEMIDE 40 MG/4 ML VIAL IV ONE (13:14)
[2022-03-01] MEDS: LIDOCAINE 5% PATCH TRANSDERM SCH (14:35)
[2022-03-01] MEDS: HEPARIN DRIP 25,000 UNITS/500 ML PREMIX IV SCH (14:36)
[2022-03-01] MEDS: WARFARIN 7.5 MG TABLET PO SCH (17:46)
[2022-03-02] MEDS: ALBUTEROL/IPRATROPIUM 3 ML NEB RESP TX SCH ×4 (00:15→19:09)
[2022-03-02 06:44] LABS: Hemoglobin 9.4 GM/DL (12.0-16.0); Immature Granulocytes % 1.5 %; Immature Granulocytes Absolute 0.09 #; Lymphocytes # 0.5 10*3/uL (1.4-4.0); Lymphocytes % 8.1 % (21.3-54.2); Mean Corpuscular HGB Conc 29.4 GM/DL (32-36); Mean Corpuscular Volume 97.9 FL (87-102); Mean Platelet Volume 10.2 FL (9.6-12.0); Monocytes # 0.2 10*3/uL (0.11-0.8); Monocytes % 2.5 % (1.7-12.7); Neutrophils % 87.9 % (38.7-73.9); Platelet Count 232 T/CUMM (130-400); Red Blood Count 3.27 MC/CUMM (3.8-5.5); Red Cell Distribution Width 13.4 % (9.3-17.3); White Blood Count 5.9 T/CUMM (4-12)
[2022-03-02 06:53] LABS: INR 1.6
[2022-03-02 07:17] LABS: Alanine Aminotransferase 12 U/L (13-56); Albumin 2.5 G/DL (3.4-5.0); Alkaline Phosphatase 155 U/L (45-117); Aspartate Amino Transferase 9 U/L (0-37); Bilirubin,Total < 0.39 MG/DL (0.20-1.00); Blood Urea Nitrogen 45 MG/DL (7-18); Calcium 7.6 MG/DL (8.5-10.1); Carbon Dioxide 29 MMOL/L (21-32); Chloride 101 MMOL/L (98-107); Glucose 315 MG/DL (74-106); Sodium 136 MMOL/L (136-145); Total Protein 6.5 G/DL (6.4-8.2)
[2022-03-02] MEDS: BUDESONIDE 0.5 MG/2 ML NEB RESP TX SCH ×2 (07:41→19:09)
[2022-03-02] MEDS ORDERED: INSULIN GLARGINE 100 UNIT/ML SUBCUT ONE (08:24)
[2022-03-02] MEDS: guaiFENesin/DM ER 600-30 MG TABLET PO SCH ×2 (08:39→20:59)
[2022-03-02] MEDS: INSULIN REGULAR 100 UNIT/ML SUBCUT SCH ×4 (08:39→20:58)
[2022-03-02] MEDS: PANTOPRAZOLE 40 MG TABLET PO SCH (08:39)
[2022-03-02] MEDS: DOXYCYCLINE HYCLATE 100 MG CAPSULE PO SCH ×2 (08:39→20:59)
[2022-03-02] MEDS: LIDOCAINE 5% PATCH TRANSDERM SCH (08:40)
[2022-03-02] MEDS: methylPREDNISolone SOD SUC 40 MG/1 ML VIAL IV SCH (10:02)
[2022-03-02] MEDS: MORPHINE 2 MG/1 ML SYRINGE IV PRN ×3 (10:02→20:59)
[2022-03-02] MEDS: HEPARIN DRIP 25,000 UNITS/500 ML PREMIX IV SCH ×2 (14:12→15:56)
[2022-03-02] MEDS: WARFARIN 5 MG TABLET PO SCH (18:14)
[2022-03-03] MEDS: ALBUTEROL/IPRATROPIUM 3 ML NEB RESP TX SCH ×3 (00:37→13:20)
[2022-03-03 03:02] LABS: Eosinophils % 0.1 % (0.00-10.9); Hematocrit 31.5 VOL% (35.7-47.0); Hemoglobin 9.6 GM/DL (12.0-16.0); Immature Granulocytes % 1.2 %; Lymphocytes # 0.7 10*3/uL (1.4-4.0); Lymphocytes % 8.9 % (21.3-54.2); Mean Corpuscular HGB Conc 30.5 GM/DL (32-36); Mean Corpuscular Volume 95.7 FL (87-102); Mean Platelet Volume 9.5 FL (9.6-12.0); Monocytes # 0.5 10*3/uL (0.11-0.8); Monocytes % 6.4 % (1.7-12.7); Neutrophils % 83.4 % (38.7-73.9); Platelet Count 214 T/CUMM (130-400); Red Blood Count 3.29 MC/CUMM (3.8-5.5); Red Cell Distribution Width 13.5 % (9.3-17.3); White Blood Count 8.3 T/CUMM (4-12)
[2022-03-03 03:39] LABS: Alanine Aminotransferase 13 U/L (13-56); Albumin 2.4 G/DL (3.4-5.0); Alkaline Phosphatase 142 U/L (45-117); Aspartate Amino Transferase 9 U/L (0-37); Bilirubin,Total < 0.39 MG/DL (0.20-1.00); Blood Urea Nitrogen 58 MG/DL (7-18); Calcium 7.6 MG/DL (8.5-10.1); Carbon Dioxide 29 MMOL/L (21-32); Chloride 103 MMOL/L (98-107); Glucose 222 MG/DL (74-106); Osmolality,Calculated 297.7 MOS/KG (273-304); Potassium 4.2 MMOL/L (3.5-5.1); Sodium 138 MMOL/L (136-145)
[2022-03-03] MEDS: MORPHINE 2 MG/1 ML SYRINGE IV PRN ×3 (05:01→22:34)
[2022-03-03] MEDS: BUDESONIDE 0.5 MG/2 ML NEB RESP TX SCH (07:10)
[2022-03-03] MEDS: INSULIN REGULAR 100 UNIT/ML SUBCUT SCH ×4 (08:19→21:43)
[2022-03-03 12:14] LABS: % Iron Saturation 86.8 % (18-50)
[2022-03-03 12:23] LABS: Folate 4.6 NG/ML (5.38-24.0)
[2022-03-03] MEDS: guaiFENesin/DM ER 600-30 MG TABLET PO SCH ×2 (13:02→21:43)
[2022-03-03] MEDS: LIDOCAINE 5% PATCH TRANSDERM SCH (13:02)
[2022-03-03] MEDS: INSULIN GLARGINE 100 UNIT/ML SUBCUT SCH (13:02)
[2022-03-03] MEDS: PANTOPRAZOLE 40 MG TABLET PO SCH (13:02)
[2022-03-03] MEDS: DOXYCYCLINE HYCLATE 100 MG CAPSULE PO SCH ×2 (13:02→21:42)
[2022-03-03 13:08] LABS: INR 2.6; PT Patient Result 27.3 SECS (10.1-12.1)
[2022-03-03] MEDS: HEPARIN DRIP 25,000 UNITS/500 ML PREMIX IV SCH (16:10)
[2022-03-03] MEDS: SEVELAMER CARBONATE 800 MG TABLET PO SCH (18:12)
[2022-03-03] MEDS: WARFARIN 7.5 MG TABLET PO SCH (18:12)
[2022-03-03] MEDS: carvediloL 12.5 MG TABLET PO SCH (18:12)
[2022-03-03] MEDS ORDERED: NON-FORMULARY MEDICATION (Docusate Sodium Cap [Colace Cap] 100 MG) PO SCH (21:00)
[2022-03-03] MEDS: DOCUSATE SODIUM 100 MG CAPSULE PO SCH (21:43)
[2022-03-03] MEDS: FOLIC ACID 1 MG TABLET PO SCH (21:43)
[2022-03-03] MEDS: levETIRAcetam 500 MG TABLET PO SCH (21:43)
[2022-03-03] MEDS: GABAPENTIN 300 MG CAPSULE PO SCH (21:43)
[2022-03-04] MEDS: ALBUTEROL/IPRATROPIUM 3 ML NEB RESP TX SCH ×5 (01:30→18:45)
[2022-03-04 05:43] LABS: Basophils % 0.1 % (0.0-0.8); Eosinophils # 0.3 10*3/uL (0.0-0.87); Eosinophils % 3.5 % (0.00-10.9); Hemoglobin 9.4 GM/DL (12.0-16.0); Immature Granulocytes % 1.2 %; Immature Granulocytes Absolute 0.09 #; Lymphocytes # 1.8 10*3/uL (1.4-4.0); Lymphocytes % 23.7 % (21.3-54.2); Mean Corpuscular HGB Conc 29.4 GM/DL (32-36); Mean Corpuscular Volume 97.9 FL (87-102); Mean Platelet Volume 10.4 FL (9.6-12.0); Monocytes # 0.6 10*3/uL (0.11-0.8); Monocytes % 7.5 % (1.7-12.7); Platelet Count 234 T/CUMM (130-400); Red Blood Count 3.27 MC/CUMM (3.8-5.5); Red Cell Distribution Width 13.6 % (9.3-17.3); White Blood Count 7.5 T/CUMM (4-12)
[2022-03-04 05:57] LABS: INR 3.5; PT Patient Result 35.4 SECS (10.1-12.1)
[2022-03-04 06:06] LABS: Calcium 7.1 MG/DL (8.5-10.1); Osmolality,Calculated 286.5 MOS/KG (273-304); Potassium 4.3 MMOL/L (3.5-5.1); Risk Ratio 5.35; VLDL Cholesterol 28.6 MG/DL
[2022-03-04] MEDS: LEVOTHYROXINE 75 MCG TABLET PO SCH (06:42)
[2022-03-04] MEDS: INSULIN REGULAR 100 UNIT/ML SUBCUT SCH ×4 (07:30→20:17)
[2022-03-04] MEDS: BUDESONIDE 0.5 MG/2 ML NEB RESP TX SCH ×3 (07:47→18:45)
[2022-03-04] MEDS: carvediloL 12.5 MG TABLET PO SCH ×2 (08:06→17:57)
[2022-03-04] MEDS: SEVELAMER CARBONATE 800 MG TABLET PO SCH ×3 (08:06→17:57)
[2022-03-04] MEDS: ESCITALOPRAM 10 MG TABLET PO SCH (08:54)
[2022-03-04] MEDS: MONTELUKAST 10 MG TABLET PO SCH (08:54)
[2022-03-04] MEDS: PANTOPRAZOLE 40 MG TABLET PO SCH (08:54)
[2022-03-04] MEDS: guaiFENesin/DM ER 600-30 MG TABLET PO SCH ×2 (08:54→20:17)
[2022-03-04] MEDS: GABAPENTIN 300 MG CAPSULE PO SCH ×2 (08:54→20:17)
[2022-03-04] MEDS: amLODIPine 5 MG TABLET PO SCH (08:54)
[2022-03-04] MEDS: DOXYCYCLINE HYCLATE 100 MG CAPSULE PO SCH ×2 (08:54→20:16)
[2022-03-04] MEDS: levETIRAcetam 250 MG TABLET PO SCH (08:54)
[2022-03-04] MEDS: FOLIC ACID 1 MG TABLET PO SCH ×2 (08:54→20:17)
[2022-03-04] MEDS: LIDOCAINE 5% PATCH TRANSDERM SCH (08:55)
[2022-03-04] MEDS: MORPHINE 2 MG/1 ML SYRINGE IV PRN ×3 (08:55→23:01)
[2022-03-04] MEDS ORDERED: CHOLECALCIFEROL 1,000 UNIT TABLET PO SCH (09:00)
[2022-03-04] MEDS: (Fluticasone-Umeclidin-Vilanter [Trelegy Ellipta] 100-62.5-25 mcg INH SCH (09:42)
[2022-03-04] MEDS: DOCUSATE SODIUM 100 MG CAPSULE PO SCH ×2 (09:42→20:17)
[2022-03-04] MEDS: ONDANSETRON 4 MG/2 ML VIAL IV PRN ×2 (11:41→18:27)
[2022-03-04] MEDS: INSULIN GLARGINE 100 UNIT/ML SUBCUT SCH (13:16)
[2022-03-04] MEDS: ACETAMINOPHEN 325 MG TABLET PO PRN (18:26)
[2022-03-04] MEDS: levETIRAcetam 500 MG TABLET PO SCH (20:16)
[2022-03-04] MEDS: ATORVASTATIN 10 MG TABLET PO SCH (20:17)
[2022-03-05] MEDS: ALBUTEROL/IPRATROPIUM 3 ML NEB RESP TX SCH ×4 (00:20→19:28)
[2022-03-05 05:24] LABS: Basophils % 0.1 % (0.0-0.8); Eosinophils # 0.5 10*3/uL (0.0-0.87); Eosinophils % 6.2 % (0.00-10.9); Hematocrit 30.7 VOL% (35.7-47.0); Immature Granulocytes Absolute 0.08 #; Lymphocytes # 1.8 10*3/uL (1.4-4.0); Lymphocytes % 22.8 % (21.3-54.2); Mean Corpuscular HGB Conc 29.3 GM/DL (32-36); Mean Corpuscular Volume 100.3 FL (87-102); Mean Platelet Volume 10.3 FL (9.6-12.0); Monocytes # 0.3 10*3/uL (0.11-0.8); Monocytes % 4.2 % (1.7-12.7); Neutrophils % 65.7 % (38.7-73.9); Platelet Count 191 T/CUMM (130-400); Red Blood Count 3.06 MC/CUMM (3.8-5.5); Red Cell Distribution Width 13.7 % (9.3-17.3); White Blood Count 7.9 T/CUMM (4-12)
[2022-03-05 05:30] LABS: PT Patient Result 40.3 SECS (10.1-12.1)
[2022-03-05 05:47] LABS: Osmolality,Calculated 291.5 MOS/KG (273-304); Potassium 4.8 MMOL/L (3.5-5.1)
[2022-03-05] MEDS: LEVOTHYROXINE 75 MCG TABLET PO SCH (06:16)
[2022-03-05] MEDS: ACETAMINOPHEN 325 MG TABLET PO PRN (06:16)
[2022-03-05] MEDS: BUDESONIDE 0.5 MG/2 ML NEB RESP TX SCH ×2 (07:10→19:28)
[2022-03-05] MEDS: MORPHINE 2 MG/1 ML SYRINGE IV PRN ×3 (07:39→20:56)
[2022-03-05] MEDS: WARFARIN 5 MG TABLET PO SCH (09:27)
[2022-03-05] MEDS: INSULIN REGULAR 100 UNIT/ML SUBCUT SCH ×4 (12:45→21:02)
[2022-03-05] MEDS: SEVELAMER CARBONATE 800 MG TABLET PO SCH ×3 (12:45→18:02)
[2022-03-05] MEDS: levETIRAcetam 250 MG TABLET PO SCH (13:38)
[2022-03-05] MEDS: PANTOPRAZOLE 40 MG TABLET PO SCH (13:38)
[2022-03-05] MEDS: DOCUSATE SODIUM 100 MG CAPSULE PO SCH ×2 (13:38→20:55)
[2022-03-05] MEDS: guaiFENesin/DM ER 600-30 MG TABLET PO SCH ×2 (13:38→20:55)
[2022-03-05] MEDS: GABAPENTIN 300 MG CAPSULE PO SCH ×2 (13:38→20:56)
[2022-03-05] MEDS: DOXYCYCLINE HYCLATE 100 MG CAPSULE PO SCH ×2 (13:38→20:55)
[2022-03-05] MEDS: amLODIPine 5 MG TABLET PO SCH (13:39)
[2022-03-05] MEDS: MONTELUKAST 10 MG TABLET PO SCH (13:39)
[2022-03-05] MEDS: carvediloL 12.5 MG TABLET PO SCH ×2 (13:39→18:02)
[2022-03-05] MEDS: FOLIC ACID 1 MG TABLET PO SCH ×2 (13:39→20:56)
[2022-03-05] MEDS: ESCITALOPRAM 10 MG TABLET PO SCH (13:40)
[2022-03-05] MEDS: INSULIN GLARGINE 100 UNIT/ML SUBCUT SCH (13:40)
[2022-03-05] MEDS: LIDOCAINE 5% PATCH TRANSDERM SCH (13:41)
[2022-03-05] MEDS: ONDANSETRON 4 MG/2 ML VIAL IV PRN (16:02)
[2022-03-05] MEDS: (Fluticasone-Umeclidin-Vilanter [Trelegy Ellipta] 100-62.5-25 mcg INH SCH (17:08)
[2022-03-05] MEDS: ATORVASTATIN 10 MG TABLET PO SCH (20:56)
[2022-03-05] MEDS: levETIRAcetam 500 MG TABLET PO SCH (20:56)
[2022-03-06] MEDS: ALBUTEROL/IPRATROPIUM 3 ML NEB RESP TX SCH ×2 (00:28→07:19)
[2022-03-06] MEDS: MORPHINE 2 MG/1 ML SYRINGE IV PRN ×2 (04:59→09:05)
[2022-03-06 05:08] LABS: INR 3.3; PT Patient Result 33.5 SECS (10.1-12.1)
[2022-03-06] MEDS: LEVOTHYROXINE 75 MCG TABLET PO SCH (05:39)
[2022-03-06] MEDS: INSULIN REGULAR 100 UNIT/ML SUBCUT SCH (08:15)
[2022-03-06] MEDS: INSULIN GLARGINE 100 UNIT/ML SUBCUT SCH (09:04)
[2022-03-06] MEDS: LIDOCAINE 5% PATCH TRANSDERM SCH (09:04)
[2022-03-06] MEDS: levETIRAcetam 250 MG TABLET PO SCH (09:05)
[2022-03-06] MEDS: SEVELAMER CARBONATE 800 MG TABLET PO SCH (09:05)
[2022-03-06] MEDS: guaiFENesin/DM ER 600-30 MG TABLET PO SCH (09:05)
[2022-03-06] MEDS: GABAPENTIN 300 MG CAPSULE PO SCH (09:05)
[2022-03-06] MEDS: ESCITALOPRAM 10 MG TABLET PO SCH (09:05)
[2022-03-06] MEDS: FOLIC ACID 1 MG TABLET PO SCH (09:05)
[2022-03-06] MEDS: MONTELUKAST 10 MG TABLET PO SCH (09:05)
[2022-03-06] MEDS: DOXYCYCLINE HYCLATE 100 MG CAPSULE PO SCH (09:05)
[2022-03-06] MEDS: PANTOPRAZOLE 40 MG TABLET PO SCH (09:05)
[2022-03-06] MEDS: WARFARIN 5 MG TABLET PO SCH (09:06)
[2022-03-06] MEDS: DOCUSATE SODIUM 100 MG CAPSULE PO SCH (09:07)
[2022-03-06] MEDS: amLODIPine 5 MG TABLET PO SCH (09:10)
[2022-03-06] MEDS: carvediloL 12.5 MG TABLET PO SCH (09:43)
[2022-03-06] MEDS: (Fluticasone-Umeclidin-Vilanter [Trelegy Ellipta] 100-62.5-25 mcg INH SCH (10:27)
[2022-03-06 11:33] VITALS: BP 137/46
== END 2022-03-06 12:50 | disposition home health service (06) | DRG 190 ==
LOC: N.ED 12:32 → N.EDINP 12:32 → N.5E 16:29 → SUATTDRO 02-28 09:20
PROVIDERS: ADMIT Family Medicine; ATTEND Emergency Medicine

== ENCOUNTER 2022-05-03 08:26 | Inpatient (IN) ==
[2022-05-03] MEDS ORDERED: ALBUTEROL NEB SOLN 5 MG/ML 20 ML/BOTTLE CONT NEB SCH (09:30)
[2022-05-03 09:32] LABS: Basophils % 0.2 % (0.0-0.8); Eosinophils # 0.1 10*3/uL (0.0-0.87); Eosinophils % 0.8 % (0.00-10.9); Hematocrit 43.5 VOL% (35.7-47.0); Hemoglobin 12.6 GM/DL (12.0-16.0); Immature Granulocytes % 0.6 %; Immature Granulocytes Absolute 0.07 #; Lymphocytes # 1.5 10*3/uL (1.4-4.0); Mean Corpuscular Volume 98.6 FL (87-102); Mean Platelet Volume 10.1 FL (9.6-12.0); Monocytes # 0.8 10*3/uL (0.11-0.8); Monocytes % 6.7 % (1.7-12.7); Neutrophils % 79.7 % (38.7-73.9); Platelet Count 222 T/CUMM (130-400); Red Blood Count 4.41 MC/CUMM (3.8-5.5); Red Cell Distribution Width 14.6 % (9.3-17.3); White Blood Count 12.5 T/CUMM (4-12)
[2022-05-03 09:47] LABS: Albumin 2.2 G/DL (3.4-5.0); Bilirubin,Total 0.5 MG/DL (0.20-1.00); Calcium 7.1 MG/DL (8.5-10.1); Osmolality,Calculated 287.5 MOS/KG (273-304); Total Protein 6.2 G/DL (6.4-8.2)
[2022-05-03] MEDS ORDERED: ALBUTEROL 2.5 MG/3 ML NEB RESP TX ONE (09:53)
[2022-05-03] MEDS ORDERED: MEROPENEM 500 MG in SODIUM CHLORIDE 0.9% 100 ML IV ONE (12:45)
[2022-05-03] MEDS ORDERED: FUROSEMIDE 40 MG/4 ML VIAL IV STA (12:51)
[2022-05-03 13:00] LABS: Arterial Base Excess iSTAT 0 MMOL/L (-2.5-2.5); Arterial Bicarbonate iSTAT 31.1 MMOL/L (20-26); Arterial O2 Saturation iSTAT 81 % (95-100); Arterial PCO2 iSTAT 87 MM HG (35-48); Arterial PO2 iSTAT 60 MM HG (80-95); Arterial Total CO2 iSTAT 34 MMO/L (23-27); Arterial pH iSTAT 7.161 (7.35-7.45)
[2022-05-03] MEDS ORDERED: ONDANSETRON 4 MG/2 ML VIAL IV PRN (14:41)
[2022-05-03 15:15] LABS: Bilirubin,Urine Negative (Negative); Blood, Urine Negative (Negative); Glucose,Urine (UA) Negative (Negative); Ketones,Urine Negative (Negative); Nitrite,Urine Negative (Negative); Protein,Urine >=300 mg/dL (Negative); Urine Appearance Clear (Clear); Urine Color Yellow (Yellow); Urine Specific Gravity 1.025 (1.001-1.035); Urine Urobilinogen 0.2 eU/dL (<2.0)
[2022-05-03 15:17] LABS: Hyaline Casts,Urine 3 /LPF (0-3); Mucus,Urine Occasional /LPF (Occasional)
[2022-05-03] MEDS: ALBUTEROL 2.5 MG/3 ML NEB RESP TX PRN (16:22)
[2022-05-03] MEDS ORDERED: LEVOFLOXACIN 750 MG TABLET PO ONE (18:00)
[2022-05-03] MEDS ORDERED: HEPARIN 10,000 UNIT/10 ML VIAL IV SCH (20:15)
[2022-05-03] MEDS: ENOXAPARIN 30 MG/0.3 ML SYRINGE SUBCUT SCH (21:05)
[2022-05-03] MEDS: levETIRAcetam 500 MG TABLET PO SCH (21:05)
[2022-05-04 05:10] LABS: Calcium 7.2 MG/DL (8.5-10.1); Osmolality,Calculated 282.7 MOS/KG (273-304); Potassium 4.1 MMOL/L (3.5-5.1)
[2022-05-04 05:13] LABS: Basophils % 0.2 % (0.0-0.8); Eosinophils % 0.5 % (0.00-10.9); Hemoglobin 11.5 GM/DL (12.0-16.0); Immature Granulocytes % 0.7 %; Immature Granulocytes Absolute 0.06 #; Lymphocytes # 1.5 10*3/uL (1.4-4.0); Lymphocytes % 17.5 % (21.3-54.2); Mean Corpuscular HGB Conc 29.5 GM/DL (32-36); Mean Platelet Volume 10.4 FL (9.6-12.0); Monocytes # 0.5 10*3/uL (0.11-0.8); Neutrophils % 75.1 % (38.7-73.9); Platelet Count 201 T/CUMM (130-400); Red Blood Count 3.98 MC/CUMM (3.8-5.5); Red Cell Distribution Width 14.6 % (9.3-17.3); White Blood Count 8.53 T/CUMM (4-12)
[2022-05-04] MEDS: PANTOPRAZOLE 40 MG TABLET PO SCH (08:52)
[2022-05-04] MEDS: levETIRAcetam 500 MG TABLET PO SCH ×2 (08:52→20:19)
[2022-05-04] MEDS: LEVOTHYROXINE 75 MCG TABLET PO SCH (08:52)
[2022-05-04] MEDS ORDERED: FUROSEMIDE 40 MG/4 ML VIAL IV ONE (08:52)
[2022-05-04] MEDS ORDERED: FUROSEMIDE INJ 160 MG in SODIUM CHLORIDE 0.9% 50 ML IV ONE (10:00)
[2022-05-04] MEDS: ENOXAPARIN 30 MG/0.3 ML SYRINGE SUBCUT SCH (20:19)
[2022-05-05 05:21] LABS: Calcium 7.4 MG/DL (8.5-10.1); Osmolality,Calculated 284.7 MOS/KG (273-304); Potassium 4.1 MMOL/L (3.5-5.1)
[2022-05-05] MEDS: LEVOTHYROXINE 75 MCG TABLET PO SCH (08:07)
[2022-05-05] MEDS: PANTOPRAZOLE 40 MG TABLET PO SCH (08:07)
[2022-05-05] MEDS: levETIRAcetam 500 MG TABLET PO SCH ×2 (08:07→20:00)
[2022-05-05 09:32] LABS: Hepatitis B Core IgM Quant 0.06 Index; Hepatitis B Surface Ag Quant < 0.10 Index; Hepatitis B Surface Ag Result Non-Reactive (NonReactive); Hepatitis C Virus Ab Quant < 0.02 Index; Hepatitis C Virus Ab Result Non-Reactive (NonReactive)
[2022-05-05] MEDS ORDERED: LEVOFLOXACIN 500 MG TABLET PO SCH (18:00)
[2022-05-05] MEDS: ENOXAPARIN 30 MG/0.3 ML SYRINGE SUBCUT SCH (20:00)
[2022-05-06 05:17] LABS: Calcium 7.6 MG/DL (8.5-10.1); Osmolality,Calculated 291.7 MOS/KG (273-304); Potassium 3.7 MMOL/L (3.5-5.1)
[2022-05-06 05:34] LABS: Basophils % 0.4 % (0.0-0.8); Eosinophils # 0.1 10*3/uL (0.0-0.87); Eosinophils % 1.9 % (0.00-10.9); Hematocrit 39.5 VOL% (35.7-47.0); Hemoglobin 11.7 GM/DL (12.0-16.0); Immature Granulocytes % 0.7 %; Immature Granulocytes Absolute 0.05 #; Lymphocytes # 1.5 10*3/uL (1.4-4.0); Lymphocytes % 21.9 % (21.3-54.2); Mean Corpuscular HGB Conc 29.6 GM/DL (32-36); Mean Corpuscular Volume 95.4 FL (87-102); Mean Platelet Volume 9.5 FL (9.6-12.0); Monocytes # 0.7 10*3/uL (0.11-0.8); Monocytes % 9.7 % (1.7-12.7); Neutrophils % 65.4 % (38.7-73.9); Platelet Count 198 T/CUMM (130-400); Red Blood Count 4.14 MC/CUMM (3.8-5.5); Red Cell Distribution Width 14.7 % (9.3-17.3); White Blood Count 6.88 T/CUMM (4-12)
[2022-05-06] MEDS: levETIRAcetam 500 MG TABLET PO SCH ×2 (08:17→21:20)
[2022-05-06] MEDS: LEVOTHYROXINE 75 MCG TABLET PO SCH (08:17)
[2022-05-06] MEDS: PANTOPRAZOLE 40 MG TABLET PO SCH (08:17)
[2022-05-06] MEDS ORDERED: FUROSEMIDE 40 MG/4 ML VIAL IV ONE (08:28)
[2022-05-06] MEDS ORDERED: FUROSEMIDE INJ 160 MG in SODIUM CHLORIDE 0.9% 50 ML IV ONE (10:00)
[2022-05-06 15:34] VITALS: BP 133/54
[2022-05-06] MEDS: ENOXAPARIN 30 MG/0.3 ML SYRINGE SUBCUT SCH (21:20)
[2022-05-07] MEDS ORDERED: ALBUTEROL 1.25 MG/3 ML NEB RESP TX ONE (00:18)
[2022-05-07] MEDS: ALBUTEROL 2.5 MG/3 ML NEB RESP TX PRN (00:19)
[2022-05-07 04:49] LABS: Calcium 7.4 MG/DL (8.5-10.1); Osmolality,Calculated 286.1 MOS/KG (273-304); Potassium 3.9 MMOL/L (3.5-5.1)
[2022-05-07 04:50] LABS: Basophils % 0.5 % (0.0-0.8); Eosinophils # 0.3 10*3/uL (0.0-0.87); Eosinophils % 3.2 % (0.00-10.9); Hematocrit 41.2 VOL% (35.7-47.0); Hemoglobin 12.2 GM/DL (12.0-16.0); Immature Granulocytes % 0.9 %; Immature Granulocytes Absolute 0.07 #; Lymphocytes # 1.8 10*3/uL (1.4-4.0); Lymphocytes % 22.7 % (21.3-54.2); Mean Corpuscular HGB Conc 29.6 GM/DL (32-36); Mean Corpuscular Volume 95.6 FL (87-102); Mean Platelet Volume 9.4 FL (9.6-12.0); Monocytes # 0.7 10*3/uL (0.11-0.8); Neutrophils % 63.7 % (38.7-73.9); Platelet Count 201 T/CUMM (130-400); Red Blood Count 4.31 MC/CUMM (3.8-5.5); Red Cell Distribution Width 14.4 % (9.3-17.3); White Blood Count 7.79 T/CUMM (4-12)
[2022-05-07] MEDS: levETIRAcetam 500 MG TABLET PO SCH (08:19)
[2022-05-07] MEDS: PANTOPRAZOLE 40 MG TABLET PO SCH (08:19)
[2022-05-07] MEDS: LEVOTHYROXINE 75 MCG TABLET PO SCH (08:20)
== END 2022-05-07 14:35 | disposition home or self-care (01) | DRG 640 ==
LOC: N.ED 08:26 → N.ICU 13:04 → SUATTDRO 13:04 → N.ICU 15:58
PROVIDERS: ADMIT Internal Medicine; ATTEND Family Medicine

== ENCOUNTER 2022-05-25 08:58 | Inpatient (IN) ==
[2022-05-25 09:32] LABS: Arterial Base Excess iSTAT 4 MMOL/L (-2.5-2.5); Arterial Bicarbonate iSTAT 34.5 MMOL/L (20-26); Arterial O2 Saturation iSTAT 82 % (95-100); Arterial PCO2 iSTAT 85 MM HG (35-48); Arterial PO2 iSTAT 58 MM HG (80-95); Arterial Total CO2 iSTAT 37 MMO/L (23-27); Arterial pH iSTAT 7.216 (7.35-7.45)
[2022-05-25 09:39] LABS: Basophils % 0.4 % (0.0-0.8); Eosinophils # 0.1 10*3/uL (0.0-0.87); Eosinophils % 1.4 % (0.00-10.9); Hematocrit 42.1 VOL% (35.7-47.0); Hemoglobin 11.8 GM/DL (12.0-16.0); Immature Granulocytes % 0.6 %; Immature Granulocytes Absolute 0.04 #; Lymphocytes # 1.5 10*3/uL (1.4-4.0); Lymphocytes % 21.6 % (21.3-54.2); Mean Corpuscular Volume 102.7 FL (87-102); Monocytes # 0.5 10*3/uL (0.11-0.8); Monocytes % 7.1 % (1.7-12.7); Neutrophils % 68.9 % (38.7-73.9); Platelet Count 129 T/CUMM (130-400); Red Cell Distribution Width 13.7 % (9.3-17.3); White Blood Count 6.95 T/CUMM (4-12)
[2022-05-25 09:41] LABS: Alanine Aminotransferase 15 U/L (13-56); Albumin 2.6 G/DL (3.4-5.0); Alkaline Phosphatase 285 U/L (45-117); Aspartate Amino Transferase 17 U/L (0-37); Bilirubin,Total < 0.39 MG/DL (0.20-1.00); Blood Urea Nitrogen 19 MG/DL (7-18); Calcium 7.8 MG/DL (8.5-10.1); Carbon Dioxide 32 MMOL/L (21-32); Chloride 100 MMOL/L (98-107); Glucose 129 MG/DL (74-106); Osmolality,Calculated 276.8 MOS/KG (273-304); Potassium 4.1 MMOL/L (3.5-5.1); Sodium 137 MMOL/L (136-145); Total Protein 6.4 G/DL (6.4-8.2)
[2022-05-25 09:42] LABS: PT Patient Result 10.9 SECS (10.1-12.1)
[2022-05-25] MEDS ORDERED: cefTRIAXone 1,000 MG in SODIUM CHLORIDE 0.9% 100 ML IV STA (09:48)
[2022-05-25] MEDS ORDERED: AZITHROMYCIN INJ 500 MG in SODIUM CHLORIDE 0.9% 250 ML IV STA (09:48)
[2022-05-25] MEDS ORDERED: methylPREDNISolone SOD SUC 125 MG/2 ML VIAL IV STA (09:51)
[2022-05-25] MEDS ORDERED: ONDANSETRON 4 MG/2 ML VIAL IV PRN (10:21)
[2022-05-25] MEDS ORDERED: ALBUTEROL 2.5 MG/3 ML NEB RESP TX PRN (10:21)
[2022-05-25] MEDS ORDERED: ACETAMINOPHEN 325 MG TABLET PO PRN (10:21)
[2022-05-25] MEDS ORDERED: GLUCAGON 1 MG VIAL IM PRN (10:23)
[2022-05-25] MEDS ORDERED: DEXTROSE 10% 250 ML BAG IV PRN (10:23)
[2022-05-25] MEDS ORDERED: NITROGLYCERIN SL 0.4 MG TABLET SL PRN (10:25)
[2022-05-25] MEDS ORDERED: LEVOFLOXACIN INJ 750 MG/150 ML PREMIX IV ONE (11:00)
[2022-05-25 11:13] LABS: Arterial Base Excess iSTAT 4 MMOL/L (-2.5-2.5); Arterial Bicarbonate iSTAT 34.8 MMOL/L (20-26); Arterial O2 Saturation iSTAT 78 % (95-100); Arterial PCO2 iSTAT 89 MM HG (35-48); Arterial PO2 iSTAT 55 MM HG (80-95); Arterial Total CO2 iSTAT 37 MMO/L (23-27); Arterial pH iSTAT 7.203 (7.35-7.45)
[2022-05-25] MEDS: HEPARIN 5,000 UNIT/1 ML VIAL SUBCUT SCH ×2 (11:18→21:09)
[2022-05-25] MEDS: MORPHINE 2 MG/1 ML SYRINGE IV PRN ×5 (11:34→23:56)
[2022-05-25] MEDS: INSULIN LISPRO 100 UNIT/ML SUBCUT SCH ×3 (12:12→21:09)
[2022-05-25] MEDS: SEVELAMER CARBONATE 800 MG TABLET PO SCH ×2 (12:12→17:24)
[2022-05-25] MEDS: ALBUTEROL/IPRATROPIUM 3 ML NEB RESP TX SCH ×2 (12:30→18:59)
[2022-05-25 13:00] LABS: Bacteria,Urine Occasional /HPF (Few); Glucose,Urine (UA) Negative (Negative); Ketones,Urine Trace mg/dL (Negative); Protein,Urine >=300 mg/dL (Negative); RBC,Urine 1 /HPF (0-4); Urine Appearance Slightly Cloudy (Clear); Urine Color Yellow (Yellow); Urine Specific Gravity 1.025 (1.001-1.035); Urine pH 5.5 (4.5-8.0)
[2022-05-25 13:01] LABS: Bilirubin,Urine Small mg/dL (Negative); Blood, Urine Moderate mg/dL (Negative); Nitrite,Urine Negative (Negative); Urine Urobilinogen 0.2 eU/dL (<2.0)
[2022-05-25 15:22] LABS: Arterial Base Excess iSTAT 3 MMOL/L (-2.5-2.5); Arterial Bicarbonate iSTAT 32.8 MMOL/L (20-26); Arterial O2 Saturation iSTAT 88 % (95-100); Arterial PCO2 iSTAT 76 MM HG (35-48); Arterial PO2 iSTAT 67 MM HG (80-95); Arterial Total CO2 iSTAT 35 MMO/L (23-27); Arterial pH iSTAT 7.241 (7.35-7.45)
[2022-05-25 17:31] LABS: Arterial Base Excess iSTAT 3 MMOL/L (-2.5-2.5); Arterial Bicarbonate iSTAT 32.7 MMOL/L (20-26); Arterial O2 Saturation iSTAT 90 % (95-100); Arterial PCO2 iSTAT 76 MM HG (35-48); Arterial PO2 iSTAT 70 MM HG (80-95); Arterial Total CO2 iSTAT 35 MMO/L (23-27); Arterial pH iSTAT 7.243 (7.35-7.45)
[2022-05-25] MEDS: methylPREDNISolone SOD SUC 40 MG/1 ML VIAL IV SCH (17:39)
[2022-05-25] MEDS: levETIRAcetam 500 MG TABLET PO SCH (21:09)
[2022-05-25] MEDS: GABAPENTIN 300 MG CAPSULE PO SCH (21:09)
[2022-05-25] MEDS: ATORVASTATIN 10 MG TABLET PO SCH (21:10)
[2022-05-26] MEDS: ALBUTEROL/IPRATROPIUM 3 ML NEB RESP TX SCH ×4 (01:32→19:34)
[2022-05-26] MEDS: methylPREDNISolone SOD SUC 40 MG/1 ML VIAL IV SCH ×3 (02:23→17:33)
[2022-05-26] MEDS: MORPHINE 2 MG/1 ML SYRINGE IV PRN ×5 (03:39→20:13)
[2022-05-26 04:01] LABS: Arterial Base Excess iSTAT 3 MMOL/L (-2.5-2.5); Arterial Bicarbonate iSTAT 31.5 MMOL/L (20-26); Arterial O2 Saturation iSTAT 94 % (95-100); Arterial PCO2 iSTAT 63 MM HG (35-48); Arterial PO2 iSTAT 79 MM HG (80-95); Arterial Total CO2 iSTAT 33 MMO/L (23-27); Arterial pH iSTAT 7.306 (7.35-7.45)
[2022-05-26 05:07] LABS: Hematocrit 38.9 VOL% (35.7-47.0); Hemoglobin 11.6 GM/DL (12.0-16.0); Immature Granulocytes % 0.4 %; Immature Granulocytes Absolute 0.01 #; Lymphocytes # 0.5 10*3/uL (1.4-4.0); Lymphocytes % 19.4 % (21.3-54.2); Mean Corpuscular HGB Conc 29.8 GM/DL (32-36); Mean Platelet Volume 11.6 FL (9.6-12.0); Monocytes % 0.8 % (1.7-12.7); Neutrophils % 79.4 % (38.7-73.9); Platelet Count 126 T/CUMM (130-400); Red Blood Count 4.01 MC/CUMM (3.8-5.5); Red Cell Distribution Width 13.7 % (9.3-17.3); White Blood Count 2.58 T/CUMM (4-12)
[2022-05-26 05:27] LABS: Calcium 7.8 MG/DL (8.5-10.1); Osmolality,Calculated 275.5 MOS/KG (273-304); Potassium 4.2 MMOL/L (3.5-5.1)
[2022-05-26 06:04] VITALS: BP 148/72
[2022-05-26] MEDS: LEVOTHYROXINE 75 MCG TABLET PO SCH (06:30)
[2022-05-26] MEDS: HEPARIN 5,000 UNIT/1 ML VIAL SUBCUT SCH ×2 (08:44→20:13)
[2022-05-26] MEDS: INSULIN LISPRO 100 UNIT/ML SUBCUT SCH ×4 (08:44→20:12)
[2022-05-26] MEDS: cefTRIAXone 1,000 MG in SODIUM CHLORIDE 0.9% 100 ML IV SCH (08:44)
[2022-05-26] MEDS: amLODIPine 10 MG TABLET PO SCH (08:44)
[2022-05-26] MEDS: GABAPENTIN 300 MG CAPSULE PO SCH (08:46)
[2022-05-26] MEDS: SEVELAMER CARBONATE 800 MG TABLET PO SCH ×3 (08:46→17:34)
[2022-05-26] MEDS: TAMSULOSIN 0.4 MG CAPSULE PO SCH (08:47)
[2022-05-26] MEDS: levETIRAcetam 500 MG TABLET PO SCH ×2 (08:47→20:11)
[2022-05-26] MEDS: MONTELUKAST 10 MG TABLET PO SCH (08:47)
[2022-05-26] MEDS: PANTOPRAZOLE 40 MG TABLET PO SCH (08:47)
[2022-05-26] MEDS: ESCITALOPRAM 10 MG TABLET PO SCH (08:47)
[2022-05-26] MEDS: NON-FORMULARY MEDICATION (Fluticasone-Umeclidin-Vilanter [Trelegy Ellipta] 100-62.5-25 mcg INH SCH (10:19)
[2022-05-26] MEDS: ATORVASTATIN 10 MG TABLET PO SCH (20:11)
[2022-05-27] MEDS: MORPHINE 2 MG/1 ML SYRINGE IV PRN ×6 (00:17→19:34)
[2022-05-27] MEDS: ALBUTEROL/IPRATROPIUM 3 ML NEB RESP TX SCH ×4 (01:39→20:20)
[2022-05-27] MEDS: methylPREDNISolone SOD SUC 40 MG/1 ML VIAL IV SCH ×3 (03:13→21:12)
[2022-05-27 05:49] LABS: Hematocrit 37.1 VOL% (35.7-47.0); Hemoglobin 11.1 GM/DL (12.0-16.0); Immature Granulocytes % 0.5 %; Immature Granulocytes Absolute 0.02 #; Lymphocytes # 0.4 10*3/uL (1.4-4.0); Lymphocytes % 8.6 % (21.3-54.2); Mean Corpuscular HGB Conc 29.9 GM/DL (32-36); Mean Corpuscular Volume 96.4 FL (87-102); Mean Platelet Volume 11.6 FL (9.6-12.0); Monocytes # 0.1 10*3/uL (0.11-0.8); Monocytes % 2.2 % (1.7-12.7); Neutrophils % 88.7 % (38.7-73.9); Platelet Count 137 T/CUMM (130-400); Red Blood Count 3.85 MC/CUMM (3.8-5.5); Red Cell Distribution Width 14.3 % (9.3-17.3); White Blood Count 4.18 T/CUMM (4-12)
[2022-05-27 06:05] LABS: Calcium 7.9 MG/DL (8.5-10.1); Osmolality,Calculated 285.8 MOS/KG (273-304); Potassium 4.6 MMOL/L (3.5-5.1)
[2022-05-27] MEDS: LEVOTHYROXINE 75 MCG TABLET PO SCH (06:10)
[2022-05-27] MEDS: levETIRAcetam 500 MG TABLET PO SCH ×2 (08:16→21:11)
[2022-05-27] MEDS: HEPARIN 5,000 UNIT/1 ML VIAL SUBCUT SCH ×2 (08:16→21:12)
[2022-05-27] MEDS: TAMSULOSIN 0.4 MG CAPSULE PO SCH (08:16)
[2022-05-27] MEDS: INSULIN LISPRO 100 UNIT/ML SUBCUT SCH ×5 (08:17→21:45)
[2022-05-27] MEDS: GABAPENTIN 300 MG CAPSULE PO SCH (08:17)
[2022-05-27] MEDS: amLODIPine 10 MG TABLET PO SCH (08:19)
[2022-05-27] MEDS: cefTRIAXone 1,000 MG in SODIUM CHLORIDE 0.9% 100 ML IV SCH (08:19)
[2022-05-27] MEDS: MONTELUKAST 10 MG TABLET PO SCH (08:19)
[2022-05-27] MEDS: PANTOPRAZOLE 40 MG TABLET PO SCH (08:19)
[2022-05-27] MEDS: ESCITALOPRAM 10 MG TABLET PO SCH (08:19)
[2022-05-27] MEDS: SEVELAMER CARBONATE 800 MG TABLET PO SCH ×3 (08:19→18:34)
[2022-05-27] MEDS: NON-FORMULARY MEDICATION (Fluticasone-Umeclidin-Vilanter [Trelegy Ellipta] 100-62.5-25 mcg INH SCH (09:20)
[2022-05-27] MEDS: ATORVASTATIN 10 MG TABLET PO SCH (21:11)
[2022-05-28] MEDS: MORPHINE 2 MG/1 ML SYRINGE IV PRN ×3 (01:17→12:59)
[2022-05-28] MEDS: ALBUTEROL/IPRATROPIUM 3 ML NEB RESP TX SCH ×4 (01:49→19:27)
[2022-05-28 04:15] LABS: Hematocrit 36.6 VOL% (35.7-47.0); Hemoglobin 10.9 GM/DL (12.0-16.0); Immature Granulocytes % 0.8 %; Immature Granulocytes Absolute 0.04 #; Lymphocytes # 0.4 10*3/uL (1.4-4.0); Lymphocytes % 6.9 % (21.3-54.2); Mean Corpuscular HGB Conc 29.8 GM/DL (32-36); Mean Corpuscular Volume 96.3 FL (87-102); Mean Platelet Volume 11.2 FL (9.6-12.0); Monocytes # 0.1 10*3/uL (0.11-0.8); Monocytes % 2.3 % (1.7-12.7); Platelet Count 195 T/CUMM (130-400); Red Cell Distribution Width 14.3 % (9.3-17.3); White Blood Count 5.23 T/CUMM (4-12)
[2022-05-28 04:31] LABS: Calcium 7.4 MG/DL (8.5-10.1); Potassium 4.3 MMOL/L (3.5-5.1)
[2022-05-28] MEDS: LEVOTHYROXINE 75 MCG TABLET PO SCH (05:40)
[2022-05-28] MEDS: methylPREDNISolone SOD SUC 40 MG/1 ML VIAL IV SCH ×2 (08:22→20:12)
[2022-05-28] MEDS: INSULIN LISPRO 100 UNIT/ML SUBCUT SCH ×4 (08:22→21:29)
[2022-05-28] MEDS: SEVELAMER CARBONATE 800 MG TABLET PO SCH ×3 (08:25→17:00)
[2022-05-28] MEDS: GABAPENTIN 300 MG CAPSULE PO SCH (08:25)
[2022-05-28] MEDS: amLODIPine 10 MG TABLET PO SCH (08:26)
[2022-05-28] MEDS: ESCITALOPRAM 10 MG TABLET PO SCH (08:26)
[2022-05-28] MEDS: CHOLECALCIFEROL 1,000 UNIT TABLET PO SCH (08:26)
[2022-05-28] MEDS: levETIRAcetam 500 MG TABLET PO SCH ×2 (08:26→20:12)
[2022-05-28] MEDS: MONTELUKAST 10 MG TABLET PO SCH (08:26)
[2022-05-28] MEDS: TAMSULOSIN 0.4 MG CAPSULE PO SCH (08:27)
[2022-05-28] MEDS: cefTRIAXone 1,000 MG in SODIUM CHLORIDE 0.9% 100 ML IV SCH (08:27)
[2022-05-28] MEDS: PANTOPRAZOLE 40 MG TABLET PO SCH (08:27)
[2022-05-28] MEDS: HEPARIN 5,000 UNIT/1 ML VIAL SUBCUT SCH ×2 (08:28→20:11)
[2022-05-28] MEDS: NON-FORMULARY MEDICATION (Fluticasone-Umeclidin-Vilanter [Trelegy Ellipta] 100-62.5-25 mcg INH SCH (08:29)
[2022-05-28] MEDS ORDERED: HEPARIN 10,000 UNIT/10 ML VIAL IV PRN (11:32)
[2022-05-28] MEDS ORDERED: BISACODYL 5 MG TABLET PO ONE (12:41)
[2022-05-28] MEDS: INSULIN GLARGINE 100 UNIT/ML SUBCUT SCH (13:00)
[2022-05-28] MEDS: DOCUSATE SODIUM 100 MG CAPSULE PO SCH (13:02)
[2022-05-28] MEDS: ATORVASTATIN 10 MG TABLET PO SCH (20:13)
[2022-05-29] MEDS: ALBUTEROL/IPRATROPIUM 3 ML NEB RESP TX SCH ×3 (01:02→12:48)
[2022-05-29] MEDS: LEVOTHYROXINE 75 MCG TABLET PO SCH (05:33)
[2022-05-29 06:02] LABS: Calcium 7.8 MG/DL (8.5-10.1); Osmolality,Calculated 289.1 MOS/KG (273-304); Potassium 3.9 MMOL/L (3.5-5.1)
[2022-05-29 06:27] LABS: Immature Granulocytes % 0.9 %; Immature Granulocytes Absolute 0.04 #; Lymphocytes # 0.3 10*3/uL (1.4-4.0); Lymphocytes % 6.2 % (21.3-54.2); Mean Corpuscular HGB Conc 29.7 GM/DL (32-36); Mean Corpuscular Volume 95.8 FL (87-102); Mean Platelet Volume 11.2 FL (9.6-12.0); Monocytes # 0.1 10*3/uL (0.11-0.8); Neutrophils % 90.9 % (38.7-73.9); Platelet Count 156 T/CUMM (130-400); Red Blood Count 4.25 MC/CUMM (3.8-5.5); Red Cell Distribution Width 14.3 % (9.3-17.3); White Blood Count 4.52 T/CUMM (4-12)
[2022-05-29 06:28] LABS: Hematocrit 40.7 VOL% (35.7-47.0)
[2022-05-29 06:36] LABS: Hemoglobin 12.1 GM/DL (12.0-16.0)
[2022-05-29 06:38] LABS: Band Neutrophils 1 % (0-10); Lymphocytes 6 % (20-55); Platelet Estimate Adequate; Total Cells Counted 100
[2022-05-29] MEDS: SEVELAMER CARBONATE 800 MG TABLET PO SCH ×2 (07:18→12:35)
[2022-05-29] MEDS: MORPHINE 2 MG/1 ML SYRINGE IV PRN ×2 (07:19→12:38)
[2022-05-29] MEDS: cefTRIAXone 1,000 MG in SODIUM CHLORIDE 0.9% 100 ML IV SCH (07:20)
[2022-05-29] MEDS: HEPARIN 5,000 UNIT/1 ML VIAL SUBCUT SCH (08:41)
[2022-05-29] MEDS: INSULIN LISPRO 100 UNIT/ML SUBCUT SCH ×2 (08:41→12:36)
[2022-05-29] MEDS: CHOLECALCIFEROL 1,000 UNIT TABLET PO SCH (08:43)
[2022-05-29] MEDS: PANTOPRAZOLE 40 MG TABLET PO SCH (08:43)
[2022-05-29] MEDS: amLODIPine 10 MG TABLET PO SCH (08:43)
[2022-05-29] MEDS: MONTELUKAST 10 MG TABLET PO SCH (08:43)
[2022-05-29] MEDS: GABAPENTIN 300 MG CAPSULE PO SCH (08:43)
[2022-05-29] MEDS: INSULIN GLARGINE 100 UNIT/ML SUBCUT SCH (08:43)
[2022-05-29] MEDS: DOCUSATE SODIUM 100 MG CAPSULE PO SCH (08:43)
[2022-05-29] MEDS: TAMSULOSIN 0.4 MG CAPSULE PO SCH (08:44)
[2022-05-29] MEDS: ESCITALOPRAM 10 MG TABLET PO SCH (08:44)
[2022-05-29] MEDS: levETIRAcetam 500 MG TABLET PO SCH (08:44)
[2022-05-29] MEDS: NON-FORMULARY MEDICATION (Fluticasone-Umeclidin-Vilanter [Trelegy Ellipta] 100-62.5-25 mcg INH SCH (08:44)
[2022-05-29] MEDS ORDERED: methylPREDNISolone SOD SUC 40 MG/1 ML VIAL IV SCH (09:00)
== END 2022-05-29 15:26 | disposition home health service (06) | DRG 291 ==
LOC: N.ED 08:58 → N.ICU 10:21 → SUATTDRO 10:21 → N.ICU 10:45
PROVIDERS: ADMIT Internal Medicine; ATTEND Internal Medicine